=== PATIENT | female | born 1935 | race American Indian/Alaskan Native ===

== ENCOUNTER 2017-01-12 01:26 | Inpatient (IN) | payer MEDICARE ==
--- NOTE | 2017-01-12 03:08 | Emergency Department Report ---
ED GI Bleed HPI - General Chief complaint: GI Bleed Stated complaint: VOMITING Time Seen by Provider: 01/12/17 02:57 Source: EMS Mode of arrival: Stretcher Limitations: Physical Limitation, Other (ED caveat for dementia.) - History of Present Illness Initial comments: This is a 81-year-old female brought in by EMS from [facility] due to one episode of coffee-ground emesis. The patient has history of dementia. She is noncontributory in the history portion. Family members are at the bedside. They're very knowledgeable guarding the patient's medical history. Daughter indicates that the patient had have colonoscopy done just recently that which was unremarkable in general but for some area in the perirectal region the demonstrated some slight irritation and bleeding. This was thought to be due to constipation which the patient does suffer from. Patient did not have endoscopy performed. She is not having rectal bleeding but for occasional bright red blood with constipation. Patient does have occasional history of gaseous distention with abdominal pains. This was actually occurring earlier in the day today. Daughter indicates no history that she is aware of upper GI bleed. Patient does take Prevacid daily. I am not sure for the reason. According to the daughter the patient does not seem to be uncomfortable or complaining of specific pains at this time. - Related Data Home Medications Medication Instructions Recorded Confirmed Last Taken Aspirin EC [Aspirin Enteric Coated 81 mg PO QDAY 08/27/15 08/28/15 08/27/15 TAB] Cyanocobalamin (Vitamin B-12) 1,000 mcg SL QDAY 08/27/15 08/28/15 08/27/15 [Vitamin B-12] Doxazosin Mesylate [Cardura] 2 mg PO QHS 08/27/15 08/28/15 08/27/15 Escitalopram [Lexapro] 10 mg PO QHS 08/27/15 08/28/15 08/27/15 Lansoprazole [Prevacid] 15 mg PO QDAY 08/27/15 08/28/15 08/27/15 Memantine HCl [Namenda] 5 mg PO QHS 08/27/15 08/28/15 08/27/15 Pravastatin (Nf) [Pravachol] 20 mg PO QHS 08/27/15 08/28/15 08/27/15 predniSONE [Deltasone] 5 mg PO Q48HR 08/27/15 08/28/15 08/27/15 Previous Rx's Medication Instructions Recorded Last Taken Type Aspirin EC [Aspirin Enteric Coated 81 mg PO QDAY tablet 08/30/15 Unknown Rx TAB] Calcitriol [Rocaltrol] 1 mcg PO Q48HR #15 capsule 08/30/15 Unknown Rx Doxazosin [Cardura] 2 mg PO QHS tablet 08/30/15 Unknown Rx Labetalol [Normodyne TAB] 300 mg PO BID #60 tablet 08/30/15 Unknown Rx Levothyroxine [Synthroid] 25 mcg PO QAM #30 tablet 08/30/15 Unknown Rx Memantine Xr [Namenda Xr] 7 mg PO QHS #30 cap 08/30/15 Unknown Rx Pantoprazole [Protonix TAB] 20 mg PO QDAY #30 tablet.dr 08/30/15 Unknown Rx Simvastatin [Zocor TAB] 10 mg PO QHS #30 tablet 08/30/15 Unknown Rx Temazepam [Restoril] 30 mg PO QHS PRN #30 capsule 08/30/15 Unknown Rx azaTHIOprine [Imuran] 50 mg PO QDAY #30 tablet 08/30/15 Unknown Rx cloNIDine-TTS PATCH [Catapres-Tts 0.3 mg TD Q7D #4 patch 08/30/15 Unknown Rx Patch] hydrALAZINE [Apresoline TAB] 25 mg PO BID #60 tablet 08/30/15 Unknown Rx traMADol [Ultram 50 MG tab] 50 mg PO Q4HR PRN #60 tablet 08/30/15 Unknown Rx Allergies Allergy/AdvReac Type Severity Reaction Status Date / Time warfarin sodium AdvReac Mild Bleeding Verified 11/29/14 15:19 [From Coumadin] aliskiren hemifumarate AdvReac Rash Verified 06/15/15 07:34 [From Tekturna] ramipril [From Altace] AdvReac Rash Verified 06/15/15 07:34 ED Review of Systems ROS: Stated complaint: VOMITING Other details as noted in HPI Comment: her daughter Constitutional: denies: chills, fever Eyes: denies: eye pain, eye discharge, vision change ENT: denies: ear pain, throat pain Respiratory: denies: cough, shortness of breath, wheezing Cardiovascular: denies: chest pain, palpitations Endocrine: no symptoms reported Gastrointestinal: vomiting (per care facility), constipation. denies: abdominal pain, nausea, diarrhea Genitourinary: denies: urgency, dysuria, discharge Musculoskeletal: denies: back pain, joint swelling, arthralgia Skin: denies: rash, lesions Neurological: denies: headache, weakness, paresthesias Psychiatric: denies: anxiety, depression Hematological/Lymphatic: denies: easy bleeding, easy bruising ED Past Medical Hx - Past Medical History Previous Medical History?: Yes Hx Hypertension: Yes Hx Diabetes: No Hx Deep Vein Thrombosis: No Hx GERD: Yes Hx Arthritis: Yes Hx Headaches / Migraines: Yes Hx COPD: No Hx Tuberculosis: No Hx Dementia: Yes Hx HIV: No Additional medical history: high cholesterol, hypothyroid - Surgical History Past Surgical History?: Yes Hx Pacemaker: Yes (05/2011) Additional Surgical History: hysterectomy, , hernia repair - Social History Smoking Status: Never Smoker - Medications Home Medications: Home Medications Medication Instructions Recorded Confirmed Last Taken Type Aspirin EC [Aspirin Enteric Coated 81 mg PO QDAY 08/27/15 08/28/15 08/27/15 History TAB] Cyanocobalamin (Vitamin B-12) 1,000 mcg SL QDAY 08/27/15 08/28/15 08/27/15 History [Vitamin B-12] Doxazosin Mesylate [Cardura] 2 mg PO QHS 08/27/15 08/28/15 08/27/15 History Escitalopram [Lexapro] 10 mg PO QHS 08/27/15 08/28/15 08/27/15 History Lansoprazole [Prevacid] 15 mg PO QDAY 08/27/15 08/28/15 08/27/15 History Memantine HCl [Namenda] 5 mg PO QHS 08/27/15 08/28/15 08/27/15 History Pravastatin (Nf) [Pravachol] 20 mg PO QHS 08/27/15 08/28/15 08/27/15 History predniSONE [Deltasone] 5 mg PO Q48HR 08/27/15 08/28/15 08/27/15 History Aspirin EC [Aspirin Enteric Coated 81 mg PO QDAY tablet 08/30/15 Unknown Rx TAB] Calcitriol [Rocaltrol] 1 mcg PO Q48HR #15 capsule 12/24/15 Unknown Rx Doxazosin [Cardura] 2 mg PO QHS tablet 08/30/15 Unknown Rx Labetalol [Normodyne TAB] 300 mg PO BID #60 tablet 08/30/15 Unknown Rx Levothyroxine [Synthroid] 25 mcg PO QAM #30 tablet 08/30/15 Unknown Rx Memantine Xr [Namenda Xr] 7 mg PO QHS #30 cap 08/30/15 Unknown Rx Pantoprazole [Protonix TAB] 20 mg PO QDAY #30 tablet.dr 08/30/15 Unknown Rx Simvastatin [Zocor TAB] 10 mg PO QHS #30 tablet 08/30/15 Unknown Rx Temazepam [Restoril] 30 mg PO QHS PRN #30 capsule 08/30/15 Unknown Rx azaTHIOprine [Imuran] 50 mg PO QDAY #30 tablet 08/30/15 Unknown Rx cloNIDine-TTS PATCH [Catapres-Tts 0.3 mg TD Q7D #4 patch 08/30/15 Unknown Rx Patch] hydrALAZINE [Apresoline TAB] 25 mg PO BID #60 tablet 08/30/15 Unknown Rx traMADol [Ultram 50 MG tab] 50 mg PO Q4HR PRN #60 tablet 08/30/15 Unknown Rx ED Physical Exam - General Limitations: Physical Limitation General appearance: alert, in no apparent distress - Head Head exam: Present: atraumatic, normocephalic - Eye Eye exam: Present: normal appearance, EOMI. Absent: scleral icterus - ENT ENT exam: Present: normal exam, normal orophraynx, mucous membranes moist - Neck Neck exam: Present: normal inspection. Absent: tenderness, lymphadenopathy - Respiratory Respiratory exam: Present: normal lung sounds bilaterally. Absent: wheezes, rales - Cardiovascular Cardiovascular Exam: Present: regular rate, normal rhythm, systolic murmur, diastolic murmur - GI/Abdominal GI/Abdominal exam: Present: soft, normal bowel sounds. Absent: tenderness, guarding, rebound - Rectal Rectal exam: Present: other (stool heme negative) - Extremities Exam Extremities exam: Present: pedal edema (trace. Equal distal pedal pulses) - Back Exam Back exam: Present: normal inspection. Absent: CVA tenderness (R), CVA tenderness (L), paraspinal tenderness - Neurological Exam Neurological exam: Present: alert, other (smiles at me and is aware of my presence in the room. Does not respond to questions. Does not give any verbal cues or responses to me.) ED Course Vital Signs 01/12/17 01/12/17 01/12/17 01:51 01:58 02:00 Temperature 98.7 F Pulse Rate 65 Blood Pressure 154/76 154/67 154/67 O2 Sat by Pulse 99 Oximetry - Reevaluation(s) Reevaluation #1: 01/12/17 04:59 Noted to be mildly hypertensive here. Heart rate is normal at 66. She appears quite comfortable in general. Abdomen is quite soft. Was observed here for several hours. No further emesis noted here. She did have large bowel movement while here. This was noted to be guaiac negative. BUS and is 20. This is mildly elevated and could indicate upper GI bleed though it's not that impressive. She is noted to be hyponatremic. She appears euvolemic in general. I did elect to give her some IV fluids regardless. I did start her on pantoprazole bolus. I have not chosen to do a drip is I'm not seeing ongoing bleeding at this time. I did speak with Dr. Mejia from hospitalist service for admission. Family is agreeable with this plan as well. ED Medical Decision Making - Lab Data Result diagrams: 01/12/17 03:18 01/12/17 03:18 Critical care attestation.: If time is entered above; I have spent that time in minutes in the direct care of this critically ill patient, excluding procedure time. ED Disposition Clinical Impression: Upper GI bleed, Hyponatremia Disposition: OP ADMITTED IP TO THIS HOSP Is pt being admited?: Yes Does the pt Need Aspirin: No Condition: Stable Referrals: PRIMARY CARE, [Primary Care Provider] - 3-5 Days Forms: Accompanied Note Time of Disposition: 04:45
[2017-01-12 03:53] LABS: Basophils % (Auto) 0.6 % (0.0-1.8); Eosinophils % (Auto) 1.6 % (0.0-4.3); Hematocrit 30.9 % (30.3-42.9); Hemoglobin 10.3 gm/dl (10.1-14.3); Mean Corpuscular HGB Conc 33 % (30-34); Mean Corpuscular Hemoglobin 33 pg (28-32); Mean Corpuscular Volume 99 fl (79-97); Platelet Count 178 K/mm3 (140-440); Red Blood Count 3.11 M/mm3 (3.65-5.03); Red Cell Distribution Width 17.7 % (13.2-15.2); White Blood Count 4.2 K/mm3 (4.5-11.0)
[2017-01-12 03:56] LABS: Alanine Aminotransferase 12 units/L (7-56); Albumin 3.2 g/dL (3.9-5); Alkaline Phosphatase 41 units/L (35-129); Anion Gap 15 mmol/L; Blood Urea Nitrogen 20 mg/dL (7-17); Calcium 8.3 mg/dL (8.4-10.2); Carbon Dioxide 22 mmol/L (22-30); Chloride 96.6 mmol/L (98-107); Glucose 93 mg/dL (65-100); Sodium 130 mmol/L (137-145); Total Protein 6.5 g/dL (6.3-8.2)
[2017-01-12 04:02] LABS: INR 0.97 (0.87-1.13)
[2017-01-12] MEDS ORDERED: PROTONIX IV ONE ×2 (04:44→05:36)
[2017-01-12] MEDS ORDERED: NACL 0.9% 1000 ML 1,000 ML IV ONE (04:44)
[2017-01-12] MEDS ORDERED: DULCOLAX PR PRN (05:15)
[2017-01-12] MEDS ORDERED: MILK OF MAGNESIA PO PRN (05:15)
[2017-01-12] MEDS ORDERED: ZOFRAN IV PRN (05:15)
[2017-01-12] MEDS ORDERED: NACL 0.9% 1000 ML 1,000 ML ONE (05:37)
--- NOTE | 2017-01-12 05:57 | History and Physical Report ---
History of Present Illness Date of examination: 01/12/17 History of present illness: 81 -year-old woman with a history of hypertension, dementia, hyperlipidemia, hypothyroidism comes emergency room with complaints of hematemesis per the alf. Patient is unable to give a history. Daughter at bedside stated that patient had a recent colonoscopy, blood was found in the rectal vault, she is scheduled for follow-up with a specialist. Other review of system is unobtainable PAST SURGICAL HISTORY: , hernia repair, pacemaker SOCIAL HISTORY: intermediate resident, no alcohol, tobacco, drugs FAMILY HISTORY: hypertension Medications and Allergies Allergies Allergy/AdvReac Type Severity Reaction Status Date / Time warfarin sodium AdvReac Mild Bleeding Verified 11/29/14 15:19 [From Coumadin] aliskiren hemifumarate AdvReac Rash Verified 06/15/15 07:34 [From Tekturna] ramipril [From Altace] AdvReac Rash Verified 06/15/15 07:34 Home Medications Medication Instructions Recorded Confirmed Last Taken Type Aspirin EC [Aspirin Enteric Coated 81 mg PO QDAY 08/27/15 08/28/15 08/27/15 History TAB] Cyanocobalamin (Vitamin B-12) 1,000 mcg SL QDAY 08/27/15 01/12/17 08/27/15 History [Vitamin B-12] Doxazosin Mesylate [Cardura] 2 mg PO QHS 08/27/15 08/28/15 08/27/15 History Escitalopram [Lexapro] 10 mg PO QHS 08/27/15 01/12/17 08/27/15 History Lansoprazole [Prevacid] 15 mg PO QDAY 08/27/15 01/12/17 08/27/15 History Memantine HCl [Namenda] 5 mg PO QHS 08/27/15 08/28/15 08/27/15 History Pravastatin (Nf) [Pravachol] 20 mg PO QHS 08/27/15 01/12/17 08/27/15 History predniSONE [Deltasone] 5 mg PO Q48HR 08/27/15 01/12/17 01/11/17 History Aspirin EC [Aspirin Enteric Coated 81 mg PO QDAY tablet 08/30/15 01/12/17 Unknown Rx TAB] Calcitriol [Rocaltrol] 1 mcg PO Q48HR #15 capsule 08/30/15 01/12/17 Unknown Rx Doxazosin [Cardura] 2 mg PO QHS tablet 08/30/15 01/12/17 Unknown Rx Labetalol [Normodyne TAB] 300 mg PO BID #60 tablet 08/30/15 01/12/17 Unknown Rx Levothyroxine [Synthroid] 25 mcg PO QAM #30 tablet 08/30/15 01/12/17 Unknown Rx Memantine Xr [Namenda Xr] 7 mg PO QHS #30 cap 08/30/15 01/12/17 Unknown Rx Pantoprazole [Protonix TAB] 20 mg PO QDAY #30 tablet. 08/30/15 01/12/17 Unknown Rx Simvastatin [Zocor TAB] 10 mg PO QHS #30 tablet 08/30/15 01/12/17 Unknown Rx Temazepam [Restoril] 30 mg PO QHS PRN #30 capsule 08/30/15 01/12/17 Unknown Rx azaTHIOprine [Imuran] 50 mg PO QDAY #30 tablet 08/30/15 01/12/17 Unknown Rx cloNIDine-TTS PATCH [Catapres-Tts 0.3 mg TD Q7D #4 patch 08/30/15 01/12/17 Unknown Rx Patch] hydrALAZINE [Apresoline TAB] 25 mg PO BID #60 tablet 08/30/15 01/12/17 Unknown Rx traMADol [Ultram 50 MG tab] 50 mg PO Q4HR PRN #60 tablet 08/30/15 01/12/1701/11 Rx Active Meds: Active Medications Bisacodyl (Dulcolax) 10 mg DE QDAY PRN PRN Reason: [place] [facility] [place] Calcitriol (Rocaltrol) 1 mcg PO Q48HR DAVIDE Escitalopram Oxalate (Lexapro) 10 mg PO QHS DAVIDE Sodium Chloride (Nacl 0.45% 1000 Ml) 1,000 mls @ 75 mls/hr IV DIRECT DAVIDE Levothyroxine Sodium (Synthroid) 25 mcg PO QAM DAVIDE Magnesium Hydroxide (Milk Of Magnesia) 30 ml PO Q4H PRN PRN Reason: Constipation Ondansetron HCl (Zofran) 4 mg IV Q8H PRN PRN Reason: N/V unrelieved by Reglan Pantoprazole Sodium (Protonix) 40 mg IV DAILY DAVIDE Exam - Physical Exam Narrative exam: Gen. appearance: Patient lying in bed, no apparent distress HEENT: Normocephalic, atraumatic, pupils equally round and reactive to light, extraocular movement intact, and no sclericterus,. No JVD or thyromegaly or nodule,neck supple, no carotid bruit ,mucous membranes moist, no exudate or erythema Heart: S1, S2, regular rate and rhythm Lungs: Clear to auscultation bilaterally, breathing comfortable Abdomen: Positive bowel sounds, nontender, nondistended, no organomegaly Extremity: No edema, cyanosis, clubbing Skin: No rash, nodules, warm, dry Neuro: Oriented 3, cranial nerves II-12 intact, speech is fluent, motor and sensory intact - Constitutional Vitals: Temp Pulse Resp BP Pulse Ox 98.7 F 65 154/67 99 01/12/17 01:51 01/12/17 01:51 01/12/17 02:00 01/12/17 02:00 Results - Labs CBC & Chem 7: 01/12/17 03:18 01/12/17 03:18 Labs: Abnormal lab results 01/12/17 01/12/17 Range/Units 03:18 03:18 WBC 4.2 L (4.5-11.0) K/mm3 RBC 3.11 L (3.65-5.03) M/mm3 MCV 99 H (79-97) fl MCH 33 H (28-32) pg RDW 17.7 H (13.2-15.2) % Lymph % (Auto) 12.4 L (13.4-35.0) % [place] % (Auto) 9.8 H (0.0-7.3) % Lymph # 0.5 L (1.2-5.4) K/mm3 Seg Neutrophils % 75.6 H (40.0-70.0) % Sodium 130 L (137-145) mmol/L Chloride 96.6 L (98-107) mmol/L BUN 20 H (7-17) mg/dL Calcium 8.3 L (8.4-10.2) mg/dL Albumin 3.2 L (3.9-5) g/dL - Imaging and Cardiology EKG: image reviewed Assessment and Plan Of HEENT, probably also Hypertension Dementia Hyperlipidemia Hypothyroidism Emits medicine Start IV fluids, Protonix, consult GI, check serial hemoglobin continue appropiate outpatient medications Start DVT prophylaxis with SCD
[2017-01-12] MEDS ORDERED: NACL 0.45% 1000 ML 1,000 ML IV SCH (06:00)
--- NOTE | 2017-01-12 07:52 | Admit Criteria Form ---
Admission Criteria Documentation: GASTROINTESTINAL BLEEDING, UPPER Clinical Indications for Admission to Inpatient Care ( Place 'X' for any and all applicable criteria): Admission is indicated for ANY ONE of the following(1)(2)(3)(4)(5)(6): [ ]I. Active bleeding (eg, fresh voluminous blood in emesis or nasogastric aspirate) [ ]II. Associated conditions requiring hospitalization (eg, perforation, obstruction from ulcer) [X]III. Inpatient admission required rather than observation care (Also use Gastrointestinal Bleeding, Upper: Observation Care as appropriate) because of ANY ONE of the following: [ ]a) Hemodynamic instability that is severe or persistent [ ]b) Anemia requiring inpatient admission as indicated by ALL of the following: [ ]1) Presence of significant clinical finding indicated by ANY ONE of the following: [ ]A. Tachycardia for age [ ]B. Orthostatic vital sign changes [ ]C. Cognitive impairment [ ]D. Heart failure [ ]E. Chest pain [ ]F. Exertional dyspnea [ ]G. Other findings suggesting inadequate perfusion (eg, peripheral or myocardial ischemia, end organ dysfunction) [ ]2) Initial (eg, emergency department, observation care) treatment with transfusion or volume replacement is judged inappropriate (due to severity of the finding) or has been ineffective [ ]c) Severe pain requiring acute inpatient management [ ]d) High-risk low platelet count [ ]e) IV fluid to replace significant ongoing losses (greater than 3 L/m2 per day) [ ]f) Immediate inpatient surgery [X]g) Other condition, treatment or monitoring requiring inpatient admission [ ]IV. Severe liver disease (eg, cirrhosis) [ ]V. Significant active comorbid disease [ ]. Anticoagulation therapy [ ]VII. High-risk endoscopic features (arterial bleeding, adherent clot, nonbleeding visible vessel, varices, flat red spots, ulcer size greater than 2 cm, or portal hypertensive gastropathy) [ ]VIII. Previous aortic graft placement or known aortic aneurysm [ ]IX. Coagulopathy [ ]X. Syncope Extended stay beyond goal length of stay may be needed for(1)(2): [ ]a) Emergency surgery [ ]b) Varices [ ]c) Coagulation abnormalities [ ]d) Recurrent, obscure, or persistent bleeding or continued Hemodynamic instability [ ]e) Associated conditions requiring surgery (eg, perforated gastric ulcer, gastric outlet obstruction) [ ]f) Active comorbidities (eg, renal insufficiency, heart failure, pre- existing liver disease) The original [facility] [employer]. content created by [facility] has been revised. The portions of the content which have been revised are identified through the use of italic text or in bold, and [facility] has neither reviewed nor approved the modified material. All other unmodified content is copyright [facility] [employer]. Please see references footnoted in the original [facility] [employer] edition 2016 Admission Criteria Met: Yes
[2017-01-12] MEDS ORDERED: ROCALTROL PO SCH (10:00)
[2017-01-12] MEDS ORDERED: PROTONIX IV SCH (10:00)
[2017-01-12 10:30] LABS: Hematocrit 27.8 % (30.3-42.9); Hemoglobin 9.4 gm/dl (10.1-14.3)
[2017-01-12] MEDS ORDERED: D5/0.45NS 1,000 ML IV SCH (11:00)
[2017-01-12] MEDS ORDERED: SODIUM BICARBONATE FEEDTUBE PRN (13:20)
[2017-01-12] MEDS ORDERED: PANCREAZE DR 10,500 UNIT FEEDTUBE PRN (13:20)
[2017-01-12] MEDS ORDERED: SIMPLE SYRUP FEEDTUBE PRN ×2 (13:20)
[2017-01-12] MEDS ORDERED: RESTORIL PO PRN (13:22)
[2017-01-12] MEDS ORDERED: ULTRAM PO PRN (13:22)
[2017-01-12] MEDS ORDERED: CATAPRES-TTS PATCH TD SCH (14:00)
--- NOTE | 2017-01-12 14:14 | Gastroenterology Consultation ---
History of Present Illness - Reason for Consult Consult date: 01/12/17 Hematemesis Requesting physician: WAQAS MEJIA - History of Present Illness The patient is a 81-year-old female with a history of dementia now admitted for hematemesis. The patient vomited coffee-colored material approximately 12:30 AM today as relayed from the [facility] staff to the family. The patient is unable to give any history. Her sister at bedside reports that the patient had a colonoscopy 3 weeks ago for rectal bleeding and was found to have a small benign polyp and a rectal ulcer which was felt to be benign and related to a fecal impaction. The patient has had constipation and did have a large bowel movement since admitted here which was non-melenic, nonbloody and Hemoccult negative. She had some abdominal pain which has resolved after her large bowel movement. There is no history of prior gastrointestinal bleeding or ulcer disease. Her hemoglobin dropped to 9.4 from 10 overnight. Past History Past Medical History: other (advanced dementia) Past Surgical History: Other (known) Social history: other (lives in a [facility]). denies: smoking, alcohol abuse Family history: no significant family history Medications and Allergies Allergies Allergy/AdvReac Type Severity Reaction Status Date / Time warfarin sodium AdvReac Mild Bleeding Verified 11/29/14 15:19 [From Coumadin] aliskiren hemifumarate AdvReac Rash Verified 06/15/15 07:34 [From Tekturna] ramipril [From Altace] AdvReac Rash Verified 06/15/15 07:34 Home Medications Medication Instructions Recorded Confirmed Last Taken Type Aspirin EC [Aspirin Enteric Coated 81 mg PO QDAY 08/27/15 08/28/15 08/27/15 History TAB] Cyanocobalamin (Vitamin B-12) 1,000 mcg SL QDAY 08/27/15 01/12/17 08/27/15 History [Vitamin B-12] Doxazosin Mesylate [Cardura] 2 mg PO QHS 08/27/15 08/28/15 08/27/15 History Escitalopram [Lexapro] 10 mg PO QHS 08/27/15 01/12/17 08/27/15 History Lansoprazole [Prevacid] 15 mg PO QDAY 08/27/15 01/12/17 08/27/15 History Memantine HCl [Namenda] 5 mg PO QHS 08/27/15 08/28/15 08/27/15 History Pravastatin (Nf) [Pravachol] 20 mg PO QHS 08/27/15 01/12/17 08/27/15 History predniSONE [Deltasone] 5 mg PO Q48HR 08/27/15 01/12/17 01/11/17 History Aspirin EC [Aspirin Enteric Coated 81 mg PO QDAY tablet 08/30/15 01/12/17 Unknown Rx TAB] Calcitriol [Rocaltrol] 1 mcg PO Q48HR #15 capsule 08/30/15 01/12/17 Unknown Rx Doxazosin [Cardura] 2 mg PO QHS tablet 08/30/15 01/12/17 Unknown Rx Labetalol [Normodyne TAB] 300 mg PO BID #60 tablet 08/30/15 01/12/17 Unknown Rx Levothyroxine [Synthroid] 25 mcg PO QAM #30 tablet 08/30/15 01/12/17 Unknown Rx Memantine Xr [Namenda Xr] 7 mg PO QHS #30 cap 08/30/15 01/12/17 Unknown Rx Pantoprazole [Protonix TAB] 20 mg PO QDAY #30 tablet. 08/30/15 01/12/17 Unknown Rx Simvastatin [Zocor TAB] 10 mg PO QHS #30 tablet 08/30/15 01/12/17 Unknown Rx Temazepam [Restoril] 30 mg PO QHS PRN #30 capsule 08/30/15 01/12/17 Unknown Rx azaTHIOprine [Imuran] 50 mg PO QDAY #30 tablet 08/30/15 01/12/17 Unknown Rx cloNIDine-TTS PATCH [Catapres-Tts 0.3 mg TD Q7D #4 patch 08/30/15 01/12/17 Unknown Rx Patch] hydrALAZINE [Apresoline TAB] 25 mg PO BID #60 tablet 08/30/15 01/12/17 Unknown Rx traMADol [Ultram 50 MG tab] 50 mg PO Q4HR PRN #60 tablet 08/30/15 01/12/1701/11 Rx Active Meds: Active Medications Lipase/Protease/Amylase (Yonatan Smith 10,500 Unit) 1 each FEEDTUBE PRN PRN PRN Reason: For Clogged Feeding Tube Aspirin (Halfprin Ec) 81 mg PO QDAY DAVIDE Azathioprine (Imuran) 50 mg PO QDAY DAVIDE Bisacodyl (Dulcolax) 10 mg SC QDAY PRN PRN Reason: Constipation unrelieved by MOM Calcitriol (Rocaltrol) 1 mcg PO Q48HR [facility] Last Admin: 01/12/17 10:06 Dose: 1 mcg Clonidine HCl (Catapres-Tts Patch) 0.3 mg TD Q7D [facility] Cyanocobalamin (Vitamin B-12) 1,000 mcg PO QDAY DAVIDE Doxazosin Mesylate (Cardura) 2 mg PO QHS DAVIDE Escitalopram Oxalate (Lexapro) 10 mg PO QHS [facility] Hydralazine HCl (Apresoline) 25 mg PO BID [facility] Dextrose/Sodium Chloride (D5/0.45ns) 1,000 mls @ 75 mls/hr IV DIRECT [facility] Last Admin: 01/12/17 12:07 Dose: 75 mls/hr Labetalol HCl (Normodyne) 300 mg PO BID [facility] Levothyroxine Sodium (Synthroid) 25 mcg PO 0600 [facility] Magnesium Hydroxide (Milk Of Magnesia) 30 ml PO Q4H PRN PRN Reason: Constipation Memantine (Namenda Xr) 7 mg PO QHS [facility] Ondansetron HCl (Zofran) 4 mg IV Q8H PRN PRN Reason: N/V unrelieved by Reglan Pantoprazole Sodium (Protonix) 40 mg IV BID [facility] Prednisone (Deltasone) 5 mg PO Q48HR [facility] Simple Syrup (Simple Syrup) 15 ml FEEDTUBE PRN PRN PRN Reason: Hypoglycemia Simple Syrup (Simple Syrup) 30 ml FEEDTUBE PRN PRN PRN Reason: Hypoglycemia Simvastatin (Zocor) 10 mg PO QHS DAVIDE Simvastatin (Zocor) 10 mg PO QHS [facility] Sodium Bicarbonate (Sodium Bicarbonate) 325 mg FEEDTUBE PRN PRN PRN Reason: For Clogged Feeding Tube Temazepam (Restoril) 30 mg PO QHS PRN PRN Reason: Sleep Tramadol HCl (Ultram) 50 mg PO Q4HR PRN PRN Reason: Pain Review of Systems - Review of Systems ROS unobtainable: due to mental status Exam - Constitutional Vital Signs: Temp Pulse Resp BP Pulse Ox 98.0 F 70 20 168/98 99 01/12/17 12:40 01/12/17 10:00 01/12/17 12:40 01/12/17 12:40 01/12/17 10:00 General appearance: no acute distress, well-nourished, other (nonverbal) - EENT Eyes: PERRL ENT: hearing intact, other (mouth and pharynx could not be inspected due to lack of cooperation) - Neck Neck: supple, normal ROM, no masses or JVD - Respiratory Respiratory effort: normal Respiratory: bilateral: CTA - Breasts Breasts: deferred - Cardiovascular Rhythm: regular Heart Sounds: Present: S1 & S2. Absent: gallop, rub Extremities: pulses intact, No edema, normal color, Full ROM - Gastrointestinal General gastrointestinal: Present: soft, non-tender, normal bowel sounds, other (obese). Absent: hepatomegaly, splenomegaly, mass Rectal Exam: deferred - Genitourinary Female Genitourinary: deferred - Integumentary Integumentary: Present: clear, warm, dry - Neurologic Neurological: disoriented - Psychiatric Psychiatric: other (cannot be evaluated due to dementia) - Labs CBC & Chem 7: 01/12/17 10:08 01/12/17 03:18 Lab Results: Laboratory Results - last 24 hr 01/12/17 10:08 Hgb 9.4 L Hct 27.8 L Assessment and Plan - Patient Problems (1) Upper GI bleed Current Visit: Yes Status: Acute Plan to address problem: Minor upper GI bleed is evident. Rule out peptic ulcer disease, gastritis, esophagitis. Less likely neoplasia. The family desires endoscopic study and EGD was discussed at length with the patient's daughters, one at bedside and the other over the phone. Thank you very much Dr. Mejia for asking me to see Mrs. Conklin in consultation. (2) Chronic renal insufficiency Current Visit: No Status: Acute Qualifiers: Chronic kidney disease stage: unspecified stage Qualified Code(s): N18.9 - Chronic kidney disease, unspecified (3) Dementia Current Visit: No Status: Acute Qualifiers: Dementia type: Alzheimer's disease Alzheimer's disease onset: unspecified onset Dementia behavioral disturbance: with behavioral disturbance Qualified Code(s): G30.8 - Other Alzheimer's disease (4) Pacemaker Current Visit: No Status: Acute
--- NOTE | 2017-01-12 16:01 | Event Note ---
Date: 01/12/17 Patient seen and examined. 81 -year-old woman with a history of hypertension, dementia, hyperlipidemia, hypothyroidism comes emergency room with complaints of hematemesis per the long term report. She was seen by GI today and plan to have endoscopy tomorrow.
[2017-01-12] MEDS: APRESOLINE IV PRN (17:24)
[2017-01-12] MEDS ORDERED: LEXAPRO PO SCH (22:00)
[2017-01-12] MEDS ORDERED: CARDURA PO SCH (22:00)
[2017-01-12] MEDS ORDERED: PRAVASTATIN 20 MG PO SCH (22:00)
[2017-01-12] MEDS ORDERED: NAMENDA XR PO SCH (22:00)
[2017-01-12] MEDS ORDERED: ZOCOR PO SCH ×2 (22:00)
[2017-01-12] MEDS: NORMODYNE PO SCH (22:14)
[2017-01-12] MEDS: PROTONIX IV SCH (22:15)
[2017-01-12] MEDS: APRESOLINE PO SCH (22:17)
[2017-01-13 05:44] LABS: Basophils % (Auto) 0.5 % (0.0-1.8); Eosinophils % (Auto) 1.2 % (0.0-4.3); Hematocrit 27.3 % (30.3-42.9); Hemoglobin 9.2 gm/dl (10.1-14.3); Mean Corpuscular HGB Conc 34 % (30-34); Mean Corpuscular Hemoglobin 33 pg (28-32); Mean Corpuscular Volume 99 fl (79-97); Platelet Count 179 K/mm3 (140-440); Red Blood Count 2.77 M/mm3 (3.65-5.03); Red Cell Distribution Width 17.7 % (13.2-15.2); White Blood Count 3.2 K/mm3 (4.5-11.0)
[2017-01-13 05:49] LABS: Anion Gap 15 mmol/L; BUN/Creatinine Ratio 17.77; Blood Urea Nitrogen 16 mg/dL (7-17); Calcium 8.1 mg/dL (8.4-10.2); Carbon Dioxide 21 mmol/L (22-30); Chloride 99.1 mmol/L (98-107); Glucose 113 mg/dL (65-100); Potassium 4.1 mmol/L (3.6-5.0); Sodium 131 mmol/L (137-145)
[2017-01-13] MEDS ORDERED: SYNTHROID PO SCH (06:00)
--- NOTE | 2017-01-13 08:18 | Progress Note ---
Assessment and Plan Assessment and plan: Elderly woman with dementia who was admitted for hematemesis 1. Hematemesis/upper GI bleed Hemoglobin stable, GI consult appreciated, plan for EGD today. 2. Dementia Continue supportive care 3. Hypertension, uncontrolled Optimize medications 4. DVT prophylaxis SCDs History Interval history: She is no longer vomiting, appears comfortable, Demented, mostly nonverbal speaks a few words Hospitalist Physical - Physical exam Narrative exam: General: Patient appears well in no distress HEENT: MMM, EOMI cardiac: S1-S2 heard lungs: clear to auscultation, abdomen: soft, nontender, nondistended bowel sounds positive extremities: no edema clubbing or cyanosis Skin: no rash or lesion Neuro: Does not obey commands, actively chewing opens her eyes turns to voice, appears to mumble some words, bedbound, moves upper extremities, not conversant , advanced dementia - Constitutional Vitals: Temp Pulse Resp BP Pulse Ox 98.2 F 91 H 20 164/74 99 01/13/17 04:38 01/13/17 04:38 01/13/17 04:38 01/13/17 04:38 01/13/17 04:38 Results - Labs CBC & Chem 7: 01/13/17 04:06 01/13/17 04:06 Labs: Laboratory Last Values WBC 3.2 K/mm3 (4.5-11.0) L 01/13/17 04:06 RBC 2.77 M/mm3 (3.65-5.03) L 01/13/17 04:06 Hgb 9.2 gm/dl (10.1-14.3) L 01/13/17 04:06 Hct 27.3 % (30.3-42.9) L 01/13/17 04:06 MCV 99 fl (79-97) H 01/13/17 04:06 MCH 33 pg (28-32) H 01/13/17 04:06 MCHC 34 % (30-34) 01/13/17 04:06 RDW 17.7 % (13.2-15.2) H 01/13/17 04:06 Plt Count 179 K/mm3 (140-440) 01/13/17 04:06 Lymph % (Auto) 15.3 % (13.4-35.0) 01/13/17 04:06 Mobile % (Auto) 10.1 % (0.0-7.3) H 01/13/17 04:06 Eos % (Auto) 1.2 % (0.0-4.3) 01/13/17 04:06 Baso % (Auto) 0.5 % (0.0-1.8) 01/13/17 04:06 Lymph # 0.5 K/mm3 (1.2-5.4) L 01/13/17 04:06 Mobile # 0.3 K/mm3 (0.0-0.8) 01/13/17 04:06 Eos # 0.0 K/mm3 (0.0-0.4) 01/13/17 04:06 Baso # 0.0 K/mm3 (0.0-0.1) 01/13/17 04:06 Seg Neutrophils % 72.9 % (40.0-70.0) H 01/13/17 04:06 Seg Neutrophils # 2.3 K/mm3 (1.8-7.7) 01/13/17 04:06 PT 12.8 Sec. (12.2-14.9) 01/12/17 03:18 INR 0.97 (0.87-1.13) 01/12/17 03:18 Sodium 131 mmol/L (137-145) L 01/13/17 04:06 Potassium 4.1 mmol/L (3.6-5.0) 01/13/17 04:06 Chloride 99.1 mmol/L (98-107) 01/13/17 04:06 Carbon Dioxide 21 mmol/L (22-30) L 01/13/17 04:06 Anion Gap 15 mmol/L 01/13/17 04:06 BUN 16 mg/dL (7-17) 01/13/17 04:06 Creatinine 0.9 mg/dL (0.7-1.2) 01/13/17 04:06 Estimated GFR > 60 ml/min 01/13/17 04:06 BUN/Creatinine Ratio 17.77 % 01/13/17 04:06 Glucose 113 mg/dL (65-100) H 01/13/17 04:06 Calcium 8.1 mg/dL (8.4-10.2) L 01/13/17 04:06 Total Bilirubin 0.30 mg/dL (0.1-1.2) 01/12/17 03:18 AST 27 units/L (5-40) 01/12/17 03:18 ALT 12 units/L (7-56) 01/12/17 03:18 Alkaline Phosphatase 41 units/L (35-129) 01/12/17 03:18 Total Protein 6.5 g/dL (6.3-8.2) 01/12/17 03:18 Albumin 3.2 g/dL (3.9-5) L 01/12/17 03:18 Albumin/Globulin Ratio 1.0 % 01/12/17 03:18 Blood Type O POSITIVE 01/12/17 03:18 Antibody Screen TNR 01/12/17 03:18 SARBJIT Antibody Screen Negative 01/12/17 03:18
[2017-01-13] MEDS: NORMODYNE PO SCH (09:01)
[2017-01-13] MEDS: APRESOLINE PO SCH (09:01)
[2017-01-13] MEDS: APRESOLINE IV PRN ×2 (09:04→17:41)
[2017-01-13] MEDS ORDERED: IMURAN PO SCH (10:00)
[2017-01-13] MEDS ORDERED: NON-FORMULARY (Cyanocobalamin (Vitamin B-12) [Vitamin B-12] 1,000 MCG) SL SCH (10:00)
[2017-01-13] MEDS ORDERED: VITAMIN B-12 PO SCH (10:00)
[2017-01-13] MEDS ORDERED: HALFPRIN EC PO SCH (10:00)
[2017-01-13] MEDS ORDERED: PROTONIX PO SCH (10:00)
[2017-01-13] MEDS: PROTONIX IV SCH (10:08)
[2017-01-13] MEDS ORDERED: NACL 0.9% 1000 ML 1,000 ML IV SCH (13:00)
--- NOTE | 2017-01-13 13:35 | Anesthesia Consultation ---
Anesthesia Consult and Med Hx - Airway Anesthetic Teeth Evaluation: Edentulous ROM Head & Neck: Adequate Mental/Hyoid Distance: Adequate Mallampati Class: Class III Intubation Access Assessment: Possibly Difficult - Pulmonary Exam CTA: Yes - Cardiac Exam Cardiac Exam: RRR (Aortic Stenosis) - Pre-Operative Health Status ASA Pre-Surgery Classification: ASA4 Proposed Anesthetic Plan: MAC - Pulmonary Hx Smoking: No COPD: No Hx Pneumonia: Yes - Cardiovascular System Hx Hypertension: Yes Hx Pacemaker: Yes (05/2011) Hx Valvular Heart Disease: (aortic valve stenoisis) - Central Nervous System Hx Psychiatric Problems: Yes - Endocrine Hx Hypothyroidism: Yes - Hematic Hx Anemia: Yes - Other Systems Hx Cancer: No - Additional Comments Anesthesia Medical History Comments: Dementia. Pacemaker. Hypothyroidism. Arthritys. Hyponatremia. Aortic Stenosis. Right Sided weakness
--- NOTE | 2017-01-13 13:37 | Anesthesia Day of Surgery ---
Anesthesia Day of Surgery - Day of Surgery Patient Examined: Yes Patient H&P Reviewed: Yes Patient is NPO: Yes Beta Blockers: Yes (Last dose within 24 hrs)
[2017-01-13] MEDS ORDERED: SUBLIMAZE ONE (14:08)
[2017-01-13] MEDS ORDERED: DIPRIVAN 10 MG/ML IV ONE (14:08)
--- NOTE | 2017-01-13 14:36 | Post Operative Note ---
Pre-op diagnosis: Coffee ground emesis Post-op diagnosis: other (Migrated PEG tube) Findings: 1. PEG Balloon migrated to duodenal bulb (retracted into body of stomach; external bumper fixed at 5cm) 2. Moderate hiatal hernia Procedure: EGD Anesthesia: MAC Surgeon: VITOR STRNIGER Estimated blood loss: none Pathology: none Specimen disposition: other (N/A) Condition: stable Disposition: floor (Recs: 1. Resume tube feeds. 2. Tape fixed to prevent migration of PEG balloon to duodenum. 3. OK to d/c home per our service.)
--- NOTE | 2017-01-13 16:37 | Discharge Summary ---
Providers - Providers Date of Admission: 01/12/17 05:16 Attending physician: CE DURAN MD Primary care physician: FLUE LINING DIPPER Hospitalization Condition: Stable Hospital course: 81-year-old woman with past medical history of dementia, hypertension status post PEG tube who presented with multiple episodes of emesis, it was noted that some of them appear to be coffee-ground. Upon arriving in the hospital she was made nothing by mouth, given bowel rest, the hemoglobin was noted to be stable, as the GI bleed was suspected she went on to have EGD, which showed migration of the PEG balloon to the duodenal bulb, the balloon was placed in the appropriate place, and he was thought to be the most likely cause of her emesis : No signs of GI bleeding were found. Her symptoms were resolved prior to discharge next Discharge diagnoses 1. GI Tract, Hyperkinesis due to PEG tube malfunction 2. Dementia 3. Hypertension Disposition: DC/TX [facility] Time spent for discharge: 35 minutes Core Measure Documentation - Palliative Care Palliative Care/ Comfort Measures: Not Applicable - Core Measures Any of the following diagnoses?: none Exam - Physical Exam Narrative exam: General: Patient appears well in no distress HEENT: MMM, EOMI cardiac: S1-S2 heard lungs: clear to auscultation, abdomen: soft, nontender, nondistended bowel sounds positive extremities: no edema clubbing or cyanosis Skin: no rash or lesion Neuro: Does not obey commands, actively chewing opens her eyes turns to voice, appears to mumble some words, bedbound, moves upper extremities, not conversant , advanced dementia - Constitutional Vitals: Temp Pulse Resp BP Pulse Ox 99.0 F 81 19 163/81 100 01/13/17 14:36 01/13/17 15:06 01/13/17 15:06 01/13/17 15:06 01/13/17 15:06 Plan Follow up with: PRIMARY CAREMD [Primary Care Provider] - 3-5 Days Forms: Accompanied Note Prescriptions: traMADol [Ultram 50 MG tab] 50 mg PO Q4HR PRN #7 tablet PRN Reason: Pain
--- NOTE | 2017-01-13 19:19 | Operative Report ---
PROCEDURE PERFORMED: Esophagogastroduodenoscopy. PREOPERATIVE DIAGNOSIS: Nausea and vomiting. POSTOPERATIVE DIAGNOSES: Migrated gastrostomy tube balloon, hiatal hernia. ENDOSCOPIST: Willie Bell M.D. INSTRUMENT: [place] Reseach video endoscope. MEDICATIONS: MAC anesthesia by Anesthesia Services. COMPLICATIONS: No apparent complications. ESTIMATED BLOOD LOSS: None. SPECIMENS: None. IMPLANTS: None. FIELD SAMPLING TECHNICIAN: None. CONDITION AT DISCHARGE: Stable. TECHNIQUE: The patient's daughter provided informed consent since the patient has chronic dementia. After consent was obtained, the patient was placed in left lateral decubitus position. The above sedative medications were given. Her vital signs remained stable throughout the procedure. The instrument was advanced from the mouth to the antrum of the stomach under direct visualization. There was noted to the patient's gastrostomy tube balloon had migrated into the duodenal bulb with gentle pulling on the gastrostomy tube. We refixed the balloon so there was flushed against the abdominal wall and the exam was completed. FINDINGS: 1. No blood and no blood clots in the upper GI tract. 2. Gastrostomy tube balloon had migrated into the duodenal bulb; it was retracted into the body of the stomach; the external bumper is now fixed at 5 cm. 3. Moderate size hiatal hernia. RECOMMENDATIONS: 1. Resume tube feeds. 2. Tape was fixed with the external bumper to prevent migration of the PEG balloon into the duodenum. 3. Okay to discharge the patient home per our service. JOB# [id number] MANAV/NTS
[2017-01-13 20:02] VITALS: BP 151/65
[2017-01-14] MEDS ORDERED: DELTASONE PO SCH (10:00)
== END 2017-01-13 20:04 | DRG 327 ==
LOC: ED 01:26 → 4A 05:16
PROVIDERS: ADMIT Internal Medicine; ATTEND Internal Medicine
PROC: 0DW68UZ Revision of Feeding Device in Stomach, Via Natural or Artificial Opening Endoscopic (ICD-10-PCS; principal; 2017-01-13)
DX: K94.23 Gastrostomy malfunction (principal); E87.1 Hypo-osmolality and hyponatremia; R71.0 Precipitous drop in hematocrit; E78.5 Hyperlipidemia, unspecified; E03.9 Hypothyroidism, unspecified; F03.90 Unspecified dementia, unspecified severity, without behavioral disturbance, psychotic disturbance, mood disturbance, and anxiety; K21.9 Gastro-esophageal reflux disease without esophagitis; M19.90 Unspecified osteoarthritis, unspecified site; G43.909 Migraine, unspecified, not intractable, without status migrainosus; E78.00 Pure hypercholesterolemia, unspecified; N18.9 Chronic kidney disease, unspecified; I12.9 Hypertensive chronic kidney disease with stage 1 through stage 4 chronic kidney disease, or unspecified chronic kidney disease; K44.9 Diaphragmatic hernia without obstruction or gangrene; Y83.8 Other surgical procedures as the cause of abnormal reaction of the patient, or of later complication, without mention of misadventure at the time of the procedure; I35.0 Nonrheumatic aortic (valve) stenosis; Z95.0 Presence of cardiac pacemaker; Z79.82 Long term (current) use of aspirin; Z79.899 Other long term (current) drug therapy; Z88.8 Allergy status to other drugs, medicaments and biological substances; Z90.710 Acquired absence of both cervix and uterus; Z82.49 Family history of ischemic heart disease and other diseases of the circulatory system; Y92.89 Other specified places as the place of occurrence of the external cause
CPT/HCPCS: 36415; 80048; 80053; 85014; 85018; 85025; 85610; 86850; 86900; 86901; 96374; C9113; J0360; J2704; J3010; J7030; J7500

== ENCOUNTER 2017-08-21 15:57 | Inpatient (IN) | payer MEDICARE ==
[2017-08-21] MEDS ORDERED: PROVENTIL IH ONE (16:08)
[2017-08-21] MEDS ORDERED: ATROVENT IH ONE (16:08)
[2017-08-21] MEDS ORDERED: NITRO-BID 2% TP ONE (16:08)
[2017-08-21 16:18] LABS: ISTAT Base Excess -4; ISTAT PCO2 57.7 (35-45); ISTAT PH 7.228 (7.35-7.45); ISTAT PO2 192 (80-105); ISTAT SO2 99; ISTAT TCO2 26
[2017-08-21 16:46] LABS: Basophils % (Auto) 0.1 % (0.0-1.8); Eosinophils % (Auto) 0.4 % (0.0-4.3); Hematocrit 25.1 % (30.3-42.9); Hemoglobin 8.3 gm/dl (10.1-14.3); Mean Corpuscular HGB Conc 33 % (30-34); Mean Corpuscular Hemoglobin 30 pg (28-32); Mean Corpuscular Volume 90 fl (79-97); Platelet Count 246 K/mm3 (140-440); Red Blood Count 2.79 M/mm3 (3.65-5.03); White Blood Count 7.6 K/mm3 (4.5-11.0)
[2017-08-21 16:51] LABS: Bacteria,Urine 4+ /HPF (Negative); Bilirubin,Urine NEG (Negative); Blood,Urine NEG (Negative); Ketones,Urine NEG (Negative); Leukocyte Esterase,Urine LG (Negative); Mucus,Urine FEW /HPF; Nitrite,Urine NEG (Negative); Urobilinogen,Urine < 2.0 mg/dL (<2.0)
[2017-08-21 16:57] LABS: Protein,Urine >500 mg/dL (Negative)
[2017-08-21 16:57] LABS: Red Cell Distribution Width 22.3 % (13.2-15.2)
[2017-08-21 17:04] LABS: Albumin 3.3 g/dL (3.9-5); Albumin/Globulin Ratio 0.8 %; Bilirubin,Total 0.3 mg/dL (0.1-1.2); Calcium 8.3 mg/dL (8.4-10.2); Chloride 89.7 mmol/L (98-107); Potassium 5.1 mmol/L (3.6-5.0); Total Protein 7.4 g/dL (6.3-8.2)
--- NOTE | 2017-08-21 18:03 | Emergency Department Report ---
ED General Adult HPI - General Chief complaint: Dyspnea/Respdistress Stated complaint: FABIAN Time Seen by Provider: 08/21/17 16:08 Source: EMS Mode of arrival: Stretcher Limitations: Other - History of Present Illness Initial comments: Chief complaint shortness of breath history of present illness this is a retirement patient who was felt to be short of breath earlier today the retirement also thought she was maybe a little bit altered she really does have chronic medical conditions including chronic kidney disease she is here for evaluation of diffuse pulmonary infiltrate shortness of breath and altered mental status she is unable to give further history Past medical history soft for Alzheimer's disease chronic anemia unspecified chronic kidney disease chronic decubitus ulcer history of heart failure Social history lives at [facility] Complete review of systems is unobtainable given the patient's Alzheimer Physical exam vital signs Temperature 97.9 blood pressure 09/30/1962 respirations 12 pulse is 62 the room air sat was depressed when she got here she was altered with lethargy Neck was supple HEENT atraumatic normocephalic Lungs had crackles and wheezes with rhonchi throughout with moderate to severe restaurant distress Cardiac was tachycardia S1-S2 no rub appreciated no Abdomen is soft nontender Extremities had pitting edema Neuro she localized pain and was a unable to perform sensory exam Skin had no rash ED course EKG showed atrial paced rhythm no acute ST change Laboratory studies show abg w rest aidsis therefore patient was placed on BiPAP She was given nitrates and Lasix chest x-ray did show congestion at this point I 'm Dr. Argueta was notified for admission [facility] is 30 minutes Clinical impression is respiratory failure #1 #2 hypoxemia #3 altered mental status Disposition admit Severity scale (0 -10): 0 - Related Data Home Medications Medication Instructions Recorded Confirmed Last Taken Acetaminophen [Tylenol] 650 mg PO Q6HR PRN 08/21/17 08/21/17 Unknown Aspirin [Lo-Dose Aspirin EC] 81 mg PO DAILY 08/21/17 08/21/17 Unknown Brimonidine Tartrate [Brimonidine 1 drop OU Q8HR 08/21/17 08/21/17 Unknown Tartrate 0.2%] Cyanocobalamin [Vitamin B-12] 1,000 mcg PO DAILY 08/21/17 08/21/17 Unknown Esomeprazole Magnesium [NexIUM] 20 mg PO QDAY 08/21/17 08/21/17 Unknown Fenofibrate [Tricor] 145 mg PO HS 08/21/17 08/21/17 Unknown Ferrous Sulfate [Ferrous Sulfate 300 mg PO Q8H 08/21/17 08/21/17 Unknown Oral Liq 300 Mg/5 Ml] Hydralazine HCl 100 mg PO TID 08/21/17 08/21/17 Unknown Labetalol HCl 300 mg PO Q12H 08/21/17 08/21/17 Unknown Latanoprost 0.005% [Xalatan 0.005%] 1 drop OP QPM 08/21/17 08/21/17 Unknown Levothyroxine [Synthroid] 25 mcg PO QAM 08/21/17 08/21/17 Unknown Melatonin [Melatin] 3 mg PO QHS 08/21/17 08/21/17 Unknown Multivit-Minerals/Ferrous Gluc 5 ml PO DAILY 08/21/17 08/21/17 Unknown [Centrum Multivit-Mineral Liq] Oxycodone HCl/Acetaminophen 1 each PO Q6HR PRN 08/21/17 08/21/17 Unknown [Percocet 7.5/325 mg] Sennosides [Senna] 8.6 mg PO DAILY 08/21/17 08/21/17 Unknown azaTHIOprine [Imuran] 50 mg PO DAILY 08/21/17 08/21/17 Unknown Allergies Allergy/AdvReac Type Severity Reaction Status Date / Time warfarin sodium AdvReac Mild Bleeding Verified 11/29/14 15:19 [From Coumadin] aliskiren hemifumarate AdvReac Rash Verified 06/15/15 07:34 [From Tekturna] ramipril [From Altace] AdvReac Rash Verified 06/15/15 07:34 ED Review of Systems ROS: Stated complaint: FABIAN Other details as noted in HPI ED Past Medical Hx - Past Medical History Hx Hypertension: Yes Hx Diabetes: No Hx Deep Vein Thrombosis: No Hx GERD: Yes Hx Renal Disease: Yes Hx Arthritis: Yes Hx Headaches / Migraines: Yes Hx COPD: No Hx Tuberculosis: No Hx Dementia: Yes Hx HIV: No Additional medical history: high cholesterol, hypothyroid - Surgical History Hx Pacemaker: Yes (05/2011) Additional Surgical History: hysterectomy, , hernia repair - Social History Smoking Status: Unknown if ever smoked - Medications Home Medications: Home Medications Medication Instructions Recorded Confirmed Last Taken Type Acetaminophen [Tylenol] 650 mg PO Q6HR PRN 08/21/17 08/21/17 Unknown History Aspirin [Lo-Dose Aspirin EC] 81 mg PO DAILY 08/21/17 08/21/17 Unknown History Brimonidine Tartrate [Brimonidine 1 drop OU Q8HR 08/21/17 08/21/17 Unknown History Tartrate 0.2%] Cyanocobalamin [Vitamin B-12] 1,000 mcg PO DAILY 08/21/17 08/21/17 Unknown History Esomeprazole Magnesium [NexIUM] 20 mg PO QDAY 08/21/17 08/21/17 Unknown History Fenofibrate [Tricor] 145 mg PO HS 08/21/17 08/21/17 Unknown History Ferrous Sulfate [Ferrous Sulfate 300 mg PO Q8H 08/21/17 08/21/17 Unknown History Oral Liq 300 Mg/5 Ml] Hydralazine HCl 100 mg PO TID 08/21/17 08/21/17 Unknown History Labetalol HCl 300 mg PO Q12H 08/21/17 08/21/17 Unknown History Latanoprost 0.005% [Xalatan 0.005%] 1 drop OP QPM 08/21/17 08/21/17 Unknown History Levothyroxine [Synthroid] 25 mcg PO QAM 08/21/17 08/21/17 Unknown History Melatonin [Melatin] 3 mg PO QHS 08/21/17 08/21/17 Unknown History Multivit-Minerals/Ferrous Gluc 5 ml PO DAILY 08/21/17 08/21/17 Unknown History [Centrum Multivit-Mineral Liq] Oxycodone HCl/Acetaminophen 1 each PO Q6HR PRN 08/21/17 08/21/17 Unknown History [Percocet 7.5/325 mg] Sennosides [Senna] 8.6 mg PO DAILY 08/21/17 08/21/17 Unknown History azaTHIOprine [Imuran] 50 mg PO DAILY 08/21/17 08/21/17 Unknown History ED Physical Exam - General Limitations: Other ED Course Vital Signs 08/21/17 08/21/17 08/21/17 15:58 16:09 16:10 Temperature 97.8 F Pulse Rate 60 63 Pulse Rate [ Anterior Bilateral Throughout] Respiratory 36 H Rate Respiratory Rate [Anterior Bilateral Throughout] Blood Pressure 133/61 Blood Pressure 137/57 [Left] O2 Sat by Pulse 100 100 Oximetry 08/21/17 08/21/17 08/21/17 16:13 16:15 16:27 Temperature Pulse Rate 76 72 60 Pulse Rate [ Anterior Bilateral Throughout] Respiratory 32 H 21 Rate Respiratory Rate [Anterior Bilateral Throughout] Blood Pressure 133/57 Blood Pressure [Left] O2 Sat by Pulse 100 100 Oximetry 08/21/17 08/21/17 08/21/17 16:31 16:40 16:41 Temperature Pulse Rate 60 63 Pulse Rate [ 63 Anterior Bilateral Throughout] Respiratory 24 21 Rate Respiratory 24 Rate [Anterior Bilateral Throughout] Blood Pressure 142/55 Blood Pressure [Left] O2 Sat by Pulse 99 99 Oximetry 08/21/17 08/21/17 08/21/17 16:45 16:58 17:00 Temperature Pulse Rate 63 61 Pulse Rate [ 62 Anterior Bilateral Throughout] Respiratory 33 H 32 H Rate Respiratory 27 H Rate [Anterior Bilateral Throughout] Blood Pressure 142/55 143/51 Blood Pressure [Left] O2 Sat by Pulse 97 Oximetry 08/21/17 08/21/17 08/21/17 17:14 17:15 17:30 Temperature Pulse Rate 68 60 64 Pulse Rate [ Anterior Bilateral Throughout] Respiratory 29 H 29 H 30 H Rate Respiratory Rate [Anterior Bilateral Throughout] Blood Pressure 146/55 137/63 Blood Pressure 144/67 [Left] O2 Sat by Pulse 100 97 97 Oximetry 08/21/17 08/21/17 08/21/17 17:47 18:01 18:15 Temperature Pulse Rate 66 63 66 Pulse Rate [ Anterior Bilateral Throughout] Respiratory 16 24 26 H Rate Respiratory Rate [Anterior Bilateral Throughout] Blood Pressure 146/55 135/57 137/63 Blood Pressure [Left] O2 Sat by Pulse 99 98 Oximetry 08/21/17 08/21/17 18:26 18:31 Temperature Pulse Rate 64 66 Pulse Rate [ Anterior Bilateral Throughout] Respiratory 32 H 32 H Rate Respiratory Rate [Anterior Bilateral Throughout] Blood Pressure 157/61 133/79 Blood Pressure [Left] O2 Sat by Pulse 99 99 Oximetry ED Medical Decision Making - Lab Data Result diagrams: 08/21/17 16:21 08/21/17 16:21 - EKG Data -: EKG Interpreted by Me - EKG Data Interpretation: nonspecific ST-T wave jakob - Radiology Data Radiology results: report reviewed, image reviewed - Medical Decision Making pt in need of admit given hypoxia and resp acidosis , d/w dr hernandez, and admit Critical Care Time: Yes Critical care time in (mins) excluding proc time.: 30 Critical care attestation.: If time is entered above; I have spent that time in minutes in the direct care of this critically ill patient, excluding procedure time. ED Disposition Clinical Impression: Respiratory failure Disposition: DC-09 OP ADMIT IP TO THIS HOSP Is pt being admited?: Yes Condition: Stable Referrals: PRIMARY CARE, [Referring] - 3-5 Days
--- NOTE | 2017-08-21 18:16 | Cat Scan Report ---
FINAL REPORT PROCEDURE: CT head without contrast. TECHNIQUE: Computerized tomography of the head was performed without contrast material. HISTORY: Altered mental status. COMPARISON: CT head 08/27/2015. FINDINGS: There is moderate cerebral atrophy. There is diminished attenuation within the periventricular deep white matter of both cerebral hemispheres. This likely represents chronic microvascular ischemic change. There are additional focal areas of encephalomalacia within the left frontal and left parietal lobes. These are unchanged and consistent with previous strokes. There are no mass lesions. There is no intracranial hemorrhage. The calvarium appears intact. There is some fluid in a few of the right mastoid air cells. The paranasal sinuses are clear as far as visualized. IMPRESSION: Moderate cerebral atrophy and chronic ischemic changes, unchanged. Right mastoiditis.
[2017-08-21] MEDS ORDERED: LASIX IV ONE (18:23)
[2017-08-21] MEDS ORDERED: BABY ASPIRIN PO ONE (18:23)
[2017-08-21 18:50] LABS: ISTAT Base Excess -2; ISTAT HCO3 23.5; ISTAT PCO2 40.9 (35-45); ISTAT PH 7.367 (7.35-7.45); ISTAT PO2 65 (80-105); ISTAT SO2 92; ISTAT TCO2 25
--- NOTE | 2017-08-21 18:58 | XRay Report ---
FINAL REPORT PROCEDURE: Chest. TECHNIQUE: Portable AP view. HISTORY: Shortness of breath. COMPARISON: No prior studies are available for comparison. FINDINGS: The heart size is borderline. The right hilum is prominent. There may be some slightly increased interstitial opacity in both lungs. This could be early interstitial pulmonary edema. The findings may represent congestive heart failure. Clinical correlation is recommended. Follow-up imaging is recommended. There are no definite pleural effusions. There is a left-sided pacemaker with dual electrode leads. The regional skeleton appears intact. IMPRESSION: Question congestive heart failure.
--- NOTE | 2017-08-21 20:38 | History and Physical Report ---
History of Present Illness Date of examination: 08/21/17 Date of admission: 08/21/17 Chief complaint: CC Increasing SOB for 1 day History of present illness: [place]: 82 y/o Female with PMH of HTN COPD HLD anemia and glaucoma -resident of [place] sent in for increasing SOB and wheezing for 1 day.Cough productive of mucoid sputum.No Fever or chills.Also altered sensorium Daughter at bed side.Recent admission in January for peg tube malfunction and Vomiting coffee ground material. No recent travel. Patient confused and altered sensorium Past History Past Medical History: CAD, COPD, hypertension, hyperlipidemia, renal failure Past Surgical History: , hysterectomy, hernia repair, Other (PPM) Social history: smoking (remote past), full code Family history: hypertension Medications and Allergies Allergies Allergy/AdvReac Type Severity Reaction Status Date / Time warfarin sodium AdvReac Mild Bleeding Verified 11/29/14 15:19 [From Coumadin] aliskiren hemifumarate AdvReac Rash Verified 06/15/15 07:34 [From Tekturna] ramipril [From Altace] AdvReac Rash Verified 06/15/15 07:34 Home Medications Medication Instructions Recorded Confirmed Last Taken Type Acetaminophen [Tylenol] 650 mg PO Q6HR PRN 08/21/17 08/21/17 Unknown History Aspirin [Lo-Dose Aspirin EC] 81 mg PO DAILY 08/21/17 08/21/17 Unknown History Brimonidine Tartrate [Brimonidine 1 drop OU Q8HR 08/21/17 08/21/17 Unknown History Tartrate 0.2%] Cyanocobalamin [Vitamin B-12] 1,000 mcg PO DAILY 08/21/17 08/21/17 Unknown History Esomeprazole Magnesium [NexIUM] 20 mg PO QDAY 08/21/17 08/21/17 Unknown History Fenofibrate [Tricor] 145 mg PO HS 08/21/17 08/21/17 Unknown History Ferrous Sulfate [Ferrous Sulfate 300 mg PO Q8H 08/21/17 08/21/17 Unknown History Oral Liq 300 Mg/5 Ml] Hydralazine HCl 100 mg PO TID 08/21/17 08/21/17 Unknown History Labetalol HCl 300 mg PO Q12H 08/21/17 08/21/17 Unknown History Latanoprost 0.005% [Xalatan 0.005%] 1 drop OP QPM 08/21/17 08/21/17 Unknown History Levothyroxine [Synthroid] 25 mcg PO QAM 08/21/17 08/21/17 Unknown History Melatonin [Melatin] 3 mg PO QHS 08/21/17 08/21/17 Unknown History Multivit-Minerals/Ferrous Gluc 5 ml PO DAILY 08/21/17 08/21/17 Unknown History [Centrum Multivit-Mineral Liq] Oxycodone HCl/Acetaminophen 1 each PO Q6HR PRN 08/21/17 08/21/17 Unknown History [Percocet 7.5/325 mg] Sennosides [Senna] 8.6 mg PO DAILY 08/21/17 08/21/17 Unknown History azaTHIOprine [Imuran] 50 mg PO DAILY 08/21/17 08/21/17 Unknown History Review of Systems All systems: negative Constitutional: no weight loss, no weight gain, no fever, no chills Ears, nose, mouth and throat: no sore throat, no swelling in mouth, no swelling in throat, no odynophagia Breasts: deferred Cardiovascular: orthopnea, shortness of breath, no chest pain, no palpitations, no rapid/irregular heart beat, no edema, no syncope, no lightheadedness Respiratory: cough, cough with sputum, shortness of breath, congestion, wheezing Gastrointestinal: no abdominal pain, no nausea, no vomiting, no diarrhea, no constipation Genitourinary Female: no dysuria, no urinary frequency, no urgency, no stress incontinence Menstruation: ammenorrhea Rectal: no pain Musculoskeletal: no neck stiffness, no neck pain, no shooting arm pain, no arm numbness/tingling, no low back pain Integumentary: no rash, no pruritis, no redness, no sores, no wounds Neurological: no head injury, no transient paralysis, no paralysis Psychiatric: no anxiety, no memory loss Endocrine: no cold intolerance, no heat intolerance, no polyphagia, no excessive thirst, no polydipsia Hematologic/Lymphatic: no easy bruising, no easy bleeding Allergic/Immunologic: no urticaria, no allergic rhinitis, no wheezing Exam - Physical Exam Narrative exam: IN moderate resp distress -on BIPAP - Constitutional Vitals: Temp Pulse Resp BP Pulse Ox 97.8 F 65 23 124/64 100 08/21/17 16:09 08/21/17 20:18 08/21/17 20:18 08/21/17 20:18 08/21/17 20:18 General appearance: Present: severe distress, well-nourished - EENT Eyes: Present: PERRL ENT: hearing intact, clear oral mucosa - Neck Neck: Present: supple, normal ROM - Respiratory Respiratory effort: normal Respiratory: bilateral: diminished, rhonchi - Cardiovascular Heart rate: 80 Rhythm: regular Heart Sounds: Present: S1 & S2. Absent: rub, click - Extremities Extremities: no ischemia, pulses intact, pulses symmetrical, No edema Peripheral Pulses: within normal limits - Abdominal General gastrointestinal: Present: soft, non-tender, non-distended, normal bowel sounds Female genitourinary: Present: normal - Rectal Rectal Exam: deferred - Integumentary Integumentary: Present: clear, warm, dry - Musculoskeletal Musculoskeletal: gait normal, strength equal bilaterally - Psychiatric Psychiatric: appropriate mood/affect, intact judgment & insight, depressed - Neurologic Neurologic: CNII-XII intact, moves all extremities - Allied Health Allied health notes reviewed: nursing, case management Results - Labs CBC & Chem 7: 08/22/17 05:10 08/22/17 05:10 Labs: Laboratory Last Values WBC 7.6 K/mm3 (4.5-11.0) 08/21/17 16:21 RBC 2.79 M/mm3 (3.65-5.03) L 08/21/17 16:21 Hgb 8.3 gm/dl (10.1-14.3) L 08/21/17 16:21 Hct 25.1 % (30.3-42.9) L 08/21/17 16:21 MCV 90 fl (79-97) 08/21/17 16:21 MCH 30 pg (28-32) 08/21/17 16:21 MCHC 33 % (30-34) 08/21/17 16:21 RDW 22.3 % (13.2-15.2) H 08/21/17 16:21 Plt Count 246 K/mm3 (140-440) 08/21/17 16:21 Lymph % (Auto) 5.9 % (13.4-35.0) L 12/15/17 16:21 Morgan % (Auto) 5.5 % (0.0-7.3) 08/21/17 16:21 Eos % (Auto) 0.4 % (0.0-4.3) 08/21/17 16:21 Baso % (Auto) 0.1 % (0.0-1.8) 08/21/17 16:21 Lymph # 0.5 K/mm3 (1.2-5.4) L 08/21/17 16:21 Morgan # 0.4 K/mm3 (0.0-0.8) 08/21/17 16:21 Eos # 0.0 K/mm3 (0.0-0.4) 08/21/17 16:21 Baso # 0.0 K/mm3 (0.0-0.1) 08/21/17 16:21 Seg Neutrophils % 88.1 % (40.0-70.0) H 08/21/17 16:21 Seg Neutrophils # 6.7 K/mm3 (1.8-7.7) 08/21/17 16:21 POC ABG pH 7.367 (7.35-7.45) 08/21/17 18:45 POC ABG pCO2 40.9 (35-45) 08/21/17 18:45 POC ABG pO2 65 (80-105) L 08/21/17 18:45 POC ABG HCO3 23.5 08/21/17 18:45 POC ABG Total CO2 25 08/21/17 18:45 POC ABG O2 Sat 92 08/21/17 18:45 POC ABG Base Excess -2 08/21/17 18:45 FiO2 40 % 08/21/17 18:45 Sodium 123 mmol/L (137-145) L 08/21/17 16:21 Potassium 5.1 mmol/L (3.6-5.0) H 08/21/17 16:21 Chloride 89.7 mmol/L (98-107) L 08/21/17 16:21 Carbon Dioxide 22 mmol/L (22-30) 08/21/17 16:21 Anion Gap 16 mmol/L 08/21/17 16:21 BUN 44 mg/dL (7-17) H 08/21/17 16:21 Creatinine 1.3 mg/dL (0.7-1.2) H 08/21/17 16:21 Estimated GFR 48 ml/min 08/21/17 16:21 BUN/Creatinine Ratio 34 % 08/21/17 16:21 Glucose 123 mg/dL (65-100) H 08/21/17 16:21 Calcium 8.3 mg/dL (8.4-10.2) L 08/21/17 16:21 Total Bilirubin 0.30 mg/dL (0.1-1.2) 08/21/17 16:21 AST 30 units/L (5-40) 08/21/17 16:21 ALT 14 units/L (7-56) 08/21/17 16:21 Alkaline Phosphatase 69 units/L (35-129) 08/21/17 16:21 Troponin T 0.067 ng/mL (0.00-0.029) H 08/21/17 16:21 NT-Pro-B Natriuret Pep 23219 pg/mL (0-900) H 08/21/17 16:21 Total Protein 7.4 g/dL (6.3-8.2) 08/21/17 16:21 Albumin 3.3 g/dL (3.9-5) L 08/21/17 16:21 Albumin/Globulin Ratio 0.8 % 08/21/17 16:21 Triglycerides 60 mg/dL (2-149) 08/21/17 16:21 Cholesterol 109 mg/dL (50-199) 08/21/17 16:21 LDL Cholesterol Direct 42 mg/dL (50-130) L 08/21/17 16:21 HDL Cholesterol 55 mg/dL (40-59) 08/21/17 16:21 Cholesterol/HDL Ratio 1.98 % 08/21/17 16:21 Urine Color Dora (Yellow) 08/21/17 16:27 Urine Turbidity Clear (Clear) 08/21/17 16:27 Urine pH 7.0 (5.0-7.0) 08/21/17 16:27 Ur Specific [place] 1.019 (1.003-1.030) 08/21/17 16:27 Urine Protein >500 mg/dL (Negative) 08/21/17 16:27 Urine Glucose (UA) Neg mg/dL (Negative) 08/21/17 16:27 Urine Ketones Neg mg/dL (Negative) 08/21/17 16:27 Urine Blood Neg (Negative) 08/21/17 16:27 Urine Nitrite Neg (Negative) 08/21/17 16:27 Urine Bilirubin Neg (Negative) 08/21/17 16:27 Urine Urobilinogen < 2.0 mg/dL (<2.0) 08/21/17 16:27 Ur Leukocyte Esterase Lg (Negative) 08/21/17 16:27 Urine WBC (Auto) 108.0 /HPF (0.0-6.0) H 08/21/17 16:27 Urine RBC (Auto) 14.0 /HPF (0.0-6.0) 08/21/17 16:27 U Epithel Cells (Auto) 1.0 /HPF (0-13.0) 08/21/17 16:27 Urine Bacteria (Auto) 4+ /HPF (Negative) 08/21/17 16:27 Urine Mucus Few /HPF 08/21/17 16:27 Short CBC 08/21/17 08/22/17 Range/Units 16:21 05:10 WBC 7.6 4.9 (4.5-11.0) K/mm3 Hgb 8.3 L 7.7 L (10.1-14.3) gm/dl Hct 25.1 L 22.6 L (30.3-42.9) % Plt Count 246 197 (140-440) K/mm3 BMP 08/21/17 08/22/17 16:21 05:10 Sodium 123 L 124 L Potassium 5.1 H 5.4 H Chloride 89.7 L 89.3 L Carbon Dioxide 22 18 L BUN 44 H 46 H Creatinine 1.3 H 1.5 H Glucose 123 H 87 Calcium 8.3 L 8.4 Cardiac Enzymes 08/21/17 Range/Units 16:21 Troponin T 0.067 H (0.00-0.029) ng/mL Liver Function 08/21/17 08/22/17 Range/Units 16:21 05:10 Total Bilirubin 0.30 0.30 (0.1-1.2) mg/dL AST 30 31 (5-40) units/L ALT 14 13 (7-56) units/L Alkaline Phosphatase 69 54 (35-129) units/L Albumin 3.3 L 3.1 L (3.9-5) g/dL Urine 08/21/17 Range/Units 16:27 Urine Color Dora (Yellow) Urine pH 7.0 (5.0-7.0) Ur Specific [place] 1.019 (1.003-1.030) Urine Protein >500 (Negative) mg/dL Urine Glucose (UA) Neg (Negative) mg/dL - Imaging and Cardiology EKG: report reviewed (Sinus tach) Chest x-ray: report reviewed (CHF?) Assessment and Plan Advance Directives: Yes (Full code) VTE prophylaxis?: Chemical Plan of care discussed with patient/family: Yes - Patient Problems (1) Acute respiratory failure Current Visit: Yes Status: Acute Qualifiers: Respiratory failure complication: hypoxia Qualified Code(s): J96.01 - Acute respiratory failure with hypoxia Plan to address problem: Patient initiated on BIpap Duoneb treatments IV Solumedrol And IV Levaquin Pulmonary consulted-Dr Martinez (2) COPD exacerbation Current Visit: Yes Status: Acute Plan to address problem: As Above (3) Acute encephalopathy Current Visit: Yes Status: Acute Plan to address problem: Sec to Hypoxia Baseline dementia present (4) UTI (urinary tract infection) Current Visit: Yes Status: Acute Qualifiers: Urinary tract infection type: acute cystitis Plan to address problem: Patient on Levaquin for COPD Check urine cultures (5) Hyponatremia Current Visit: Yes Status: Acute Plan to address problem: Check osmolality and urine lytes 3 per NS gently given CHF (6) CHARLEY (acute kidney injury) Current Visit: Yes Status: Acute Plan to address problem: ATN/volume depletion (7) Hyperkalemia Current Visit: Yes Status: Acute Plan to address problem: Mild-Should correct with Lasix (8) HTN (hypertension) Current Visit: Yes Status: Chronic Qualifiers: Hypertension type: essential hypertension Qualified Code(s): I10 - Essential (primary) hypertension Plan to address problem: Cont Antihypertensives (9) CHF (congestive heart failure) Current Visit: Yes Status: Acute Qualifiers: Congestive heart failure type: combined Congestive heart failure chronicity : acute on chronic Qualified Code(s): I50.43 - Acute on chronic combined systolic (congestive) and diastolic (congestive) heart failure Plan to address problem: Lasix 40 q24 May precipitate Hyponatremia (10) Glaucoma Current Visit: Yes Status: Chronic Qualifiers: Glaucoma type: open-angle Laterality: bilateral Plan to address problem: COnt Latanoprost (11) Anemia Current Visit: Yes Status: Chronic Qualifiers: Anemia type: iron deficiency Plan to address problem: on IUron tablets (12) GERD (gastroesophageal reflux disease) Current Visit: Yes Status: Chronic Qualifiers: Esophagitis presence: without esophagitis Qualified Code(s): K21.9 - Gastro -esophageal reflux disease without esophagitis Plan to address problem: ZOn ppi's (13) HLD (hyperlipidemia) Current Visit: Yes Status: Chronic Qualifiers: Hyperlipidemia type: pure hyperglyceridemia Qualified Code(s): E78.1 - Pure hyperglyceridemia Plan to address problem: on fenofibrates (14) DVT prophylaxis Current Visit: Yes Status: Acute Plan to address problem: on heparin and famotidine for GI prophylaxis
[2017-08-21] MEDS ORDERED: ZOFRAN IV PRN (20:58)
[2017-08-21] MEDS ORDERED: MORPHINE IV PRN (20:58)
[2017-08-21] MEDS ORDERED: DULCOLAX PR PRN (20:58)
[2017-08-21] MEDS ORDERED: MILK OF MAGNESIA PO PRN (20:58)
[2017-08-21] MEDS ORDERED: DUONEB *Not for PRN Use IH (21:07)
[2017-08-21] MEDS ORDERED: PROVENTIL IH PRN (21:14)
[2017-08-21] MEDS ORDERED: DUONEB *Not for PRN Use IH ONE (21:28)
[2017-08-21] MEDS: DUONEB *Not for PRN Use IH SCH (21:49)
[2017-08-21] MEDS: HEPARIN SUB-Q SCH (23:06)
[2017-08-21] MEDS: LEVAQUIN 750MG/150ML 750 MG/150 ML BAG IV SCH (23:07)
[2017-08-22] MEDS: DUONEB *Not for PRN Use IH SCH ×4 (02:37→19:50)
[2017-08-22 05:45] LABS: Hematocrit 22.6 % (30.3-42.9); Hemoglobin 7.7 gm/dl (10.1-14.3); Mean Corpuscular HGB Conc 34 % (30-34); Mean Corpuscular Hemoglobin 31 pg (28-32); Mean Corpuscular Volume 90 fl (79-97); Platelet Count 197 K/mm3 (140-440); Red Blood Count 2.52 M/mm3 (3.65-5.03); White Blood Count 4.9 K/mm3 (4.5-11.0)
[2017-08-22 05:51] LABS: Red Cell Distribution Width 21.3 % (13.2-15.2)
[2017-08-22 05:57] LABS: Albumin 3.1 g/dL (3.9-5); Albumin/Globulin Ratio 0.7 %; Bilirubin,Total 0.3 mg/dL (0.1-1.2); Calcium 8.4 mg/dL (8.4-10.2); Chloride 89.3 mmol/L (98-107); Potassium 5.4 mmol/L (3.6-5.0); Total Protein 7.7 g/dL (6.3-8.2)
[2017-08-22] MEDS ORDERED: TYLENOL PO PRN (06:06)
[2017-08-22] MEDS ORDERED: NON-FORMULARY (Brimonidine Tartrate [Brimonidine Tartrate 0.2%] 1 DROP) OU SCH (06:15)
[2017-08-22] MEDS ORDERED: NACL 3% 500 ML IV ONE (06:28)
[2017-08-22 06:50] LABS: Basophils % (Manual) 0 % (0.0-1.8); Blastocytes % (Manual) 0 %; Eosinophils % (Manual) 0 % (0.0-4.3)
[2017-08-22 06:51] LABS: Anisocytosis 1+; Diff Status Complete; Elliptocytes 1+; Hypochromasia 1+; Platelet Estimate Consistent w Auto
[2017-08-22 07:32] LABS: Chloride 89.3 mmol/L (98-107); Potassium 5.3 mmol/L (3.6-5.0)
[2017-08-22] MEDS: APRESOLINE PO SCH ×3 (08:30→21:42)
[2017-08-22] MEDS: NORMODYNE PO SCH ×2 (08:33→21:40)
[2017-08-22] MEDS: FEOSOL PO SCH ×2 (09:00→17:45)
[2017-08-22] MEDS ORDERED: KIONEX PO NR (10:10)
[2017-08-22] MEDS: HEPARIN SUB-Q SCH ×2 (10:17→21:40)
[2017-08-22] MEDS ORDERED: SODIUM BICARBONATE FEEDTUBE PRN (11:48)
[2017-08-22] MEDS ORDERED: PANCREAZE DR 10,500 UNIT FEEDTUBE PRN (11:48)
[2017-08-22] MEDS ORDERED: SIMPLE SYRUP FEEDTUBE PRN ×2 (11:48)
[2017-08-22] MEDS: PROTONIX PO SCH (12:09)
[2017-08-22] MEDS: SENOKOT PO SCH (12:10)
[2017-08-22] MEDS: VITAMIN B-12 PO SCH (12:10)
[2017-08-22] MEDS: HALFPRIN EC PO SCH (12:10)
[2017-08-22] MEDS: LASIX IV SCH (12:25)
--- NOTE | 2017-08-22 15:43 | Progress Note ---
Assessment and Plan Assessment and plan: 82 y/o Female with PMH of HTN COPD HLD anemia and glaucoma -resident of [place] sent in for increasing SOB and wheezing for 1 day.Cough productive of mucoid sputum. No Fever or chills.Also altered sensorium. Daughter at bed side.Recent admission in January for peg tube malfunction and Vomiting coffee ground material. (1) Acute respiratory failure with hypoxia * Patient initiated on BIpap Duoneb treatments IV Solumedrol And IV Levaquin * Pulmonary consulted-Dr Martinez * complex likely secondary to CHF, Aspiration Pneumnitis and COPD (2) COPD exacerbation lIKELY SECONDARY TO ASPIRATION PNEUMONITIS * As Above * Continue levaquin (3) Acute encephalopathy * Sec to Hypoxia * Baseline dementia present but patient more lathergic (4) UTI (urinary tract infection) * Patient on Levaquin for COPD * Check urine cultures (5) Hyponatremia with possible hypovoulemia * Check osmolality and urine lytes * stop the 3 percent. monitor with diuresis. 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 History Interval history: Patient seen and examined remains on BIPAP. family at the bedside, states that the patient was recently at an outside facility prior placement at [facility] and during the period had significant complex issues with peg tube requiring replacement and now at baseline is tolerating some PO. she otherwise is not overtly verbal. Hospitalist Physical - Physical exam Narrative exam: General appearance: Present: severe distress, well-nourished, remains on BIPAP - EENT Eyes: Present: PERRL ENT: hearing intact, clear oral mucosa - Neck Neck: Present: supple, normal ROM - Respiratory Respiratory effort: normal Respiratory: bilateral: diminished, rhonchi - Cardiovascular Heart rate: 80 Rhythm: regular Heart Sounds: Present: S1 & S2. Absent: rub, click - Extremities Extremities: no ischemia, pulses intact, pulses symmetrical, +1 pitting edema Peripheral Pulses: within normal limits - Abdominal General gastrointestinal: Present: soft, non-tender, non-distended, normal bowel sounds Female genitourinary: Present: normal - Rectal Rectal Exam: deferred - Integumentary Integumentary: Present: clear, warm, dry - Musculoskeletal Musculoskeletal: gait normal, strength equal bilaterally - Psychiatric Psychiatric: unable to assess - Neurologic Neurologic: CNII-XII intact, moves all extremities - Allied Health Allied health notes reviewed: nursing, case management - Constitutional Vitals: Temp Pulse Resp BP Pulse Ox 99.0 F 82 20 148/58 100 08/22/17 04:33 08/22/17 14:33 08/22/17 14:33 08/22/17 08:33 08/22/17 09:15 General appearance: Present: severe distress, well-nourished Results - Labs CBC & Chem 7: 08/22/17 05:10 08/22/17 14:33 Labs: Laboratory Last Values WBC 4.9 K/mm3 (4.5-11.0) 08/22/17 05:10 RBC 2.52 M/mm3 (3.65-5.03) L 08/22/17 05:10 Hgb 7.7 gm/dl (10.1-14.3) L 08/22/17 05:10 Hct 22.6 % (30.3-42.9) L 08/22/17 05:10 MCV 90 fl (79-97) 08/22/17 05:10 MCH 31 pg (28-32) 08/22/17 05:10 MCHC 34 % (30-34) 08/22/17 05:10 RDW 21.3 % (13.2-15.2) H 08/22/17 05:10 Plt Count 197 K/mm3 (140-440) 08/22/17 05:10 Lymph % (Auto) 5.9 % (13.4-35.0) L 08/21/17 16:21 Cottle % (Auto) 5.5 % (0.0-7.3) 08/21/17 16:21 Eos % (Auto) 0.4 % (0.0-4.3) 08/21/17 16:21 Baso % (Auto) 0.1 % (0.0-1.8) 08/21/17 16:21 Lymph # 0.5 K/mm3 (1.2-5.4) L 08/21/17 16:21 Cottle # 0.4 K/mm3 (0.0-0.8) 08/21/17 16:21 Eos # 0.0 K/mm3 (0.0-0.4) 08/21/17 16:21 Baso # 0.0 K/mm3 (0.0-0.1) 08/21/17 16:21 Add Manual Diff Complete 08/22/17 05:10 Total Counted 100 08/22/17 05:10 Seg Neutrophils % Information Technology Professor 08/22/17 05:10 Seg Neuts % (Manual) 64.0 % (40.0-70.0) 08/22/17 05:10 Band Neutrophils % 27.0 % 08/22/17 05:10 Lymphocytes % (Manual) 6.0 % (13.4-35.0) L 08/22/17 05:10 Reactive Lymphs % (Man) 0 % 08/22/17 05:10 Monocytes % (Manual) 3.0 % (0.0-7.3) 08/22/17 05:10 Eosinophils % (Manual) 0 % (0.0-4.3) 08/22/17 05:10 Basophils % (Manual) 0 % (0.0-1.8) 08/22/17 05:10 Metamyelocytes % 0 % 08/22/17 05:10 Myelocytes % 0 % 08/22/17 05:10 Promyelocytes % 0 % 08/22/17 05:10 Blast Cells % 0 % 08/22/17 05:10 Nucleated RBC % Not Reportable 08/22/17 05:10 Seg Neutrophils # 6.7 K/mm3 (1.8-7.7) 08/21/17 16:21 Seg Neutrophils # Man 3.1 K/mm3 (1.8-7.7) 08/22/17 05:10 Band Neutrophils # 1.3 K/mm3 08/22/17 05:10 Lymphocytes # (Manual) 0.3 K/mm3 (1.2-5.4) L 08/22/17 05:10 Abs React Lymphs (Man) 0.0 K/mm3 08/22/17 05:10 Monocytes # (Manual) 0.1 K/mm3 (0.0-0.8) 08/22/17 05:10 Eosinophils # (Manual) 0.0 K/mm3 (0.0-0.4) 08/22/17 05:10 Basophils # (Manual) 0.0 K/mm3 (0.0-0.1) 08/22/17 05:10 Metamyelocytes # 0.0 K/mm3 08/22/17 05:10 Myelocytes # 0.0 K/mm3 08/22/17 05:10 Promyelocytes # 0.0 K/mm3 08/22/17 05:10 Blast Cells # 0.0 K/mm3 08/22/17 05:10 WBC Morphology Not Reportable 08/22/17 05:10 Hypersegmented Neuts Not Reportable 08/22/17 05:10 Hyposegmented Neuts Not Reportable 08/22/17 05:10 Hypogranular Neuts Not Reportable 08/22/17 05:10 Smudge Cells Not Reportable 08/22/17 05:10 Toxic Granulation Not Reportable 08/22/17 05:10 Toxic Vacuolation Not Reportable 08/22/17 05:10 Dohle Bodies Not Reportable 08/22/17 05:10 Pelger-Huet Anomaly Not Reportable 08/22/17 05:10 Tera Rods Not Reportable 08/22/17 05:10 Platelet Estimate Consistent w auto 08/22/17 05:10 Clumped Platelets Not Reportable 08/22/17 05:10 Plt Clumps, EDTA Not Reportable 08/22/17 05:10 Large Platelets Not Reportable 08/22/17 05:10 Giant Platelets Not Reportable 08/22/17 05:10 Platelet Satelliting Not Reportable 08/22/17 05:10 Plt Morphology Comment Not Reportable 08/22/17 05:10 RBC Morphology Not Reportable 08/22/17 05:10 Dimorphic RBCs Not Reportable 08/22/17 05:10 Polychromasia Not Reportable 08/22/17 05:10 Hypochromasia 1+ 08/22/17 05:10 Poikilocytosis Not Reportable 08/22/17 05:10 Anisocytosis 1+ 08/22/17 05:10 Microcytosis Not Reportable 08/22/17 05:10 Macrocytosis Not Reportable 08/22/17 05:10 Spherocytes Not Reportable 08/22/17 05:10 Pappenheimer Bodies Not Reportable 08/22/17 05:10 Sickle Cells Not Reportable 08/22/17 05:10 Target Cells Not Reportable 08/22/17 05:10 Tear Drop Cells Not Reportable 08/22/17 05:10 Ovalocytes Not Reportable 08/22/17 05:10 Helmet Cells Not Reportable 08/22/17 05:10 Connor-Alston Bodies Not Reportable 08/22/17 05:10 [place] Rings Not Reportable 08/22/17 05:10 [place] Cells Not Reportable 08/22/17 05:10 Bite Cells Not Reportable 08/22/17 05:10 Crenated Cell Not Reportable 08/22/17 05:10 Elliptocytes 1+ 08/22/17 05:10 Acanthocytes (Spur) Not Reportable 08/22/17 05:10 Rouleaux Not Reportable 08/22/17 05:10 Hemoglobin C Crystals Not Reportable 08/22/17 05:10 Schistocytes Not Reportable 08/22/17 05:10 Malaria parasites Not Reportable 08/22/17 05:10 [place] Bodies Not Reportable 08/22/17 05:10 Hem Pathologist Commnt No 08/22/17 05:10 POC ABG pH 7.367 (7.35-7.45) 08/21/17 18:45 POC ABG pCO2 40.9 (35-45) 08/21/17 18:45 POC ABG pO2 65 (80-105) L 08/21/17 18:45 POC ABG HCO3 23.5 08/21/17 18:45 POC ABG Total CO2 25 08/21/17 18:45 POC ABG O2 Sat 92 08/21/17 18:45 POC ABG Base Excess -2 08/21/17 18:45 FiO2 40 % 08/21/17 18:45 Sodium 123 mmol/L (137-145) L 08/22/17 06:44 Potassium 5.3 mmol/L (3.6-5.0) H 08/22/17 06:44 Chloride 89.3 mmol/L (98-107) L 08/22/17 06:44 Carbon Dioxide 18 mmol/L (22-30) L 08/22/17 06:44 Anion Gap 21 mmol/L 08/22/17 06:44 BUN 46 mg/dL (7-17) H 08/22/17 05:10 Creatinine 1.5 mg/dL (0.7-1.2) H 08/22/17 05:10 Estimated GFR 40 ml/min 08/22/17 05:10 BUN/Creatinine Ratio 31 % 08/22/17 05:10 Glucose 87 mg/dL (65-100) 08/22/17 05:10 Hemoglobin A1c 5.1 % (4-6) 08/21/17 16:21 Osmolality 278 Mosm/kg 08/22/17 06:44 Calcium 8.4 mg/dL (8.4-10.2) 08/22/17 05:10 Total Bilirubin 0.30 mg/dL (0.1-1.2) 08/22/17 05:10 AST 31 units/L (5-40) 08/22/17 05:10 ALT 13 units/L (7-56) 08/22/17 05:10 Alkaline Phosphatase 54 units/L (35-129) 08/22/17 05:10 Troponin T 0.067 ng/mL (0.00-0.029) H 08/21/17 16:21 NT-Pro-B Natriuret Pep 23446 pg/mL (0-900) H 08/21/17 16:21 Total Protein 7.7 g/dL (6.3-8.2) 08/22/17 05:10 Albumin 3.1 g/dL (3.9-5) L 08/22/17 05:10 Albumin/Globulin Ratio 0.7 % 08/22/17 05:10 Triglycerides 60 mg/dL (2-149) 08/21/17 16:21 Cholesterol 109 mg/dL (50-199) 08/21/17 16:21 LDL Cholesterol Direct 42 mg/dL (50-130) L 08/21/17 16:21 HDL Cholesterol 55 mg/dL (40-59) 08/21/17 16:21 Cholesterol/HDL Ratio 1.98 % 08/21/17 16:21 Urine Color Dora (Yellow) 08/21/17 16:27 Urine Turbidity Clear (Clear) 08/21/17 16:27 Urine pH 7.0 (5.0-7.0) 08/21/17 16:27 Ur Specific [place] 1.019 (1.003-1.030) 08/21/17 16:27 Urine Protein >500 mg/dL (Negative) 08/21/17 16:27 Urine Glucose (UA) Neg mg/dL (Negative) 08/21/17 16:27 Urine Ketones Neg mg/dL (Negative) 08/21/17 16:27 Urine Blood Neg (Negative) 08/21/17 16:27 Urine Nitrite Neg (Negative) 08/21/17 16:27 Urine Bilirubin Neg (Negative) 08/21/17 16:27 Urine Urobilinogen < 2.0 mg/dL (<2.0) 08/21/17 16:27 Ur Leukocyte Esterase Lg (Negative) 08/21/17 16:27 Urine WBC (Auto) 108.0 /HPF (0.0-6.0) H 08/21/17 16:27 Urine RBC (Auto) 14.0 /HPF (0.0-6.0) 08/21/17 16:27 U Epithel Cells (Auto) 1.0 /HPF (0-13.0) 08/21/17 16:27 Urine Bacteria (Auto) 4+ /HPF (Negative) 08/21/17 16:27 Urine Mucus Few /HPF 08/21/17 16:27 - Imaging and Cardiology Chest x-ray: image reviewed (congestion)
[2017-08-22] MEDS: IMURAN PO SCH (18:16)
[2017-08-22] MEDS: SYNTHROID PO SCH (20:46)
[2017-08-22] MEDS: TRICOR PO SCH (21:40)
[2017-08-22] MEDS: XALATAN 0.005% OU SCH (22:45)
[2017-08-23] MEDS: FEOSOL PO SCH ×3 (02:21→17:01)
[2017-08-23] MEDS: DUONEB *Not for PRN Use IH SCH ×4 (02:24→20:08)
[2017-08-23 06:00] LABS: Hematocrit 22.3 % (30.3-42.9); Hemoglobin 7.5 gm/dl (10.1-14.3); Mean Corpuscular HGB Conc 34 % (30-34); Mean Corpuscular Hemoglobin 30 pg (28-32); Mean Corpuscular Volume 89 fl (79-97); Platelet Count 210 K/mm3 (140-440); White Blood Count 4.8 K/mm3 (4.5-11.0)
[2017-08-23 06:06] LABS: Red Cell Distribution Width 21.8 % (13.2-15.2)
[2017-08-23 06:28] LABS: Calcium 8.3 mg/dL (8.4-10.2); Chloride 91.7 mmol/L (98-107); Potassium 4.1 mmol/L (3.6-5.0)
[2017-08-23] MEDS: SYNTHROID PO SCH (06:44)
--- NOTE | 2017-08-23 08:58 | Consultation ---
History of Present Illness Consult date: 08/23/17 Consult reason: shortness of breath History of present illness: 82 year old female transferred from the [facility] for the management of worsening shortness of breath and altered mental status. Patient is a poor historian, she has underlying Alzheimer dementia with a CT brain showing diffuse cortical atrophy. Medical records reviewed. NO family member available in the room. Past History Past Medical History: CAD, COPD, hypertension, hyperlipidemia, renal failure Past Surgical History: , hysterectomy, hernia repair, Other (PPM) Social history: smoking (remote past), full code Family history: hypertension Medications and Allergies Allergies Allergy/AdvReac Type Severity Reaction Status Date / Time warfarin sodium AdvReac Mild Bleeding Verified 11/29/14 15:19 [From Coumadin] aliskiren hemifumarate AdvReac Rash Verified 06/15/15 07:34 [From Tekturna] ramipril [From Altace] AdvReac Rash Verified 06/15/15 07:34 Home Medications Medication Instructions Recorded Confirmed Last Taken Type Acetaminophen [Tylenol] 650 mg PO Q6HR PRN 08/21/17 08/21/17 Unknown History Aspirin [Lo-Dose Aspirin EC] 81 mg PO DAILY 08/21/17 08/21/17 Unknown History Brimonidine Tartrate [Brimonidine 1 drop OU Q8HR 08/21/17 08/21/17 Unknown History Tartrate 0.2%] Cyanocobalamin [Vitamin B-12] 1,000 mcg PO DAILY 08/21/17 08/21/17 Unknown History Esomeprazole Magnesium [NexIUM] 20 mg PO QDAY 08/21/17 08/21/17 Unknown History Fenofibrate [Tricor] 145 mg PO HS 08/21/17 08/21/17 Unknown History Ferrous Sulfate [Ferrous Sulfate 300 mg PO Q8H 08/21/17 08/21/17 Unknown History Oral Liq 300 Mg/5 Ml] Hydralazine HCl 100 mg PO TID 08/21/17 08/21/17 Unknown History Labetalol HCl 300 mg PO Q12H 08/21/17 08/21/17 Unknown History Latanoprost 0.005% [Xalatan 0.005%] 1 drop OP QPM 08/21/17 08/21/17 Unknown History Levothyroxine [Synthroid] 25 mcg PO QAM 08/21/17 08/21/17 Unknown History Melatonin [Melatin] 3 mg PO QHS 08/21/17 08/21/17 Unknown History Multivit-Minerals/Ferrous Gluc 5 ml PO DAILY 08/21/17 08/21/17 Unknown History [Centrum Multivit-Mineral Liq] Oxycodone HCl/Acetaminophen 1 each PO Q6HR PRN 08/21/17 08/21/17 Unknown History [Percocet 7.5/325 mg] Sennosides [Senna] 8.6 mg PO DAILY 08/21/17 08/21/17 Unknown History azaTHIOprine [Imuran] 50 mg PO DAILY 08/21/17 08/21/17 Unknown History Active Meds: Active Medications Acetaminophen (Tylenol) 650 mg PO Q4H PRN PRN Reason: Pain MILD(1-3)/Fever >100.5/ROSE Acetaminophen (Tylenol) 650 mg PO Q6H PRN PRN Reason: Pain Albuterol (Proventil) 2.5 mg IH Q4HRT PRN PRN Reason: Shortness Of Breath Albuterol/Ipratropium (Duoneb *Not For Prn Use*) 1 ampul IH Q6HRT [facility] Last Admin: 08/23/17 07:55 Dose: 1 ampul Lipase/Protease/Amylase (Yonatan Smith 10,500 Unit) 1 each FEEDTUBE PRN PRN PRN Reason: For Clogged Feeding Tube Aspirin (Halfprin Ec) 81 mg PO DAILY [facility] Last Admin: 08/22/17 12:10 Dose: 81 mg Azathioprine (Imuran) 50 mg PO DAILY@1200 [facility] Last Admin: 08/22/17 18:16 Dose: 50 mg Bisacodyl (Dulcolax) 10 mg NC QDAY PRN PRN Reason: Constipation unrelieved by MOM Cyanocobalamin (Vitamin B-12) 1,000 mcg PO DAILY [facility] Last Admin: 08/22/17 12:10 Dose: 1,000 mcg Fenofibrate (Tricor) 145 mg PO HS [facility] Last Admin: 08/22/17 21:40 Dose: 145 mg Ferrous Sulfate (Feosol) 300 mg PO Q8H [facility] Last Admin: 08/23/17 02:21 Dose: Not Given Furosemide (Lasix) 40 mg IV QDAY [facility] Last Admin: 08/22/17 12:25 Dose: 40 mg Heparin Sodium (Porcine) (Heparin) 5,000 unit SUB-Q Q12HR [facility] Last Admin: 08/22/17 21:40 Dose: 5,000 unit Hydralazine HCl (Apresoline) 100 mg PO TID [facility] Last Admin: 08/22/17 21:42 Dose: 100 mg Levofloxacin/Dextrose (Levaquin 750mg/150ml) 750 mg in 150 mls @ 100 mls/hr IV Q48H [facility] PRN Reason: Protocol Last Admin: 08/21/17 23:07 Dose: 100 mls/hr Labetalol HCl (Normodyne) 300 mg PO Q12H [facility] Last Admin: 08/22/17 21:40 Dose: 300 mg Latanoprost (Xalatan 0.005%) 1 drops OU QHS [facility] Last Admin: 08/22/17 22:45 Dose: 1 drops Levothyroxine Sodium (Synthroid) 25 mcg PO QAM@0600 [facility] Last Admin: 08/23/17 06:44 Dose: 25 mcg Magnesium Hydroxide (Milk Of Magnesia) 30 ml PO Q4H PRN PRN Reason: Constipation Methylprednisolone Sodium Succinate (Solu-Medrol) 80 mg IV Q8HR [facility] Last Admin: 08/23/17 06:43 Dose: 80 mg Miscellaneous Medication (Brimonidine Tartrate [Brimonidine Tartrate 0.2%]) 1 drop OU Q8HR [facility] Morphine Sulfate (Morphine) 2 mg IV Q4H PRN PRN Reason: Pain, Moderate (4-6) Ondansetron HCl (Zofran) 4 mg IV Q8H PRN PRN Reason: N/V unrelieved by Reglan Oxycodone/Acetaminophen (Percocet 5/325) 1 tab PO Q6H PRN PRN Reason: Pain, Moderate (4-6) Pantoprazole Sodium (Protonix) 20 mg PO QDAY [facility] Last Admin: 08/22/17 12:09 Dose: 20 mg Senna (Senokot) 8.6 mg PO DAILY [facility] Last Admin: 08/22/17 12:10 Dose: 8.6 mg Simple Syrup (Simple Syrup) 15 ml FEEDTUBE PRN PRN PRN Reason: Hypoglycemia Simple Syrup (Simple Syrup) 30 ml FEEDTUBE PRN PRN PRN Reason: Hypoglycemia Sodium Bicarbonate (Sodium Bicarbonate) 325 mg FEEDTUBE PRN PRN PRN Reason: For Clogged Feeding Tube Review of Systems ROS unobtainable: due to mental status Physical Examination Vital Signs Pulse Resp BP Pulse Ox 60 36 H 133/61 100 08/21/17 15:58 08/21/17 15:58 08/21/17 15:58 08/21/17 15:58 General appearance: no acute distress HEENT: Positive: Pallor Cardiac: Positive: Reg Rate and Rhythm Lungs: Positive: Decreased Breath Sounds Abdomen: Positive: Soft Extremities: Present: +2 Edema Results 08/23/17 05:38 08/23/17 05:38 CBC 08/23/17 Range/Units 05:38 WBC 4.8 (4.5-11.0) K/mm3 RBC 2.50 L (3.65-5.03) M/mm3 Hgb 7.5 L (10.1-14.3) gm/dl Hct 22.3 L (30.3-42.9) % Plt Count 210 (140-440) K/mm3 Comprehensive Metabolic Panel 08/22/17 08/23/17 Range/Units 14:33 05:38 Sodium 125 L 130 L (137-145) mmol/L Potassium 4.1 D (3.6-5.0) mmol/L Chloride 91.7 L (98-107) mmol/L Carbon Dioxide 20 L (22-30) mmol/L BUN 58 H (7-17) mg/dL Creatinine 1.6 H (0.7-1.2) mg/dL Glucose 134 H (65-100) mg/dL Calcium 8.3 L (8.4-10.2) mg/dL Assessment and Plan Anasarca CXR - questional CHF Moderate aortic stenosis [facility]YS 2014 - WHIT 1.4 cm2, normal LVEF Echo 12/2016 - Normal LVEF, WHIT 1.3 cm2 Echo this admission - moderate Non-obstructive CAD by cath 07/2014 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
[2017-08-23] MEDS: HALFPRIN EC PO SCH (09:11)
[2017-08-23] MEDS: VITAMIN B-12 PO SCH (09:11)
[2017-08-23] MEDS: SENOKOT PO SCH (09:11)
[2017-08-23] MEDS: APRESOLINE PO SCH ×3 (09:11→22:57)
[2017-08-23] MEDS: HEPARIN SUB-Q SCH ×2 (09:11→22:57)
[2017-08-23] MEDS: LASIX IV SCH (09:11)
[2017-08-23] MEDS: PROTONIX PO SCH (09:11)
[2017-08-23] MEDS: NORMODYNE PO SCH ×2 (09:28→22:57)
--- NOTE | 2017-08-23 09:57 | Consultation ---
History of Present Illness - History of Present Illness Thank you for the consultation patient was evaluated today. Source of information; patient himself current records were also reviewed History of presenting illness; Patient is a 82-year-old -[place] female with known history of chronic kidney disease for which she is being followed in our office. Patient is currently also being followed by hepatology and is periodically on Procrit injection. According to the daughter she does not have had any issues with GI bleeding bloody or dark bowel movement. She was brought to the hospital with complaints of increasing shortness of breath from the [facility] as well as some change in mental status. Patient does have history of underlying Alzheimer 's dementia, chronic kidney disease chronic decubitus ulcer and heart failure she is currently a resident of [facility] at [place] history was obtained from patient's chart as well as her daughter at the bedside. Upon arrival patient's creatinine was 1.3 with a potassium of 5.3 hemoglobin was 8.3. She is currently being treated here for acute respiratory failure, congestive heart failure, COPD separation, urinary tract infection, and many other qualities Past medical history is significant for COPD CHF Chronic kidney disease Anemia and chronic kidney disease Overweight Allergies: Warfarin ramipril Social history: no history of any alcohol drug tobacco use Resident of [facility] Family history: noncontributory for related disorder Review of system is positive for altered mental status progressive swelling of lower extremity shortness of breath Complete review of systems obtained pertinent positive above other's review of systems negative Physical examination General: elderly appearing female currently in no acute distress HEENT: Oral mucosa moist no pharyngeal erythema no pallor or icterus no uremic order Neck: Supple no evidence of any thyromegaly trachea midline no JVD Chest: Clear to auscultation no crackles are also wheezes anteriorly Heart: Regular rate and rhythm S1-S2 heard no S3-S4 Abdomen: Soft nontender no renal bruit no CVA tenderness no suprapubic fullness no organomegaly Extremity: Minimal edema dry skin no peripheral cyanosis pulses palpable Neurological: Alert awake follows command grossly nonfocal examination Back: Nontender thoracolumbar spine Musculoskeletal: No joint effusion noted Skin: No petechial rash/noted Assessment and plan 1.renal insufficiency admission creatinine was 1.3 currently 1.6 prior to that it was 0.9, to monitor and follow 2.hyponatremia chronic improving 3.edema hypertension: To monitor and follow, patient has also noted to have pulmonary edema based on chest x-ray being followed by cardiology at this time 4.anemia and chronic kidney disease currently being followed by . please consult him on her iron profile B12 folic acid TSH and follow patient may benefit from one unit of packed red blood cell transfusion minimize phlebotomies 5. renal prognosis appears to be guarded 6.multiple other comorbidities Nature and issue of renal-related issues were discussed with daughter all questions were answered and simple [place] Renal prognosis is guarded at this time, discussed with daughter was also counseled and educated regarding multiple related issues patient does have a follow-up appointment in the office in September according to the daughter she is also being followed by hematology Dr. MARQUISE Counseled and educated to get further education from [email or web address] and related links, and if any further question to clarify with me We'll continue to follow and make recommendations from renal standpoint If you have any questions please feel free to contact me at [phone] Past History Past Medical History: CAD, COPD, hypertension, hyperlipidemia, renal failure Past Surgical History: , hysterectomy, hernia repair, Other (PPM) Social history: smoking (remote past), full code Family history: hypertension Medications and Allergies Allergies Allergy/AdvReac Type Severity Reaction Status Date / Time warfarin sodium AdvReac Mild Bleeding Verified 11/29/14 15:19 [From Coumadin] aliskiren hemifumarate AdvReac Rash Verified 06/15/15 07:34 [From Tekturna] ramipril [From Altace] AdvReac Rash Verified 06/15/15 07:34 Home Medications Medication Instructions Recorded Confirmed Last Taken Type Acetaminophen [Tylenol] 650 mg PO Q6HR PRN 08/21/17 08/21/17 Unknown History Aspirin [Lo-Dose Aspirin EC] 81 mg PO DAILY 08/21/17 08/21/17 Unknown History Brimonidine Tartrate [Brimonidine 1 drop OU Q8HR 08/21/17 08/21/17 Unknown History Tartrate 0.2%] Cyanocobalamin [Vitamin B-12] 1,000 mcg PO DAILY 08/21/17 08/21/17 Unknown History Esomeprazole Magnesium [NexIUM] 20 mg PO QDAY 08/21/17 08/21/17 Unknown History Fenofibrate [Tricor] 145 mg PO HS 08/21/17 08/21/17 Unknown History Ferrous Sulfate [Ferrous Sulfate 300 mg PO Q8H 08/21/17 08/21/17 Unknown History Oral Liq 300 Mg/5 Ml] Hydralazine HCl 100 mg PO TID 08/21/17 08/21/17 Unknown History Labetalol HCl 300 mg PO Q12H 08/21/17 08/21/17 Unknown History Latanoprost 0.005% [Xalatan 0.005%] 1 drop OP QPM 08/21/17 08/21/17 Unknown History Levothyroxine [Synthroid] 25 mcg PO QAM 08/21/17 08/21/17 Unknown History Melatonin [Melatin] 3 mg PO QHS 08/21/17 08/21/17 Unknown History Multivit-Minerals/Ferrous Gluc 5 ml PO DAILY 08/21/17 08/21/17 Unknown History [Centrum Multivit-Mineral Liq] Oxycodone HCl/Acetaminophen 1 each PO Q6HR PRN 08/21/17 08/21/17 Unknown History [Percocet 7.5/325 mg] Sennosides [Senna] 8.6 mg PO DAILY 08/21/17 08/21/17 Unknown History azaTHIOprine [Imuran] 50 mg PO DAILY 08/21/17 08/21/17 Unknown History Active Meds: Active Medications Acetaminophen (Tylenol) 650 mg PO Q4H PRN PRN Reason: Pain MILD(1-3)/Fever >100.5/ROSE Acetaminophen (Tylenol) 650 mg PO Q6H PRN PRN Reason: Pain Albuterol (Proventil) 2.5 mg IH Q4HRT PRN PRN Reason: Shortness Of Breath Albuterol/Ipratropium (Duoneb *Not For Prn Use*) 1 ampul IH Q6HRT [facility] Last Admin: 08/23/17 07:55 Dose: 1 ampul Lipase/Protease/Amylase (Yonatan Smith 10,500 Unit) 1 each FEEDTUBE PRN PRN PRN Reason: For Clogged Feeding Tube Aspirin (Halfprin Ec) 81 mg PO DAILY [facility] Last Admin: 08/23/17 09:11 Dose: 81 mg Azathioprine (Imuran) 50 mg PO DAILY@1200 [facility] Last Admin: 08/22/17 18:16 Dose: 50 mg Bisacodyl (Dulcolax) 10 mg AR QDAY PRN PRN Reason: Constipation unrelieved by MOM Cyanocobalamin (Vitamin B-12) 1,000 mcg PO DAILY [facility] Last Admin: 08/23/17 09:11 Dose: 1,000 mcg Fenofibrate (Tricor) 145 mg PO HS [facility] Last Admin: 08/22/17 21:40 Dose: 145 mg Ferrous Sulfate (Feosol) 300 mg PO Q8H [facility] Last Admin: 08/23/17 09:21 Dose: 300 mg Furosemide (Lasix) 40 mg IV QDAY [facility] Last Admin: 08/23/17 09:11 Dose: 40 mg Heparin Sodium (Porcine) (Heparin) 5,000 unit SUB-Q Q12HR [facility] Last Admin: 08/23/17 09:11 Dose: 5,000 unit Hydralazine HCl (Apresoline) 100 mg PO TID [facility] Last Admin: 08/23/17 09:11 Dose: 100 mg Levofloxacin/Dextrose (Levaquin 750mg/150ml) 750 mg in 150 mls @ 100 mls/hr IV Q48H [facility] PRN Reason: Protocol Last Admin: 08/21/17 23:07 Dose: 100 mls/hr Labetalol HCl (Normodyne) 300 mg PO Q12H [facility] Last Admin: 08/23/17 09:28 Dose: 300 mg Latanoprost (Xalatan 0.005%) 1 drops OU QHS [facility] Last Admin: 08/22/17 22:45 Dose: 1 drops Levothyroxine Sodium (Synthroid) 25 mcg PO QAM@0600 [facility] Last Admin: 08/23/17 06:44 Dose: 25 mcg Magnesium Hydroxide (Milk Of Magnesia) 30 ml PO Q4H PRN PRN Reason: Constipation Methylprednisolone Sodium Succinate (Solu-Medrol) 80 mg IV Q8HR [facility] Last Admin: 08/23/17 06:43 Dose: 80 mg Miscellaneous Medication (Brimonidine Tartrate [Brimonidine Tartrate 0.2%]) 1 drop OU Q8HR [facility] Morphine Sulfate (Morphine) 2 mg IV Q4H PRN PRN Reason: Pain, Moderate (4-6) Ondansetron HCl (Zofran) 4 mg IV Q8H PRN PRN Reason: N/V unrelieved by Reglan Oxycodone/Acetaminophen (Percocet 5/325) 1 tab PO Q6H PRN PRN Reason: Pain, Moderate (4-6) Pantoprazole Sodium (Protonix) 20 mg PO QDAY [facility] Last Admin: 08/23/17 09:11 Dose: 20 mg Senna (Senokot) 8.6 mg PO DAILY [facility] Last Admin: 08/23/17 09:11 Dose: 8.6 mg Simple Syrup (Simple Syrup) 15 ml FEEDTUBE PRN PRN PRN Reason: Hypoglycemia Simple Syrup (Simple Syrup) 30 ml FEEDTUBE PRN PRN PRN Reason: Hypoglycemia Sodium Bicarbonate (Sodium Bicarbonate) 325 mg FEEDTUBE PRN PRN PRN Reason: For Clogged Feeding Tube Exam - Vital Signs Vital signs: Vital Signs Pulse Resp BP Pulse Ox 60 36 H 133/61 100 08/21/17 15:58 08/21/17 15:58 08/21/17 15:58 08/21/17 15:58 Results - Lab Results 08/23/17 05:38 08/23/17 05:38 Most recent lab results Calcium 8.3 mg/dL (8.4-10.2) L 08/23/17 05:38
--- NOTE | 2017-08-23 11:54 | Ultrasound Report ---
RENAL ULTRASOUND: 08/23/17 09:57:00 CLINICAL: Acute renal insufficiency. FINDINGS: High resolution ultrasound demonstrated normal nondilated renal collecting systems. Moderate increased echogenicity of the kidneys. Moderate bilateral renal parenchymal thinning. No renal mass, cyst or calculus. The right kidney measures 9.1 x 3.8 x 3.7-cm. The renal parenchyma measures 0.9-cm in thickness. The left kidney measures 8.7 x 4.7 x 4.4-cm. The renal parenchyma measures 1.0-cm in thickness. A small unremarkable urinary bladder. IMPRESSION: Bilateral medical renal disease with small kidneys in moderate bilateral renal cortical loss. No hydronephrosis.
[2017-08-23] MEDS: IMURAN PO SCH (12:37)
--- NOTE | 2017-08-23 15:05 | Consultation ---
History of Present Illness Consult date: 08/23/17 Requesting physician: EDUARDO GUAJARDO Reason for consult: other (Acute respiratory failure) History of present illness: 82 yo WF presents with increased SOB, hypoxia, and altered mentation. She does have baseline dementia. She is awake and cannot answer any questions, only moans. Hx taken via chart review. Receives meds/feeds via PEG. No family present. Active Medications Acetaminophen (Tylenol) 650 mg PO Q4H PRN PRN Reason: Pain MILD(1-3)/Fever >100.5/ROSE Acetaminophen (Tylenol) 650 mg PO Q6H PRN PRN Reason: Pain Albuterol (Proventil) 2.5 mg IH Q4HRT PRN PRN Reason: Shortness Of Breath Albuterol/Ipratropium (Duoneb *Not For Prn Use*) 1 ampul IH Q6HRT [facility] Last Admin: 08/23/17 13:23 Dose: 1 ampul Lipase/Protease/Amylase (Pancrepablo Smith 10,500 Unit) 1 each FEEDTUBE PRN PRN PRN Reason: For Clogged Feeding Tube Aspirin (Halfprin Ec) 81 mg PO DAILY [facility] Last Admin: 08/23/17 09:11 Dose: 81 mg Azathioprine (Imuran) 50 mg PO DAILY@1200 [facility] Last Admin: 08/23/17 12:37 Dose: 50 mg Bisacodyl (Dulcolax) 10 mg [place] QDAY PRN PRN Reason: Constipation unrelieved by MOM Cyanocobalamin (Vitamin B-12) 1,000 mcg PO DAILY [facility] Last Admin: 08/23/17 09:11 Dose: 1,000 mcg Fenofibrate (Tricor) 145 mg PO HS [facility] Last Admin: 08/22/17 21:40 Dose: 145 mg Ferrous Sulfate (Feosol) 300 mg PO Q8H [facility] Last Admin: 08/23/17 09:21 Dose: 300 mg Furosemide (Lasix) 40 mg IV QDAY [facility] Last Admin: 08/23/17 09:11 Dose: 40 mg Heparin Sodium (Porcine) (Heparin) 5,000 unit SUB-Q Q12HR [facility] Last Admin: 08/23/17 09:11 Dose: 5,000 unit Hydralazine HCl (Apresoline) 100 mg PO TID [facility] Last Admin: 08/23/17 14:24 Dose: 100 mg Levofloxacin/Dextrose (Levaquin 750mg/150ml) 750 mg in 150 mls @ 100 mls/hr IV Q48H [facility] PRN Reason: Protocol Last Admin: 08/21/17 23:07 Dose: 100 mls/hr Clindamycin HCl (Cleocin 300 Mg/50 Ml) 300 mg in 50 mls @ 100 mls/hr IV Q8HR [facility] PRN Reason: Protocol Labetalol HCl (Normodyne) 300 mg PO Q12H [facility] Last Admin: 08/23/17 09:28 Dose: 300 mg Latanoprost (Xalatan 0.005%) 1 drops OU QHS [facility] Last Admin: 08/22/17 22:45 Dose: 1 drops Levothyroxine Sodium (Synthroid) 25 mcg PO QAM@0600 [facility] Last Admin: 08/23/17 06:44 Dose: 25 mcg Magnesium Hydroxide (Milk Of Magnesia) 30 ml PO Q4H PRN PRN Reason: Constipation Miscellaneous Medication (Brimonidine Tartrate [Brimonidine Tartrate 0.2%]) 1 drop OU Q8HR [facility] Morphine Sulfate (Morphine) 2 mg IV Q4H PRN PRN Reason: Pain, Moderate (4-6) Ondansetron HCl (Zofran) 4 mg IV Q8H PRN PRN Reason: N/V unrelieved by Reglan Oxycodone/Acetaminophen (Percocet 5/325) 1 tab PO Q6H PRN PRN Reason: Pain, Moderate (4-6) Pantoprazole Sodium (Protonix) 20 mg PO QDAY [facility] Last Admin: 08/23/17 09:11 Dose: 20 mg Senna (Senokot) 8.6 mg PO DAILY [facility] Last Admin: 08/23/17 09:11 Dose: 8.6 mg Simple Syrup (Simple Syrup) 15 ml FEEDTUBE PRN PRN PRN Reason: Hypoglycemia Simple Syrup (Simple Syrup) 30 ml FEEDTUBE PRN PRN PRN Reason: Hypoglycemia Sodium Bicarbonate (Sodium Bicarbonate) 325 mg FEEDTUBE PRN PRN PRN Reason: For Clogged Feeding Tube Past History Past Medical History: CAD, COPD, hypertension, hyperlipidemia, renal failure Past Surgical History: , hysterectomy, hernia repair, Other (PPM) Social history: smoking (remote past), full code. denies: alcohol abuse, prescription drug abuse Family history: hypertension Medications and Allergies Allergies Allergy/AdvReac Type Severity Reaction Status Date / Time warfarin sodium AdvReac Mild Bleeding Verified 11/29/14 15:19 [From Coumadin] aliskiren hemifumarate AdvReac Rash Verified 06/15/15 07:34 [From Tekturna] ramipril [From Altace] AdvReac Rash Verified 06/15/15 07:34 Home Medications Medication Instructions Recorded Confirmed Last Taken Type Acetaminophen [Tylenol] 650 mg PO Q6HR PRN 08/21/17 08/21/17 Unknown History Aspirin [Lo-Dose Aspirin EC] 81 mg PO DAILY 08/21/17 08/21/17 Unknown History Brimonidine Tartrate [Brimonidine 1 drop OU Q8HR 08/21/17 08/21/17 Unknown History Tartrate 0.2%] Cyanocobalamin [Vitamin B-12] 1,000 mcg PO DAILY 08/21/17 08/21/17 Unknown History Esomeprazole Magnesium [NexIUM] 20 mg PO QDAY 08/21/17 08/21/17 Unknown History Fenofibrate [Tricor] 145 mg PO HS 08/21/17 08/21/17 Unknown History Ferrous Sulfate [Ferrous Sulfate 300 mg PO Q8H 08/21/17 08/21/17 Unknown History Oral Liq 300 Mg/5 Ml] Hydralazine HCl 100 mg PO TID 08/21/17 08/21/17 Unknown History Labetalol HCl 300 mg PO Q12H 08/21/17 08/21/17 Unknown History Latanoprost 0.005% [Xalatan 0.005%] 1 drop OP QPM 08/21/17 08/21/17 Unknown History Levothyroxine [Synthroid] 25 mcg PO QAM 08/21/17 08/21/17 Unknown History Melatonin [Melatin] 3 mg PO QHS 08/21/17 08/21/17 Unknown History Multivit-Minerals/Ferrous Gluc 5 ml PO DAILY 08/21/17 08/21/17 Unknown History [Centrum Multivit-Mineral Liq] Oxycodone HCl/Acetaminophen 1 each PO Q6HR PRN 08/21/17 08/21/17 Unknown History [Percocet 7.5/325 mg] Sennosides [Senna] 8.6 mg PO DAILY 08/21/17 08/21/17 Unknown History azaTHIOprine [Imuran] 50 mg PO DAILY 08/21/17 08/21/17 Unknown History Active Meds: Active Medications Acetaminophen (Tylenol) 650 mg PO Q4H PRN PRN Reason: Pain MILD(1-3)/Fever >100.5/ROSE Acetaminophen (Tylenol) 650 mg PO Q6H PRN PRN Reason: Pain Albuterol (Proventil) 2.5 mg IH Q4HRT PRN PRN Reason: Shortness Of Breath Albuterol/Ipratropium (Duoneb *Not For Prn Use*) 1 ampul IH Q6HRT [facility] Last Admin: 08/23/17 13:23 Dose: 1 ampul Lipase/Protease/Amylase (Pancreazjona Dr 10,500 Unit) 1 each FEEDTUBE PRN PRN PRN Reason: For Clogged Feeding Tube Aspirin (Halfprin Ec) 81 mg PO DAILY [facility] Last Admin: 08/23/17 09:11 Dose: 81 mg Azathioprine (Imuran) 50 mg PO DAILY@1200 [facility] Last Admin: 08/23/17 12:37 Dose: 50 mg Bisacodyl (Dulcolax) 10 mg [place] QDAY PRN PRN Reason: Constipation unrelieved by MOM Cyanocobalamin (Vitamin B-12) 1,000 mcg PO DAILY [facility] Last Admin: 08/23/17 09:11 Dose: 1,000 mcg Fenofibrate (Tricor) 145 mg PO HS [facility] Last Admin: 08/22/17 21:40 Dose: 145 mg Ferrous Sulfate (Feosol) 300 mg PO Q8H [facility] Last Admin: 08/23/17 09:21 Dose: 300 mg Furosemide (Lasix) 40 mg IV QDAY [facility] Last Admin: 08/23/17 09:11 Dose: 40 mg Heparin Sodium (Porcine) (Heparin) 5,000 unit SUB-Q Q12HR [facility] Last Admin: 08/23/17 09:11 Dose: 5,000 unit Hydralazine HCl (Apresoline) 100 mg PO TID [facility] Last Admin: 08/23/17 14:24 Dose: 100 mg Levofloxacin/Dextrose (Levaquin 750mg/150ml) 750 mg in 150 mls @ 100 mls/hr IV Q48H [facility] PRN Reason: Protocol Last Admin: 08/21/17 23:07 Dose: 100 mls/hr Clindamycin HCl (Cleocin 300 Mg/50 Ml) 300 mg in 50 mls @ 100 mls/hr IV Q8HR [facility] PRN Reason: Protocol Labetalol HCl (Normodyne) 300 mg PO Q12H [facility] Last Admin: 08/23/17 09:28 Dose: 300 mg Latanoprost (Xalatan 0.005%) 1 drops OU QHS [facility] Last Admin: 08/22/17 22:45 Dose: 1 drops Levothyroxine Sodium (Synthroid) 25 mcg PO QAM@0600 [facility] Last Admin: 08/23/17 06:44 Dose: 25 mcg Magnesium Hydroxide (Milk Of Magnesia) 30 ml PO Q4H PRN PRN Reason: Constipation Miscellaneous Medication (Brimonidine Tartrate [Brimonidine Tartrate 0.2%]) 1 drop OU Q8HR [facility] Morphine Sulfate (Morphine) 2 mg IV Q4H PRN PRN Reason: Pain, Moderate (4-6) Ondansetron HCl (Zofran) 4 mg IV Q8H PRN PRN Reason: N/V unrelieved by Reglan Oxycodone/Acetaminophen (Percocet 5/325) 1 tab PO Q6H PRN PRN Reason: Pain, Moderate (4-6) Pantoprazole Sodium (Protonix) 20 mg PO QDAY [facility] Last Admin: 08/23/17 09:11 Dose: 20 mg Senna (Senokot) 8.6 mg PO DAILY [facility] Last Admin: 08/23/17 09:11 Dose: 8.6 mg Simple Syrup (Simple Syrup) 15 ml FEEDTUBE PRN PRN PRN Reason: Hypoglycemia Simple Syrup (Simple Syrup) 30 ml FEEDTUBE PRN PRN PRN Reason: Hypoglycemia Sodium Bicarbonate (Sodium Bicarbonate) 325 mg FEEDTUBE PRN PRN PRN Reason: For Clogged Feeding Tube Review of Systems ROS unobtainable: due to mental status Physical Examination Vital signs: Vital Signs Pulse Resp BP Pulse Ox 60 36 H 133/61 100 08/21/17 15:58 08/21/17 15:58 08/21/17 15:58 08/21/17 15:58 General appearance: no acute distress, alert Eyes: non-icteric ENT: oropharynx moist Neck: supple Effort: normal Ascultation: Bilateral: rhonchi Cardiovascular: regular rate and rhythm (no mrg) Gastrointestinal: normoactive bowel sounds, soft, non-tender, non-distended Integumentary: normal Extremities: no cyanosis, pink and warm, edema (1+ RLE) Musculoskeletal: no deformities other (contractures, awake, nonverbal, moans, does not follow commands) other (unable to assess) Results - Laboratory Findings CBC and BMP: 08/23/17 05:38 08/23/17 05:38 ABG POC ABG pH 7.367 (7.35-7.45) 08/21/17 18:45 POC ABG pCO2 40.9 (35-45) 08/21/17 18:45 POC ABG pO2 65 (80-105) L 08/21/17 18:45 POC ABG HCO3 23.5 08/21/17 18:45 POC ABG Total CO2 25 08/21/17 18:45 POC ABG O2 Sat 92 08/21/17 18:45 Abnormal lab findings: Abnormal Labs 08/21/17 08/21/17 08/21/17 16:12 16:21 16:21 RBC 2.79 L Hgb 8.3 L Hct 25.1 L RDW 22.3 H Lymph % (Auto) 5.9 L Lymph # 0.5 L Seg Neutrophils % 88.1 H Lymphocytes % (Manual) Lymphocytes # (Manual) POC ABG pH 7.228 L POC ABG pCO2 57.7 H POC ABG pO2 192 H Sodium 123 L Potassium 5.1 H Chloride 89.7 L Carbon Dioxide BUN 44 H Creatinine 1.3 H Glucose 123 H POC Glucose Uric Acid Calcium 8.3 L Troponin T NT-Pro-B Natriuret Pep Albumin 3.3 L LDL Cholesterol Direct Urine WBC (Auto) 08/21/17 08/21/17 08/21/17 16:21 16:21 16:27 RBC Hgb Hct RDW Lymph % (Auto) Lymph # Seg Neutrophils % Lymphocytes % (Manual) Lymphocytes # (Manual) POC ABG pH POC ABG pCO2 POC ABG pO2 Sodium Potassium Chloride Carbon Dioxide BUN Creatinine Glucose POC Glucose Uric Acid Calcium Troponin T 0.067 H NT-Pro-B Natriuret Pep 39731 H Albumin LDL Cholesterol Direct 42 L Urine WBC (Auto) 108.0 H 08/21/17 08/22/17 08/22/17 18:45 05:10 05:10 RBC 2.52 L Hgb 7.7 L Hct 22.6 L RDW 21.3 H Lymph % (Auto) Lymph # Seg Neutrophils % Lymphocytes % (Manual) 6.0 L Lymphocytes # (Manual) 0.3 L POC ABG pH POC ABG pCO2 POC ABG pO2 65 L Sodium 124 L Potassium 5.4 H Chloride 89.3 L Carbon Dioxide 18 L BUN 46 H Creatinine 1.5 H Glucose POC Glucose Uric Acid Calcium Troponin T NT-Pro-B Natriuret Pep Albumin 3.1 L LDL Cholesterol Direct Urine WBC (Auto) 08/22/17 08/22/17 08/23/17 06:44 14:33 00:20 RBC Hgb Hct RDW Lymph % (Auto) Lymph # Seg Neutrophils % Lymphocytes % (Manual) Lymphocytes # (Manual) POC ABG pH POC ABG pCO2 POC ABG pO2 Sodium 123 L 125 L Potassium 5.3 H Chloride 89.3 L Carbon Dioxide 18 L BUN Creatinine Glucose POC Glucose 108 H Uric Acid Calcium Troponin T NT-Pro-B Natriuret Pep Albumin LDL Cholesterol Direct Urine WBC (Auto) 08/23/17 08/23/17 08/23/17 05:38 05:38 12:11 RBC 2.50 L Hgb 7.5 L Hct 22.3 L RDW 21.8 H Lymph % (Auto) Lymph # Seg Neutrophils % Lymphocytes % (Manual) Lymphocytes # (Manual) POC ABG pH POC ABG pCO2 POC ABG pO2 Sodium 130 L Potassium Chloride 91.7 L Carbon Dioxide 20 L BUN 58 H Creatinine 1.6 H Glucose 134 H POC Glucose Uric Acid 9.9 H Calcium 8.3 L Troponin T NT-Pro-B Natriuret Pep Albumin LDL Cholesterol Direct Urine WBC (Auto) - Diagnostic Findings Chest x-ray: report reviewed, image reviewed (suggestive of CHF) Assessment and Plan Imp: 1. Probable acute diastolic CHF/pulm edema, less likely aspiration pneumonitis 2. Acute respiratory failure, hypoxia and hypercapnea 3. CHRALEY 4. Pulm HTN 5. 6. Alzheimer's dementia 7. Hyponatremia, better Rec: 1. Cont. Lasix; monitor renal function 2. Stop steroids; no wheezing on exam and doubt COPD exac. 3. Cont. Levaquin; add Clinda in case she aspirated 4. NPO, HOB elevated, TFs, etc. 5. Check LE dopplers; cont. DVT PPx 6. Further plans pending clinical course No family present. Thanks kindly for the consult.
--- NOTE | 2017-08-23 17:54 | Progress Note ---
Assessment and Plan Assessment and plan: 82 y/o Female with PMH of HTN COPD HLD anemia and glaucoma -resident of ID sent in for increasing SOB and wheezing for 1 day.Cough productive of mucoid sputum. No Fever or chills.Also altered sensorium. Daughter at bed side.Recent admission in January for peg tube malfunction and Vomiting coffee ground material. (1) Acute respiratory failure with hypoxia -Patient is currently off BiPAP and on intranasal oxygen -Patient is off steroids - Pulmonary consult appreciated - Patient is on Levaquin and clindamycin for possible aspiration (2) COPD exacerbation lIKELY SECONDARY TO ASPIRATION PNEUMONITIS - Continue Levaquin and clindamycin (3) Acute encephalopathy - Due to hypoxia - Could be baseline (4) UTI (urinary tract infection) - We will follow culture results (5) Hyponatremia with possible hypovoulemia - Chronic consulted (6) CHARLEY (acute kidney injury) WITH VASOMOTOR NEPHROPATHY ON CKD ATN/volume depletion (7) Hyperkalemia - follow BMP - nephrology consulted (8) HTN (hypertension) Cont Antihypertensives (9) Acute diastolic CHF (congestive heart failure) Lasix 40 IV q24 May precipitate Hyponatremia (10) Glaucoma COnt Latanoprost (11) Anemia on IUron tablets (12) GERD (gastroesophageal reflux disease) On ppi's (13) HLD (hyperlipidemia) on fenofibrates (14) DVT prophylaxis on heparin and famotidine for GI prophylaxis History Interval history: Patient was seen and evaluated this morning, she is nonverbal, noncommunicating. No family member was in the room. Hospitalist Physical - Physical exam Narrative exam: Not in cardiopulmonary distress. On 3L IN O2. The patient appeared well nourished and normally developed. Vital signs as documented. Head exam is unremarkable. No scleral icterus . Neck is without jugular venous distension, thyromegaly, or carotid bruits. Lungs are clear to auscultation. Cardiac exam reveals regular rate and Rhythm. First and second heart sounds normal. No murmurs, rubs or gallops. Abdominal exam reveals normal bowel sounds, no masses, no organomegaly and no aortic enlargement. Extremities are nonedematous and both femoral and pedal pulses are normal. MANAGER BRAND:Non communicative. - Constitutional Vitals: Temp Pulse Resp BP Pulse Ox 99.0 F 76 17 129/43 100 08/23/17 12:40 08/23/17 13:25 08/23/17 13:25 08/23/17 12:40 08/23/17 12:40 General appearance: Present: no acute distress Results - Labs CBC & Chem 7: 08/23/17 05:38 08/23/17 05:38 Labs: Laboratory Last Values WBC 4.8 K/mm3 (4.5-11.0) 08/23/17 05:38 RBC 2.50 M/mm3 (3.65-5.03) L 08/23/17 05:38 Hgb 7.5 gm/dl (10.1-14.3) L 08/23/17 05:38 Hct 22.3 % (30.3-42.9) L 08/23/17 05:38 MCV 89 fl (79-97) 08/23/17 05:38 MCH 30 pg (28-32) 08/23/17 05:38 MCHC 34 % (30-34) 08/23/17 05:38 RDW 21.8 % (13.2-15.2) H 08/23/17 05:38 Plt Count 210 K/mm3 (140-440) 08/23/17 05:38 Lymph % (Auto) 5.9 % (13.4-35.0) L 08/21/17 16:21 [place] % (Auto) 5.5 % (0.0-7.3) 08/21/17 16:21 Eos % (Auto) 0.4 % (0.0-4.3) 08/21/17 16:21 Baso % (Auto) 0.1 % (0.0-1.8) 08/21/17 16:21 Lymph # 0.5 K/mm3 (1.2-5.4) L 08/21/17 16:21 [place] # 0.4 K/mm3 (0.0-0.8) 08/21/17 16:21 Eos # 0.0 K/mm3 (0.0-0.4) 08/21/17 16:21 Baso # 0.0 K/mm3 (0.0-0.1) 08/21/17 16:21 Add Manual Diff Complete 08/22/17 05:10 Total Counted 100 08/22/17 05:10 Seg Neutrophils % Residential Plumber 08/22/17 05:10 Seg Neuts % (Manual) 64.0 % (40.0-70.0) 08/22/17 05:10 Band Neutrophils % 27.0 % 08/22/17 05:10 Lymphocytes % (Manual) 6.0 % (13.4-35.0) L 08/22/17 05:10 Reactive Lymphs % (Man) 0 % 08/22/17 05:10 Monocytes % (Manual) 3.0 % (0.0-7.3) 08/22/17 05:10 Eosinophils % (Manual) 0 % (0.0-4.3) 08/22/17 05:10 Basophils % (Manual) 0 % (0.0-1.8) 08/22/17 05:10 Metamyelocytes % 0 % 08/22/17 05:10 Myelocytes % 0 % 08/22/17 05:10 Promyelocytes % 0 % 08/22/17 05:10 Blast Cells % 0 % 08/22/17 05:10 Nucleated RBC % Not Reportable 08/22/17 05:10 Seg Neutrophils # 6.7 K/mm3 (1.8-7.7) 08/21/17 16:21 Seg Neutrophils # Man 3.1 K/mm3 (1.8-7.7) 08/22/17 05:10 Band Neutrophils # 1.3 K/mm3 08/22/17 05:10 Lymphocytes # (Manual) 0.3 K/mm3 (1.2-5.4) L 08/22/17 05:10 Abs React Lymphs (Man) 0.0 K/mm3 08/22/17 05:10 Monocytes # (Manual) 0.1 K/mm3 (0.0-0.8) 08/22/17 05:10 Eosinophils # (Manual) 0.0 K/mm3 (0.0-0.4) 08/22/17 05:10 Basophils # (Manual) 0.0 K/mm3 (0.0-0.1) 08/22/17 05:10 Metamyelocytes # 0.0 K/mm3 08/22/17 05:10 Myelocytes # 0.0 K/mm3 08/22/17 05:10 Promyelocytes # 0.0 K/mm3 08/22/17 05:10 Blast Cells # 0.0 K/mm3 08/22/17 05:10 WBC Morphology Not Reportable 08/22/17 05:10 Hypersegmented Neuts Not Reportable 08/22/17 05:10 Hyposegmented Neuts Not Reportable 08/22/17 05:10 Hypogranular Neuts Not Reportable 08/22/17 05:10 Smudge Cells Not Reportable 08/22/17 05:10 Toxic Granulation Not Reportable 08/22/17 05:10 Toxic Vacuolation Not Reportable 08/22/17 05:10 Dohle Bodies Not Reportable 08/22/17 05:10 Pelger-Huet Anomaly Not Reportable 08/22/17 05:10 Tera Rods Not Reportable 08/22/17 05:10 Platelet Estimate Consistent w auto 08/22/17 05:10 Clumped Platelets Not Reportable 08/22/17 05:10 Plt Clumps, EDTA Not Reportable 08/22/17 05:10 Large Platelets Not Reportable 08/22/17 05:10 Giant Platelets Not Reportable 08/22/17 05:10 Platelet Satelliting Not Reportable 08/22/17 05:10 Plt Morphology Comment Not Reportable 08/22/17 05:10 RBC Morphology Not Reportable 08/22/17 05:10 Dimorphic RBCs Not Reportable 08/22/17 05:10 Polychromasia Not Reportable 08/22/17 05:10 Hypochromasia 1+ 08/22/17 05:10 Poikilocytosis Not Reportable 08/22/17 05:10 Anisocytosis 1+ 08/22/17 05:10 Microcytosis Not Reportable 08/22/17 05:10 Macrocytosis Not Reportable 08/22/17 05:10 Spherocytes Not Reportable 08/22/17 05:10 Pappenheimer Bodies Not Reportable 08/22/17 05:10 Sickle Cells Not Reportable 08/22/17 05:10 Target Cells Not Reportable 08/22/17 05:10 Tear Drop Cells Not Reportable 08/22/17 05:10 Ovalocytes Not Reportable 08/22/17 05:10 Helmet Cells Not Reportable 08/22/17 05:10 Connor-Wilder Bodies Not Reportable 08/22/17 05:10 [place] Rings Not Reportable 08/22/17 05:10 [place] Cells Not Reportable 08/22/17 05:10 Bite Cells Not Reportable 08/22/17 05:10 Crenated Cell Not Reportable 08/22/17 05:10 Elliptocytes 1+ 08/22/17 05:10 Acanthocytes (Spur) Not Reportable 08/22/17 05:10 Rouleaux Not Reportable 08/22/17 05:10 Hemoglobin C Crystals Not Reportable 08/22/17 05:10 Schistocytes Not Reportable 08/22/17 05:10 Malaria parasites Not Reportable 08/22/17 05:10 [place] Bodies Not Reportable 08/22/17 05:10 Hem Pathologist Commnt No 08/22/17 05:10 POC ABG pH 7.367 (7.35-7.45) 08/21/17 18:45 POC ABG pCO2 40.9 (35-45) 08/21/17 18:45 POC ABG pO2 65 (80-105) L 08/21/17 18:45 POC ABG HCO3 23.5 08/21/17 18:45 POC ABG Total CO2 25 08/21/17 18:45 POC ABG O2 Sat 92 08/21/17 18:45 POC ABG Base Excess -2 08/21/17 18:45 FiO2 40 % 08/21/17 18:45 Sodium 130 mmol/L (137-145) L 08/23/17 05:38 Potassium 4.1 mmol/L (3.6-5.0) D 08/23/17 05:38 Chloride 91.7 mmol/L (98-107) L 08/23/17 05:38 Carbon Dioxide 20 mmol/L (22-30) L 08/23/17 05:38 Anion Gap 22 mmol/L 08/23/17 05:38 BUN 58 mg/dL (7-17) H 08/23/17 05:38 Creatinine 1.6 mg/dL (0.7-1.2) H 08/23/17 05:38 Estimated GFR 38 ml/min 08/23/17 05:38 BUN/Creatinine Ratio 36 % 08/23/17 05:38 Glucose 134 mg/dL (65-100) H 08/23/17 05:38 POC Glucose 108 (70-105) H 08/23/17 00:20 Hemoglobin A1c 5.1 % (4-6) 08/21/17 16:21 Osmolality 296 Mosm/kg 08/23/17 12:11 Uric Acid 9.9 mg/dL (3.5-7.6) H 08/23/17 12:11 Calcium 8.3 mg/dL (8.4-10.2) L 08/23/17 05:38 Total Bilirubin 0.30 mg/dL (0.1-1.2) 08/22/17 05:10 AST 31 units/L (5-40) 08/22/17 05:10 ALT 13 units/L (7-56) 08/22/17 05:10 Alkaline Phosphatase 54 units/L (35-129) 08/22/17 05:10 Troponin T 0.067 ng/mL (0.00-0.029) H 08/21/17 16:21 NT-Pro-B Natriuret Pep 67362 pg/mL (0-900) H 08/21/17 16:21 Total Protein 7.7 g/dL (6.3-8.2) 08/22/17 05:10 Albumin 3.1 g/dL (3.9-5) L 08/22/17 05:10 Albumin/Globulin Ratio 0.7 % 08/22/17 05:10 Triglycerides 60 mg/dL (2-149) 08/21/17 16:21 Cholesterol 109 mg/dL (50-199) 08/21/17 16:21 LDL Cholesterol Direct 42 mg/dL (50-130) L 08/21/17 16:21 HDL Cholesterol 55 mg/dL (40-59) 08/21/17 16:21 Cholesterol/HDL Ratio 1.98 % 08/21/17 16:21 Urine Color [place] (Yellow) 08/21/17 16:27 Urine Turbidity Clear (Clear) 08/21/17 16:27 Urine pH 7.0 (5.0-7.0) 08/21/17 16:27 Ur Specific [place] 1.019 (1.003-1.030) 08/21/17 16:27 Urine Protein >500 mg/dL (Negative) 08/21/17 16:27 Urine Glucose (UA) Neg mg/dL (Negative) 08/21/17 16:27 Urine Ketones Neg mg/dL (Negative) 08/21/17 16:27 Urine Blood Neg (Negative) 08/21/17 16:27 Urine Nitrite Neg (Negative) 08/21/17 16:27 Urine Bilirubin Neg (Negative) 08/21/17 16:27 Urine Urobilinogen < 2.0 mg/dL (<2.0) 08/21/17 16:27 Ur Leukocyte Esterase Lg (Negative) 08/21/17 16:27 Urine WBC (Auto) 108.0 /HPF (0.0-6.0) H 08/21/17 16:27 Urine RBC (Auto) 14.0 /HPF (0.0-6.0) 08/21/17 16:27 U Epithel Cells (Auto) 1.0 /HPF (0-13.0) 08/21/17 16:27 Urine Bacteria (Auto) 4+ /HPF (Negative) 08/21/17 16:27 Urine Mucus Few /HPF 08/21/17 16:27
[2017-08-23] MEDS: LEVAQUIN 750MG/150ML 750 MG/150 ML BAG IV SCH (22:56)
[2017-08-23] MEDS: CLEOCIN 300 MG/50 mL 300 MG/50 ML BAG IV SCH (22:56)
[2017-08-23] MEDS: TRICOR PO SCH (22:58)
[2017-08-23] MEDS: XALATAN 0.005% OU SCH (23:00)
[2017-08-24] MEDS: FEOSOL PO SCH ×3 (01:13→15:50)
[2017-08-24] MEDS: DUONEB *Not for PRN Use IH SCH ×4 (02:08→20:20)
[2017-08-24 05:51] LABS: Basophils % (Auto) 0.1 % (0.0-1.8); Hematocrit 22.1 % (30.3-42.9); Hemoglobin 7.4 gm/dl (10.1-14.3); Mean Corpuscular HGB Conc 33 % (30-34); Mean Corpuscular Hemoglobin 30 pg (28-32); Mean Corpuscular Volume 90 fl (79-97); Platelet Count 198 K/mm3 (140-440); Red Blood Count 2.45 M/mm3 (3.65-5.03); White Blood Count 5.4 K/mm3 (4.5-11.0)
[2017-08-24] MEDS: SYNTHROID PO SCH (06:03)
[2017-08-24] MEDS: CLEOCIN 300 MG/50 mL 300 MG/50 ML BAG IV SCH ×3 (06:04→22:27)
[2017-08-24 06:06] LABS: Calcium 7.7 mg/dL (8.4-10.2); Chloride 93.1 mmol/L (98-107); Potassium 3.8 mmol/L (3.6-5.0)
[2017-08-24 06:16] LABS: Red Cell Distribution Width 22.2 % (13.2-15.2)
--- NOTE | 2017-08-24 09:27 | Progress Note ---
Assessment and Plan - Patient Problems (1) CHARLEY (acute kidney injury) Current Visit: Yes Status: Acute Plan to address problem: may be prerenal, [id number], Scr leveling off-1.6. Not on steroids. Noted drop in Hb. R/O G.I bleeding. Continue present hydration (2) Hyponatremia Current Visit: Yes Status: Acute Plan to address problem: slowly improving (3) Acute respiratory failure Current Visit: Yes Status: Acute Qualifiers: Respiratory failure complication: hypoxia Qualified Code(s): J96.01 - Acute respiratory failure with hypoxia (4) Acute encephalopathy Current Visit: Yes Status: Acute (5) Anemia Current Visit: Yes Status: Chronic Qualifiers: Anemia type: iron deficiency Subjective Date of service: 08/24/17 Interval history: pt is awake, but non verbal, not in distress Objective - Vital Signs Vital signs: Vital Signs - 12hr 08/23/17 08/23/17 08/24/17 22:46 22:57 00:47 Temperature 98.6 F Pulse Rate 36 L 67 71 Pulse Rate [ Anterior Bilateral Throughout] Respiratory 20 20 Rate Respiratory Rate [Anterior Bilateral Throughout] Blood Pressure 142/62 148/56 Blood Pressure [Left] O2 Sat by Pulse 100 99 Oximetry 08/24/17 08/24/17 08/24/17 00:48 00:50 02:01 Temperature 98.6 F Pulse Rate 70 72 Pulse Rate [ 70 Anterior Bilateral Throughout] Respiratory 18 Rate Respiratory 20 Rate [Anterior Bilateral Throughout] Blood Pressure Blood Pressure 148/56 [Left] O2 Sat by Pulse 100 99 Oximetry 08/24/17 08/24/17 08/24/17 02:10 04:01 04:29 Temperature 97.7 F Pulse Rate 64 64 Pulse Rate [ 63 Anterior Bilateral Throughout] Respiratory 20 Rate Respiratory 19 Rate [Anterior Bilateral Throughout] Blood Pressure Blood Pressure 142/56 [Left] O2 Sat by Pulse 100 100 Oximetry 08/24/17 08:30 Temperature 97.7 F Pulse Rate 63 Pulse Rate [ Anterior Bilateral Throughout] Respiratory 18 Rate Respiratory Rate [Anterior Bilateral Throughout] Blood Pressure 142/53 Blood Pressure [Left] O2 Sat by Pulse 100 Oximetry - General Appearance General appearance: well-developed, chronically ill EENT: mucous membranes dry Neck: no JVD Respiratory: Present: Decreased Breath Sounds Cardiology: regular Gastrointestinal: normoactive bowel sounds Musculoskeletal: other (1+edema) - Lab 08/24/17 05:30 08/24/17 05:30 Most recent lab results Calcium 7.7 mg/dL (8.4-10.2) L 08/24/17 05:30 Urine Creatinine 53.7 mg/dL (0.1-20.0) H 08/23/17 18:20 Urine Sodium 17 mmol/L 08/23/17 18:20 Urine Total Protein 26 mg/dL (5-11.8) H 08/23/17 18:20
[2017-08-24] MEDS: NORMODYNE PO SCH ×2 (09:31→22:21)
[2017-08-24] MEDS: APRESOLINE PO SCH ×3 (09:31→22:20)
--- NOTE | 2017-08-24 10:05 | Progress Note ---
Assessment and Plan Imp: 1. Probable acute diastolic CHF/pulm edema, less likely aspiration pneumonitis 2. Acute respiratory failure, hypoxia and hypercapnea 3. CHARLEY 4. Pulm HTN 5. 6. Alzheimer's dementia 7. Hyponatremia, better Rec: 1. Cont. Lasix; monitor renal function, BUN has increased but renal is following. 2. Steroids stopped yesterday 3. Cont. Levaquin; add Clinda in case she aspirated 4. NPO, HOB elevated, TFs, etc. 5. dopplers done, read pending. 6. ABG ordered now on bipap, will follow up. Subjective Date of service: 08/24/17 Interval history: Currently asleep on bipap Objective Vital Signs - 12hr 08/23/17 08/23/17 08/24/17 22:46 22:57 00:47 Temperature 98.6 F Pulse Rate 36 L 67 71 Pulse Rate [ Anterior Bilateral Throughout] Respiratory 20 20 Rate Respiratory Rate [Anterior Bilateral Throughout] Blood Pressure 142/62 148/56 Blood Pressure [Left] O2 Sat by Pulse 100 99 Oximetry 08/24/17 08/24/17 08/24/17 00:48 00:50 02:01 Temperature 98.6 F Pulse Rate 70 72 Pulse Rate [ 70 Anterior Bilateral Throughout] Respiratory 18 Rate Respiratory 20 Rate [Anterior Bilateral Throughout] Blood Pressure Blood Pressure 148/56 [Left] O2 Sat by Pulse 100 99 Oximetry 08/24/17 08/24/17 08/24/17 02:10 04:01 04:29 Temperature 97.7 F Pulse Rate 64 64 Pulse Rate [ 63 Anterior Bilateral Throughout] Respiratory 20 Rate Respiratory 19 Rate [Anterior Bilateral Throughout] Blood Pressure Blood Pressure 142/56 [Left] O2 Sat by Pulse 100 100 Oximetry 08/24/17 08/24/17 08:30 09:31 Temperature 97.7 F Pulse Rate 63 63 Pulse Rate [ Anterior Bilateral Throughout] Respiratory 18 Rate Respiratory Rate [Anterior Bilateral Throughout] Blood Pressure 142/53 142/53 Blood Pressure [Left] O2 Sat by Pulse 100 Oximetry Constitutional: no acute distress, alert, other (on bipap) Eyes: non-icteric ENT: oropharynx moist Neck: supple Effort: normal Ascultation: Bilateral: rhonchi Cardiovascular: regular rate and rhythm (no mrg) Gastrointestinal: normoactive bowel sounds, soft, non-tender, non-distended Integumentary: normal Extremities: no cyanosis, pink and warm, edema (1+ RLE) Neurologic: other (contractures, awake, nonverbal, moans, does not follow commands) Psychiatric: other (unable to assess) CBC and BMP: 08/24/17 05:30 08/24/17 05:30 ABG, PT/INR, D-dimer: ABG POC ABG pH 7.367 (7.35-7.45) 08/21/17 18:45 POC ABG pCO2 40.9 (35-45) 08/21/17 18:45 POC ABG pO2 65 (80-105) L 08/21/17 18:45 POC ABG HCO3 23.5 08/21/17 18:45 POC ABG Total CO2 25 08/21/17 18:45 POC ABG O2 Sat 92 08/21/17 18:45 Abnormal lab findings: Abnormal Labs 08/21/17 08/21/17 08/21/17 16:12 16:21 16:21 RBC 2.79 L Hgb 8.3 L Hct 25.1 L RDW 22.3 H Lymph % (Auto) 5.9 L [place] % (Auto) Lymph # 0.5 L Seg Neutrophils % 88.1 H Lymphocytes % (Manual) Lymphocytes # (Manual) POC ABG pH 7.228 L POC ABG pCO2 57.7 H POC ABG pO2 192 H Sodium 123 L Potassium 5.1 H Chloride 89.7 L Carbon Dioxide BUN 44 H Creatinine 1.3 H Glucose 123 H POC Glucose Uric Acid Calcium 8.3 L Troponin T NT-Pro-B Natriuret Pep Albumin 3.3 L LDL Cholesterol Direct Urine WBC (Auto) Urine Creatinine Urine Total Protein 08/21/17 08/21/17 08/21/17 16:21 16:21 16:27 RBC Hgb Hct RDW Lymph % (Auto) [place] % (Auto) Lymph # Seg Neutrophils % Lymphocytes % (Manual) Lymphocytes # (Manual) POC ABG pH POC ABG pCO2 POC ABG pO2 Sodium Potassium Chloride Carbon Dioxide BUN Creatinine Glucose POC Glucose Uric Acid Calcium Troponin T 0.067 H NT-Pro-B Natriuret Pep 34749 H Albumin LDL Cholesterol Direct 42 L Urine WBC (Auto) 108.0 H Urine Creatinine Urine Total Protein 08/21/17 08/22/17 08/22/17 18:45 05:10 05:10 RBC 2.52 L Hgb 7.7 L Hct 22.6 L RDW 21.3 H Lymph % (Auto) [place] % (Auto) Lymph # Seg Neutrophils % Lymphocytes % (Manual) 6.0 L Lymphocytes # (Manual) 0.3 L POC ABG pH POC ABG pCO2 POC ABG pO2 65 L Sodium 124 L Potassium 5.4 H Chloride 89.3 L Carbon Dioxide 18 L BUN 46 H Creatinine 1.5 H Glucose POC Glucose Uric Acid Calcium Troponin T NT-Pro-B Natriuret Pep Albumin 3.1 L LDL Cholesterol Direct Urine WBC (Auto) Urine Creatinine Urine Total Protein 08/22/17 08/22/17 08/23/17 06:44 14:33 00:20 RBC Hgb Hct RDW Lymph % (Auto) [place] % (Auto) Lymph # Seg Neutrophils % Lymphocytes % (Manual) Lymphocytes # (Manual) POC ABG pH POC ABG pCO2 POC ABG pO2 Sodium 123 L 125 L Potassium 5.3 H Chloride 89.3 L Carbon Dioxide 18 L BUN Creatinine Glucose POC Glucose 108 H Uric Acid Calcium Troponin T NT-Pro-B Natriuret Pep Albumin LDL Cholesterol Direct Urine WBC (Auto) Urine Creatinine Urine Total Protein 08/23/17 08/23/17 08/23/17 05:38 05:38 12:11 RBC 2.50 L Hgb 7.5 L Hct 22.3 L RDW 21.8 H Lymph % (Auto) [place] % (Auto) Lymph # Seg Neutrophils % Lymphocytes % (Manual) Lymphocytes # (Manual) POC ABG pH POC ABG pCO2 POC ABG pO2 Sodium 130 L Potassium Chloride 91.7 L Carbon Dioxide 20 L BUN 58 H Creatinine 1.6 H Glucose 134 H POC Glucose Uric Acid 9.9 H Calcium 8.3 L Troponin T NT-Pro-B Natriuret Pep Albumin LDL Cholesterol Direct Urine WBC (Auto) Urine Creatinine Urine Total Protein 08/23/17 08/23/17 08/24/17 18:20 18:56 01:14 RBC Hgb Hct RDW Lymph % (Auto) [place] % (Auto) Lymph # Seg Neutrophils % Lymphocytes % (Manual) Lymphocytes # (Manual) POC ABG pH POC ABG pCO2 POC ABG pO2 Sodium Potassium Chloride Carbon Dioxide BUN Creatinine Glucose POC Glucose 155 H 157 H Uric Acid Calcium Troponin T NT-Pro-B Natriuret Pep Albumin LDL Cholesterol Direct Urine WBC (Auto) Urine Creatinine 53.7 H Urine Total Protein 26 H 08/24/17 08/24/17 08/24/17 05:30 05:30 06:09 RBC 2.45 L Hgb 7.4 L Hct 22.1 L RDW 22.2 H Lymph % (Auto) 7.3 L [place] % (Auto) 7.9 H Lymph # 0.4 L Seg Neutrophils % 84.7 H Lymphocytes % (Manual) Lymphocytes # (Manual) POC ABG pH POC ABG pCO2 POC ABG pO2 Sodium 130 L Potassium Chloride 93.1 L Carbon Dioxide BUN 73 H Creatinine 1.6 H Glucose 140 H POC Glucose 138 H Uric Acid Calcium 7.7 L Troponin T NT-Pro-B Natriuret Pep Albumin LDL Cholesterol Direct Urine WBC (Auto) Urine Creatinine Urine Total Protein
[2017-08-24] MEDS: SENOKOT PO SCH (10:38)
[2017-08-24] MEDS: LASIX IV SCH (10:38)
[2017-08-24] MEDS: VITAMIN B-12 PO SCH (10:38)
[2017-08-24] MEDS: HEPARIN SUB-Q SCH ×2 (10:38→22:23)
[2017-08-24] MEDS: PROTONIX PO SCH (10:38)
[2017-08-24] MEDS: HALFPRIN EC PO SCH (10:38)
--- NOTE | 2017-08-24 10:43 | Progress Note ---
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 Worsening anemia Hyponatremia Acute on chronic renal failure Hyperlipidemia Hypertension Hypothyroidism Alzheimer dementia Diffuse cortical atrophy on brain CT Recommendations: Conservative management only Discontinue IV lasix (significant rise in BUN overnight) Re-evaluate in am Subjective Date of service: 08/24/17 Principal diagnosis: Anasarca Interval history: No interval changes cardiac wilson Objective Vital Signs Temp Pulse Pulse Pulse Resp Resp Resp 08/24/17 09:31 63 08/24/17 08:30 97.7 F 63 18 08/24/17 04:29 97.7 F 64 20 08/24/17 04:01 64 08/24/17 02:10 63 19 08/24/17 02:01 70 20 08/24/17 00:50 98.6 F 72 18 08/24/17 00:48 70 08/24/17 00:47 98.6 F 71 20 08/23/17 22:57 67 08/23/17 22:46 36 L 20 08/23/17 20:12 66 18 08/23/17 20:10 08/23/17 20:03 64 20 08/23/17 19:53 98.8 F 67 18 08/23/17 17:35 66 08/23/17 13:25 76 17 08/23/17 13:24 75 18 08/23/17 12:40 99.0 F 68 20 BP BP Pulse Ox 08/24/17 09:31 142/53 08/24/17 08:30 142/53 100 08/24/17 04:29 142/56 100 08/24/17 04:01 100 08/24/17 02:10 08/24/17 02:01 08/24/17 00:50 148/56 99 08/24/17 00:48 100 08/24/17 00:47 148/56 99 08/23/17 22:57 142/62 08/23/17 22:46 100 08/23/17 20:12 08/23/17 20:10 100 08/23/17 20:03 08/23/17 19:53 142/62 100 08/23/17 17:35 147/57 100 08/23/17 13:25 08/23/17 13:24 08/23/17 12:40 129/43 100 - Physical Examination HEENT: Positive: Pallor Cardiac: Positive: Reg Rate and Rhythm Lungs: Positive: Ventilated Respirations Abdomen: Positive: Soft Extremities: Present: +2 Edema - Labs and Meds CBC 08/24/17 Range/Units 05:30 WBC 5.4 (4.5-11.0) K/mm3 RBC 2.45 L (3.65-5.03) M/mm3 Hgb 7.4 L (10.1-14.3) gm/dl Hct 22.1 L (30.3-42.9) % Plt Count 198 (140-440) K/mm3 Lymph # 0.4 L (1.2-5.4) K/mm3 [place] # 0.4 (0.0-0.8) K/mm3 Eos # 0.0 (0.0-0.4) K/mm3 Baso # 0.0 (0.0-0.1) K/mm3 Comprehensive Metabolic Panel 08/24/17 Range/Units 05:30 Sodium 130 L (137-145) mmol/L Potassium 3.8 (3.6-5.0) mmol/L Chloride 93.1 L (98-107) mmol/L Carbon Dioxide 23 (22-30) mmol/L BUN 73 H (7-17) mg/dL Creatinine 1.6 H (0.7-1.2) mg/dL Glucose 140 H (65-100) mg/dL Calcium 7.7 L (8.4-10.2) mg/dL - Imaging and Cardiology EKG: report reviewed (Sinus tach)
[2017-08-24 12:17] LABS: ISTAT Base Excess 0; ISTAT HCO3 24.6; ISTAT PCO2 37.1 (35-45); ISTAT PO2 181 (80-105); ISTAT SO2 100; ISTAT TCO2 26
[2017-08-24] MEDS: IMURAN PO SCH (13:36)
--- NOTE | 2017-08-24 14:15 | Vascular Lab Report ---
LOWER EXTREMITY VENOUS DUPLEX: REASON FOR EXAM: Hypoxia. COMMENTS ON THE RIGHT: All veins visualized are freely compressible without evidence of internal echogenicity. Flow is spontaneous and phasic throughout. COMMENTS ON THE LEFT: All veins visualized are freely compressible without evidence of internal echogenicity. Flow is spontaneous and phasic throughout. IMPRESSION: No evidence of acute or chronic deep venous thrombosis in either lower extremity.
--- NOTE | 2017-08-24 15:58 | Progress Note ---
Assessment and Plan Assessment and plan: 82 y/o Female with PMH of HTN, COPD, Diastolic CHF, HLD anemia and glaucoma - resident of [place] sent in for increasing SOB and wheezing for 1 day.Cough productive of mucoid sputum. No Fever or chills.Also altered sensorium. Daughter at bed side.Recent admission in January for PEG tube malfunction and Vomiting coffee ground material. Acute respiratory failure with hypoxia - Patient is currently off BiPAP and on intranasal oxygen - Patient is off steroids - Pulmonary consult appreciated - Patient is on Levaquin and clindamycin for possible aspiration Diastolic CHF, Moderate Aortic stenosis - Patient was on IV lasix melanie D/Cj because of the elevated BUN COPD exacerbation lIKELY SECONDARY TO ASPIRATION PNEUMONITIS - Continue Levaquin and clindamycin Acute encephalopathy - Due to hypoxia - Could be baseline UTI (urinary tract infection) - Culture showed Gm -ve - Pending sensitivity Hyponatremia with possible hypovoulemia - Chronic consulted CHARLEY (acute kidney injury) WITH VASOMOTOR NEPHROPATHY ON CKD - ATN/volume depletion Hyperkalemia - follow BMP - nephrology consulted HTN (hypertension) - Cont Antihypertensives Glaucoma - COnt Latanoprost Anemia - Chronic - On Iron GERD (gastroesophageal reflux disease) HLD (hyperlipidemia) - on fenofibrates DVT prophylaxis - on heparin and Pantoprazole for GI prophylaxis History Interval history: Patient was seen and evaluated this morning, she is nonverbal, noncommunicative. No family member was in the room. Hospitalist Physical - Physical exam Narrative exam: patient is on BIPAP. The patient appeared well nourished and normally developed. Vital signs as documented. Head exam is unremarkable. No scleral icterus . Neck is without jugular venous distension, thyromegaly, or carotid bruits. Lungs are clear to auscultation. Cardiac exam reveals regular rate and Rhythm. First and second heart sounds normal. No murmurs, rubs or gallops. Abdominal exam reveals normal bowel sounds, no masses, no organomegaly and no aortic enlargement. Extremities are nonedematous and both femoral and pedal pulses are normal. APPLIANCE TESTER:Non communicative. - Constitutional Vitals: Temp Pulse Resp BP Pulse Ox 98.3 F 65 20 141/50 100 08/24/17 11:57 08/24/17 14:31 08/24/17 14:31 08/24/17 11:57 08/24/17 11:57 General appearance: Present: no acute distress Results - Labs CBC & Chem 7: 08/24/17 05:30 08/24/17 05:30 Labs: Laboratory Last Values WBC 5.4 K/mm3 (4.5-11.0) 08/24/17 05:30 RBC 2.45 M/mm3 (3.65-5.03) L 08/24/17 05:30 Hgb 7.4 gm/dl (10.1-14.3) L 08/24/17 05:30 Hct 22.1 % (30.3-42.9) L 08/24/17 05:30 MCV 90 fl (79-97) 08/24/17 05:30 MCH 30 pg (28-32) 08/24/17 05:30 MCHC 33 % (30-34) 08/24/17 05:30 RDW 22.2 % (13.2-15.2) H 08/24/17 05:30 Plt Count 198 K/mm3 (140-440) 08/24/17 05:30 Lymph % (Auto) 7.3 % (13.4-35.0) L 08/24/17 05:30 [place] % (Auto) 7.9 % (0.0-7.3) H 08/24/17 05:30 Eos % (Auto) 0.0 % (0.0-4.3) 08/24/17 05:30 Baso % (Auto) 0.1 % (0.0-1.8) 08/24/17 05:30 Lymph # 0.4 K/mm3 (1.2-5.4) L 08/24/17 05:30 [place] # 0.4 K/mm3 (0.0-0.8) 08/24/17 05:30 Eos # 0.0 K/mm3 (0.0-0.4) 08/24/17 05:30 Baso # 0.0 K/mm3 (0.0-0.1) 08/24/17 05:30 Add Manual Diff Complete 08/22/17 05:10 Total Counted 100 08/22/17 05:10 Seg Neutrophils % 84.7 % (40.0-70.0) H 08/24/17 05:30 Seg Neuts % (Manual) 64.0 % (40.0-70.0) 08/22/17 05:10 Band Neutrophils % 27.0 % 08/22/17 05:10 Lymphocytes % (Manual) 6.0 % (13.4-35.0) L 08/22/17 05:10 Reactive Lymphs % (Man) 0 % 08/22/17 05:10 Monocytes % (Manual) 3.0 % (0.0-7.3) 08/22/17 05:10 Eosinophils % (Manual) 0 % (0.0-4.3) 08/22/17 05:10 Basophils % (Manual) 0 % (0.0-1.8) 08/22/17 05:10 Metamyelocytes % 0 % 08/22/17 05:10 Myelocytes % 0 % 08/22/17 05:10 Promyelocytes % 0 % 08/22/17 05:10 Blast Cells % 0 % 08/22/17 05:10 Nucleated RBC % Not Reportable 08/22/17 05:10 Seg Neutrophils # 4.5 K/mm3 (1.8-7.7) 08/24/17 05:30 Seg Neutrophils # Man 3.1 K/mm3 (1.8-7.7) 08/22/17 05:10 Band Neutrophils # 1.3 K/mm3 08/22/17 05:10 Lymphocytes # (Manual) 0.3 K/mm3 (1.2-5.4) L 08/22/17 05:10 Abs React Lymphs (Man) 0.0 K/mm3 08/22/17 05:10 Monocytes # (Manual) 0.1 K/mm3 (0.0-0.8) 08/22/17 05:10 Eosinophils # (Manual) 0.0 K/mm3 (0.0-0.4) 08/22/17 05:10 Basophils # (Manual) 0.0 K/mm3 (0.0-0.1) 08/22/17 05:10 Metamyelocytes # 0.0 K/mm3 08/22/17 05:10 Myelocytes # 0.0 K/mm3 08/22/17 05:10 Promyelocytes # 0.0 K/mm3 08/22/17 05:10 Blast Cells # 0.0 K/mm3 08/22/17 05:10 WBC Morphology Not Reportable 08/22/17 05:10 Hypersegmented Neuts Not Reportable 08/22/17 05:10 Hyposegmented Neuts Not Reportable 08/22/17 05:10 Hypogranular Neuts Not Reportable 08/22/17 05:10 Smudge Cells Not Reportable 08/22/17 05:10 Toxic Granulation Not Reportable 08/22/17 05:10 Toxic Vacuolation Not Reportable 08/22/17 05:10 Dohle Bodies Not Reportable 08/22/17 05:10 Pelger-Huet Anomaly Not Reportable 08/22/17 05:10 Tera Rods Not Reportable 08/22/17 05:10 Platelet Estimate Consistent w auto 08/22/17 05:10 Clumped Platelets Not Reportable 08/22/17 05:10 Plt Clumps, EDTA Not Reportable 08/22/17 05:10 Large Platelets Not Reportable 08/22/17 05:10 Giant Platelets Not Reportable 08/22/17 05:10 Platelet Satelliting Not Reportable 08/22/17 05:10 Plt Morphology Comment Not Reportable 08/22/17 05:10 RBC Morphology Not Reportable 08/22/17 05:10 Dimorphic RBCs Not Reportable 08/22/17 05:10 Polychromasia Not Reportable 08/22/17 05:10 Hypochromasia 1+ 08/22/17 05:10 Poikilocytosis Not Reportable 08/22/17 05:10 Anisocytosis 1+ 08/22/17 05:10 Microcytosis Not Reportable 08/22/17 05:10 Macrocytosis Not Reportable 08/22/17 05:10 Spherocytes Not Reportable 08/22/17 05:10 Pappenheimer Bodies Not Reportable 08/22/17 05:10 Sickle Cells Not Reportable 08/22/17 05:10 Target Cells Not Reportable 08/22/17 05:10 Tear Drop Cells Not Reportable 08/22/17 05:10 Ovalocytes Not Reportable 08/22/17 05:10 Helmet Cells Not Reportable 08/22/17 05:10 [place] Bodies Not Reportable 08/22/17 05:10 [place] Rings Not Reportable 08/22/17 05:10 Gam[place] Cells Not Reportable 08/22/17 05:10 Bite Cells Not Reportable 08/22/17 05:10 Crenated Cell Not Reportable 08/22/17 05:10 Elliptocytes 1+ 08/22/17 05:10 Acanthocytes (Spur) Not Reportable 08/22/17 05:10 Rouleaux Not Reportable 08/22/17 05:10 Hemoglobin C Crystals Not Reportable 08/22/17 05:10 Schistocytes Not Reportable 08/22/17 05:10 Malaria parasites Not Reportable 08/22/17 05:10 [place] Bodies Not Reportable 08/22/17 05:10 Hem Pathologist Commnt No 08/22/17 05:10 POC ABG pH 7.430 (7.35-7.45) 08/24/17 10:41 POC ABG pCO2 37.1 (35-45) 08/24/17 10:41 POC ABG pO2 181 (80-105) H 08/24/17 10:41 POC ABG HCO3 24.6 08/24/17 10:41 POC ABG Total CO2 26 08/24/17 10:41 POC ABG O2 Sat 100 08/24/17 10:41 POC ABG Base Excess 0 08/24/17 10:41 FiO2 35 % 08/24/17 10:41 Sodium 130 mmol/L (137-145) L 08/24/17 05:30 Potassium 3.8 mmol/L (3.6-5.0) 08/24/17 05:30 Chloride 93.1 mmol/L (98-107) L 08/24/17 05:30 Carbon Dioxide 23 mmol/L (22-30) 08/24/17 05:30 Anion Gap 18 mmol/L 08/24/17 05:30 BUN 73 mg/dL (7-17) H 08/24/17 05:30 Creatinine 1.6 mg/dL (0.7-1.2) H 08/24/17 05:30 Estimated GFR 38 ml/min 08/24/17 05:30 BUN/Creatinine Ratio 46 % 08/24/17 05:30 Glucose 140 mg/dL (65-100) H 08/24/17 05:30 POC Glucose 160 (70-105) H 08/24/17 12:00 Hemoglobin A1c 5.1 % (4-6) 08/21/17 16:21 Osmolality 296 Mosm/kg 08/23/17 12:11 Uric Acid 9.9 mg/dL (3.5-7.6) H 08/23/17 12:11 Calcium 7.7 mg/dL (8.4-10.2) L 08/24/17 05:30 Total Bilirubin 0.30 mg/dL (0.1-1.2) 08/22/17 05:10 AST 31 units/L (5-40) 08/22/17 05:10 ALT 13 units/L (7-56) 08/22/17 05:10 Alkaline Phosphatase 54 units/L (35-129) 08/22/17 05:10 Troponin T 0.067 ng/mL (0.00-0.029) H 08/21/17 16:21 NT-Pro-B Natriuret Pep 89805 pg/mL (0-900) H 08/21/17 16:21 Total Protein 7.7 g/dL (6.3-8.2) 08/22/17 05:10 Albumin 3.1 g/dL (3.9-5) L 08/22/17 05:10 Albumin/Globulin Ratio 0.7 % 08/22/17 05:10 Triglycerides 60 mg/dL (2-149) 08/21/17 16:21 Cholesterol 109 mg/dL (50-199) 08/21/17 16:21 LDL Cholesterol Direct 42 mg/dL (50-130) L 08/21/17 16:21 HDL Cholesterol 55 mg/dL (40-59) 08/21/17 16:21 Cholesterol/HDL Ratio 1.98 % 08/21/17 16:21 Urine Color [place] (Yellow) 08/21/17 16:27 Urine Turbidity Clear (Clear) 08/21/17 16:27 Urine pH 7.0 (5.0-7.0) 08/21/17 16:27 Ur Specific [place] 1.019 (1.003-1.030) 08/21/17 16:27 Urine Protein >500 mg/dL (Negative) 08/21/17 16:27 Urine Glucose (UA) Neg mg/dL (Negative) 08/21/17 16:27 Urine Ketones Neg mg/dL (Negative) 08/21/17 16:27 Urine Blood Neg (Negative) 08/21/17 16:27 Urine Nitrite Neg (Negative) 08/21/17 16:27 Urine Bilirubin Neg (Negative) 08/21/17 16:27 Urine Urobilinogen < 2.0 mg/dL (<2.0) 08/21/17 16:27 Ur Leukocyte Esterase Lg (Negative) 08/21/17 16:27 Urine WBC (Auto) 108.0 /HPF (0.0-6.0) H 08/21/17 16:27 Urine RBC (Auto) 14.0 /HPF (0.0-6.0) 08/21/17 16:27 U Epithel Cells (Auto) 1.0 /HPF (0-13.0) 08/21/17 16:27 Urine Bacteria (Auto) 4+ /HPF (Negative) 08/21/17 16:27 Urine Mucus Few /HPF 08/21/17 16:27 Urine Osmolality 298 Mosm/kg 08/23/17 18:20 Urine Creatinine 53.7 mg/dL (0.1-20.0) H 08/23/17 18:20 Urine Sodium 17 mmol/L 08/23/17 18:20 Urine Total Protein 26 mg/dL (5-11.8) H 08/23/17 18:20
[2017-08-24] MEDS ORDERED: PANCREAZE DR 10,500 UNIT FEEDTUBE PRN (17:22)
[2017-08-24] MEDS ORDERED: SIMPLE SYRUP FEEDTUBE PRN ×2 (17:22)
[2017-08-24] MEDS ORDERED: SODIUM BICARBONATE FEEDTUBE PRN (17:22)
[2017-08-24] MEDS: TYLENOL PO PRN (22:20)
[2017-08-24] MEDS: TRICOR PO SCH (22:21)
[2017-08-24] MEDS: XALATAN 0.005% OU SCH (22:22)
[2017-08-25] MEDS: FEOSOL PO SCH ×4 (00:11→23:05)
[2017-08-25] MEDS: DUONEB *Not for PRN Use IH SCH ×5 (01:49→20:21)
[2017-08-25] MEDS: CLEOCIN 300 MG/50 mL 300 MG/50 ML BAG IV SCH (05:26)
[2017-08-25] MEDS: SYNTHROID PO SCH (05:27)
[2017-08-25 06:02] LABS: Hematocrit 21.5 % (30.3-42.9)
[2017-08-25 06:25] LABS: Calcium 7.6 mg/dL (8.4-10.2); Chloride 95.5 mmol/L (98-107); Potassium 3.5 mmol/L (3.6-5.0)
[2017-08-25] MEDS: APRESOLINE PO SCH ×3 (08:07→22:45)
--- NOTE | 2017-08-25 09:10 | Progress Note ---
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 Subjective Date of service: 08/25/17 Principal diagnosis: Anasarca Interval history: No acute cardiac events. Labs shows BUN continues to rise; H&H is trending downwards. Objective Vital Signs Temp Pulse Pulse Resp Resp BP BP 08/25/17 08:58 97.5 F L 64 20 132/50 08/25/17 04:49 98.0 F 65 18 146/51 08/25/17 02:10 67 18 08/25/17 01:49 65 18 08/25/17 00:09 98.3 F 18 125/47 08/24/17 22:58 69 19 08/24/17 22:00 66 18 08/24/17 20:35 65 18 08/24/17 20:22 08/24/17 20:20 63 18 08/24/17 19:44 97.9 F 63 18 145/50 08/24/17 16:22 63 145/49 08/24/17 14:31 65 20 08/24/17 14:21 66 20 08/24/17 11:57 98.3 F 63 18 141/50 08/24/17 11:09 08/24/17 11:08 63 20 08/24/17 10:59 60 18 08/24/17 10:41 60 18 08/24/17 10:00 64 21 08/24/17 09:31 63 142/53 Pulse Ox 08/25/17 08:58 100 08/25/17 04:49 100 08/25/17 02:10 08/25/17 01:49 08/25/17 00:09 08/24/17 22:58 100 08/24/17 22:00 08/24/17 20:35 08/24/17 20:22 100 08/24/17 20:20 08/24/17 19:44 100 08/24/17 16:22 100 08/24/17 14:31 08/24/17 14:21 08/24/17 11:57 100 08/24/17 11:09 100 08/24/17 11:08 08/24/17 10:59 08/24/17 10:41 100 08/24/17 10:00 08/24/17 09:31 - Physical Examination Cardiac: Positive: Other (paced) Abdomen: Positive: Soft Extremities: Present: +2 Edema - Labs and Meds CBC 08/25/17 Range/Units 05:43 Hgb 7.0 L (10.1-14.3) gm/dl Hct 21.5 L (30.3-42.9) % Comprehensive Metabolic Panel 08/25/17 Range/Units 05:43 Sodium 132 L (137-145) mmol/L Potassium 3.5 L (3.6-5.0) mmol/L Chloride 95.5 L (98-107) mmol/L Carbon Dioxide 25 (22-30) mmol/L BUN 94 H (7-17) mg/dL Creatinine 1.4 H (0.7-1.2) mg/dL Glucose 124 H (65-100) mg/dL Calcium 7.6 L (8.4-10.2) mg/dL - Imaging and Cardiology EKG: report reviewed (Sinus tach)
[2017-08-25] MEDS: VITAMIN B-12 PO SCH (09:35)
[2017-08-25] MEDS: SENOKOT PO SCH (09:36)
[2017-08-25] MEDS: PROTONIX FEEDTUBE SCH (09:36)
[2017-08-25] MEDS: HEPARIN SUB-Q SCH ×2 (09:36→22:25)
[2017-08-25] MEDS: BABY ASPIRIN PO SCH (09:36)
[2017-08-25] MEDS: NORMODYNE PO SCH ×2 (09:53→22:25)
--- NOTE | 2017-08-25 10:03 | Progress Note ---
Assessment and Plan Imp: 1. Probable acute diastolic CHF/pulm edema, less likely aspiration pneumonitis 2. Acute respiratory failure, hypoxia and hypercapnea 3. CHARLEY 4. Pulm HTN 5. 6. Alzheimer's dementia 7. Hyponatremia, better Rec: 1. Follow up renal recs. 2. Steroids stopped Thursday, not cause of continued increase in BUN 3. Would be ok with stopping IV abx therapy for now. 4. NPO, HOB elevated, TFs, etc. Subjective Date of service: 08/25/17 Principal diagnosis: Anasarca Interval history: No acute events. Wore bipap therapy last night. Back on cannula now and stable. Cards discontinued IV lasix on yesterday. Doppler studies were negative. Objective Vital Signs - 12hr 08/24/17 08/24/17 08/25/17 22:00 22:58 00:09 Temperature 98.3 F Pulse Rate 66 69 Pulse Rate [ Anterior Bilateral Throughout] Pulse Rate [ Anterior Left Throughout] Pulse Rate [ Anterior Right Throughout] Respiratory 18 19 18 Rate Respiratory Rate [Anterior Bilateral Throughout] Respiratory Rate [Anterior Left Throughout ] Respiratory Rate [Anterior Right Throughout] Blood Pressure 125/47 Blood Pressure [Left] O2 Sat by Pulse 100 Oximetry 08/25/17 08/25/17 08/25/17 01:49 02:10 04:49 Temperature 98.0 F Pulse Rate 65 Pulse Rate [ 65 67 Anterior Bilateral Throughout] Pulse Rate [ Anterior Left Throughout] Pulse Rate [ Anterior Right Throughout] Respiratory 18 Rate Respiratory 18 18 Rate [Anterior Bilateral Throughout] Respiratory Rate [Anterior Left Throughout ] Respiratory Rate [Anterior Right Throughout] Blood Pressure 146/51 Blood Pressure [Left] O2 Sat by Pulse 100 Oximetry 08/25/17 08/25/17 08/25/17 08:58 09:40 09:43 Temperature 97.5 F L Pulse Rate 64 Pulse Rate [ Anterior Bilateral Throughout] Pulse Rate [ 70 Anterior Left Throughout] Pulse Rate [ 66 Anterior Right Throughout] Respiratory 20 Rate Respiratory Rate [Anterior Bilateral Throughout] Respiratory 20 Rate [Anterior Left Throughout ] Respiratory 18 Rate [Anterior Right Throughout] Blood Pressure Blood Pressure 132/50 [Left] O2 Sat by Pulse 100 100 Oximetry 08/25/17 09:53 Temperature Pulse Rate 64 Pulse Rate [ Anterior Bilateral Throughout] Pulse Rate [ Anterior Left Throughout] Pulse Rate [ Anterior Right Throughout] Respiratory Rate Respiratory Rate [Anterior Bilateral Throughout] Respiratory Rate [Anterior Left Throughout ] Respiratory Rate [Anterior Right Throughout] Blood Pressure 132/50 Blood Pressure [Left] O2 Sat by Pulse Oximetry Constitutional: no acute distress, alert, other (being cleaned and changed right now) Eyes: non-icteric ENT: oropharynx moist Neck: supple Effort: normal Ascultation: Bilateral: rhonchi Cardiovascular: regular rate and rhythm (no mrg) Gastrointestinal: normoactive bowel sounds, soft, non-tender, non-distended Integumentary: normal Extremities: no cyanosis, pink and warm, edema (1+ RLE) Neurologic: other (contractures, awake, nonverbal, moans, does not follow commands) Psychiatric: other (unable to assess) CBC and BMP: 08/25/17 05:43 08/25/17 05:43 ABG, PT/INR, D-dimer: ABG POC ABG pH 7.430 (7.35-7.45) 08/24/17 10:41 POC ABG pCO2 37.1 (35-45) 08/24/17 10:41 POC ABG pO2 181 (80-105) H 08/24/17 10:41 POC ABG HCO3 24.6 08/24/17 10:41 POC ABG Total CO2 26 08/24/17 10:41 POC ABG O2 Sat 100 08/24/17 10:41 Abnormal lab findings: Abnormal Labs 08/21/17 08/21/17 08/21/17 16:12 16:21 16:21 RBC 2.79 L Hgb 8.3 L Hct 25.1 L RDW 22.3 H Lymph % (Auto) 5.9 L [place] % (Auto) Lymph # 0.5 L Seg Neutrophils % 88.1 H Lymphocytes % (Manual) Lymphocytes # (Manual) POC ABG pH 7.228 L POC ABG pCO2 57.7 H POC ABG pO2 192 H Sodium 123 L Potassium 5.1 H Chloride 89.7 L Carbon Dioxide BUN 44 H Creatinine 1.3 H Glucose 123 H POC Glucose Uric Acid Calcium 8.3 L Troponin T NT-Pro-B Natriuret Pep Albumin 3.3 L LDL Cholesterol Direct Urine WBC (Auto) Urine Creatinine Urine Total Protein 08/21/17 08/21/17 08/21/17 16:21 16:21 16:27 RBC Hgb Hct RDW Lymph % (Auto) [place] % (Auto) Lymph # Seg Neutrophils % Lymphocytes % (Manual) Lymphocytes # (Manual) POC ABG pH POC ABG pCO2 POC ABG pO2 Sodium Potassium Chloride Carbon Dioxide BUN Creatinine Glucose POC Glucose Uric Acid Calcium Troponin T 0.067 H NT-Pro-B Natriuret Pep 99380 H Albumin LDL Cholesterol Direct 42 L Urine WBC (Auto) 108.0 H Urine Creatinine Urine Total Protein 08/21/17 08/22/17 08/22/17 18:45 05:10 05:10 RBC 2.52 L Hgb 7.7 L Hct 22.6 L RDW 21.3 H Lymph % (Auto) [place] % (Auto) Lymph # Seg Neutrophils % Lymphocytes % (Manual) 6.0 L Lymphocytes # (Manual) 0.3 L POC ABG pH POC ABG pCO2 POC ABG pO2 65 L Sodium 124 L Potassium 5.4 H Chloride 89.3 L Carbon Dioxide 18 L BUN 46 H Creatinine 1.5 H Glucose POC Glucose Uric Acid Calcium Troponin T NT-Pro-B Natriuret Pep Albumin 3.1 L LDL Cholesterol Direct Urine WBC (Auto) Urine Creatinine Urine Total Protein 08/22/17 08/22/17 08/23/17 06:44 14:33 00:20 RBC Hgb Hct RDW Lymph % (Auto) [place] % (Auto) Lymph # Seg Neutrophils % Lymphocytes % (Manual) Lymphocytes # (Manual) POC ABG pH POC ABG pCO2 POC ABG pO2 Sodium 123 L 125 L Potassium 5.3 H Chloride 89.3 L Carbon Dioxide 18 L BUN Creatinine Glucose POC Glucose 108 H Uric Acid Calcium Troponin T NT-Pro-B Natriuret Pep Albumin LDL Cholesterol Direct Urine WBC (Auto) Urine Creatinine Urine Total Protein 08/23/17 08/23/17 08/23/17 05:38 05:38 12:11 RBC 2.50 L Hgb 7.5 L Hct 22.3 L RDW 21.8 H Lymph % (Auto) [place] % (Auto) Lymph # Seg Neutrophils % Lymphocytes % (Manual) Lymphocytes # (Manual) POC ABG pH POC ABG pCO2 POC ABG pO2 Sodium 130 L Potassium Chloride 91.7 L Carbon Dioxide 20 L BUN 58 H Creatinine 1.6 H Glucose 134 H POC Glucose Uric Acid 9.9 H Calcium 8.3 L Troponin T NT-Pro-B Natriuret Pep Albumin LDL Cholesterol Direct Urine WBC (Auto) Urine Creatinine Urine Total Protein 08/23/17 08/23/17 08/24/17 18:20 18:56 01:14 RBC Hgb Hct RDW Lymph % (Auto) [place] % (Auto) Lymph # Seg Neutrophils % Lymphocytes % (Manual) Lymphocytes # (Manual) POC ABG pH POC ABG pCO2 POC ABG pO2 Sodium Potassium Chloride Carbon Dioxide BUN Creatinine Glucose POC Glucose 155 H 157 H Uric Acid Calcium Troponin T NT-Pro-B Natriuret Pep Albumin LDL Cholesterol Direct Urine WBC (Auto) Urine Creatinine 53.7 H Urine Total Protein 26 H 08/24/17 08/24/17 08/24/17 05:30 05:30 06:09 RBC 2.45 L Hgb 7.4 L Hct 22.1 L RDW 22.2 H Lymph % (Auto) 7.3 L [place] % (Auto) 7.9 H Lymph # 0.4 L Seg Neutrophils % 84.7 H Lymphocytes % (Manual) Lymphocytes # (Manual) POC ABG pH POC ABG pCO2 POC ABG pO2 Sodium 130 L Potassium Chloride 93.1 L Carbon Dioxide BUN 73 H Creatinine 1.6 H Glucose 140 H POC Glucose 138 H Uric Acid Calcium 7.7 L Troponin T NT-Pro-B Natriuret Pep Albumin LDL Cholesterol Direct Urine WBC (Auto) Urine Creatinine Urine Total Protein 08/24/17 08/24/17 08/24/17 10:41 12:00 18:17 RBC Hgb Hct RDW Lymph % (Auto) [place] % (Auto) Lymph # Seg Neutrophils % Lymphocytes % (Manual) Lymphocytes # (Manual) POC ABG pH POC ABG pCO2 POC ABG pO2 181 H Sodium Potassium Chloride Carbon Dioxide BUN Creatinine Glucose POC Glucose 160 H 136 H Uric Acid Calcium Troponin T NT-Pro-B Natriuret Pep Albumin LDL Cholesterol Direct Urine WBC (Auto) Urine Creatinine Urine Total Protein 08/25/17 08/25/17 08/25/17 00:16 05:43 05:43 RBC Hgb 7.0 L Hct 21.5 L RDW Lymph % (Auto) [place] % (Auto) Lymph # Seg Neutrophils % Lymphocytes % (Manual) Lymphocytes # (Manual) POC ABG pH POC ABG pCO2 POC ABG pO2 Sodium 132 L Potassium 3.5 L Chloride 95.5 L Carbon Dioxide BUN 94 H Creatinine 1.4 H Glucose 124 H POC Glucose 110 H Uric Acid Calcium 7.6 L Troponin T NT-Pro-B Natriuret Pep Albumin LDL Cholesterol Direct Urine WBC (Auto) Urine Creatinine Urine Total Protein
[2017-08-25] MEDS ORDERED: NACL 0.9% 500 ML 500 ML IV ONE (10:18)
[2017-08-25] MEDS ORDERED: POTASSIUM CHLORIDE FEEDTUBE ONE ×2 (10:20→16:50)
[2017-08-25] MEDS: IMURAN PO SCH (12:23)
[2017-08-25] MEDS ORDERED: NACL 0.9% 500 ML 500 ML ONE (12:40)
--- NOTE | 2017-08-25 13:07 | Consultation ---
History of Present Illness - Reason for Consult Consult date: 08/25/17 ESBL E coli UTI Requesting physician: EDUARDO GUAJARDO - History of Present Illness 82 years old female with history of HTN, COPD, HLD, glaucoma, Alzheimer's disease, chronic anemia , chronic kidney disease, chronic sacral decubitus ulcer , CHF; resident of [place], admitted on 08/23/2017 due to 24 hours history of worsening shortness of breath, wheezing and altered mental status. Per [facility] staff, patient has been coughing with productive mucoid sputum. Patient is baseline nonverbal and unable to provide a history. She has a PEG. EMS arrival O2 sat was 80% placed on NRM. In the emergency room, initial temperature was 97.8, heart rate 63, respirations 36, O2 sat 100, blood pressure 133/61. Initial white count 7.6. Hemoglobin 8.3. Creatinine 1.3. Urinalysis showed large leukocyte esterase of 108 white blood cells. CXR no consolidation +congestive heart failure changes. Renal US showed bilateral medical renal disease. Microbiology: Blood cultures: Urine cultures: 08/23 ESBL E coli Respiratory cultures: Current Antimicrobials: levaquin Clindamycin Previous Antimicrobials: Past History Past Medical History: CAD, COPD, hypertension, hyperlipidemia, renal failure Past Surgical History: , hysterectomy, hernia repair, Other (PPM) Social history: smoking (remote past), full code Family history: hypertension Medications and Allergies Allergies Allergy/AdvReac Type Severity Reaction Status Date / Time warfarin sodium AdvReac Mild Bleeding Verified 11/29/14 15:19 [From Coumadin] aliskiren hemifumarate AdvReac Rash Verified 06/15/15 07:34 [From Tekturna] ramipril [From Altace] AdvReac Rash Verified 06/15/15 07:34 Home Medications Medication Instructions Recorded Confirmed Last Taken Type Acetaminophen [Tylenol] 650 mg PO Q6HR PRN 08/21/17 08/21/17 Unknown History Aspirin [Lo-Dose Aspirin EC] 81 mg PO DAILY 08/21/17 08/21/17 Unknown History Brimonidine Tartrate [Brimonidine 1 drop OU Q8HR 08/21/17 08/21/17 Unknown History Tartrate 0.2%] Cyanocobalamin [Vitamin B-12] 1,000 mcg PO DAILY 08/21/17 08/21/17 Unknown History Esomeprazole Magnesium [NexIUM] 20 mg PO QDAY 08/21/17 08/21/17 Unknown History Fenofibrate [Tricor] 145 mg PO HS 08/21/17 08/21/17 Unknown History Ferrous Sulfate [Ferrous Sulfate 300 mg PO Q8H 08/21/17 08/21/17 Unknown History Oral Liq 300 Mg/5 Ml] Hydralazine HCl 100 mg PO TID 08/21/17 08/21/17 Unknown History Labetalol HCl 300 mg PO Q12H 08/21/17 08/21/17 Unknown History Latanoprost 0.005% [Xalatan 0.005%] 1 drop OP QPM 08/21/17 08/21/17 Unknown History Levothyroxine [Synthroid] 25 mcg PO QAM 08/21/17 08/21/17 Unknown History Melatonin [Melatin] 3 mg PO QHS 08/21/17 08/21/17 Unknown History Multivit-Minerals/Ferrous Gluc 5 ml PO DAILY 08/21/17 08/21/17 Unknown History [Centrum Multivit-Mineral Liq] Oxycodone HCl/Acetaminophen 1 each PO Q6HR PRN 08/21/17 08/21/17 Unknown History [Percocet 7.5/325 mg] Sennosides [Senna] 8.6 mg PO DAILY 08/21/17 08/21/17 Unknown History azaTHIOprine [Imuran] 50 mg PO DAILY 08/21/17 08/21/17 Unknown History Active Meds: Active Medications Acetaminophen (Tylenol) 650 mg PO Q4H PRN PRN Reason: Pain MILD(1-3)/Fever >100.5/ROSE Last Admin: 08/24/17 22:20 Dose: 650 mg Albuterol (Proventil) 2.5 mg IH Q4HRT PRN PRN Reason: Shortness Of Breath Albuterol/Ipratropium (Duoneb *Not For Prn Use*) 1 ampul IH Q6HRT [facility] Last Admin: 08/25/17 09:39 Dose: 1 ampul Lipase/Protease/Amylase (Yonatan Dr 10,500 Unit) 1 each FEEDTUBE PRN PRN PRN Reason: For Clogged Feeding Tube Aspirin (Baby Aspirin) 81 mg PO QDAY [facility] Last Admin: 08/25/17 09:36 Dose: 81 mg Azathioprine (Imuran) 50 mg PO DAILY@1200 [facility] Last Admin: 08/25/17 12:23 Dose: 50 mg Bisacodyl (Dulcolax) [address] QDAY PRN PRN Reason: Constipation unrelieved by MOM Cyanocobalamin (Vitamin B-12) 1,000 mcg PO DAILY [facility] Last Admin: 08/25/17 09:35 Dose: 1,000 mcg Fenofibrate (Tricor) 145 mg PO HS [facility] Last Admin: 08/24/17 22:21 Dose: 145 mg Ferrous Sulfate (Feosol) 300 mg PO Q8H [facility] Last Admin: 08/25/17 08:07 Dose: 300 mg Heparin Sodium (Porcine) (Heparin) 5,000 unit SUB-Q Q12HR [facility] Last Admin: 08/25/17 09:36 Dose: 5,000 unit Hydralazine HCl (Apresoline) 100 mg PO TID [facility] Last Admin: 08/25/17 08:07 Dose: 100 mg Levofloxacin/Dextrose (Levaquin 750mg/150ml) 750 mg in 150 mls @ 100 mls/hr IV Q48H [facility] PRN Reason: Protocol Last Admin: 08/23/17 22:56 Dose: 100 mls/hr Clindamycin HCl (Cleocin 300 Mg/50 Ml) 300 mg in 50 mls @ 100 mls/hr IV Q8HR [facility] PRN Reason: Protocol Last Admin: 08/25/17 05:26 Dose: 100 mls/hr Labetalol HCl (Normodyne) 300 mg PO Q12H [facility] Last Admin: 08/25/17 09:53 Dose: 300 mg Latanoprost (Xalatan 0.005%) 1 drops OU QHS [facility] Last Admin: 08/24/17 22:22 Dose: 1 drops Levothyroxine Sodium (Synthroid) 25 mcg PO QAM@0600 [facility] Last Admin: 08/25/17 05:27 Dose: 25 mcg Magnesium Hydroxide (Milk Of Magnesia) 30 ml PO Q4H PRN PRN Reason: Constipation Miscellaneous Medication (Brimonidine Tartrate [Brimonidine Tartrate 0.2%]) 1 drop OU Q8HR [facility] Morphine Sulfate (Morphine) 2 mg IV Q4H PRN PRN Reason: Pain, Moderate (4-6) Ondansetron HCl (Zofran) 4 mg IV Q8H PRN PRN Reason: N/V unrelieved by Reglan Oxycodone/Acetaminophen (Percocet 5/325) 1 tab PO Q6H PRN PRN Reason: Pain, Moderate (4-6) Pantoprazole (Protonix) 40 mg FEEDTUBE DAILY [facility] Last Admin: 08/25/17 09:36 Dose: 40 mg Senna (Senokot) 8.6 mg PO DAILY [facility] Last Admin: 08/25/17 09:36 Dose: 8.6 mg Simple Syrup (Simple Syrup) 15 ml FEEDTUBE PRN PRN PRN Reason: Hypoglycemia Simple Syrup (Simple Syrup) 30 ml FEEDTUBE PRN PRN PRN Reason: Hypoglycemia Sodium Bicarbonate (Sodium Bicarbonate) 325 mg FEEDTUBE PRN PRN PRN Reason: For Clogged Feeding Tube Review of Systems All systems: negative (as per HPI pt is non verbal) Physical Examination - Physical Exam Narrative exam: General appearance: Alert in NAD, non conversant Eyes: anicteric sclerae, moist conjunctivae; no lid-lag; PERRLA HENT: Atraumatic; oropharynx limted, right nasal skin sloughing. Neck: Trachea midline; supple, no thyromegaly or lymphadenopathy Lungs: decreased BS tangela CV: RRR Abdomen: Soft, obese, PEG in place Extremities: Tangela peripheral edema Skin: +sacral dec no examined +left arm bruises Psych: alert non verbal. Neuro: alert non verbal Lines: No CVL / PICC - Constitutional Vitals: Vital Signs Temp Pulse Resp BP Pulse Ox 97.5 F L 77 20 132/50 100 08/25/17 08:58 08/25/17 10:00 08/25/17 10:00 08/25/17 09:53 08/25/17 09:43 Temperature -Last 24 Hours Temperature 97.5 F Temperature 98.0 F Temperature 98.3 F Temperature 97.9 F Results - Labs CBC & Chem 7: 08/25/17 05:43 08/25/17 05:43 Labs: Abnormal lab results 08/24/17 08/24/17 08/25/17 Range/Units 12:00 18: 00:16 Hgb (10.1-14.3) gm/dl Hct (30.3-42.9) % Sodium (137-145) mmol/L Potassium (3.6-5.0) mmol/L Chloride (98-107) mmol/L BUN (7-17) mg/dL Creatinine (0.7-1.2) mg/dL Glucose (65-100) mg/dL POC Glucose 160 H 136 H 110 H (70-105) Calcium (8.4-10.2) mg/dL Crossmatch 08/25/17 08/25/17 08/25/17 Range/Units 05:43 05:43 10:30 Hgb 7.0 L (10.1-14.3) gm/dl Hct 21.5 L (30.3-42.9) % Sodium 132 L (137-145) mmol/L Potassium 3.5 L (3.6-5.0) mmol/L Chloride 95.5 L (98-107) mmol/L BUN 94 H (7-17) mg/dL Creatinine 1.4 H (0.7-1.2) mg/dL Glucose 124 H (65-100) mg/dL POC Glucose (70-105) Calcium 7.6 L (8.4-10.2) mg/dL Crossmatch See Detail Assessment and Plan Assessment: 1) ESBL E coli UTI: renal US no stones or hydro. 2) Presumed CHF exacerbation 3) Acute respiratory failure 4) CHARLEY 5) Sacral decubitus non infected [id number] Plan: -stop clindamycin and levaquin -start zosyn to cover non complicated ESBL E coli -wound care -check CRP -contact isolation Thank you Dr Guajardo for your consultation, will follow up with you. Blanquita Boone MD Infectious Diseases Specialist [facility] ([facility] M [phone] O [phone]
[2017-08-25] MEDS ORDERED: SODIUM BICARBONATE FEEDTUBE PRN (13:48)
[2017-08-25] MEDS ORDERED: PANCREAZE DR 10,500 UNIT FEEDTUBE PRN (13:48)
[2017-08-25] MEDS ORDERED: SIMPLE SYRUP FEEDTUBE PRN ×2 (13:48)
--- NOTE | 2017-08-25 15:30 | Progress Note ---
Assessment and Plan impression * Acute on chronic renal failure * Anemia * Shortness of breath * Hypertension * Encephalopathy * UTI recommendations * Patient's renal function is slowly improving * Clinically still volume overloaded. add PRN diuretics * Avoid nephrotoxins * Monitor fluid status and electrolytes closely * shortness of breath most likely due to COPD and fluid overload * continue antibiotics as per ID recommendations Subjective Date of service: 08/25/17 Principal diagnosis: Anasarca Interval history: patient is arousable. However, she is non verbal. Currently receiving packed RBC transfusion. On oxygen supplementation at 3 L. Oxygen saturation 100% Objective - Vital Signs Vital signs: Vital Signs - 12hr 08/25/17 08/25/17 08/25/17 04:49 08:58 09:40 Temperature 98.0 F 97.5 F L Pulse Rate 65 64 Pulse Rate [ 70 Anterior Left Throughout] Pulse Rate [ 66 Anterior Right Throughout] Pulse Rate [ Apical] Respiratory 18 20 Rate Respiratory 20 Rate [Anterior Left Throughout ] Respiratory 18 Rate [Anterior Right Throughout] Blood Pressure 146/51 Blood Pressure 132/50 [Left] O2 Sat by Pulse 100 100 Oximetry 08/25/17 08/25/17 08/25/17 09:43 09:53 10:00 Temperature Pulse Rate 64 60 Pulse Rate [ Anterior Left Throughout] Pulse Rate [ Anterior Right Throughout] Pulse Rate [ 77 Apical] Respiratory 20 Rate Respiratory Rate [Anterior Left Throughout ] Respiratory Rate [Anterior Right Throughout] Blood Pressure 132/50 Blood Pressure [Left] O2 Sat by Pulse 100 Oximetry 08/25/17 08/25/17 08/25/17 13:05 13:18 14:06 Temperature 98.4 F 98.4 F Pulse Rate 63 92 H Pulse Rate [ 69 Anterior Left Throughout] Pulse Rate [ 71 Anterior Right Throughout] Pulse Rate [ Apical] Respiratory 20 20 Rate Respiratory 18 Rate [Anterior Left Throughout ] Respiratory 18 Rate [Anterior Right Throughout] Blood Pressure 119/49 Blood Pressure 122/43 [Left] O2 Sat by Pulse 100 100 Oximetry - General Appearance General appearance: well-developed, well-nourished, appears stated age EENT: PERRL, mucous membranes moist Neck: no JVD, no thyromegaly, no carotid bruit, supple Respiratory: Present: Decreased Breath Sounds (at the bases) Cardiology: regular, normal heart rate Gastrointestinal: normoactive bowel sounds, other (PEG tube in place) Integumentary: other (1+ edema) - Lab 08/25/17 05:43 08/25/17 05:43 Most recent lab results Calcium 7.6 mg/dL (8.4-10.2) L 08/25/17 05:43 Urine Creatinine 53.7 mg/dL (0.1-20.0) H 08/23/17 18:20 Urine Sodium 17 mmol/L 08/23/17 18:20 Urine Total Protein 26 mg/dL (5-11.8) H 08/23/17 18:20
--- NOTE | 2017-08-25 16:31 | Progress Note ---
Assessment and Plan Assessment and plan: 82 y/o Female with PMH of HTN, COPD, Diastolic CHF, HLD anemia and glaucoma - resident of [place] sent in for increasing SOB and wheezing for 1 day.Cough productive of mucoid sputum. No Fever or chills.Also altered sensorium. Daughter at bed side.Recent admission in January for PEG tube malfunction and Vomiting coffee ground material. Acute respiratory failure with hypoxia - Patient is currently off BiPAP and on intranasal oxygen - Patient is off steroids - Pulmonary consult appreciated - Patient was treated with IV Levaquin and clindamycin, and swithed today to Zosyn per ID recommendation Diastolic CHF, Moderate Aortic stenosis - Patient was on IV lasix melanie D/Cj because of the elevated BUN COPD exacerbation lIKELY SECONDARY TO ASPIRATION PNEUMONITIS - Continue Levaquin and clindamycin Acute encephalopathy - Due to hypoxia - Could be baseline UTI (urinary tract infection) - Urine culture grew ESBL and ID was consulted and recommended to discontinue Levaquin and clindamycin, switch to Zosyn Hyponatremia with possible hypovoulemia - Chronic consulted - CHARLEY (acute kidney injury) WITH 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 No family member was in the room. Hospitalist Physical - Physical exam Narrative exam: patient is on BIPAP. The patient appeared well nourished and normally developed. Vital signs as documented. Head exam is unremarkable. No scleral icterus . Neck is without jugular venous distension, thyromegaly, or carotid bruits. Lungs are clear to auscultation. Cardiac exam reveals regular rate and Rhythm. First and second heart sounds normal. No murmurs, rubs or gallops. Abdominal exam reveals normal bowel sounds, no masses, no organomegaly and no aortic enlargement. Extremities are nonedematous and both femoral and pedal pulses are normal. RN HOSPITAL:Non communicative. - Constitutional Vitals: Temp Pulse Resp BP Pulse Ox 97.4 F L 65 21 129/52 100 08/25/17 16:13 08/25/17 16:13 08/25/17 16:13 08/25/17 16:13 08/25/17 16:13 General appearance: Present: no acute distress Results - Labs CBC & Chem 7: 08/25/17 05:43 08/25/17 05:43 Labs: Laboratory Last Values WBC 5.4 K/mm3 (4.5-11.0) 08/24/17 05:30 RBC 2.45 M/mm3 (3.65-5.03) L 08/24/17 05:30 Hgb 7.0 gm/dl (10.1-14.3) L 08/25/17 05:43 Hct 21.5 % (30.3-42.9) L 08/25/17 05:43 MCV 90 fl (79-97) 08/24/17 05:30 MCH 30 pg (28-32) 08/24/17 05:30 MCHC 33 % (30-34) 08/24/17 05:30 RDW 22.2 % (13.2-15.2) H 08/24/17 05:30 Plt Count 198 K/mm3 (140-440) 08/24/17 05:30 Lymph % (Auto) 7.3 % (13.4-35.0) L 08/24/17 05:30 [place] % (Auto) 7.9 % (0.0-7.3) H 08/24/17 05:30 Eos % (Auto) 0.0 % (0.0-4.3) 08/24/17 05:30 Baso % (Auto) 0.1 % (0.0-1.8) 08/24/17 05:30 Lymph # 0.4 K/mm3 (1.2-5.4) L 08/24/17 05:30 [place] # 0.4 K/mm3 (0.0-0.8) 08/24/17 05:30 Eos # 0.0 K/mm3 (0.0-0.4) 08/24/17 05:30 Baso # 0.0 K/mm3 (0.0-0.1) 08/24/17 05:30 Add Manual Diff Complete 08/22/17 05:10 Total Counted 100 08/22/17 05:10 Seg Neutrophils % 84.7 % (40.0-70.0) H 08/24/17 05:30 Seg Neuts % (Manual) 64.0 % (40.0-70.0) 08/22/17 05:10 Band Neutrophils % 27.0 % 08/22/17 05:10 Lymphocytes % (Manual) 6.0 % (13.4-35.0) L 08/22/17 05:10 Reactive Lymphs % (Man) 0 % 08/22/17 05:10 Monocytes % (Manual) 3.0 % (0.0-7.3) 08/22/17 05:10 Eosinophils % (Manual) 0 % (0.0-4.3) 08/22/17 05:10 Basophils % (Manual) 0 % (0.0-1.8) 08/22/17 05:10 Metamyelocytes % 0 % 08/22/17 05:10 Myelocytes % 0 % 08/22/17 05:10 Promyelocytes % 0 % 08/22/17 05:10 Blast Cells % 0 % 08/22/17 05:10 Nucleated RBC % Not Reportable 08/22/17 05:10 Seg Neutrophils # 4.5 K/mm3 (1.8-7.7) 08/24/17 05:30 Seg Neutrophils # Man 3.1 K/mm3 (1.8-7.7) 08/22/17 05:10 Band Neutrophils # 1.3 K/mm3 08/22/17 05:10 Lymphocytes # (Manual) 0.3 K/mm3 (1.2-5.4) L 08/22/17 05:10 Abs React Lymphs (Man) 0.0 K/mm3 08/22/17 05:10 Monocytes # (Manual) 0.1 K/mm3 (0.0-0.8) 08/22/17 05:10 Eosinophils # (Manual) 0.0 K/mm3 (0.0-0.4) 08/22/17 05:10 Basophils # (Manual) 0.0 K/mm3 (0.0-0.1) 08/22/17 05:10 Metamyelocytes # 0.0 K/mm3 08/22/17 05:10 Myelocytes # 0.0 K/mm3 08/22/17 05:10 Promyelocytes # 0.0 K/mm3 08/22/17 05:10 Blast Cells # 0.0 K/mm3 08/22/17 05:10 WBC Morphology Not Reportable 08/22/17 05:10 Hypersegmented Neuts Not Reportable 08/22/17 05:10 Hyposegmented Neuts Not Reportable 08/22/17 05:10 Hypogranular Neuts Not Reportable 08/22/17 05:10 Smudge Cells Not Reportable 08/22/17 05:10 Toxic Granulation Not Reportable 08/22/17 05:10 Toxic Vacuolation Not Reportable 08/22/17 05:10 Dohle Bodies Not Reportable 08/22/17 05:10 Pelger-Huet Anomaly Not Reportable 08/22/17 05:10 Tera Rods Not Reportable 08/22/17 05:10 Platelet Estimate Consistent w auto 08/22/17 05:10 Clumped Platelets Not Reportable 08/22/17 05:10 Plt Clumps, EDTA Not Reportable 08/22/17 05:10 Large Platelets Not Reportable 08/22/17 05:10 Giant Platelets Not Reportable 08/22/17 05:10 Platelet Satelliting Not Reportable 08/22/17 05:10 Plt Morphology Comment Not Reportable 08/22/17 05:10 RBC Morphology Not Reportable 08/22/17 05:10 Dimorphic RBCs Not Reportable 08/22/17 05:10 Polychromasia Not Reportable 08/22/17 05:10 Hypochromasia 1+ 08/22/17 05:10 Poikilocytosis Not Reportable 08/22/17 05:10 Anisocytosis 1+ 08/22/17 05:10 Microcytosis Not Reportable 08/22/17 05:10 Macrocytosis Not Reportable 08/22/17 05:10 Spherocytes Not Reportable 08/22/17 05:10 Pappenheimer Bodies Not Reportable 08/22/17 05:10 Sickle Cells Not Reportable 08/22/17 05:10 Target Cells Not Reportable 08/22/17 05:10 Tear Drop Cells Not Reportable 08/22/17 05:10 Ovalocytes Not Reportable 08/22/17 05:10 Helmet Cells Not Reportable 08/22/17 05:10 [place] Bodies Not Reportable 08/22/17 05:10 Kelly Rings Not Reportable 08/22/17 05:10 [place] Cells Not Reportable 08/22/17 05:10 Bite Cells Not Reportable 08/22/17 05:10 Crenated Cell Not Reportable 08/22/17 05:10 Elliptocytes 1+ 08/22/17 05:10 Acanthocytes (Spur) Not Reportable 08/22/17 05:10 Rouleaux Not Reportable 08/22/17 05:10 Hemoglobin C Crystals Not Reportable 08/22/17 05:10 Schistocytes Not Reportable 08/22/17 05:10 Malaria parasites Not Reportable 08/22/17 05:10 [place] Bodies Not Reportable 08/22/17 05:10 Hem Pathologist Commnt No 08/22/17 05:10 POC ABG pH 7.430 (7.35-7.45) 08/24/17 10:41 POC ABG pCO2 37.1 (35-45) 08/24/17 10:41 POC ABG pO2 181 (80-105) H 08/24/17 10:41 POC ABG HCO3 24.6 08/24/17 10:41 POC ABG Total CO2 26 08/24/17 10:41 POC ABG O2 Sat 100 08/24/17 10:41 POC ABG Base Excess 0 08/24/17 10:41 FiO2 35 % 08/24/17 10:41 Sodium 132 mmol/L (137-145) L 08/25/17 05:43 Potassium 3.5 mmol/L (3.6-5.0) L 08/25/17 05:43 Chloride 95.5 mmol/L (98-107) L 08/25/17 05:43 Carbon Dioxide 25 mmol/L (22-30) 08/25/17 05:43 Anion Gap 15 mmol/L 08/25/17 05:43 BUN 94 mg/dL (7-17) H 08/25/17 05:43 Creatinine 1.4 mg/dL (0.7-1.2) H 08/25/17 05:43 Estimated GFR 44 ml/min 08/25/17 05:43 BUN/Creatinine Ratio 67 % 08/25/17 05:43 Glucose 124 mg/dL (65-100) H 08/25/17 05:43 POC Glucose 110 (70-105) H 08/25/17 00:16 Hemoglobin A1c 5.1 % (4-6) 08/21/17 16:21 Osmolality 296 Mosm/kg 08/23/17 12:11 Uric Acid 9.9 mg/dL (3.5-7.6) H 08/23/17 12:11 Calcium 7.6 mg/dL (8.4-10.2) L 08/25/17 05:43 Total Bilirubin 0.30 mg/dL (0.1-1.2) 08/22/17 05:10 AST 31 units/L (5-40) 08/22/17 05:10 ALT 13 units/L (7-56) 08/22/17 05:10 Alkaline Phosphatase 54 units/L (35-129) 08/22/17 05:10 Troponin T 0.067 ng/mL (0.00-0.029) H 08/21/17 16:21 C-Reactive Protein 0.60 mg/dL (0.00-1.30) 08/25/17 05:43 NT-Pro-B Natriuret Pep 64259 pg/mL (0-900) H 08/21/17 16:21 Total Protein 7.7 g/dL (6.3-8.2) 08/22/17 05:10 Albumin 3.1 g/dL (3.9-5) L 08/22/17 05:10 Albumin/Globulin Ratio 0.7 % 08/22/17 05:10 Triglycerides 60 mg/dL (2-149) 08/21/17 16:21 Cholesterol 109 mg/dL (50-199) 08/21/17 16:21 LDL Cholesterol Direct 42 mg/dL (50-130) L 08/21/17 16:21 HDL Cholesterol 55 mg/dL (40-59) 08/21/17 16:21 Cholesterol/HDL Ratio 1.98 % 08/21/17 16:21 Urine Color Dora (Yellow) 08/21/17 16:27 Urine Turbidity Clear (Clear) 08/21/17 16:27 Urine pH 7.0 (5.0-7.0) 08/21/17 16:27 Ur Specific [place] 1.019 (1.003-1.030) 08/21/17 16:27 Urine Protein >500 mg/dL (Negative) 08/21/17 16:27 Urine Glucose (UA) Neg mg/dL (Negative) 08/21/17 16:27 Urine Ketones Neg mg/dL (Negative) 08/21/17 16:27 Urine Blood Neg (Negative) 08/21/17 16:27 Urine Nitrite Neg (Negative) 08/21/17 16:27 Urine Bilirubin Neg (Negative) 08/21/17 16:27 Urine Urobilinogen < 2.0 mg/dL (<2.0) 08/21/17 16:27 Ur Leukocyte Esterase Lg (Negative) 08/21/17 16:27 Urine WBC (Auto) 108.0 /HPF (0.0-6.0) H 08/21/17 16:27 Urine RBC (Auto) 14.0 /HPF (0.0-6.0) 08/21/17 16:27 U Epithel Cells (Auto) 1.0 /HPF (0-13.0) 08/21/17 16:27 Urine Bacteria (Auto) 4+ /HPF (Negative) 08/21/17 16:27 Urine Mucus Few /HPF 08/21/17 16:27 Urine Osmolality 298 Mosm/kg 08/23/17 18:20 Urine Creatinine 53.7 mg/dL (0.1-20.0) H 08/23/17 18:20 Urine Sodium 17 mmol/L 08/23/17 18:20 Urine Total Protein 26 mg/dL (5-11.8) H 08/23/17 18:20 Blood Type O POSITIVE 08/25/17 10:30 Antibody Screen Negative 08/25/17 10:30 Crossmatch See Detail 08/25/17 10:30 Hemoglobin dropped from 7.4 to 7
[2017-08-25] MEDS ORDERED: LASIX IV ONE (17:00)
[2017-08-25] MEDS: ZOSYN/NS 3.375GM/50ML 3.375 GM/50 ML BAG IV SCH ×2 (17:00→22:35)
[2017-08-25 21:01] LABS: Hematocrit 27.4 % (30.3-42.9); Hemoglobin 9.2 gm/dl (10.1-14.3)
[2017-08-25] MEDS: TRICOR PO SCH (22:25)
[2017-08-25] MEDS: XALATAN 0.005% OU SCH (22:26)
[2017-08-26] MEDS: DUONEB *Not for PRN Use IH SCH ×5 (01:48→19:47)
[2017-08-26] MEDS: SYNTHROID PO SCH (05:55)
[2017-08-26] MEDS: ZOSYN/NS 3.375GM/50ML 3.375 GM/50 ML BAG IV SCH ×3 (06:04→23:21)
[2017-08-26 08:44] LABS: Hematocrit 23.5 % (30.3-42.9); Hemoglobin 7.8 gm/dl (10.1-14.3)
[2017-08-26 08:59] LABS: Calcium 7.6 mg/dL (8.4-10.2); Chloride 97.1 mmol/L (98-107)
[2017-08-26] MEDS: NORMODYNE PO SCH ×2 (09:00→21:17)
[2017-08-26] MEDS: APRESOLINE PO SCH ×3 (09:00→21:17)
[2017-08-26] MEDS: FEOSOL PO SCH ×3 (10:38→23:25)
[2017-08-26] MEDS: VITAMIN B-12 PO SCH (10:41)
[2017-08-26] MEDS: BABY ASPIRIN PO SCH (10:41)
[2017-08-26] MEDS: PROTONIX FEEDTUBE SCH (10:41)
[2017-08-26] MEDS: SENOKOT PO SCH (10:41)
[2017-08-26] MEDS: HEPARIN SUB-Q SCH ×2 (10:42→21:16)
--- NOTE | 2017-08-26 11:17 | Progress Note ---
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 Subjective Date of service: 08/26/17 Principal diagnosis: Anasarca Interval history: No cardiac events. Objective Vital Signs Temp Pulse Pulse Pulse Pulse Resp Resp 08/26/17 09:00 69 08/26/17 08:36 08/26/17 08:33 70 08/26/17 05:43 98.4 F 67 20 08/26/17 01:43 97.8 F 70 20 08/25/17 23:54 63 19 08/25/17 22:00 62 08/25/17 20:48 97.9 F 63 20 08/25/17 20:36 73 18 08/25/17 20:22 08/25/17 20:21 67 18 08/25/17 20:16 20 08/25/17 16:56 98.4 F 63 19 08/25/17 16:46 98.4 F 67 20 08/25/17 16:30 98.2 F 64 19 08/25/17 16:13 97.4 F L 65 21 08/25/17 16:00 97.4 F L 65 21 08/25/17 15:30 98.2 F 64 21 08/25/17 15:00 98.4 F 65 19 08/25/17 14:30 97.6 F 65 20 08/25/17 14:06 69 71 08/25/17 14:00 98.1 F 63 19 08/25/17 13:30 98.6 F 63 21 08/25/17 13:18 98.4 F 92 H 20 08/25/17 13:05 98.4 F 63 20 08/25/17 11:48 98.4 F 62 20 Resp Resp BP BP Pulse Ox 08/26/17 09:00 148/55 08/26/17 08:36 100 08/26/17 08:33 23 08/26/17 05:43 137/43 100 08/26/17 01:43 130/47 100 08/25/17 23:54 100 08/25/17 22:00 08/25/17 20:48 142/49 100 08/25/17 20:36 08/25/17 20:22 97 08/25/17 20:21 08/25/17 20:16 08/25/17 16:56 126/50 100 08/25/17 16:46 126/53 100 08/25/17 16:30 126/54 100 08/25/17 16:13 129/52 100 08/25/17 16:00 129/52 100 08/25/17 15:30 121/55 100 08/25/17 15:00 120/52 100 08/25/17 14:30 125/50 100 08/25/17 14:06 18 18 08/25/17 14:00 124/51 100 08/25/17 13:30 113/51 100 08/25/17 13:18 122/43 100 08/25/17 13:05 119/49 100 08/25/17 11:48 122/43 100 - Physical Examination General: No Apparent Distress Cardiac: Positive: Other (paced) Abdomen: Positive: Soft Extremities: Present: +2 Edema - Labs and Meds CBC 08/25/17 08/26/17 Range/Units 20:31 08:14 Hgb 9.2 L 7.8 L (10.1-14.3) gm/dl Hct 27.4 L 23.5 L (30.3-42.9) % Comprehensive Metabolic Panel 08/26/17 Range/Units 08:14 Sodium 135 L (137-145) mmol/L Potassium 4.0 (3.6-5.0) mmol/L Chloride 97.1 L (98-107) mmol/L Carbon Dioxide 26 (22-30) mmol/L BUN 92 H (7-17) mg/dL Creatinine 1.2 (0.7-1.2) mg/dL Glucose 125 H (65-100) mg/dL Calcium 7.6 L (8.4-10.2) mg/dL - Imaging and Cardiology EKG: report reviewed (Sinus tach)
[2017-08-26] MEDS: IMURAN PO SCH (11:38)
--- NOTE | 2017-08-26 12:11 | Progress Note ---
Assessment and Plan Assessment: 1) ESBL E coli UTI: renal US no stones or hydro. CRP=0.6 2) Presumed CHF exacerbation 3) Acute respiratory failure 4) CHARLEY 5) Sacral decubitus non infected [id number] Plan: -continue zosyn to cover non complicated ESBL E coli -upon discharge will do fosfomycin 3 g PO q 3 days total 3 doses -wound care -contact isolation Thank you Dr Gamble for your consultation, will follow up with you. Blanquita Boone MD Infectious Diseases Specialist [facility] ([facility]) M [phone] O [phone] Subjective Date of service: 08/26/17 Principal diagnosis: Anasarca Interval history: More alert, tracking, no fever. Microbiology: Blood cultures: Urine cultures: 08/23 ESBL E coli Respiratory cultures: Current Antimicrobials: levaquin Clindamycin Objective - Exam Narrative Exam: General appearance: Alert in NAD, non conversant Eyes: anicteric sclerae, moist conjunctivae; no lid-lag; PERRLA HENT: Atraumatic; oropharynx limted, right nasal skin sloughing. Neck: Trachea midline; supple, no thyromegaly or lymphadenopathy Lungs: decreased BS daniel CV: RRR Abdomen: Soft, obese, PEG in place Extremities: Daniel peripheral edema Skin: +sacral dec no examined +left arm bruises Psych: alert non verbal. Neuro: alert non verbal Lines: No CVL / PICC - Constitutional Vitals: Vital Signs Temp Pulse Resp BP Pulse Ox 98.4 F 69 22 148/55 100 08/26/17 05:43 08/26/17 09:00 08/26/17 08:40 08/26/17 09:00 08/26/17 08:36 Temperature -Last 24 Hours Temperature 98.4 F Temperature 97.8 F Temperature 97.9 F Temperature 98.4 F Temperature 98.4 F Temperature 98.2 F Temperature 97.4 F Temperature 97.4 F Temperature 98.2 F Temperature 98.4 F Temperature 97.6 F Temperature 98.1 F Temperature 98.6 F Temperature 98.4 F Temperature 98.4 F - Labs CBC & Chem 7: 08/26/17 08:14 08/26/17 08:14 Labs: Abnormal lab results 08/25/17 08/25/17 08/25/17 Range/Units 10:30 11:53 18:19 Hgb (10.1-14.3) gm/dl Hct (30.3-42.9) % Sodium (137-145) mmol/L Chloride (98-107) mmol/L BUN (7-17) mg/dL Glucose (65-100) mg/dL POC Glucose 129 H 117 H (70-105) Calcium (8.4-10.2) mg/dL Crossmatch See Detail 08/25/17 08/26/17 08/26/17 Range/Units 20:31 00:14 08:14 Hgb 9.2 L (10.1-14.3) gm/dl Hct 27.4 L (30.3-42.9) % Sodium 135 L (137-145) mmol/L Chloride 97.1 L (98-107) mmol/L BUN 92 H (7-17) mg/dL Glucose 125 H (65-100) mg/dL POC Glucose 124 H (70-105) Calcium 7.6 L (8.4-10.2) mg/dL Crossmatch 08/26/17 Range/Units 08:14 Hgb 7.8 L (10.1-14.3) gm/dl Hct 23.5 L (30.3-42.9) % Sodium (137-145) mmol/L Chloride (98-107) mmol/L BUN (7-17) mg/dL Glucose (65-100) mg/dL POC Glucose (70-105) Calcium (8.4-10.2) mg/dL Crossmatch
--- NOTE | 2017-08-26 13:56 | Progress Note ---
Assessment and Plan impression * Acute on chronic renal failure * Anemia * Shortness of breath * Hypertension * Encephalopathy * UTI recommendations * Patient's renal function is improving * Clinically still volume overloaded. Continue diuretics * Avoid nephrotoxins * Monitor fluid status and electrolytes closely * shortness of breath most likely due to COPD and fluid overload * continue antibiotics as per ID recommendations Subjective Date of service: 08/26/17 Principal diagnosis: Anasarca Interval history: patient is arousable. However, she is non verbal. On oxygen supplementation at 3 L. lying comfortably in bed Objective - Vital Signs Vital signs: Vital Signs - 12hr 08/26/17 08/26/17 08/26/17 05:43 08:33 08:36 Temperature 98.4 F Pulse Rate 67 Pulse Rate [ 70 Anterior Right Throughout] Respiratory 20 Rate Respiratory 23 Rate [Anterior Right Throughout] Blood Pressure 137/43 O2 Sat by Pulse 100 100 Oximetry 08/26/17 08/26/17 08:40 09:00 Temperature Pulse Rate 69 Pulse Rate [ 72 Anterior Right Throughout] Respiratory Rate Respiratory 22 Rate [Anterior Right Throughout] Blood Pressure 148/55 O2 Sat by Pulse Oximetry - General Appearance General appearance: well-developed, well-nourished, appears stated age EENT: PERRL, mucous membranes moist Neck: no JVD, no thyromegaly, no carotid bruit, supple Respiratory: Present: Clear to Ascultation, Decreased Breath Sounds (at the bases) Cardiology: regular, normal heart rate, S1S2, no murmurs Gastrointestinal: normal, normoactive bowel sounds, other (PEG tube in place) Integumentary: other (1+ edema) - Lab 08/26/17 08:14 08/26/17 08:14 Most recent lab results Calcium 7.6 mg/dL (8.4-10.2) L 08/26/17 08:14 Urine Creatinine 53.7 mg/dL (0.1-20.0) H 08/23/17 18:20 Urine Sodium 17 mmol/L 08/23/17 18:20 Urine Total Protein 26 mg/dL (5-11.8) H 08/23/17 18:20
[2017-08-26] MEDS: TYLENOL PO PRN (14:30)
--- NOTE | 2017-08-26 15:44 | Progress Note ---
Assessment and Plan Imp: 1. Probable acute diastolic CHF/pulm edema, less likely aspiration pneumonitis 2. Acute respiratory failure, hypoxia and hypercapnea 3. CHARLEY 4. Pulm HTN 5. 6. Alzheimer's dementia 7. Hyponatremia, better Rec: 1. Follow up renal recs. 2. Steroids stopped Thursday, not cause of continued increase in BUN. Cr improved but BUN is still elevated 3. Would be ok with stopping IV abx therapy for now. ID following so will defer to them. 4. NPO, HOB elevated, TFs, etc. Subjective Date of service: 08/26/17 Principal diagnosis: Anasarca Interval history: No acute events. Breathing appears to be stable. CPAP at night and nasal cannula during the day. Objective Vital Signs - 12hr 08/26/17 08/26/17 08/26/17 05:43 08:33 08:36 Temperature 98.4 F Pulse Rate 67 Pulse Rate [ 70 Anterior Right Throughout] Respiratory 20 Rate Respiratory 23 Rate [Anterior Right Throughout] Blood Pressure 137/43 O2 Sat by Pulse 100 100 Oximetry 08/26/17 08/26/17 08/26/17 08:40 09:00 09:42 Temperature 98.5 F Pulse Rate 69 72 Pulse Rate [ 72 Anterior Right Throughout] Respiratory 20 Rate Respiratory 22 Rate [Anterior Right Throughout] Blood Pressure 148/55 135/58 O2 Sat by Pulse 100 Oximetry Constitutional: no acute distress, alert, other (being cleaned and changed right now) Eyes: non-icteric ENT: oropharynx moist Neck: supple Effort: normal Ascultation: Bilateral: rhonchi Cardiovascular: regular rate and rhythm (no mrg) Gastrointestinal: normoactive bowel sounds, soft, non-tender, non-distended Integumentary: normal Extremities: no cyanosis, pink and warm, edema (1+ RLE) Neurologic: other (contractures, awake, nonverbal, moans, does not follow commands) Psychiatric: other (unable to assess) CBC and BMP: 08/26/17 08:14 08/26/17 08:14 ABG, PT/INR, D-dimer: ABG POC ABG pH 7.430 (7.35-7.45) 08/24/17 10:41 POC ABG pCO2 37.1 (35-45) 08/24/17 10:41 POC ABG pO2 181 (80-105) H 08/24/17 10:41 POC ABG HCO3 24.6 08/24/17 10:41 POC ABG Total CO2 26 08/24/17 10:41 POC ABG O2 Sat 100 08/24/17 10:41 Abnormal lab findings: Abnormal Labs 08/21/17 08/21/17 08/21/17 16:12 16:21 16:21 RBC 2.79 L Hgb 8.3 L Hct 25.1 L RDW 22.3 H Lymph % (Auto) 5.9 L [place] % (Auto) Lymph # 0.5 L Seg Neutrophils % 88.1 H Lymphocytes % (Manual) Lymphocytes # (Manual) POC ABG pH 7.228 L POC ABG pCO2 57.7 H POC ABG pO2 192 H Sodium 123 L Potassium 5.1 H Chloride 89.7 L Carbon Dioxide BUN 44 H Creatinine 1.3 H Glucose 123 H POC Glucose Uric Acid Calcium 8.3 L Troponin T NT-Pro-B Natriuret Pep Albumin 3.3 L LDL Cholesterol Direct Urine WBC (Auto) Urine Creatinine Urine Total Protein Crossmatch 08/21/17 08/21/17 08/21/17 16:21 16:21 16:27 RBC Hgb Hct RDW Lymph % (Auto) [place] % (Auto) Lymph # Seg Neutrophils % Lymphocytes % (Manual) Lymphocytes # (Manual) POC ABG pH POC ABG pCO2 POC ABG pO2 Sodium Potassium Chloride Carbon Dioxide BUN Creatinine Glucose POC Glucose Uric Acid Calcium Troponin T 0.067 H NT-Pro-B Natriuret Pep 14778 H Albumin LDL Cholesterol Direct 42 L Urine WBC (Auto) 108.0 H Urine Creatinine Urine Total Protein Crossmatch 08/21/17 08/22/17 08/22/17 18:45 05:10 05:10 RBC 2.52 L Hgb 7.7 L Hct 22.6 L RDW 21.3 H Lymph % (Auto) [place] % (Auto) Lymph # Seg Neutrophils % Lymphocytes % (Manual) 6.0 L Lymphocytes # (Manual) 0.3 L POC ABG pH POC ABG pCO2 POC ABG pO2 65 L Sodium 124 L Potassium 5.4 H Chloride 89.3 L Carbon Dioxide 18 L BUN 46 H Creatinine 1.5 H Glucose POC Glucose Uric Acid Calcium Troponin T NT-Pro-B Natriuret Pep Albumin 3.1 L LDL Cholesterol Direct Urine WBC (Auto) Urine Creatinine Urine Total Protein Crossmatch 08/22/17 08/22/17 08/23/17 06:44 14:33 00:20 RBC Hgb Hct RDW Lymph % (Auto) [place] % (Auto) Lymph # Seg Neutrophils % Lymphocytes % (Manual) Lymphocytes # (Manual) POC ABG pH POC ABG pCO2 POC ABG pO2 Sodium 123 L 125 L Potassium 5.3 H Chloride 89.3 L Carbon Dioxide 18 L BUN Creatinine Glucose POC Glucose 108 H Uric Acid Calcium Troponin T NT-Pro-B Natriuret Pep Albumin LDL Cholesterol Direct Urine WBC (Auto) Urine Creatinine Urine Total Protein Crossmatch 08/23/17 08/23/17 08/23/17 05:38 05:38 12:11 RBC 2.50 L Hgb 7.5 L Hct 22.3 L RDW 21.8 H Lymph % (Auto) [place] % (Auto) Lymph # Seg Neutrophils % Lymphocytes % (Manual) Lymphocytes # (Manual) POC ABG pH POC ABG pCO2 POC ABG pO2 Sodium 130 L Potassium Chloride 91.7 L Carbon Dioxide 20 L BUN 58 H Creatinine 1.6 H Glucose 134 H POC Glucose Uric Acid 9.9 H Calcium 8.3 L Troponin T NT-Pro-B Natriuret Pep Albumin LDL Cholesterol Direct Urine WBC (Auto) Urine Creatinine Urine Total Protein Crossmatch 08/23/17 08/23/17 08/24/17 18:20 18:56 01:14 RBC Hgb Hct RDW Lymph % (Auto) [place] % (Auto) Lymph # Seg Neutrophils % Lymphocytes % (Manual) Lymphocytes # (Manual) POC ABG pH POC ABG pCO2 POC ABG pO2 Sodium Potassium Chloride Carbon Dioxide BUN Creatinine Glucose POC Glucose 155 H 157 H Uric Acid Calcium Troponin T NT-Pro-B Natriuret Pep Albumin LDL Cholesterol Direct Urine WBC (Auto) Urine Creatinine 53.7 H Urine Total Protein 26 H Crossmatch 08/24/17 08/24/17 08/24/17 05:30 05:30 06:09 RBC 2.45 L Hgb 7.4 L Hct 22.1 L RDW 22.2 H Lymph % (Auto) 7.3 L [place] % (Auto) 7.9 H Lymph # 0.4 L Seg Neutrophils % 84.7 H Lymphocytes % (Manual) Lymphocytes # (Manual) POC ABG pH POC ABG pCO2 POC ABG pO2 Sodium 130 L Potassium Chloride 93.1 L Carbon Dioxide BUN 73 H Creatinine 1.6 H Glucose 140 H POC Glucose 138 H Uric Acid Calcium 7.7 L Troponin T NT-Pro-B Natriuret Pep Albumin LDL Cholesterol Direct Urine WBC (Auto) Urine Creatinine Urine Total Protein Crossmatch 08/24/17 08/24/17 08/24/17 10:41 12:00 18:17 RBC Hgb Hct RDW Lymph % (Auto) [place] % (Auto) Lymph # Seg Neutrophils % Lymphocytes % (Manual) Lymphocytes # (Manual) POC ABG pH POC ABG pCO2 POC ABG pO2 181 H Sodium Potassium Chloride Carbon Dioxide BUN Creatinine Glucose POC Glucose 160 H 136 H Uric Acid Calcium Troponin T NT-Pro-B Natriuret Pep Albumin LDL Cholesterol Direct Urine WBC (Auto) Urine Creatinine Urine Total Protein Crossmatch 08/25/17 08/25/17 08/25/17 00:16 05:43 05:43 RBC Hgb 7.0 L Hct 21.5 L RDW Lymph % (Auto) [place] % (Auto) Lymph # Seg Neutrophils % Lymphocytes % (Manual) Lymphocytes # (Manual) POC ABG pH POC ABG pCO2 POC ABG pO2 Sodium 132 L Potassium 3.5 L Chloride 95.5 L Carbon Dioxide BUN 94 H Creatinine 1.4 H Glucose 124 H POC Glucose 110 H Uric Acid Calcium 7.6 L Troponin T NT-Pro-B Natriuret Pep Albumin LDL Cholesterol Direct Urine WBC (Auto) Urine Creatinine Urine Total Protein Crossmatch 08/25/17 08/25/17 08/25/17 10:30 11:53 18:19 RBC Hgb Hct RDW Lymph % (Auto) [place] % (Auto) Lymph # Seg Neutrophils % Lymphocytes % (Manual) Lymphocytes # (Manual) POC ABG pH POC ABG pCO2 POC ABG pO2 Sodium Potassium Chloride Carbon Dioxide BUN Creatinine Glucose POC Glucose 129 H 117 H Uric Acid Calcium Troponin T NT-Pro-B Natriuret Pep Albumin LDL Cholesterol Direct Urine WBC (Auto) Urine Creatinine Urine Total Protein Crossmatch See Detail 08/25/17 08/26/17 08/26/17 20:31 00:14 08:14 RBC Hgb 9.2 L Hct 27.4 L RDW Lymph % (Auto) [place] % (Auto) Lymph # Seg Neutrophils % Lymphocytes % (Manual) Lymphocytes # (Manual) POC ABG pH POC ABG pCO2 POC ABG pO2 Sodium 135 L Potassium Chloride 97.1 L Carbon Dioxide BUN 92 H Creatinine Glucose 125 H POC Glucose 124 H Uric Acid Calcium 7.6 L Troponin T NT-Pro-B Natriuret Pep Albumin LDL Cholesterol Direct Urine WBC (Auto) Urine Creatinine Urine Total Protein Crossmatch 08/26/17 08:14 RBC Hgb 7.8 L Hct 23.5 L RDW Lymph % (Auto) [place] % (Auto) Lymph # Seg Neutrophils % Lymphocytes % (Manual) Lymphocytes # (Manual) POC ABG pH POC ABG pCO2 POC ABG pO2 Sodium Potassium Chloride Carbon Dioxide BUN Creatinine Glucose POC Glucose Uric Acid Calcium Troponin T NT-Pro-B Natriuret Pep Albumin LDL Cholesterol Direct Urine WBC (Auto) Urine Creatinine Urine Total Protein Crossmatch
--- NOTE | 2017-08-26 16:26 | Progress Note ---
Assessment and Plan Assessment and plan: 82 y/o Female with PMH of HTN, COPD, Diastolic CHF, HLD anemia and glaucoma - resident of [place] sent in for increasing SOB and wheezing for 1 day.Cough productive of mucoid sputum. No Fever or chills.Also altered sensorium. Daughter at bed side.Recent admission in January for PEG tube malfunction and Vomiting coffee ground material. Acute respiratory failure with hypoxia - Patient is currently off BiPAP and on intranasal oxygen - Patient is off steroids - Pulmonary consult appreciated - Patient was treated with IV Levaquin and clindamycin, and swithed today to Zosyn per ID recommendation Diastolic CHF, Moderate Aortic stenosis - Patient was on IV lasix melanie D/Cj because of the elevated BUN COPD exacerbation lIKELY SECONDARY TO ASPIRATION PNEUMONITIS - Continue Levaquin and clindamycin Acute encephalopathy - Due to hypoxia - Could be baseline UTI (urinary tract infection) - Urine culture grew ESBL and ID was consulted and recommended to discontinue Levaquin and clindamycin, switch to Zosyn Hyponatremia with possible hypovoulemia - Chronic consulted - CHARLEY (acute kidney injury) WITH 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 No family member was in the room. Left arm swelling noted. Hospitalist Physical - Physical exam Narrative exam: patient is on BIPAP. The patient appeared well nourished and normally developed. Vital signs as documented. Head exam is unremarkable. No scleral icterus . Neck is without jugular venous distension, thyromegaly, or carotid bruits. Lungs are clear to auscultation. Cardiac exam reveals regular rate and Rhythm. First and second heart sounds normal. No murmurs, rubs or gallops. Abdominal exam reveals normal bowel sounds, no masses, no organomegaly and no aortic enlargement. Extremities edematous LUE. 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 - Constitutional Vitals: Temp Pulse Resp BP Pulse Ox 98.5 F 72 20 135/58 100 12/20/17 09:42 08/26/17 09:42 08/26/17 09:42 08/26/17 09:42 08/26/17 09:42 General appearance: Present: no acute distress Results - Labs CBC & Chem 7: 08/26/17 08:14 08/26/17 08:14 Labs: Laboratory Last Values WBC 5.4 K/mm3 (4.5-11.0) 08/24/17 05:30 RBC 2.45 M/mm3 (3.65-5.03) L 08/24/17 05:30 Hgb 7.8 gm/dl (10.1-14.3) L 08/26/17 08:14 Hct 23.5 % (30.3-42.9) L 08/26/17 08:14 MCV 90 fl (79-97) 08/24/17 05:30 MCH 30 pg (28-32) 08/24/17 05:30 MCHC 33 % (30-34) 08/24/17 05:30 RDW 22.2 % (13.2-15.2) H 08/24/17 05:30 Plt Count 198 K/mm3 (140-440) 08/24/17 05:30 Lymph % (Auto) 7.3 % (13.4-35.0) L 08/24/17 05:30 [place] % (Auto) 7.9 % (0.0-7.3) H 08/24/17 05:30 Eos % (Auto) 0.0 % (0.0-4.3) 08/24/17 05:30 Baso % (Auto) 0.1 % (0.0-1.8) 08/24/17 05:30 Lymph # 0.4 K/mm3 (1.2-5.4) L 08/24/17 05:30 [place] # 0.4 K/mm3 (0.0-0.8) 08/24/17 05:30 Eos # 0.0 K/mm3 (0.0-0.4) 08/24/17 05:30 Baso # 0.0 K/mm3 (0.0-0.1) 08/24/17 05:30 Add Manual Diff Complete 08/22/17 05:10 Total Counted 100 08/22/17 05:10 Seg Neutrophils % 84.7 % (40.0-70.0) H 08/24/17 05:30 Seg Neuts % (Manual) 64.0 % (40.0-70.0) 08/22/17 05:10 Band Neutrophils % 27.0 % 08/22/17 05:10 Lymphocytes % (Manual) 6.0 % (13.4-35.0) L 08/22/17 05:10 Reactive Lymphs % (Man) 0 % 08/22/17 05:10 Monocytes % (Manual) 3.0 % (0.0-7.3) 08/22/17 05:10 Eosinophils % (Manual) 0 % (0.0-4.3) 08/22/17 05:10 Basophils % (Manual) 0 % (0.0-1.8) 08/22/17 05:10 Metamyelocytes % 0 % 08/22/17 05:10 Myelocytes % 0 % 08/22/17 05:10 Promyelocytes % 0 % 08/22/17 05:10 Blast Cells % 0 % 08/22/17 05:10 Nucleated RBC % Not Reportable 08/22/17 05:10 Seg Neutrophils # 4.5 K/mm3 (1.8-7.7) 08/24/17 05:30 Seg Neutrophils # Man 3.1 K/mm3 (1.8-7.7) 08/22/17 05:10 Band Neutrophils # 1.3 K/mm3 08/22/17 05:10 Lymphocytes # (Manual) 0.3 K/mm3 (1.2-5.4) L 08/22/17 05:10 Abs React Lymphs (Man) 0.0 K/mm3 08/22/17 05:10 Monocytes # (Manual) 0.1 K/mm3 (0.0-0.8) 08/22/17 05:10 Eosinophils # (Manual) 0.0 K/mm3 (0.0-0.4) 08/22/17 05:10 Basophils # (Manual) 0.0 K/mm3 (0.0-0.1) 08/22/17 05:10 Metamyelocytes # 0.0 K/mm3 08/22/17 05:10 Myelocytes # 0.0 K/mm3 08/22/17 05:10 Promyelocytes # 0.0 K/mm3 08/22/17 05:10 Blast Cells # 0.0 K/mm3 08/22/17 05:10 WBC Morphology Not Reportable 08/22/17 05:10 Hypersegmented Neuts Not Reportable 08/22/17 05:10 Hyposegmented Neuts Not Reportable 08/22/17 05:10 Hypogranular Neuts Not Reportable 08/22/17 05:10 Smudge Cells Not Reportable 08/22/17 05:10 Toxic Granulation Not Reportable 08/22/17 05:10 Toxic Vacuolation Not Reportable 08/22/17 05:10 Dohle Bodies Not Reportable 08/22/17 05:10 Pelger-Huet Anomaly Not Reportable 08/22/17 05:10 Tera Rods Not Reportable 08/22/17 05:10 Platelet Estimate Consistent w auto 08/22/17 05:10 Clumped Platelets Not Reportable 08/22/17 05:10 Plt Clumps, EDTA Not Reportable 08/22/17 05:10 Large Platelets Not Reportable 08/22/17 05:10 Giant Platelets Not Reportable 08/22/17 05:10 Platelet Satelliting Not Reportable 08/22/17 05:10 Plt Morphology Comment Not Reportable 08/22/17 05:10 RBC Morphology Not Reportable 08/22/17 05:10 Dimorphic RBCs Not Reportable 08/22/17 05:10 Polychromasia Not Reportable 08/22/17 05:10 Hypochromasia 1+ 08/22/17 05:10 Poikilocytosis Not Reportable 08/22/17 05:10 Anisocytosis 1+ 08/22/17 05:10 Microcytosis Not Reportable 08/22/17 05:10 Macrocytosis Not Reportable 08/22/17 05:10 Spherocytes Not Reportable 08/22/17 05:10 Pappenheimer Bodies Not Reportable 08/22/17 05:10 Sickle Cells Not Reportable 08/22/17 05:10 Target Cells Not Reportable 08/22/17 05:10 Tear Drop Cells Not Reportable 08/22/17 05:10 Ovalocytes Not Reportable 08/22/17 05:10 Helmet Cells Not Reportable 08/22/17 05:10 Connor-Indios Bodies Not Reportable 08/22/17 05:10 [place] Rings Not Reportable 08/22/17 05:10 [place] Cells Not Reportable 08/22/17 05:10 Bite Cells Not Reportable 08/22/17 05:10 Crenated Cell Not Reportable 08/22/17 05:10 Elliptocytes 1+ 08/22/17 05:10 Acanthocytes (Spur) Not Reportable 08/22/17 05:10 Rouleaux Not Reportable 08/22/17 05:10 Hemoglobin C Crystals Not Reportable 08/22/17 05:10 Schistocytes Not Reportable 08/22/17 05:10 Malaria parasites Not Reportable 08/22/17 05:10 [place] Bodies Not Reportable 08/22/17 05:10 Hem Pathologist Commnt No 08/22/17 05:10 POC ABG pH 7.430 (7.35-7.45) 08/24/17 10:41 POC ABG pCO2 37.1 (35-45) 08/24/17 10:41 POC ABG pO2 181 (80-105) H 08/24/17 10:41 POC ABG HCO3 24.6 08/24/17 10:41 POC ABG Total CO2 26 08/24/17 10:41 POC ABG O2 Sat 100 08/24/17 10:41 POC ABG Base Excess 0 08/24/17 10:41 FiO2 35 % 08/24/17 10:41 Sodium 135 mmol/L (137-145) L 08/26/17 08:14 Potassium 4.0 mmol/L (3.6-5.0) 08/26/17 08:14 Chloride 97.1 mmol/L (98-107) L 08/26/17 08:14 Carbon Dioxide 26 mmol/L (22-30) 08/26/17 08:14 Anion Gap 16 mmol/L 08/26/17 08:14 BUN 92 mg/dL (7-17) H 08/26/17 08:14 Creatinine 1.2 mg/dL (0.7-1.2) 08/26/17 08:14 Estimated GFR 52 ml/min 08/26/17 08:14 BUN/Creatinine Ratio 77 % 08/26/17 08:14 Glucose 125 mg/dL (65-100) H 08/26/17 08:14 POC Glucose 124 (70-105) H 08/26/17 00:14 Hemoglobin A1c 5.1 % (4-6) 08/21/17 16:21 Osmolality 296 Mosm/kg 08/23/17 12:11 Uric Acid 9.9 mg/dL (3.5-7.6) H 08/23/17 12:11 Calcium 7.6 mg/dL (8.4-10.2) L 08/26/17 08:14 Total Bilirubin 0.30 mg/dL (0.1-1.2) 08/22/17 05:10 AST 31 units/L (5-40) 08/22/17 05:10 ALT 13 units/L (7-56) 08/22/17 05:10 Alkaline Phosphatase 54 units/L (35-129) 08/22/17 05:10 Troponin T 0.067 ng/mL (0.00-0.029) H 08/21/17 16:21 C-Reactive Protein 0.60 mg/dL (0.00-1.30) 08/25/17 05:43 NT-Pro-B Natriuret Pep 01709 pg/mL (0-900) H 08/21/17 16:21 Total Protein 7.7 g/dL (6.3-8.2) 08/22/17 05:10 Albumin 3.1 g/dL (3.9-5) L 08/22/17 05:10 Albumin/Globulin Ratio 0.7 % 08/22/17 05:10 Triglycerides 60 mg/dL (2-149) 08/21/17 16:21 Cholesterol 109 mg/dL (50-199) 08/21/17 16:21 LDL Cholesterol Direct 42 mg/dL (50-130) L 08/21/17 16:21 HDL Cholesterol 55 mg/dL (40-59) 08/21/17 16:21 Cholesterol/HDL Ratio 1.98 % 08/21/17 16:21 Urine Color [place] (Yellow) 08/21/17 16:27 Urine Turbidity Clear (Clear) 08/21/17 16:27 Urine pH 7.0 (5.0-7.0) 08/21/17 16:27 Ur Specific [place] 1.019 (1.003-1.030) 08/21/17 16:27 Urine Protein >500 mg/dL (Negative) 08/21/17 16:27 Urine Glucose (UA) Neg mg/dL (Negative) 08/21/17 16:27 Urine Ketones Neg mg/dL (Negative) 08/21/17 16:27 Urine Blood Neg (Negative) 08/21/17 16:27 Urine Nitrite Neg (Negative) 08/21/17 16:27 Urine Bilirubin Neg (Negative) 08/21/17 16:27 Urine Urobilinogen < 2.0 mg/dL (<2.0) 08/21/17 16:27 Ur Leukocyte Esterase Lg (Negative) 08/21/17 16:27 Urine WBC (Auto) 108.0 /HPF (0.0-6.0) H 08/21/17 16:27 Urine RBC (Auto) 14.0 /HPF (0.0-6.0) 08/21/17 16:27 U Epithel Cells (Auto) 1.0 /HPF (0-13.0) 08/21/17 16:27 Urine Bacteria (Auto) 4+ /HPF (Negative) 08/21/17 16:27 Urine Mucus Few /HPF 08/21/17 16:27 Urine Osmolality 298 Mosm/kg 08/23/17 18:20 Urine Creatinine 53.7 mg/dL (0.1-20.0) H 08/23/17 18:20 Urine Sodium 17 mmol/L 08/23/17 18:20 Urine Total Protein 26 mg/dL (5-11.8) H 08/23/17 18:20 Blood Type O POSITIVE 08/25/17 10:30 Antibody Screen Negative 08/25/17 10:30 Crossmatch See Detail 08/25/17 10:30
[2017-08-26] MEDS: LASIX IV SCH (18:56)
[2017-08-26] MEDS: XALATAN 0.005% OU SCH (21:16)
[2017-08-26] MEDS: TRICOR PO SCH (21:16)
[2017-08-27] MEDS: DUONEB *Not for PRN Use IH SCH ×4 (02:24→21:53)
[2017-08-27] MEDS: ZOSYN/NS 3.375GM/50ML 3.375 GM/50 ML BAG IV SCH ×3 (06:04→22:44)
[2017-08-27] MEDS: SYNTHROID PO SCH (06:04)
[2017-08-27 06:16] LABS: Calcium 7.8 mg/dL (8.4-10.2); Chloride 98.9 mmol/L (98-107); Potassium 3.9 mmol/L (3.6-5.0)
[2017-08-27] MEDS: APRESOLINE PO SCH ×3 (09:00→22:45)
[2017-08-27] MEDS: NORMODYNE PO SCH ×2 (09:00→22:45)
[2017-08-27] MEDS: FEOSOL PO SCH ×3 (09:00→23:47)
[2017-08-27] MEDS: HEPARIN SUB-Q SCH ×2 (09:19→22:45)
[2017-08-27] MEDS: PROTONIX FEEDTUBE SCH (09:19)
[2017-08-27] MEDS: BABY ASPIRIN PO SCH (09:19)
[2017-08-27] MEDS: LASIX IV SCH (09:19)
[2017-08-27] MEDS: VITAMIN B-12 PO SCH (09:19)
[2017-08-27] MEDS: SENOKOT PO SCH (10:00)
--- NOTE | 2017-08-27 10:34 | Progress Note ---
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 Subjective Date of service: 08/27/17 Principal diagnosis: Anasarca Interval history: No cardiac events. Objective Vital Signs Temp Pulse Pulse Pulse Resp Resp Resp 08/27/17 09:00 64 08/27/17 08:57 98.9 F 67 16 08/27/17 05:33 98.4 F 61 20 08/27/17 02:38 64 68 16 22 08/27/17 02:28 64 64 16 16 08/26/17 23:46 98.7 F 68 24 08/26/17 23:00 67 08/26/17 22:11 08/26/17 21:17 67 08/26/17 21:10 98.5 F 67 20 08/26/17 20:40 22 08/26/17 20:07 72 08/26/17 19:42 75 18 08/26/17 19:32 70 20 08/26/17 18:51 98.6 F 20 BP BP Pulse Ox 08/27/17 09:00 131/48 08/27/17 08:57 147/50 100 08/27/17 05:33 131/47 100 08/27/17 02:38 08/27/17 02:28 08/26/17 23:46 131/56 98 08/26/17 23:00 100 08/26/17 22:11 100 08/26/17 21:17 136/50 08/26/17 21:10 136/50 100 08/26/17 20:40 97 08/26/17 20:07 08/26/17 19:42 08/26/17 19:32 08/26/17 18:51 127/54 - Physical Examination General: No Apparent Distress Cardiac: Positive: Other (paced) - Labs and Meds Comprehensive Metabolic Panel 08/27/17 Range/Units 05:31 Sodium 135 L (137-145) mmol/L Potassium 3.9 (3.6-5.0) mmol/L Chloride 98.9 (98-107) mmol/L Carbon Dioxide 27 (22-30) mmol/L BUN 95 H (7-17) mg/dL Creatinine 1.2 (0.7-1.2) mg/dL Glucose 130 H (65-100) mg/dL Calcium 7.8 L (8.4-10.2) mg/dL - Imaging and Cardiology EKG: report reviewed (Sinus tach)
--- NOTE | 2017-08-27 11:11 | Progress Note ---
Assessment and Plan Assessment: 1) ESBL E coli UTI: renal US no stones or hydro. CRP=0.6 2) Presumed CHF exacerbation 3) Acute respiratory failure 4) CHARLEY 5) Sacral decubitus non infected [id number] Plan: -continue zosyn to cover non complicated ESBL E coli -day 3 -upon discharge will do fosfomycin 3 g PO EVERY 3 days total 3 doses -wound care -contact isolation I am signing off Thank you Dr Gamble for your consultation, will follow up with you. Blanquita Boone MD Infectious Diseases Specialist [facility] ([facility]) M [phone] O [phone] Subjective Date of service: 08/27/17 Principal diagnosis: Anasarca Interval history: More alert, tracking, no fever. Microbiology: Blood cultures: Urine cultures: 08/23 ESBL E coli Respiratory cultures: Current Antimicrobials: zosyn 09/04 Previous Antimicrobials: levaquin Clindamycin Objective - Exam Narrative Exam: General appearance: Alert in NAD, non conversant Eyes: anicteric sclerae, moist conjunctivae; no lid-lag; PERRLA HENT: Atraumatic; oropharynx limted, right nasal skin sloughing. Neck: Trachea midline; supple, no thyromegaly or lymphadenopathy Lungs: decreased BS daniel CV: RRR Abdomen: Soft, obese, PEG in place Extremities: Daniel peripheral edema Skin: +sacral dec no examined +left arm bruises Psych: alert non verbal. Neuro: alert non verbal Lines: No CVL / PICC - Constitutional Vitals: Vital Signs Temp Pulse Resp BP Pulse Ox 98.9 F 64 16 131/48 100 08/27/17 08:57 08/27/17 09:00 08/27/17 08:57 08/27/17 09:00 08/27/17 08:57 Temperature -Last 24 Hours Temperature 98.9 F Temperature 98.4 F Temperature 98.7 F Temperature 98.5 F Temperature 98.6 F - Labs CBC & Chem 7: 08/26/17 08:14 08/27/17 05:31 Labs: Abnormal lab results 08/26/17 08/26/17 08/27/17 Range/Units 19:00 23:34 05:31 Sodium 135 L (137-145) mmol/L BUN 95 H (7-17) mg/dL Glucose 130 H (65-100) mg/dL POC Glucose 137 H 133 H (70-105) Calcium 7.8 L (8.4-10.2) mg/dL 08/27/17 08/27/17 Range/Units 06:13 07:42 Sodium (137-145) mmol/L BUN (7-17) mg/dL Glucose (65-100) mg/dL POC Glucose 158 H 149 H (70-105) Calcium (8.4-10.2) mg/dL
[2017-08-27] MEDS: IMURAN PO SCH (11:58)
[2017-08-27 12:23] LABS: Hematocrit 22.9 % (30.3-42.9); Hemoglobin 7.6 gm/dl (10.1-14.3); Mean Corpuscular HGB Conc 33 % (30-34); Mean Corpuscular Hemoglobin 30 pg (28-32); Mean Corpuscular Volume 91 fl (79-97); Platelet Count 151 K/mm3 (140-440); Red Blood Count 2.53 M/mm3 (3.65-5.03); White Blood Count 6.4 K/mm3 (4.5-11.0)
[2017-08-27 12:26] LABS: Red Cell Distribution Width 21.1 % (13.2-15.2)
[2017-08-27 12:33] LABS: INR 1.05 (0.87-1.13)
[2017-08-27 12:35] LABS: Partial Thromboplastin Time 48.6 Sec. (24.2-36.6)
--- NOTE | 2017-08-27 13:40 | Progress Note ---
Assessment and Plan impression * Acute on chronic renal failure * Anemia * Shortness of breath * Hypertension * Encephalopathy * UTI recommendations * Patient's renal function is improving * Clinically still volume overloaded. Continue diuretics * Avoid nephrotoxins * Monitor fluid status and electrolytes closely * shortness of breath most likely due to COPD and fluid overload * continue antibiotics as per ID recommendations Subjective Date of service: 08/27/17 Principal diagnosis: Anasarca Interval history: Patient remains comfortable. Denies shortness of breath Objective - Vital Signs Vital signs: Vital Signs - 12hr 08/27/17 08/27/17 08/27/17 02:28 02:38 05:33 Temperature 98.4 F Pulse Rate 61 Pulse Rate [ 64 64 Anterior Bilateral Throughout] Pulse Rate [ 64 68 Anterior Right Throughout] Respiratory 20 Rate Respiratory 16 16 Rate [Anterior Bilateral Throughout] Respiratory 16 22 Rate [Anterior Right Throughout] Blood Pressure 131/47 Blood Pressure [Right] O2 Sat by Pulse 100 Oximetry 08/27/17 08/27/17 08/27/17 08:57 09:00 12:24 Temperature 98.9 F 98.9 F Pulse Rate 67 64 66 Pulse Rate [ Anterior Bilateral Throughout] Pulse Rate [ Anterior Right Throughout] Respiratory 16 18 Rate Respiratory Rate [Anterior Bilateral Throughout] Respiratory Rate [Anterior Right Throughout] Blood Pressure 131/48 136/48 Blood Pressure 147/50 [Right] O2 Sat by Pulse 100 100 Oximetry - General Appearance General appearance: well-developed, well-nourished, appears stated age EENT: PERRL, mucous membranes moist Neck: no JVD, no thyromegaly, no carotid bruit, supple Respiratory: Present: Clear to Ascultation Cardiology: regular, normal heart rate, S1S2, no murmurs Gastrointestinal: normal, normoactive bowel sounds Integumentary: other (1+ edema) - Lab 08/27/17 11:35 08/27/17 05:31 Most recent lab results Calcium 7.8 mg/dL (8.4-10.2) L 08/27/17 05:31 Urine Creatinine 53.7 mg/dL (0.1-20.0) H 08/23/17 18:20 Urine Sodium 17 mmol/L 08/23/17 18:20 Urine Total Protein 26 mg/dL (5-11.8) H 08/23/17 18:20
--- NOTE | 2017-08-27 13:56 | Consultation ---
<DELMY ROBISON - Last Filed: 08/27/17 14:17> History of Present Illness - Reason for Consult Consult date: 08/27/17 Requesting physician: EDUARDO GUAJARDO - History of Present Illness This patient is an 82-year-old -French female long term patient that was admitted on 08/21/2017 due to progressive shortness of breath. She has an underlying dementia, and unable to provide any history. Therefore, the history is taken from the medical record. She is currently being treated for a CHF exacerbation, an Escherichia coli urinary tract infection, acute kidney injury, and a sacral decubitus wound (not infected). During the course of this hospitalization, she was noted to have left upper extremity swelling. A venous duplex was ordered, but found to have no evidence of DVT/SVT. A vascular surgery consult has been requested to further evaluate. Patient does have a left-sided pacemaker. Past History Past Medical History: CAD, COPD, hypertension, hyperlipidemia, renal failure, other (Alzheimer's dementia) Past Surgical History: , hysterectomy, hernia repair, Other ([facility]) Social history: smoking (remote past), full code, other ([facility] resident) Family history: hypertension Medications and Allergies Allergies Allergy/AdvReac Type Severity Reaction Status Date / Time warfarin sodium AdvReac Mild Bleeding Verified 11/29/14 15:19 [From Coumadin] aliskiren hemifumarate AdvReac Rash Verified 06/15/15 07:34 [From Tekturna] ramipril [From Altace] AdvReac Rash Verified 06/15/15 07:34 Home Medications Medication Instructions Recorded Confirmed Last Taken Type Acetaminophen [Tylenol] 650 mg PO Q6HR PRN 08/21/17 08/21/17 Unknown History Aspirin [Lo-Dose Aspirin EC] 81 mg PO DAILY 08/21/17 08/21/17 Unknown History Brimonidine Tartrate [Brimonidine 1 drop OU Q8HR 08/21/17 08/21/17 Unknown History Tartrate 0.2%] Cyanocobalamin [Vitamin B-12] 1,000 mcg PO DAILY 08/21/17 08/21/17 Unknown History Esomeprazole Magnesium [NexIUM] 20 mg PO QDAY 08/21/17 08/21/17 Unknown History Fenofibrate [Tricor] 145 mg PO HS 08/21/17 08/21/17 Unknown History Ferrous Sulfate [Ferrous Sulfate 300 mg PO Q8H 08/21/17 08/21/17 Unknown History Oral Liq 300 Mg/5 Ml] Hydralazine HCl 100 mg PO TID 08/21/17 08/21/17 Unknown History Labetalol HCl 300 mg PO Q12H 08/21/17 08/21/17 Unknown History Latanoprost 0.005% [Xalatan 0.005%] 1 drop OP QPM 08/21/17 08/21/17 Unknown History Levothyroxine [Synthroid] 25 mcg PO QAM 08/21/17 08/21/17 Unknown History Melatonin [Melatin] 3 mg PO QHS 08/21/17 08/21/17 Unknown History Multivit-Minerals/Ferrous Gluc 5 ml PO DAILY 08/21/17 08/21/17 Unknown History [Centrum Multivit-Mineral Liq] Oxycodone HCl/Acetaminophen 1 each PO Q6HR PRN 08/21/17 08/21/17 Unknown History [Percocet 7.5/325 mg] Sennosides [Senna] 8.6 mg PO DAILY 08/21/17 08/21/17 Unknown History azaTHIOprine [Imuran] 50 mg PO DAILY 08/21/17 08/21/17 Unknown History Active Meds: Active Medications Acetaminophen (Tylenol) 650 mg PO Q4H PRN PRN Reason: Pain MILD(1-3)/Fever >100.5/ROSE Last Admin: 08/26/17 14:30 Dose: 650 mg Albuterol (Proventil) 2.5 mg IH Q4HRT PRN PRN Reason: Shortness Of Breath Albuterol/Ipratropium (Duoneb *Not For Prn Use*) 1 ampul IH Q6HRT [facility] Last Admin: 08/27/17 13:08 Dose: 1 ampul Lipase/Protease/Amylase (Yonatan Smith 10,500 Unit) 1 each FEEDTUBE PRN PRN PRN Reason: For Clogged Feeding Tube Aspirin (Baby Aspirin) 81 mg PO QDAY [facility] Last Admin: 08/27/17 09:19 Dose: 81 mg Azathioprine (Imuran) 50 mg PO DAILY@1200 [facility] Last Admin: 12/21/17 11:58 Dose: 50 mg Bisacodyl (Dulcolax) 10 mg MS QDAY PRN PRN Reason: Constipation unrelieved by MOM Cyanocobalamin (Vitamin B-12) 1,000 mcg PO DAILY [facility] Last Admin: 08/27/17 09:19 Dose: 1,000 mcg Fenofibrate (Tricor) 145 mg PO HS [facility] Last Admin: 08/26/17 21:16 Dose: 145 mg Ferrous Sulfate (Feosol) 300 mg PO Q8H [facility] Last Admin: 08/27/17 09:00 Dose: 300 mg Furosemide (Lasix) 40 mg IV QDAY [facility] Last Admin: 08/27/17 09:19 Dose: 40 mg Heparin Sodium (Porcine) (Heparin) 5,000 unit SUB-Q Q12HR [facility] Last Admin: 08/27/17 09:19 Dose: 5,000 unit Hydralazine HCl (Apresoline) 100 mg PO TID [facility] Last Admin: 08/27/17 09:00 Dose: 100 mg Piperacillin Sod/Tazobactam Sod (Zosyn/Ns 3.375gm/50ml) 3.375 gm in 50 mls @ 100 mls/hr IV Q8H [facility] PRN Reason: Protocol Last Admin: 08/27/17 06:04 Dose: 100 mls/hr Labetalol HCl (Normodyne) 300 mg PO Q12H [facility] Last Admin: 08/27/17 09:00 Dose: 300 mg Latanoprost (Xalatan 0.005%) 1 drops OU QHS [facility] Last Admin: 08/26/17 21:16 Dose: 1 drops Levothyroxine Sodium (Synthroid) 25 mcg PO QAM@0600 [facility] Last Admin: 08/27/17 06:04 Dose: 25 mcg Magnesium Hydroxide (Milk Of Magnesia) 30 ml PO Q4H PRN PRN Reason: Constipation Miscellaneous Medication (Brimonidine Tartrate [Brimonidine Tartrate 0.2%]) 1 drop OU Q8HR [facility] Morphine Sulfate (Morphine) 2 mg IV Q4H PRN PRN Reason: Pain, Moderate (4-6) Ondansetron HCl (Zofran) 4 mg IV Q8H PRN PRN Reason: N/V unrelieved by Reglan Oxycodone/Acetaminophen (Percocet 5/325) 1 tab PO Q6H PRN PRN Reason: Pain, Moderate (4-6) Pantoprazole (Protonix) 40 mg FEEDTUBE DAILY [facility] Last Admin: 08/27/17 09:19 Dose: 40 mg Senna (Senokot) 8.6 mg PO DAILY [facility] Last Admin: 08/27/17 10:00 Dose: Not Given Simple Syrup (Simple Syrup) 15 ml FEEDTUBE PRN PRN PRN Reason: Hypoglycemia Simple Syrup (Simple Syrup) 30 ml FEEDTUBE PRN PRN PRN Reason: Hypoglycemia Sodium Bicarbonate (Sodium Bicarbonate) 325 mg FEEDTUBE PRN PRN PRN Reason: For Clogged Feeding Tube Review of Systems ROS unobtainable: due to mental status Exam - Constitutional Vitals: Temp Pulse Resp BP Pulse Ox 98.9 F 66 18 136/48 100 08/27/17 12:24 08/27/17 12:24 08/27/17 12:24 08/27/17 12:24 08/27/17 12:24 General appearance: Present: obese (diffuse swelling) - EENT Eyes: Present: EOM intact ENT: hearing intact - Respiratory Respiratory effort: normal (unlabored at rest but on oxygen supplementation via nasal cannula) - Extremities Extremities: no ischemia, pulses intact (palpable radial pulses bilaterally, palpable dorsalis pedis pulse bilaterally), normal temperature, abnormal (there is significant bruising of the left antecubital fossa, the area is soft there is no area of fluctuance or induration appreciated, no erythema or drainage noted (see attached photos). The is a peripheral IV in the left shoulder.) Extremity abnormal: edema (diffuse swelling of the body and upper extremity, there is more swelling on the left hand when compared to the right) - Psychiatric Psychiatric: no appropriate mood/affect (flat affect), no intact judgment & insight, no cooperative - Additional findings Additional findings: Results - Labs CBC & Chem 7: 08/27/17 11:35 08/27/17 05:31 Labs: Abnormal lab results 08/26/17 08/26/17 08/27/17 Range/Units 19:00 23:34 05:31 RBC (3.65-5.03) M/mm3 Hgb (10.1-14.3) gm/dl Hct (30.3-42.9) % RDW (13.2-15.2) % APTT (24.2-36.6) Sec. Sodium 135 L (137-145) mmol/L BUN 95 H (7-17) mg/dL Glucose 130 H (65-100) mg/dL POC Glucose 137 H 133 H (70-105) Calcium 7.8 L (8.4-10.2) mg/dL 08/27/17 08/27/17 08/27/17 Range/Units 06:13 07:42 11:35 RBC 2.53 L (3.65-5.03) M/mm3 Hgb 7.6 L (10.1-14.3) gm/dl Hct 22.9 L (30.3-42.9) % RDW 21.1 H (13.2-15.2) % APTT (24.2-36.6) Sec. Sodium (137-145) mmol/L BUN (7-17) mg/dL Glucose (65-100) mg/dL POC Glucose 158 H 149 H (70-105) Calcium (8.4-10.2) mg/dL 08/27/17 Range/Units 11:35 RBC (3.65-5.03) M/mm3 Hgb (10.1-14.3) gm/dl Hct (30.3-42.9) % RDW (13.2-15.2) % APTT 48.6 H (24.2-36.6) Sec. Sodium (137-145) mmol/L BUN (7-17) mg/dL Glucose (65-100) mg/dL POC Glucose (70-105) Calcium (8.4-10.2) mg/dL Assessment and Plan This patient was admitted with progressive shortness of breath. She is currently being treated for CHF exacerbation, Escherichia coli UTI, and acute kidney injury. A vascular surgery consult has been requested to evaluate left upper extremity swelling. Upon my initial evaluation, she appears to have diffuse swelling ( anasarca). Her left upper extremity is slightly worse than the right mostly in her hand, though she has moderate ecchymosis of the left antecubital fossa ( likely from a recent venipuncture). This will likely be self-limited. Could consider warm compresses and upper extremity elevation. Does not appear to require urgent surgical intervention at this point. Her hemoglobin has dropped despite recent transfusion, although this does not appear to be a significant source of bleeding. Anemia workup per internal medicine. We'll see again as needed. - Patient Problems (1) Left upper extremity swelling Current Visit: Yes Status: Acute (2) CHARLEY (acute kidney injury) Current Visit: Yes Status: Acute (3) Anemia Current Visit: Yes Status: Chronic QualifierTitle: Anemia type: iron deficiency (4) CHF (congestive heart failure) Current Visit: Yes Status: Acute QualifierTitle: Congestive heart failure type: combined Congestive heart failure chronicity: acute on chronic Qualified Code(s): I50.43 - Acute on chronic combined systolic (congestive) and diastolic (congestive) heart failure (5) Dementia Current Visit: No Status: Acute QualifierTitle: Dementia type: Alzheimer's disease Alzheimer's disease onset: unspecified onset Dementia behavioral disturbance: with behavioral disturbance Qualified Code(s): G30.9 - Alzheimer's disease, unspecified; F02.81 - Dementia in other diseases classified elsewhere with behavioral disturbance; F02.81 - Dementia in other diseases classified elsewhere with behavioral disturbance; F02.81 - Dementia in other diseases classified elsewhere with behavioral disturbance <VU MOFFETT - Last Filed: 08/28/17 11:59> Medications and Allergies Active Meds: Active Medications Acetaminophen (Tylenol) 650 mg PO Q4H PRN PRN Reason: Pain MILD(1-3)/Fever >100.5/ROSE Last Admin: 08/26/17 14:30 Dose: 650 mg Albuterol (Proventil) 2.5 mg IH Q4HRT PRN PRN Reason: Shortness Of Breath Albuterol/Ipratropium (Duoneb *Not For Prn Use*) 1 ampul IH Q6HRT [facility] Lipase/Protease/Amylase (Pancreaze Dr 10,500 Unit) 1 each FEEDTUBE PRN PRN PRN Reason: For Clogged Feeding Tube Aspirin (Baby Aspirin) 81 mg PO QDAY [facility] Last Admin: 08/28/17 09:46 Dose: 81 mg Azathioprine (Imuran) 50 mg PO DAILY@1200 [facility] Last Admin: 08/27/17 11:58 Dose: 50 mg Bisacodyl (Dulcolax) 10 mg MS QDAY PRN PRN Reason: Constipation unrelieved by MOM Cyanocobalamin (Vitamin B-12) 1,000 mcg PO DAILY [facility] Last Admin: 08/28/17 09:46 Dose: 1,000 mcg Fenofibrate (Tricor) 145 mg PO HS [facility] Last Admin: 08/27/17 22:45 Dose: 145 mg Ferrous Sulfate (Feosol) 300 mg PO Q8H [facility] Last Admin: 08/28/17 09:46 Dose: 300 mg Furosemide (Lasix) 40 mg IV QDAY [facility] Last Admin: 08/28/17 09:46 Dose: 40 mg Heparin Sodium (Porcine) (Heparin) 5,000 unit SUB-Q Q12HR [facility] Last Admin: 08/28/17 09:46 Dose: 5,000 unit Hydralazine HCl (Apresoline) 100 mg PO TID [facility] Last Admin: 08/28/17 09:47 Dose: Not Given Piperacillin Sod/Tazobactam Sod (Zosyn/Ns 3.375gm/50ml) 3.375 gm in 50 mls @ 100 mls/hr IV Q8H [facility] PRN Reason: Protocol Last Admin: 08/28/17 06:12 Dose: 100 mls/hr Sodium Chloride (Nacl 0.9% 500 Ml) 500 mls @ 0 mls/hr IV ONCE NR PRN Reason: As Directed Stop: 08/28/17 12:00 Sodium Chloride (Nacl 0.9% 500 Ml) 500 mls @ 0 mls/hr IV ONCE NR PRN Reason: As Directed Stop: 08/28/17 23:59 Labetalol HCl (Normodyne) 300 mg PO Q12H [facility] Last Admin: 08/28/17 09:47 Dose: Not Given Latanoprost (Xalatan 0.005%) 1 drops OU QHS [facility] Last Admin: 08/27/17 22:46 Dose: 1 drops Levothyroxine Sodium (Synthroid) 25 mcg PO QAM@0600 [facility] Last Admin: 08/28/17 05:19 Dose: 25 mcg Magnesium Hydroxide (Milk Of Magnesia) 30 ml PO Q4H PRN PRN Reason: Constipation Miscellaneous Medication (Brimonidine Tartrate [Brimonidine Tartrate 0.2%]) 1 drop OU Q8HR [facility] Morphine Sulfate (Morphine) 2 mg IV Q4H PRN PRN Reason: Pain, Moderate (4-6) Ondansetron HCl (Zofran) 4 mg IV Q8H PRN PRN Reason: N/V unrelieved by Reglan Oxycodone/Acetaminophen (Percocet 5/325) 1 tab PO Q6H PRN PRN Reason: Pain, Moderate (4-6) Last Admin: 08/27/17 22:44 Dose: 1 tab Pantoprazole (Protonix) 40 mg FEEDTUBE DAILY [facility] Last Admin: 08/28/17 09:46 Dose: 40 mg Senna (Senokot) 8.6 mg PO DAILY [facility] Last Admin: 08/28/17 09:46 Dose: 8.6 mg Simple Syrup (Simple Syrup) 15 ml FEEDTUBE PRN PRN PRN Reason: Hypoglycemia Simple Syrup (Simple Syrup) 30 ml FEEDTUBE PRN PRN PRN Reason: Hypoglycemia Sodium Bicarbonate (Sodium Bicarbonate) 325 mg FEEDTUBE PRN PRN PRN Reason: For Clogged Feeding Tube Exam - Constitutional Vitals: Temp Pulse Resp BP Pulse Ox 99.4 F 70 20 138/53 100 08/28/17 11:07 08/28/17 11:07 08/28/17 11:07 08/28/17 11:07 08/28/17 11:07 Results - Labs CBC & Chem 7: 08/28/17 04:57 08/28/17 04:57 Labs: Abnormal lab results 08/25/17 08/27/17 08/27/17 Range/Units 10:30 11:35 11:35 RBC 2.53 L (3.65-5.03) M/mm3 Hgb 7.6 L (10.1-14.3) gm/dl Hct 22.9 L (30.3-42.9) % RDW 21.1 H (13.2-15.2) % Plt Count (140-440) K/mm3 Seg Neuts % (Manual) (40.0-70.0) % Lymphocytes % (Manual) (13.4-35.0) % Lymphocytes # (Manual) (1.2-5.4) K/mm3 APTT 48.6 H (24.2-36.6) Sec. Sodium (137-145) mmol/L Chloride (98-107) mmol/L BUN (7-17) mg/dL Glucose (65-100) mg/dL POC Glucose (70-105) Calcium (8.4-10.2) mg/dL Crossmatch See Detail 08/27/17 08/28/17 08/28/17 Range/Units 16:34 00:14 04:57 RBC (3.65-5.03) M/mm3 Hgb (10.1-14.3) gm/dl Hct (30.3-42.9) % RDW (13.2-15.2) % Plt Count (140-440) K/mm3 Seg Neuts % (Manual) (40.0-70.0) % Lymphocytes % (Manual) (13.4-35.0) % Lymphocytes # (Manual) (1.2-5.4) K/mm3 APTT (24.2-36.6) Sec. Sodium 133 L (137-145) mmol/L Chloride 97.5 L (98-107) mmol/L BUN 98 H (7-17) mg/dL Glucose 139 H (65-100) mg/dL POC Glucose 124 H 148 H (70-105) Calcium 7.8 L (8.4-10.2) mg/dL Crossmatch 08/28/17 08/28/17 Range/Units 04:57 06:18 RBC 1.90 L (3.65-5.03) M/mm3 Hgb 5.9 L* (10.1-14.3) gm/dl Hct 18.2 L* (30.3-42.9) % RDW 21.6 H (13.2-15.2) % Plt Count 77 L (140-440) K/mm3 Seg Neuts % (Manual) 80.0 H (40.0-70.0) % Lymphocytes % (Manual) 3.0 L (13.4-35.0) % Lymphocytes # (Manual) 0.2 L (1.2-5.4) K/mm3 APTT (24.2-36.6) Sec. Sodium (137-145) mmol/L Chloride (98-107) mmol/L BUN (7-17) mg/dL Glucose (65-100) mg/dL POC Glucose 176 H (70-105) Calcium (8.4-10.2) mg/dL Crossmatch
--- NOTE | 2017-08-27 14:56 | Progress Note ---
Assessment and Plan Imp: 1. Probable acute diastolic CHF/pulm edema, less likely aspiration pneumonitis 2. Acute respiratory failure, hypoxia and hypercapnea 3. CHARLEY 4. Pulm HTN 5. 6. Alzheimer's dementia 7. Hyponatremia, better Rec: 1. Bipap QHS, nasal cannula during the day. 2. Steroids stopped Thursday, not cause of continued increase in BUN. Cr improved but BUN is still elevated 3. ID has signed off but left recs for abx therapy. 4. NPO, HOB elevated, TFs, etc. Subjective Date of service: 08/27/17 Principal diagnosis: Anasarca Interval history: No acute events. Pulm status is unchanged. Objective Vital Signs - 12hr 08/27/17 08/27/17 08/27/17 05:33 08:57 09:00 Temperature 98.4 F 98.9 F Pulse Rate 61 67 64 Respiratory 20 16 Rate Blood Pressure 131/47 131/48 Blood Pressure 147/50 [Right] O2 Sat by Pulse 100 100 Oximetry 08/27/17 12:24 Temperature 98.9 F Pulse Rate 66 Respiratory 18 Rate Blood Pressure 136/48 Blood Pressure [Right] O2 Sat by Pulse 100 Oximetry Constitutional: no acute distress, alert, other (being cleaned and changed right now) Eyes: non-icteric ENT: oropharynx moist Neck: supple Effort: normal Ascultation: Bilateral: rhonchi Cardiovascular: regular rate and rhythm (no mrg) Gastrointestinal: normoactive bowel sounds, soft, non-tender, non-distended Integumentary: normal Extremities: no cyanosis, pink and warm, edema (1+ RLE) Neurologic: other (contractures, awake, nonverbal, moans, does not follow commands) Psychiatric: other (unable to assess) CBC and BMP: 08/27/17 11:35 08/27/17 05:31 ABG, PT/INR, D-dimer: ABG POC ABG pH 7.430 (7.35-7.45) 08/24/17 10:41 POC ABG pCO2 37.1 (35-45) 08/24/17 10:41 POC ABG pO2 181 (80-105) H 08/24/17 10:41 POC ABG HCO3 24.6 08/24/17 10:41 POC ABG Total CO2 26 08/24/17 10:41 POC ABG O2 Sat 100 08/24/17 10:41 PT/INR, D-dimer PT 14.2 Sec. (12.2-14.9) 08/27/17 11:35 INR 1.05 (0.87-1.13) 08/27/17 11:35 Abnormal lab findings: Abnormal Labs 08/21/17 08/21/17 08/21/17 16:12 16:21 16:21 RBC 2.79 L Hgb 8.3 L Hct 25.1 L RDW 22.3 H Lymph % (Auto) 5.9 L [place] % (Auto) Lymph # 0.5 L Seg Neutrophils % 88.1 H Lymphocytes % (Manual) Lymphocytes # (Manual) APTT POC ABG pH 7.228 L POC ABG pCO2 57.7 H POC ABG pO2 192 H Sodium 123 L Potassium 5.1 H Chloride 89.7 L Carbon Dioxide BUN 44 H Creatinine 1.3 H Glucose 123 H POC Glucose Uric Acid Calcium 8.3 L Troponin T NT-Pro-B Natriuret Pep Albumin 3.3 L LDL Cholesterol Direct Urine WBC (Auto) Urine Creatinine Urine Total Protein Crossmatch 08/21/17 08/21/17 08/21/17 16:21 16:21 16:27 RBC Hgb Hct RDW Lymph % (Auto) [place] % (Auto) Lymph # Seg Neutrophils % Lymphocytes % (Manual) Lymphocytes # (Manual) APTT POC ABG pH POC ABG pCO2 POC ABG pO2 Sodium Potassium Chloride Carbon Dioxide BUN Creatinine Glucose POC Glucose Uric Acid Calcium Troponin T 0.067 H NT-Pro-B Natriuret Pep 54093 H Albumin LDL Cholesterol Direct 42 L Urine WBC (Auto) 108.0 H Urine Creatinine Urine Total Protein Crossmatch 08/21/17 08/22/17 08/22/17 18:45 05:10 05:10 RBC 2.52 L Hgb 7.7 L Hct 22.6 L RDW 21.3 H Lymph % (Auto) [place] % (Auto) Lymph # Seg Neutrophils % Lymphocytes % (Manual) 6.0 L Lymphocytes # (Manual) 0.3 L APTT POC ABG pH POC ABG pCO2 POC ABG pO2 65 L Sodium 124 L Potassium 5.4 H Chloride 89.3 L Carbon Dioxide 18 L BUN 46 H Creatinine 1.5 H Glucose POC Glucose Uric Acid Calcium Troponin T NT-Pro-B Natriuret Pep Albumin 3.1 L LDL Cholesterol Direct Urine WBC (Auto) Urine Creatinine Urine Total Protein Crossmatch 08/22/17 08/22/17 08/23/17 06:44 14:33 00:20 RBC Hgb Hct RDW Lymph % (Auto) [place] % (Auto) Lymph # Seg Neutrophils % Lymphocytes % (Manual) Lymphocytes # (Manual) APTT POC ABG pH POC ABG pCO2 POC ABG pO2 Sodium 123 L 125 L Potassium 5.3 H Chloride 89.3 L Carbon Dioxide 18 L BUN Creatinine Glucose POC Glucose 108 H Uric Acid Calcium Troponin T NT-Pro-B Natriuret Pep Albumin LDL Cholesterol Direct Urine WBC (Auto) Urine Creatinine Urine Total Protein Crossmatch 08/23/17 08/23/17 08/23/17 05:38 05:38 12:11 RBC 2.50 L Hgb 7.5 L Hct 22.3 L RDW 21.8 H Lymph % (Auto) [place] % (Auto) Lymph # Seg Neutrophils % Lymphocytes % (Manual) Lymphocytes # (Manual) APTT POC ABG pH POC ABG pCO2 POC ABG pO2 Sodium 130 L Potassium Chloride 91.7 L Carbon Dioxide 20 L BUN 58 H Creatinine 1.6 H Glucose 134 H POC Glucose Uric Acid 9.9 H Calcium 8.3 L Troponin T NT-Pro-B Natriuret Pep Albumin LDL Cholesterol Direct Urine WBC (Auto) Urine Creatinine Urine Total Protein Crossmatch 08/23/17 08/23/17 08/24/17 18:20 18:56 01:14 RBC Hgb Hct RDW Lymph % (Auto) [place] % (Auto) Lymph # Seg Neutrophils % Lymphocytes % (Manual) Lymphocytes # (Manual) APTT POC ABG pH POC ABG pCO2 POC ABG pO2 Sodium Potassium Chloride Carbon Dioxide BUN Creatinine Glucose POC Glucose 155 H 157 H Uric Acid Calcium Troponin T NT-Pro-B Natriuret Pep Albumin LDL Cholesterol Direct Urine WBC (Auto) Urine Creatinine 53.7 H Urine Total Protein 26 H Crossmatch 08/24/17 08/24/17 08/24/17 05:30 05:30 06:09 RBC 2.45 L Hgb 7.4 L Hct 22.1 L RDW 22.2 H Lymph % (Auto) 7.3 L [place] % (Auto) 7.9 H Lymph # 0.4 L Seg Neutrophils % 84.7 H Lymphocytes % (Manual) Lymphocytes # (Manual) APTT POC ABG pH POC ABG pCO2 POC ABG pO2 Sodium 130 L Potassium Chloride 93.1 L Carbon Dioxide BUN 73 H Creatinine 1.6 H Glucose 140 H POC Glucose 138 H Uric Acid Calcium 7.7 L Troponin T NT-Pro-B Natriuret Pep Albumin LDL Cholesterol Direct Urine WBC (Auto) Urine Creatinine Urine Total Protein Crossmatch 08/24/17 08/24/17 08/24/17 10:41 12:00 18:17 RBC Hgb Hct RDW Lymph % (Auto) [place] % (Auto) Lymph # Seg Neutrophils % Lymphocytes % (Manual) Lymphocytes # (Manual) APTT POC ABG pH POC ABG pCO2 POC ABG pO2 181 H Sodium Potassium Chloride Carbon Dioxide BUN Creatinine Glucose POC Glucose 160 H 136 H Uric Acid Calcium Troponin T NT-Pro-B Natriuret Pep Albumin LDL Cholesterol Direct Urine WBC (Auto) Urine Creatinine Urine Total Protein Crossmatch 08/25/17 08/25/17 08/25/17 00:16 05:43 05:43 RBC Hgb 7.0 L Hct 21.5 L RDW Lymph % (Auto) [place] % (Auto) Lymph # Seg Neutrophils % Lymphocytes % (Manual) Lymphocytes # (Manual) APTT POC ABG pH POC ABG pCO2 POC ABG pO2 Sodium 132 L Potassium 3.5 L Chloride 95.5 L Carbon Dioxide BUN 94 H Creatinine 1.4 H Glucose 124 H POC Glucose 110 H Uric Acid Calcium 7.6 L Troponin T NT-Pro-B Natriuret Pep Albumin LDL Cholesterol Direct Urine WBC (Auto) Urine Creatinine Urine Total Protein Crossmatch 08/25/17 08/25/17 08/25/17 10:30 11:53 18:19 RBC Hgb Hct RDW Lymph % (Auto) [place] % (Auto) Lymph # Seg Neutrophils % Lymphocytes % (Manual) Lymphocytes # (Manual) APTT POC ABG pH POC ABG pCO2 POC ABG pO2 Sodium Potassium Chloride Carbon Dioxide BUN Creatinine Glucose POC Glucose 129 H 117 H Uric Acid Calcium Troponin T NT-Pro-B Natriuret Pep Albumin LDL Cholesterol Direct Urine WBC (Auto) Urine Creatinine Urine Total Protein Crossmatch See Detail 08/25/17 08/26/17 08/26/17 20:31 00:14 08:14 RBC Hgb 9.2 L Hct 27.4 L RDW Lymph % (Auto) [place] % (Auto) Lymph # Seg Neutrophils % Lymphocytes % (Manual) Lymphocytes # (Manual) APTT POC ABG pH POC ABG pCO2 POC ABG pO2 Sodium 135 L Potassium Chloride 97.1 L Carbon Dioxide BUN 92 H Creatinine Glucose 125 H POC Glucose 124 H Uric Acid Calcium 7.6 L Troponin T NT-Pro-B Natriuret Pep Albumin LDL Cholesterol Direct Urine WBC (Auto) Urine Creatinine Urine Total Protein Crossmatch 08/26/17 08/26/17 08/26/17 08:14 19:00 23:34 RBC Hgb 7.8 L Hct 23.5 L RDW Lymph % (Auto) [place] % (Auto) Lymph # Seg Neutrophils % Lymphocytes % (Manual) Lymphocytes # (Manual) APTT POC ABG pH POC ABG pCO2 POC ABG pO2 Sodium Potassium Chloride Carbon Dioxide BUN Creatinine Glucose POC Glucose 137 H 133 H Uric Acid Calcium Troponin T NT-Pro-B Natriuret Pep Albumin LDL Cholesterol Direct Urine WBC (Auto) Urine Creatinine Urine Total Protein Crossmatch 08/27/17 08/27/17 08/27/17 05:31 06:13 07:42 RBC Hgb Hct RDW Lymph % (Auto) [place] % (Auto) Lymph # Seg Neutrophils % Lymphocytes % (Manual) Lymphocytes # (Manual) APTT POC ABG pH POC ABG pCO2 POC ABG pO2 Sodium 135 L Potassium Chloride Carbon Dioxide BUN 95 H Creatinine Glucose 130 H POC Glucose 158 H 149 H Uric Acid Calcium 7.8 L Troponin T NT-Pro-B Natriuret Pep Albumin LDL Cholesterol Direct Urine WBC (Auto) Urine Creatinine Urine Total Protein Crossmatch 08/27/17 08/27/17 11:35 11:35 RBC 2.53 L Hgb 7.6 L Hct 22.9 L RDW 21.1 H Lymph % (Auto) [place] % (Auto) Lymph # Seg Neutrophils % Lymphocytes % (Manual) Lymphocytes # (Manual) APTT 48.6 H POC ABG pH POC ABG pCO2 POC ABG pO2 Sodium Potassium Chloride Carbon Dioxide BUN Creatinine Glucose POC Glucose Uric Acid Calcium Troponin T NT-Pro-B Natriuret Pep Albumin LDL Cholesterol Direct Urine WBC (Auto) Urine Creatinine Urine Total Protein Crossmatch
--- NOTE | 2017-08-27 17:36 | Progress Note ---
Assessment and Plan Assessment and plan: 82 y/o Female with PMH of HTN, COPD, Diastolic CHF, HLD anemia and glaucoma - resident of ID sent in for increasing SOB and wheezing for 1 day.Cough productive of mucoid sputum. No Fever or chills.Also altered sensorium. Daughter at bed side.Recent admission in January for PEG tube malfunction and Vomiting coffee ground material. Acute respiratory failure with hypoxia - Patient is currently off BiPAP and on intranasal oxygen - Patient is off steroids - Pulmonary consult appreciated - Patient was treated with IV Levaquin and clindamycin, and swithed today to Zosyn per ID recommendation Diastolic CHF, Moderate Aortic stenosis - Patient was on IV lasix melanie D/Cj because of the elevated BUN COPD exacerbation lIKELY SECONDARY TO ASPIRATION PNEUMONITIS - Continue Levaquin and clindamycin Acute encephalopathy - Due to hypoxia - Could be baseline UTI (urinary tract infection) - Urine culture grew ESBL and ID was consulted and recommended Levaquin, today is day 3 Hyponatremia with possible hypovoulemia - Chronic consulted - CHARLYE (acute kidney injury) WITH VASOMOTOR NEPHROPATHY ON CKD - ATN/volume depletion - Nephrology consulted Hypeokalemia - follow BMP - nephrology consulted HTN (hypertension) - Cont Antihypertensives Glaucoma - COnt Latanoprost Anemia - Patient hemoglobin continuously dropping and patient's going to be transfused with 1 unit of packed RBC GERD (gastroesophageal reflux disease) HLD (hyperlipidemia) - on fenofibrates DVT prophylaxis - on heparin and Pantoprazole for GI prophylaxis Left upper extremity swelling; Doppler ultrasound was negative for DVT, vascular surgery consulted. History Interval history: Patient was seen and evaluated this morning, she is nonverbal, noncommunicative. No family member was in the room. Left arm swelling noted. Hospitalist Physical - Physical exam Narrative exam: patient is on BIPAP. The patient appeared well nourished and normally developed. Vital signs as documented. Head exam is unremarkable. No scleral icterus . Neck is without jugular venous distension, thyromegaly, or carotid bruits. Lungs are clear to auscultation. Cardiac exam reveals regular rate and Rhythm. First and second heart sounds normal. No murmurs, rubs or gallops. Abdominal exam reveals normal bowel sounds, no masses, no organomegaly and no aortic enlargement. Extremities edematous LUE. 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 - Constitutional Vitals: Temp Pulse Resp BP Pulse Ox 98.9 F 66 18 136/48 100 08/27/17 12:24 08/27/17 12:24 08/27/17 12:24 08/27/17 12:24 08/27/17 12:24 General appearance: Present: obese (diffuse swelling) Results - Labs CBC & Chem 7: 08/27/17 11:35 08/27/17 05:31 Labs: Laboratory Last Values WBC 6.4 K/mm3 (4.5-11.0) 08/27/17 11:35 RBC 2.53 M/mm3 (3.65-5.03) L 08/27/17 11:35 Hgb 7.6 gm/dl (10.1-14.3) L 08/27/17 11:35 Hct 22.9 % (30.3-42.9) L 08/27/17 11:35 MCV 91 fl (79-97) 08/27/17 11:35 MCH 30 pg (28-32) 08/27/17 11:35 MCHC 33 % (30-34) 08/27/17 11:35 RDW 21.1 % (13.2-15.2) H 08/27/17 11:35 Plt Count 151 K/mm3 (140-440) 08/27/17 11:35 Lymph % (Auto) 7.3 % (13.4-35.0) L 08/24/17 05:30 [place] % (Auto) 7.9 % (0.0-7.3) H 08/24/17 05:30 Eos % (Auto) 0.0 % (0.0-4.3) 08/24/17 05:30 Baso % (Auto) 0.1 % (0.0-1.8) 08/24/17 05:30 Lymph # 0.4 K/mm3 (1.2-5.4) L 08/24/17 05:30 [place] # 0.4 K/mm3 (0.0-0.8) 08/24/17 05:30 Eos # 0.0 K/mm3 (0.0-0.4) 08/24/17 05:30 Baso # 0.0 K/mm3 (0.0-0.1) 08/24/17 05:30 Add Manual Diff Complete 08/22/17 05:10 Total Counted 100 12/16/17 05:10 Seg Neutrophils % 84.7 % (40.0-70.0) H 08/24/17 05:30 Seg Neuts % (Manual) 64.0 % (40.0-70.0) 08/22/17 05:10 Band Neutrophils % 27.0 % 08/22/17 05:10 Lymphocytes % (Manual) 6.0 % (13.4-35.0) L 08/22/17 05:10 Reactive Lymphs % (Man) 0 % 08/22/17 05:10 Monocytes % (Manual) 3.0 % (0.0-7.3) 08/22/17 05:10 Eosinophils % (Manual) 0 % (0.0-4.3) 08/22/17 05:10 Basophils % (Manual) 0 % (0.0-1.8) 08/22/17 05:10 Metamyelocytes % 0 % 08/22/17 05:10 Myelocytes % 0 % 08/22/17 05:10 Promyelocytes % 0 % 08/22/17 05:10 Blast Cells % 0 % 08/22/17 05:10 Nucleated RBC % Not Reportable 08/22/17 05:10 Seg Neutrophils # 4.5 K/mm3 (1.8-7.7) 08/24/17 05:30 Seg Neutrophils # Man 3.1 K/mm3 (1.8-7.7) 08/22/17 05:10 Band Neutrophils # 1.3 K/mm3 08/22/17 05:10 Lymphocytes # (Manual) 0.3 K/mm3 (1.2-5.4) L 08/22/17 05:10 Abs React Lymphs (Man) 0.0 K/mm3 08/22/17 05:10 Monocytes # (Manual) 0.1 K/mm3 (0.0-0.8) 08/22/17 05:10 Eosinophils # (Manual) 0.0 K/mm3 (0.0-0.4) 08/22/17 05:10 Basophils # (Manual) 0.0 K/mm3 (0.0-0.1) 08/22/17 05:10 Metamyelocytes # 0.0 K/mm3 08/22/17 05:10 Myelocytes # 0.0 K/mm3 08/22/17 05:10 Promyelocytes # 0.0 K/mm3 08/22/17 05:10 Blast Cells # 0.0 K/mm3 08/22/17 05:10 WBC Morphology Not Reportable 08/22/17 05:10 Hypersegmented Neuts Not Reportable 08/22/17 05:10 Hyposegmented Neuts Not Reportable 08/22/17 05:10 Hypogranular Neuts Not Reportable 08/22/17 05:10 Smudge Cells Not Reportable 08/22/17 05:10 Toxic Granulation Not Reportable 08/22/17 05:10 Toxic Vacuolation Not Reportable 08/22/17 05:10 Dohle Bodies Not Reportable 08/22/17 05:10 Pelger-Huet Anomaly Not Reportable 08/22/17 05:10 Tera Rods Not Reportable 08/22/17 05:10 Platelet Estimate Consistent w auto 08/22/17 05:10 Clumped Platelets Not Reportable 08/22/17 05:10 Plt Clumps, EDTA Not Reportable 08/22/17 05:10 Large Platelets Not Reportable 08/22/17 05:10 Giant Platelets Not Reportable 08/22/17 05:10 Platelet Satelliting Not Reportable 08/22/17 05:10 Plt Morphology Comment Not Reportable 08/22/17 05:10 RBC Morphology Not Reportable 08/22/17 05:10 Dimorphic RBCs Not Reportable 08/22/17 05:10 Polychromasia Not Reportable 08/22/17 05:10 Hypochromasia 1+ 08/22/17 05:10 Poikilocytosis Not Reportable 08/22/17 05:10 Anisocytosis 1+ 08/22/17 05:10 Microcytosis Not Reportable 08/22/17 05:10 Macrocytosis Not Reportable 08/22/17 05:10 Spherocytes Not Reportable 08/22/17 05:10 Pappenheimer Bodies Not Reportable 08/22/17 05:10 Sickle Cells Not Reportable 08/22/17 05:10 Target Cells Not Reportable 08/22/17 05:10 Tear Drop Cells Not Reportable 08/22/17 05:10 Ovalocytes Not Reportable 08/22/17 05:10 Helmet Cells Not Reportable 08/22/17 05:10 [place] Bodies Not Reportable 08/22/17 05:10 [place] Rings Not Reportable 08/22/17 05:10 [place] Cells Not Reportable 08/22/17 05:10 Bite Cells Not Reportable 08/22/17 05:10 Crenated Cell Not Reportable 08/22/17 05:10 Elliptocytes 1+ 08/22/17 05:10 Acanthocytes (Spur) Not Reportable 08/22/17 05:10 Rouleaux Not Reportable 08/22/17 05:10 Hemoglobin C Crystals Not Reportable 08/22/17 05:10 Schistocytes Not Reportable 08/22/17 05:10 Malaria parasites Not Reportable 08/22/17 05:10 [place] Bodies Not Reportable 08/22/17 05:10 Hem Pathologist Commnt No 08/22/17 05:10 PT 14.2 Sec. (12.2-14.9) 08/27/17 11:35 INR 1.05 (0.87-1.13) 08/27/17 11:35 APTT 48.6 Sec. (24.2-36.6) H 08/27/17 11:35 POC ABG pH 7.430 (7.35-7.45) 08/24/17 10:41 POC ABG pCO2 37.1 (35-45) 08/24/17 10:41 POC ABG pO2 181 (80-105) H 08/24/17 10:41 POC ABG HCO3 24.6 08/24/17 10:41 POC ABG Total CO2 26 08/24/17 10:41 POC ABG O2 Sat 100 08/24/17 10:41 POC ABG Base Excess 0 08/24/17 10:41 FiO2 35 % 08/24/17 10:41 Sodium 135 mmol/L (137-145) L 08/27/17 05:31 Potassium 3.9 mmol/L (3.6-5.0) 08/27/17 05:31 Chloride 98.9 mmol/L (98-107) 08/27/17 05:31 Carbon Dioxide 27 mmol/L (22-30) 08/27/17 05:31 Anion Gap 13 mmol/L 08/27/17 05:31 BUN 95 mg/dL (7-17) H 08/27/17 05:31 Creatinine 1.2 mg/dL (0.7-1.2) 08/27/17 05:31 Estimated GFR 52 ml/min 08/27/17 05:31 BUN/Creatinine Ratio 79 % 08/27/17 05:31 Glucose 130 mg/dL (65-100) H 08/27/17 05:31 POC Glucose 124 (70-105) H 08/27/17 16:34 Hemoglobin A1c 5.1 % (4-6) 08/21/17 16:21 Osmolality 296 Mosm/kg 08/23/17 12:11 Uric Acid 9.9 mg/dL (3.5-7.6) H 08/23/17 12:11 Calcium 7.8 mg/dL (8.4-10.2) L 08/27/17 05:31 Total Bilirubin 0.30 mg/dL (0.1-1.2) 08/22/17 05:10 AST 31 units/L (5-40) 08/22/17 05:10 ALT 13 units/L (7-56) 08/22/17 05:10 Alkaline Phosphatase 54 units/L (35-129) 08/22/17 05:10 Troponin T 0.067 ng/mL (0.00-0.029) H 08/21/17 16:21 C-Reactive Protein 0.60 mg/dL (0.00-1.30) 08/25/17 05:43 NT-Pro-B Natriuret Pep 39442 pg/mL (0-900) H 08/21/17 16:21 Total Protein 7.7 g/dL (6.3-8.2) 08/22/17 05:10 Albumin 3.1 g/dL (3.9-5) L 08/22/17 05:10 Albumin/Globulin Ratio 0.7 % 08/22/17 05:10 Triglycerides 60 mg/dL (2-149) 08/21/17 16:21 Cholesterol 109 mg/dL (50-199) 08/21/17 16:21 LDL Cholesterol Direct 42 mg/dL (50-130) L 08/21/17 16:21 HDL Cholesterol 55 mg/dL (40-59) 08/21/17 16:21 Cholesterol/HDL Ratio 1.98 % 08/21/17 16:21 Urine Color [place] (Yellow) 08/21/17 16:27 Urine Turbidity Clear (Clear) 08/21/17 16:27 Urine pH 7.0 (5.0-7.0) 08/21/17 16:27 Ur Specific [place] 1.019 (1.003-1.030) 08/21/17 16:27 Urine Protein >500 mg/dL (Negative) 08/21/17 16:27 Urine Glucose (UA) Neg mg/dL (Negative) 08/21/17 16:27 Urine Ketones Neg mg/dL (Negative) 08/21/17 16:27 Urine Blood Neg (Negative) 08/21/17 16:27 Urine Nitrite Neg (Negative) 08/21/17 16:27 Urine Bilirubin Neg (Negative) 08/21/17 16:27 Urine Urobilinogen < 2.0 mg/dL (<2.0) 08/21/17 16:27 Ur Leukocyte Esterase Lg (Negative) 08/21/17 16:27 Urine WBC (Auto) 108.0 /HPF (0.0-6.0) H 08/21/17 16:27 Urine RBC (Auto) 14.0 /HPF (0.0-6.0) 08/21/17 16:27 U Epithel Cells (Auto) 1.0 /HPF (0-13.0) 08/21/17 16:27 Urine Bacteria (Auto) 4+ /HPF (Negative) 08/21/17 16:27 Urine Mucus Few /HPF 08/21/17 16:27 Urine Osmolality 298 Mosm/kg 08/23/17 18:20 Urine Creatinine 53.7 mg/dL (0.1-20.0) H 08/23/17 18:20 Urine Sodium 17 mmol/L 08/23/17 18:20 Urine Total Protein 26 mg/dL (5-11.8) H 08/23/17 18:20 Blood Type O POSITIVE 08/25/17 10:30 Antibody Screen Negative 08/25/17 10:30 Crossmatch See Detail 08/25/17 10:30
--- NOTE | 2017-08-27 21:06 | XRay Report ---
FINAL REPORT PROCEDURE: XR CHEST 1V AP TECHNIQUE: Chest radiograph anteroposterior view. CPT 26940 HISTORY: volume overload COMPARISON: 08/21/2017 FINDINGS: Heart: Mild to moderately enlarged. Mediastinum/Vessels: Normal. Lungs/Pleural space: COPD. Bony thorax: No acute osseous abnormality. Life support devices: Cardiac pacer device leads right atrium right ventricle. IMPRESSION: No acute cardiopulmonary abnormality. Improved aeration since prior study
[2017-08-27] MEDS: PERCOCET 5/325 PO PRN (22:44)
[2017-08-27] MEDS: TRICOR PO SCH (22:45)
[2017-08-27] MEDS: XALATAN 0.005% OU SCH (22:46)
[2017-08-28] MEDS: DUONEB *Not for PRN Use IH SCH ×4 (02:11→20:30)
[2017-08-28] MEDS: SYNTHROID PO SCH (05:19)
[2017-08-28 05:42] LABS: Calcium 7.8 mg/dL (8.4-10.2); Chloride 97.5 mmol/L (98-107)
[2017-08-28] MEDS: ZOSYN/NS 3.375GM/50ML 3.375 GM/50 ML BAG IV SCH ×2 (06:12→14:33)
[2017-08-28 06:40] LABS: Mean Corpuscular HGB Conc 33 % (30-34); Mean Corpuscular Hemoglobin 31 pg (28-32); Mean Corpuscular Volume 96 fl (79-97); White Blood Count 5.7 K/mm3 (4.5-11.0)
[2017-08-28 06:57] LABS: Red Cell Distribution Width 21.6 % (13.2-15.2)
[2017-08-28 06:58] LABS: Hematocrit 18.2 % (30.3-42.9); Hemoglobin 5.9 gm/dl (10.1-14.3)
[2017-08-28] MEDS ORDERED: NACL 0.9% 500 ML 500 ML IV NR ×2 (08:00→11:19)
[2017-08-28 08:01] LABS: Potassium 4.1 mmol/L (3.6-5.0)
[2017-08-28] MEDS ORDERED: PROVENTIL IH PRN (08:43)
--- NOTE | 2017-08-28 09:10 | Progress Note ---
Assessment and Plan Imp: 1. Probable acute diastolic CHF/pulm edema, less likely aspiration pneumonitis 2. Acute respiratory failure, hypoxia and hypercapnea 3. CHARLEY 4. Pulm HTN 5. 6. Alzheimer's dementia 7. Hyponatremia, better No new recs for today. Will PRN Rec: 1. Bipap QHS, nasal cannula during the day. 2. Steroids stopped Thursday, not cause of continued increase in BUN. Cr improved but BUN is still elevated 3. ID has signed off but left recs for abx therapy. 4. NPO, HOB elevated, TFs, etc. Subjective Date of service: 08/28/17 Principal diagnosis: Anasarca Interval history: no acute events. pulm status is unchanged Objective Vital Signs - 12hr 08/27/17 08/27/17 08/27/17 22:44 22:45 22:50 Temperature Pulse Rate 70 Pulse Rate [ Anterior Bilateral Throughout] Respiratory 22 Rate Respiratory Rate [Anterior Bilateral Throughout] Respiratory 22 Rate [ Generalized] Blood Pressure 128/52 O2 Sat by Pulse Oximetry 08/27/17 08/28/17 08/28/17 23:44 05:11 07:39 Temperature 98.5 F 98.5 F Pulse Rate 68 68 Pulse Rate [ Anterior Bilateral Throughout] Respiratory 22 20 20 Rate Respiratory Rate [Anterior Bilateral Throughout] Respiratory Rate [ Generalized] Blood Pressure 128/45 145/47 O2 Sat by Pulse 100 99 Oximetry 08/28/17 08/28/17 08/28/17 08:35 08:37 08:40 Temperature Pulse Rate Pulse Rate [ 67 Anterior Bilateral Throughout] Respiratory Rate Respiratory 20 Rate [Anterior Bilateral Throughout] Respiratory Rate [ Generalized] Blood Pressure O2 Sat by Pulse 100 100 Oximetry 08/28/17 08:46 Temperature Pulse Rate Pulse Rate [ 68 Anterior Bilateral Throughout] Respiratory Rate Respiratory 20 Rate [Anterior Bilateral Throughout] Respiratory Rate [ Generalized] Blood Pressure O2 Sat by Pulse Oximetry Constitutional: no acute distress, alert, other (being cleaned and changed right now) Eyes: non-icteric ENT: oropharynx moist Neck: supple Effort: normal Ascultation: Bilateral: rhonchi Cardiovascular: regular rate and rhythm (no mrg) Gastrointestinal: normoactive bowel sounds, soft, non-tender, non-distended Integumentary: normal Extremities: no cyanosis, pink and warm, edema (1+ RLE) Neurologic: other (contractures, awake, nonverbal, moans, does not follow commands) Psychiatric: other (unable to assess) CBC and BMP: 08/28/17 04:57 08/28/17 04:57 ABG, PT/INR, D-dimer: ABG POC ABG pH 7.430 (7.35-7.45) 08/24/17 10:41 POC ABG pCO2 37.1 (35-45) 08/24/17 10:41 POC ABG pO2 181 (80-105) H 08/24/17 10:41 POC ABG HCO3 24.6 08/24/17 10:41 POC ABG Total CO2 26 08/24/17 10:41 POC ABG O2 Sat 100 08/24/17 10:41 PT/INR, D-dimer PT 14.2 Sec. (12.2-14.9) 08/27/17 11:35 INR 1.05 (0.87-1.13) 08/27/17 11:35 Abnormal lab findings: Abnormal Labs 08/21/17 08/21/17 08/21/17 16:12 16:21 16:21 RBC 2.79 L Hgb 8.3 L Hct 25.1 L RDW 22.3 H Lymph % (Auto) 5.9 L [place] % (Auto) Lymph # 0.5 L Seg Neutrophils % 88.1 H Lymphocytes % (Manual) Lymphocytes # (Manual) APTT POC ABG pH 7.228 L POC ABG pCO2 57.7 H POC ABG pO2 192 H Sodium 123 L Potassium 5.1 H Chloride 89.7 L Carbon Dioxide BUN 44 H Creatinine 1.3 H Glucose 123 H POC Glucose Uric Acid Calcium 8.3 L Troponin T NT-Pro-B Natriuret Pep Albumin 3.3 L LDL Cholesterol Direct Urine WBC (Auto) Urine Creatinine Urine Total Protein Crossmatch 08/21/17 08/21/17 08/21/17 16:21 16:21 16:27 RBC Hgb Hct RDW Lymph % (Auto) [place] % (Auto) Lymph # Seg Neutrophils % Lymphocytes % (Manual) Lymphocytes # (Manual) APTT POC ABG pH POC ABG pCO2 POC ABG pO2 Sodium Potassium Chloride Carbon Dioxide BUN Creatinine Glucose POC Glucose Uric Acid Calcium Troponin T 0.067 H NT-Pro-B Natriuret Pep 38096 H Albumin LDL Cholesterol Direct 42 L Urine WBC (Auto) 108.0 H Urine Creatinine Urine Total Protein Crossmatch 08/21/17 08/22/17 08/22/17 18:45 05:10 05:10 RBC 2.52 L Hgb 7.7 L Hct 22.6 L RDW 21.3 H Lymph % (Auto) [place] % (Auto) Lymph # Seg Neutrophils % Lymphocytes % (Manual) 6.0 L Lymphocytes # (Manual) 0.3 L APTT POC ABG pH POC ABG pCO2 POC ABG pO2 65 L Sodium 124 L Potassium 5.4 H Chloride 89.3 L Carbon Dioxide 18 L BUN 46 H Creatinine 1.5 H Glucose POC Glucose Uric Acid Calcium Troponin T NT-Pro-B Natriuret Pep Albumin 3.1 L LDL Cholesterol Direct Urine WBC (Auto) Urine Creatinine Urine Total Protein Crossmatch 08/22/17 08/22/17 08/23/17 06:44 14:33 00:20 RBC Hgb Hct RDW Lymph % (Auto) [place] % (Auto) Lymph # Seg Neutrophils % Lymphocytes % (Manual) Lymphocytes # (Manual) APTT POC ABG pH POC ABG pCO2 POC ABG pO2 Sodium 123 L 125 L Potassium 5.3 H Chloride 89.3 L Carbon Dioxide 18 L BUN Creatinine Glucose POC Glucose 108 H Uric Acid Calcium Troponin T NT-Pro-B Natriuret Pep Albumin LDL Cholesterol Direct Urine WBC (Auto) Urine Creatinine Urine Total Protein Crossmatch 08/23/17 08/23/17 08/23/17 05:38 05:38 12:11 RBC 2.50 L Hgb 7.5 L Hct 22.3 L RDW 21.8 H Lymph % (Auto) [place] % (Auto) Lymph # Seg Neutrophils % Lymphocytes % (Manual) Lymphocytes # (Manual) APTT POC ABG pH POC ABG pCO2 POC ABG pO2 Sodium 130 L Potassium Chloride 91.7 L Carbon Dioxide 20 L BUN 58 H Creatinine 1.6 H Glucose 134 H POC Glucose Uric Acid 9.9 H Calcium 8.3 L Troponin T NT-Pro-B Natriuret Pep Albumin LDL Cholesterol Direct Urine WBC (Auto) Urine Creatinine Urine Total Protein Crossmatch 08/23/17 08/23/17 08/24/17 18:20 18:56 01:14 RBC Hgb Hct RDW Lymph % (Auto) [place] % (Auto) Lymph # Seg Neutrophils % Lymphocytes % (Manual) Lymphocytes # (Manual) APTT POC ABG pH POC ABG pCO2 POC ABG pO2 Sodium Potassium Chloride Carbon Dioxide BUN Creatinine Glucose POC Glucose 155 H 157 H Uric Acid Calcium Troponin T NT-Pro-B Natriuret Pep Albumin LDL Cholesterol Direct Urine WBC (Auto) Urine Creatinine 53.7 H Urine Total Protein 26 H Crossmatch 08/24/17 08/24/17 08/24/17 05:30 05:30 06:09 RBC 2.45 L Hgb 7.4 L Hct 22.1 L RDW 22.2 H Lymph % (Auto) 7.3 L [place] % (Auto) 7.9 H Lymph # 0.4 L Seg Neutrophils % 84.7 H Lymphocytes % (Manual) Lymphocytes # (Manual) APTT POC ABG pH POC ABG pCO2 POC ABG pO2 Sodium 130 L Potassium Chloride 93.1 L Carbon Dioxide BUN 73 H Creatinine 1.6 H Glucose 140 H POC Glucose 138 H Uric Acid Calcium 7.7 L Troponin T NT-Pro-B Natriuret Pep Albumin LDL Cholesterol Direct Urine WBC (Auto) Urine Creatinine Urine Total Protein Crossmatch 08/24/17 08/24/17 08/24/17 10:41 12:00 18:17 RBC Hgb Hct RDW Lymph % (Auto) [place] % (Auto) Lymph # Seg Neutrophils % Lymphocytes % (Manual) Lymphocytes # (Manual) APTT POC ABG pH POC ABG pCO2 POC ABG pO2 181 H Sodium Potassium Chloride Carbon Dioxide BUN Creatinine Glucose POC Glucose 160 H 136 H Uric Acid Calcium Troponin T NT-Pro-B Natriuret Pep Albumin LDL Cholesterol Direct Urine WBC (Auto) Urine Creatinine Urine Total Protein Crossmatch 08/25/17 08/25/17 08/25/17 00:16 05:43 05:43 RBC Hgb 7.0 L Hct 21.5 L RDW Lymph % (Auto) [place] % (Auto) Lymph # Seg Neutrophils % Lymphocytes % (Manual) Lymphocytes # (Manual) APTT POC ABG pH POC ABG pCO2 POC ABG pO2 Sodium 132 L Potassium 3.5 L Chloride 95.5 L Carbon Dioxide BUN 94 H Creatinine 1.4 H Glucose 124 H POC Glucose 110 H Uric Acid Calcium 7.6 L Troponin T NT-Pro-B Natriuret Pep Albumin LDL Cholesterol Direct Urine WBC (Auto) Urine Creatinine Urine Total Protein Crossmatch 08/25/17 08/25/1717 10:30 11:53 18:19 RBC Hgb Hct RDW Lymph % (Auto) [place] % (Auto) Lymph # Seg Neutrophils % Lymphocytes % (Manual) Lymphocytes # (Manual) APTT POC ABG pH POC ABG pCO2 POC ABG pO2 Sodium Potassium Chloride Carbon Dioxide BUN Creatinine Glucose POC Glucose 129 H 117 H Uric Acid Calcium Troponin T NT-Pro-B Natriuret Pep Albumin LDL Cholesterol Direct Urine WBC (Auto) Urine Creatinine Urine Total Protein Crossmatch See Detail 08/25/17 08/26/17 08/26/17 20:31 00:14 08:14 RBC Hgb 9.2 L Hct 27.4 L RDW Lymph % (Auto) [place] % (Auto) Lymph # Seg Neutrophils % Lymphocytes % (Manual) Lymphocytes # (Manual) APTT POC ABG pH POC ABG pCO2 POC ABG pO2 Sodium 135 L Potassium Chloride 97.1 L Carbon Dioxide BUN 92 H Creatinine Glucose 125 H POC Glucose 124 H Uric Acid Calcium 7.6 L Troponin T NT-Pro-B Natriuret Pep Albumin LDL Cholesterol Direct Urine WBC (Auto) Urine Creatinine Urine Total Protein Crossmatch 08/26/17 08/26/17 08/26/17 08:14 19:00 23:34 RBC Hgb 7.8 L Hct 23.5 L RDW Lymph % (Auto) [place] % (Auto) Lymph # Seg Neutrophils % Lymphocytes % (Manual) Lymphocytes # (Manual) APTT POC ABG pH POC ABG pCO2 POC ABG pO2 Sodium Potassium Chloride Carbon Dioxide BUN Creatinine Glucose POC Glucose 137 H 133 H Uric Acid Calcium Troponin T NT-Pro-B Natriuret Pep Albumin LDL Cholesterol Direct Urine WBC (Auto) Urine Creatinine Urine Total Protein Crossmatch 08/27/17 08/27/17 08/27/17 05:31 06:13 07:42 RBC Hgb Hct RDW Lymph % (Auto) [place] % (Auto) Lymph # Seg Neutrophils % Lymphocytes % (Manual) Lymphocytes # (Manual) APTT POC ABG pH POC ABG pCO2 POC ABG pO2 Sodium 135 L Potassium Chloride Carbon Dioxide BUN 95 H Creatinine Glucose 130 H POC Glucose 158 H 149 H Uric Acid Calcium 7.8 L Troponin T NT-Pro-B Natriuret Pep Albumin LDL Cholesterol Direct Urine WBC (Auto) Urine Creatinine Urine Total Protein Crossmatch 08/27/17 08/27/17 08/27/17 11:35 11:35 16:34 RBC 2.53 L Hgb 7.6 L Hct 22.9 L RDW 21.1 H Lymph % (Auto) [place] % (Auto) Lymph # Seg Neutrophils % Lymphocytes % (Manual) Lymphocytes # (Manual) APTT 48.6 H POC ABG pH POC ABG pCO2 POC ABG pO2 Sodium Potassium Chloride Carbon Dioxide BUN Creatinine Glucose POC Glucose 124 H Uric Acid Calcium Troponin T NT-Pro-B Natriuret Pep Albumin LDL Cholesterol Direct Urine WBC (Auto) Urine Creatinine Urine Total Protein Crossmatch 08/28/17 08/28/17 08/28/17 00:14 04:57 04:57 RBC 1.90 L Hgb 5.9 L* Hct 18.2 L* RDW 21.6 H Lymph % (Auto) [place] % (Auto) Lymph # Seg Neutrophils % Lymphocytes % (Manual) Lymphocytes # (Manual) APTT POC ABG pH POC ABG pCO2 POC ABG pO2 Sodium 133 L Potassium Chloride 97.5 L Carbon Dioxide BUN 98 H Creatinine Glucose 139 H POC Glucose 148 H Uric Acid Calcium 7.8 L Troponin T NT-Pro-B Natriuret Pep Albumin LDL Cholesterol Direct Urine WBC (Auto) Urine Creatinine Urine Total Protein Crossmatch 08/28/17 06:18 RBC Hgb Hct RDW Lymph % (Auto) [place] % (Auto) Lymph # Seg Neutrophils % Lymphocytes % (Manual) Lymphocytes # (Manual) APTT POC ABG pH POC ABG pCO2 POC ABG pO2 Sodium Potassium Chloride Carbon Dioxide BUN Creatinine Glucose POC Glucose 176 H Uric Acid Calcium Troponin T NT-Pro-B Natriuret Pep Albumin LDL Cholesterol Direct Urine WBC (Auto) Urine Creatinine Urine Total Protein Crossmatch
[2017-08-28 09:45] LABS: Blastocytes % (Manual) 0 %
[2017-08-28 09:46] LABS: Basophils % (Manual) 0 % (0.0-1.8)
[2017-08-28] MEDS: VITAMIN B-12 PO SCH (09:46)
[2017-08-28] MEDS: HEPARIN SUB-Q SCH ×2 (09:46→21:37)
[2017-08-28] MEDS: BABY ASPIRIN PO SCH (09:46)
[2017-08-28] MEDS: LASIX IV SCH (09:46)
[2017-08-28] MEDS: FEOSOL PO SCH ×2 (09:46→17:19)
[2017-08-28] MEDS: PROTONIX FEEDTUBE SCH (09:46)
[2017-08-28] MEDS: SENOKOT PO SCH (09:46)
[2017-08-28 09:47] LABS: Anisocytosis 1+; Diff Status Complete; Poikilocytosis Few
[2017-08-28] MEDS: APRESOLINE PO SCH ×3 (09:47→20:57)
[2017-08-28] MEDS: NORMODYNE PO SCH ×2 (09:47→20:57)
[2017-08-28 10:13] LABS: Platelet Count 77 K/mm3 (140-440)
--- NOTE | 2017-08-28 10:41 | Progress Note ---
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 Subjective Date of service: 08/28/17 Principal diagnosis: Anasarca Interval history: Labs most notable for severe anemia, H&H of 5.9/18.2 today. Objective Vital Signs Temp Pulse Pulse Resp Resp Resp BP 08/28/17 09:10 98.5 F 70 20 08/28/17 08:46 68 20 08/28/17 08:40 08/28/17 08:37 67 20 08/28/17 08:35 08/28/17 07:39 98.5 F 68 20 145/47 08/28/17 05:11 98.5 F 68 20 128/45 08/27/17 23:44 22 08/27/17 22:50 22 08/27/17 22:45 70 128/52 08/27/17 22:44 22 08/27/17 20:59 70 20 08/27/17 20:50 22 08/27/17 20:49 69 20 08/27/17 20:21 67 08/27/17 20:08 98.1 F 68 18 130/38 08/27/17 16:29 98.2 F 70 16 152/69 08/27/17 13:18 72 20 08/27/17 13:08 68 20 08/27/17 12:24 98.9 F 66 18 136/48 BP Pulse Ox 08/28/17 09:10 145/77 100 08/28/17 08:46 08/28/17 08:40 100 08/28/17 08:37 08/28/17 08:35 100 08/28/17 07:39 99 08/28/17 05:11 100 08/27/17 23:44 08/27/17 22:50 08/27/17 22:45 08/27/17 22:44 08/27/17 20:59 08/27/17 20:50 100 08/27/17 20:49 08/27/17 20:21 08/27/17 20:08 100 08/27/17 16:29 100 08/27/17 13:18 08/27/17 13:08 08/27/17 12:24 100 - Physical Examination General: No Apparent Distress Cardiac: Positive: Other (paced) Abdomen: Positive: Soft Extremities: Present: +2 Edema - Labs and Meds Coagulation 08/27/17 Range/Units 11:35 PT 14.2 (12.2-14.9) Sec. INR 1.05 (0.87-1.13) APTT 48.6 H (24.2-36.6) Sec. CBC 08/27/17 08/28/17 Range/Units 11:35 04:57 WBC 6.4 5.7 (4.5-11.0) K/mm3 RBC 2.53 L 1.90 L (3.65-5.03) M/mm3 Hgb 7.6 L 5.9 L* (10.1-14.3) gm/dl Hct 22.9 L 18.2 L* (30.3-42.9) % Plt Count 151 77 L (140-440) K/mm3 Lymph # Retail Assistant Store Manager [place] # Retail Assistant Store Manager [place] # Retail Assistant Store Manager Baso # Retail Assistant Store Manager Comprehensive Metabolic Panel 08/28/17 Range/Units 04:57 Sodium 133 L (137-145) mmol/L Potassium 4.1 (3.6-5.0) mmol/L Chloride 97.5 L (98-107) mmol/L Carbon Dioxide 24 (22-30) mmol/L BUN 98 H (7-17) mg/dL Creatinine 1.2 (0.7-1.2) mg/dL Glucose 139 H (65-100) mg/dL Calcium 7.8 L (8.4-10.2) mg/dL - Imaging and Cardiology EKG: report reviewed (Sinus tach)
[2017-08-28] MEDS: IMURAN PO SCH (12:00)
--- NOTE | 2017-08-28 12:45 | Progress Note ---
Assessment and Plan impression * Acute on chronic renal failure * Anemia * Shortness of breath * Hypertension * Encephalopathy * UTI recommendations * Her serum creatinine seems to have stabilized. * Her BUN however noted to be rising. Drop in hemoglobin noted. Suspect blood in the GI tract. * Consider packed RBC transfusion and GI evaluation. Shall check a stool for occult blood for now. Shall hold off on her diuretics for now * Avoid nephrotoxins * Monitor fluid status and electrolytes closely * shortness of breath most likely due to COPD and fluid overload * continue antibiotics as per ID recommendations Subjective Date of service: 08/28/17 Principal diagnosis: Anasarca Interval history: Patient remains comfortable. Denies shortness of breath Objective - Vital Signs Vital signs: Vital Signs - 12hr 08/28/17 08/28/17 08/28/17 05:11 07:39 08:35 Temperature 98.5 F 98.5 F Pulse Rate 68 68 Pulse Rate [ Anterior Bilateral Throughout] Pulse Rate [ From Monitor] Respiratory 20 20 Rate Respiratory Rate [Anterior Bilateral Throughout] Blood Pressure 128/45 145/47 Blood Pressure [Right] O2 Sat by Pulse 100 99 100 Oximetry 08/28/17 08/28/17 08/28/17 08:37 08:40 08:46 Temperature Pulse Rate Pulse Rate [ 67 68 Anterior Bilateral Throughout] Pulse Rate [ From Monitor] Respiratory Rate Respiratory 20 20 Rate [Anterior Bilateral Throughout] Blood Pressure Blood Pressure [Right] O2 Sat by Pulse 100 Oximetry 08/28/17 08/28/17 08/28/17 09:10 10:00 11:07 Temperature 98.5 F 99.4 F Pulse Rate 70 70 Pulse Rate [ Anterior Bilateral Throughout] Pulse Rate [ 68 From Monitor] Respiratory 20 20 20 Rate Respiratory Rate [Anterior Bilateral Throughout] Blood Pressure 138/53 Blood Pressure 145/77 [Right] O2 Sat by Pulse 100 99 100 Oximetry - General Appearance General appearance: well-developed, well-nourished, appears stated age EENT: PERRL, mucous membranes moist Neck: no JVD, no thyromegaly, no carotid bruit, supple Respiratory: Present: Clear to Ascultation Cardiology: regular, normal heart rate Gastrointestinal: normal, normoactive bowel sounds Integumentary: other (1+ edema) - Lab 08/28/17 04:57 08/28/17 04:57 Most recent lab results Calcium 7.8 mg/dL (8.4-10.2) L 08/28/17 04:57 Urine Creatinine 53.7 mg/dL (0.1-20.0) H 08/23/17 18:20 Urine Sodium 17 mmol/L 08/23/17 18:20 Urine Total Protein 26 mg/dL (5-11.8) H 08/23/17 18:20
[2017-08-28] MEDS ORDERED: NACL 0.9% 1000 ML 1,000 ML IV SCH (13:00)
--- NOTE | 2017-08-28 14:29 | Vascular Lab Report ---
LEFT UPPER EXTREMITY VENOUS DUPLEX: REASON FOR EXAM: Redness and swelling of the left upper extremity COMMENTS ON THE LEFT: All arm veins visualized are freely compressible without evidence of internal echogenicity. The subclavian and internal jugular veins are free of thrombus. Flow is spontaneous and phasic throughout. Nonspecific soft tissue changes in the left antecubital fossa. COMMENTS ON THE RIGHT: The subclavian and internal jugular veins are free of thrombus. IMPRESSION: No evidence of acute or chronic deep venous thrombosis in the left upper extremity.
--- NOTE | 2017-08-28 14:53 | Progress Note ---
Assessment and Plan Assessment and plan: 82 y/o Female with PMH of HTN, COPD, Diastolic CHF, HLD anemia and glaucoma - resident of [place] sent in for increasing SOB and wheezing for 1 day.Cough productive of mucoid sputum. No Fever or chills.Also altered sensorium. Daughter at bed side.Recent admission in January for PEG tube malfunction and Vomiting coffee ground material. Acute respiratory failure with hypoxia - Patient is currently off BiPAP and on intranasal oxygen - Patient is off steroids - Pulmonary consult appreciated - Patient was treated with IV Levaquin and clindamycin, and swithed today to Zosyn per ID recommendation Diastolic CHF, Moderate Aortic stenosis - Patient was on IV lasix melanie D/Cj because of the elevated BUN COPD exacerbation lIKELY SECONDARY TO ASPIRATION PNEUMONITIS - Continue Levaquin and clindamycin Acute encephalopathy - Due to hypoxia - Could be baseline UTI (urinary tract infection) - Urine culture grew ESBL and ID was consulted and recommended Levaquin, today is day 3 Hyponatremia with possible hypovoulemia - Chronic consulted - CHARLEY (acute kidney injury) WITH VASOMOTOR NEPHROPATHY ON CKD - ATN/volume depletion - Nephrology consulted Hypeokalemia - follow BMP - nephrology consulted HTN (hypertension) - Cont Antihypertensives Glaucoma - COnt Latanoprost Anemia - Hemoglobin dropped from 7.6-5.9 - Transfuse 2 units of blood, check posttransfusion in nature GERD (gastroesophageal reflux disease) HLD (hyperlipidemia) - on fenofibrates DVT prophylaxis - on heparin and Pantoprazole for GI prophylaxis Left upper extremity swelling; Doppler ultrasound was negative for DVT, vascular surgery consulted and recommended no intervention at this time. History Interval history: Patient was seen and evaluated this morning, she is nonverbal, noncommunicative. No family member was in the room. Left arm swelling noted. Patient hemoglobin dropped this morning. Hospitalist Physical - Physical exam Narrative exam: patient is on BIPAP. The patient appeared well nourished and normally developed. Vital signs as documented. Head exam is unremarkable. No scleral icterus . Neck is without jugular venous distension, thyromegaly, or carotid bruits. Lungs are clear to auscultation. Cardiac exam reveals regular rate and Rhythm. First and second heart sounds normal. No murmurs, rubs or gallops. Abdominal exam reveals normal bowel sounds, no masses, no organomegaly and no aortic enlargement. Extremities edematous LUE. 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 - Constitutional Vitals: Temp Pulse Resp BP Pulse Ox 99.4 F 73 20 138/53 100 08/28/17 12:50 08/28/17 12:50 08/28/17 12:50 08/28/17 12:50 08/28/17 12:50 General appearance: Present: obese (diffuse swelling) Results - Labs CBC & Chem 7: 08/28/17 04:57 08/28/17 04:57 Labs: Laboratory Last Values WBC 5.7 K/mm3 (4.5-11.0) 08/28/17 04:57 RBC 1.90 M/mm3 (3.65-5.03) L 08/28/17 04:57 Hgb 5.9 gm/dl (10.1-14.3) L* 08/28/17 04:57 Hct 18.2 % (30.3-42.9) L* 08/28/17 04:57 MCV 96 fl (79-97) 08/28/17 04:57 MCH 31 pg (28-32) 08/28/17 04:57 MCHC 33 % (30-34) 08/28/17 04:57 RDW 21.6 % (13.2-15.2) H 08/28/17 04:57 Plt Count 77 K/mm3 (140-440) L 08/28/17 04:57 Lymph % (Auto) Yarn Wrapper 08/28/17 04:57 Wilson % (Auto) Yarn Wrapper 08/28/17 04:57 Eos % (Auto) Yarn Wrapper 08/28/17 04:57 Baso % (Auto) Yarn Wrapper 08/28/17 04:57 Lymph # Yarn Wrapper 08/28/17 04:57 Wilson # Yarn Wrapper 08/28/17 04:57 Eos # Yarn Wrapper 08/28/17 04:57 Baso # Yarn Wrapper 08/28/17 04:57 Add Manual Diff Complete 08/28/17 04:57 Total Counted 100 08/28/17 04:57 Seg Neutrophils % Yarn Wrapper 08/28/17 04:57 Seg Neuts % (Manual) 80.0 % (40.0-70.0) H 08/28/17 04:57 Band Neutrophils % 9.0 % 08/28/17 04:57 Lymphocytes % (Manual) 3.0 % (13.4-35.0) L 08/28/17 04:57 Reactive Lymphs % (Man) 0 % 08/28/17 04:57 Monocytes % (Manual) 4.0 % (0.0-7.3) 08/28/17 04:57 Eosinophils % (Manual) 4.0 % (0.0-4.3) 08/28/17 04:57 Basophils % (Manual) 0 % (0.0-1.8) 08/28/17 04:57 Metamyelocytes % 0 % 08/28/17 04:57 Myelocytes % 0 % 08/28/17 04:57 Promyelocytes % 0 % 08/28/17 04:57 Blast Cells % 0 % 08/28/17 04:57 Nucleated RBC % Not Reportable 08/28/17 04:57 Seg Neutrophils # Yarn Wrapper 08/28/17 04:57 Seg Neutrophils # Man 4.6 K/mm3 (1.8-7.7) 08/28/17 04:57 Band Neutrophils # 0.5 K/mm3 08/28/17 04:57 Lymphocytes # (Manual) 0.2 K/mm3 (1.2-5.4) L 08/28/17 04:57 Abs React Lymphs (Man) 0.0 K/mm3 08/28/17 04:57 Monocytes # (Manual) 0.2 K/mm3 (0.0-0.8) 08/28/17 04:57 Eosinophils # (Manual) 0.2 K/mm3 (0.0-0.4) 08/28/17 04:57 Basophils # (Manual) 0.0 K/mm3 (0.0-0.1) 08/28/17 04:57 Metamyelocytes # 0.0 K/mm3 08/28/17 04:57 Myelocytes # 0.0 K/mm3 08/28/17 04:57 Promyelocytes # 0.0 K/mm3 08/28/17 04:57 Blast Cells # 0.0 K/mm3 08/28/17 04:57 WBC Morphology Not Reportable 08/28/17 04:57 Hypersegmented Neuts Not Reportable 08/28/17 04:57 Hyposegmented Neuts Not Reportable 08/28/17 04:57 Hypogranular Neuts Not Reportable 08/28/17 04:57 Smudge Cells Not Reportable 08/28/17 04:57 Toxic Granulation Not Reportable 08/28/17 04:57 Toxic Vacuolation Not Reportable 08/28/17 04:57 Dohle Bodies Not Reportable 08/28/17 04:57 Pelger-Huet Anomaly Not Reportable 08/28/17 04:57 Tera Rods Not Reportable 08/28/17 04:57 Platelet Estimate Not Reportable 08/28/17 04:57 Clumped Platelets Not Reportable 08/28/17 04:57 Plt Clumps, EDTA Not Reportable 08/28/17 04:57 Large Platelets Not Reportable 08/28/17 04:57 Giant Platelets Not Reportable 08/28/17 04:57 Platelet Satelliting Not Reportable 08/28/17 04:57 Plt Morphology Comment Not Reportable 08/28/17 04:57 RBC Morphology Not Reportable 08/28/17 04:57 Dimorphic RBCs Not Reportable 08/28/17 04:57 Polychromasia Not Reportable 08/28/17 04:57 Hypochromasia Not Reportable 08/28/17 04:57 Poikilocytosis Few 08/28/17 04:57 Anisocytosis 1+ 08/28/17 04:57 Microcytosis Not Reportable 08/28/17 04:57 Macrocytosis Not Reportable 08/28/17 04:57 Spherocytes Not Reportable 08/28/17 04:57 Pappenheimer Bodies Not Reportable 08/28/17 04:57 Sickle Cells Not Reportable 08/28/17 04:57 Target Cells Not Reportable 08/28/17 04:57 Tear Drop Cells Not Reportable 08/28/17 04:57 Ovalocytes Not Reportable 08/28/17 04:57 Helmet Cells Not Reportable 08/28/17 04:57 [place] Bodies Not Reportable 08/28/17 04:57 [place] Rings Not Reportable 08/28/17 04:57 Gamal Cells Not Reportable 08/28/17 04:57 Bite Cells Not Reportable 08/28/17 04:57 Crenated Cell Not Reportable 08/28/17 04:57 Elliptocytes Not Reportable 08/28/17 04:57 Acanthocytes (Spur) Not Reportable 08/28/17 04:57 Rouleaux Not Reportable 08/28/17 04:57 Hemoglobin C Crystals Not Reportable 08/28/17 04:57 Schistocytes Not Reportable 08/28/17 04:57 Malaria parasites Not Reportable 08/28/17 04:57 [place] Bodies Not Reportable 08/28/17 04:57 Hem Pathologist Commnt No 08/28/17 04:57 PT 14.2 Sec. (12.2-14.9) 08/27/17 11:35 INR 1.05 (0.87-1.13) 08/27/17 11:35 APTT 48.6 Sec. (24.2-36.6) H 08/27/17 11:35 POC ABG pH 7.430 (7.35-7.45) 08/24/17 10:41 POC ABG pCO2 37.1 (35-45) 08/24/17 10:41 POC ABG pO2 181 (80-105) H 08/24/17 10:41 POC ABG HCO3 24.6 08/24/17 10:41 POC ABG Total CO2 26 08/24/17 10:41 POC ABG O2 Sat 100 08/24/17 10:41 POC ABG Base Excess 0 08/24/17 10:41 FiO2 35 % 08/24/17 10:41 Sodium 133 mmol/L (137-145) L 08/28/17 04:57 Potassium 4.1 mmol/L (3.6-5.0) 08/28/17 04:57 Chloride 97.5 mmol/L (98-107) L 08/28/17 04:57 Carbon Dioxide 24 mmol/L (22-30) 08/28/17 04:57 Anion Gap 16 mmol/L 08/28/17 04:57 BUN 98 mg/dL (7-17) H 08/28/17 04:57 Creatinine 1.2 mg/dL (0.7-1.2) 08/28/17 04:57 Estimated GFR 52 ml/min 08/28/17 04:57 BUN/Creatinine Ratio 82 % 08/28/17 04:57 Glucose 139 mg/dL (65-100) H 08/28/17 04:57 POC Glucose 176 (70-105) H 08/28/17 06:18 Hemoglobin A1c 5.1 % (4-6) 08/21/17 16:21 Osmolality 296 Mosm/kg 08/23/17 12:11 Uric Acid 9.9 mg/dL (3.5-7.6) H 08/23/17 12:11 Calcium 7.8 mg/dL (8.4-10.2) L 08/28/17 04:57 Total Bilirubin 0.30 mg/dL (0.1-1.2) 08/22/17 05:10 AST 31 units/L (5-40) 08/22/17 05:10 ALT 13 units/L (7-56) 08/22/17 05:10 Alkaline Phosphatase 54 units/L (35-129) 08/22/17 05:10 Troponin T 0.067 ng/mL (0.00-0.029) H 08/21/17 16:21 C-Reactive Protein 0.60 mg/dL (0.00-1.30) 08/25/17 05:43 NT-Pro-B Natriuret Pep 49039 pg/mL (0-900) H 08/21/17 16:21 Total Protein 7.7 g/dL (6.3-8.2) 08/22/17 05:10 Albumin 3.1 g/dL (3.9-5) L 08/22/17 05:10 Albumin/Globulin Ratio 0.7 % 08/22/17 05:10 Triglycerides 60 mg/dL (2-149) 08/21/17 16:21 Cholesterol 109 mg/dL (50-199) 08/21/17 16:21 LDL Cholesterol Direct 42 mg/dL (50-130) L 08/21/17 16:21 HDL Cholesterol 55 mg/dL (40-59) 08/21/17 16:21 Cholesterol/HDL Ratio 1.98 % 08/21/17 16:21 Urine Color Dora (Yellow) 08/21/17 16:27 Urine Turbidity Clear (Clear) 08/21/17 16:27 Urine pH 7.0 (5.0-7.0) 08/21/17 16:27 Ur Specific Dequincy 1.019 (1.003-1.030) 08/21/17 16:27 Urine Protein >500 mg/dL (Negative) 08/21/17 16:27 Urine Glucose (UA) Neg mg/dL (Negative) 08/21/17 16:27 Urine Ketones Neg mg/dL (Negative) 08/21/17 16:27 Urine Blood Neg (Negative) 08/21/17 16:27 Urine Nitrite Neg (Negative) 08/21/17 16:27 Urine Bilirubin Neg (Negative) 08/21/17 16:27 Urine Urobilinogen < 2.0 mg/dL (<2.0) 08/21/17 16:27 Ur Leukocyte Esterase Lg (Negative) 08/21/17 16:27 Urine WBC (Auto) 108.0 /HPF (0.0-6.0) H 08/21/17 16:27 Urine RBC (Auto) 14.0 /HPF (0.0-6.0) 08/21/17 16:27 U Epithel Cells (Auto) 1.0 /HPF (0-13.0) 08/21/17 16:27 Urine Bacteria (Auto) 4+ /HPF (Negative) 08/21/17 16:27 Urine Mucus Few /HPF 08/21/17 16:27 Urine Osmolality 298 Mosm/kg 08/23/17 18:20 Urine Creatinine 53.7 mg/dL (0.1-20.0) H 08/23/17 18:20 Urine Sodium 17 mmol/L 08/23/17 18:20 Urine Total Protein 26 mg/dL (5-11.8) H 08/23/17 18:20 Blood Type O POSITIVE 08/28/17 14:11 Antibody Screen Negative 08/25/17 10:30 Crossmatch See Detail 08/28/17 14:11 Hemoglobin dropped from 7.6-5.9
--- NOTE | 2017-08-28 15:12 | Gastroenterology Consultation ---
History of Present Illness - Reason for Consult Consult date: 08/28/17 anemia Requesting physician: EDUARDO GUAJARDO - History of Present Illness Ms Conklin is a 82 yo aaf with h/o dementia, chf, ckd, and chronic peg tube who presents from alf with worsening sob. pt being treated for chf exacerbation, and UTI. She has a h/o chronic anemia, and was noted to have worsening labs today. There have been no signs of overt gi bleeding. She has been tolerating tube feeds. HD stable. She had an EGD earlier this year for g tube migration. Past History Past Medical History: CAD, COPD, hypertension, hyperlipidemia, renal failure, other (Alzheimer's dementia) Past Surgical History: , hysterectomy, hernia repair, Other (PPM) Social history: smoking (remote past), full code, other ([facility] resident) Family history: hypertension Medications and Allergies Allergies Allergy/AdvReac Type Severity Reaction Status Date / Time warfarin sodium AdvReac Mild Bleeding Verified 11/29/14 15:19 [From Coumadin] aliskiren hemifumarate AdvReac Rash Verified 06/15/15 07:34 [From Tekturna] ramipril [From Altace] AdvReac Rash Verified 06/15/15 07:34 Home Medications Medication Instructions Recorded Confirmed Last Taken Type Acetaminophen [Tylenol] 650 mg PO Q6HR PRN 08/21/17 08/21/17 Unknown History Aspirin [Lo-Dose Aspirin EC] 81 mg PO DAILY 08/21/17 08/21/17 Unknown History Brimonidine Tartrate [Brimonidine 1 drop OU Q8HR 08/21/17 08/21/17 Unknown History Tartrate 0.2%] Cyanocobalamin [Vitamin B-12] 1,000 mcg PO DAILY 08/21/17 08/21/17 Unknown History Esomeprazole Magnesium [NexIUM] 20 mg PO QDAY 08/21/17 08/21/17 Unknown History Fenofibrate [Tricor] 145 mg PO HS 08/21/17 08/21/17 Unknown History Ferrous Sulfate [Ferrous Sulfate 300 mg PO Q8H 08/21/17 08/21/17 Unknown History Oral Liq 300 Mg/5 Ml] Hydralazine HCl 100 mg PO TID 08/21/17 08/21/17 Unknown History Labetalol HCl 300 mg PO Q12H 08/21/17 08/21/17 Unknown History Latanoprost 0.005% [Xalatan 0.005%] 1 drop OP QPM 08/21/17 08/21/17 Unknown History Levothyroxine [Synthroid] 25 mcg PO QAM 08/21/17 08/21/17 Unknown History Melatonin [Melatin] 3 mg PO QHS 08/21/17 08/21/17 Unknown History Multivit-Minerals/Ferrous Gluc 5 ml PO DAILY 08/21/17 08/21/17 Unknown History [Centrum Multivit-Mineral Liq] Oxycodone HCl/Acetaminophen 1 each PO Q6HR PRN 08/21/17 08/21/17 Unknown History [Percocet 7.5/325 mg] Sennosides [Senna] 8.6 mg PO DAILY 08/21/17 08/21/17 Unknown History azaTHIOprine [Imuran] 50 mg PO DAILY 08/21/17 08/21/17 Unknown History Active Meds: Active Medications Acetaminophen (Tylenol) 650 mg PO Q4H PRN PRN Reason: Pain MILD(1-3)/Fever >100.5/ROSE Last Admin: 08/26/17 14:30 Dose: 650 mg Albuterol (Proventil) 2.5 mg IH Q4HRT PRN PRN Reason: Shortness Of Breath Albuterol/Ipratropium (Duoneb *Not For Prn Use*) 1 ampul IH Q6HRT [facility] Lipase/Protease/Amylase ([address] 10,500 Unit) 1 each FEEDTUBE PRN PRN PRN Reason: For Clogged Feeding Tube Aspirin (Baby Aspirin) 81 mg PO QDAY [facility] Last Admin: 08/28/17 09:46 Dose: 81 mg Azathioprine (Imuran) 50 mg PO DAILY@1200 [facility] Last Admin: 08/28/17 12:00 Dose: 50 mg Bisacodyl (Dulcolax) 10 mg WI QDAY PRN PRN Reason: Constipation unrelieved by MOM Cyanocobalamin (Vitamin B-12) 1,000 mcg PO DAILY [facility] Last Admin: 08/28/17 09:46 Dose: 1,000 mcg Fenofibrate (Tricor) 145 mg PO HS [facility] Last Admin: 08/27/17 22:45 Dose: 145 mg Ferrous Sulfate (Feosol) 300 mg PO Q8H [facility] Last Admin: 08/28/17 09:46 Dose: 300 mg Heparin Sodium (Porcine) (Heparin) 5,000 unit SUB-Q Q12HR [facility] Last Admin: 08/28/17 09:46 Dose: 5,000 unit Hydralazine HCl (Apresoline) 100 mg PO TID [facility] Last Admin: 08/28/17 14:33 Dose: 100 mg Piperacillin Sod/Tazobactam Sod (Zosyn/Ns 3.375gm/50ml) 3.375 gm in 50 mls @ 100 mls/hr IV Q8H [facility] PRN Reason: Protocol Last Admin: 08/28/17 14:33 Dose: 100 mls/hr Sodium Chloride (Nacl 0.9% 500 Ml) 500 mls @ 0 mls/hr IV ONCE NR PRN Reason: As Directed Stop: 08/28/17 23:59 Sodium Chloride (Nacl 0.9% 1000 Ml) 1,000 mls @ 75 mls/hr IV DIRECT DAVIDE Labetalol HCl (Normodyne) 300 mg PO Q12H [facility] Last Admin: 08/28/17 09:47 Dose: Not Given Latanoprost (Xalatan 0.005%) 1 drops OU QHS [facility] Last Admin: 08/27/17 22:46 Dose: 1 drops Levothyroxine Sodium (Synthroid) 25 mcg PO QAM@0600 [facility] Last Admin: 08/28/17 05:19 Dose: 25 mcg Magnesium Hydroxide (Milk Of Magnesia) 30 ml PO Q4H PRN PRN Reason: Constipation Miscellaneous Medication (Brimonidine Tartrate [Brimonidine Tartrate 0.2%]) 1 drop OU Q8HR [facility] Morphine Sulfate (Morphine) 2 mg IV Q4H PRN PRN Reason: Pain, Moderate (4-6) Ondansetron HCl (Zofran) 4 mg IV Q8H PRN PRN Reason: N/V unrelieved by Reglan Oxycodone/Acetaminophen (Percocet 5/325) 1 tab PO Q6H PRN PRN Reason: Pain, Moderate (4-6) Last Admin: 08/27/17 22:44 Dose: 1 tab Pantoprazole (Protonix) 40 mg FEEDTUBE DAILY [facility] Last Admin: 08/28/17 09:46 Dose: 40 mg Senna (Senokot) 8.6 mg PO DAILY [facility] Last Admin: 08/28/17 09:46 Dose: 8.6 mg Simple Syrup (Simple Syrup) 15 ml FEEDTUBE PRN PRN PRN Reason: Hypoglycemia Simple Syrup (Simple Syrup) 30 ml FEEDTUBE PRN PRN PRN Reason: Hypoglycemia Sodium Bicarbonate (Sodium Bicarbonate) 325 mg FEEDTUBE PRN PRN PRN Reason: For Clogged Feeding Tube Review of Systems - Review of Systems ROS unobtainable: due to mental status Exam - Constitutional Vital Signs: Temp Pulse Resp BP Pulse Ox 99.4 F 73 20 138/53 100 08/28/17 12:50 08/28/17 12:50 08/28/17 12:50 08/28/17 12:50 08/28/17 12:50 General appearance: other (non-verbal, obese, nad) - Neck Neck: supple - Respiratory Respiratory effort: normal Respiratory: bilateral: CTA - Cardiovascular Rhythm: regular Heart Sounds: Present: S1 & S2 Extremity abnormal: edema, erythema - Gastrointestinal General gastrointestinal: Present: soft, non-distended, normal bowel sounds, other (+ g tube c/d/i) - Neurologic Neurological: other (oriented x 0) - Labs CBC & Chem 7: 08/28/17 04:57 08/28/17 04:57 Lab Results: Laboratory Results - last 24 hr 08/25/17 08/27/17 08/28/17 10:30 16:34 00:14 WBC RBC Hgb Hct MCV MCH MCHC RDW Plt Count Lymph % (Auto) [place] % (Auto) Eos % (Auto) Baso % (Auto) Lymph # [place] # Eos # Baso # Add Manual Diff Total Counted Seg Neutrophils % Seg Neuts % (Manual) Band Neutrophils % Lymphocytes % (Manual) Reactive Lymphs % (Man) Monocytes % (Manual) Eosinophils % (Manual) Basophils % (Manual) Metamyelocytes % Myelocytes % Promyelocytes % Blast Cells % Nucleated RBC % Seg Neutrophils # Seg Neutrophils # Man Band Neutrophils # Lymphocytes # (Manual) Abs React Lymphs (Man) Monocytes # (Manual) Eosinophils # (Manual) Basophils # (Manual) Metamyelocytes # Myelocytes # Promyelocytes # Blast Cells # WBC Morphology Hypersegmented Neuts Hyposegmented Neuts Hypogranular Neuts Smudge Cells Toxic Granulation Toxic Vacuolation Dohle Bodies Pelger-Huet Anomaly Tera Rods Platelet Estimate Clumped Platelets Plt Clumps, EDTA Large Platelets Giant Platelets Platelet Satelliting Plt Morphology Comment RBC Morphology Dimorphic RBCs Polychromasia Hypochromasia Poikilocytosis Anisocytosis Microcytosis Macrocytosis Spherocytes Pappenheimer Bodies Sickle Cells Target Cells Tear Drop Cells Ovalocytes Helmet Cells Connor-Stewardson Bodies [place] Rings [place] Cells Bite Cells Crenated Cell Elliptocytes Acanthocytes (Spur) Rouleaux Hemoglobin C Crystals Schistocytes Malaria parasites [place] Bodies Hem Pathologist Commnt Sodium Potassium Chloride Carbon Dioxide Anion Gap BUN Creatinine Estimated GFR BUN/Creatinine Ratio Glucose POC Glucose 124 H 148 H Calcium Blood Type O POSITIVE Antibody Screen Negative Crossmatch See Detail 08/28/17 08/28/17 08/28/17 04:57 04:57 06:18 WBC 5.7 RBC 1.90 L Hgb 5.9 L* Hct 18.2 L* MCV 96 MCH 31 MCHC 33 RDW 21.6 H Plt Count 77 L Lymph % (Auto) Injection Mold Technician [place] % (Auto) Injection Mold Technician Eos % (Auto) Injection Mold Technician Baso % (Auto) Injection Mold Technician Lymph # Injection Mold Technician [place] # Injection Mold Technician Eos # Injection Mold Technician Baso # Injection Mold Technician Add Manual Diff Complete Total Counted 100 Seg Neutrophils % Injection Mold Technician Seg Neuts % (Manual) 80.0 H Band Neutrophils % 9.0 Lymphocytes % (Manual) 3.0 L Reactive Lymphs % (Man) 0 Monocytes % (Manual) 4.0 Eosinophils % (Manual) 4.0 Basophils % (Manual) 0 Metamyelocytes % 0 Myelocytes % 0 Promyelocytes % 0 Blast Cells % 0 Nucleated RBC % Not Reportable Seg Neutrophils # Injection Mold Technician Seg Neutrophils # Man 4.6 Band Neutrophils # 0.5 Lymphocytes # (Manual) 0.2 L Abs React Lymphs (Man) 0.0 Monocytes # (Manual) 0.2 Eosinophils # (Manual) 0.2 Basophils # (Manual) 0.0 Metamyelocytes # 0.0 Myelocytes # 0.0 Promyelocytes # 0.0 Blast Cells # 0.0 WBC Morphology Not Reportable Hypersegmented Neuts Not Reportable Hyposegmented Neuts Not Reportable Hypogranular Neuts Not Reportable Smudge Cells Not Reportable Toxic Granulation Not Reportable Toxic Vacuolation Not Reportable Dohle Bodies Not Reportable Pelger-Huet Anomaly Not Reportable Tera Rods Not Reportable Platelet Estimate Not Reportable Clumped Platelets Not Reportable Plt Clumps, EDTA Not Reportable Large Platelets Not Reportable Giant Platelets Not Reportable Platelet Satelliting Not Reportable Plt Morphology Comment Not Reportable RBC Morphology Not Reportable Dimorphic RBCs Not Reportable Polychromasia Not Reportable Hypochromasia Not Reportable Poikilocytosis Few Anisocytosis 1+ Microcytosis Not Reportable Macrocytosis Not Reportable Spherocytes Not Reportable Pappenheimer Bodies Not Reportable Sickle Cells Not Reportable Target Cells Not Reportable Tear Drop Cells Not Reportable Ovalocytes Not Reportable Helmet Cells Not Reportable Connor-Stewardson Bodies Not Reportable [place] Rings Not Reportable [place] Cells Not Reportable Bite Cells Not Reportable Crenated Cell Not Reportable Elliptocytes Not Reportable Acanthocytes (Spur) Not Reportable Rouleaux Not Reportable Hemoglobin C Crystals Not Reportable Schistocytes Not Reportable Malaria parasites Not Reportable [place] Bodies Not Reportable Hem Pathologist Commnt No Sodium 133 L Potassium 4.1 Chloride 97.5 L Carbon Dioxide 24 Anion Gap 16 BUN 98 H Creatinine 1.2 Estimated GFR 52 BUN/Creatinine Ratio 82 Glucose 139 H POC Glucose 176 H Calcium 7.8 L Blood Type Antibody Screen Crossmatch 08/28/17 14:11 WBC RBC Hgb Hct MCV MCH MCHC RDW Plt Count Lymph % (Auto) [place] % (Auto) Eos % (Auto) Baso % (Auto) Lymph # [place] # Eos # Baso # Add Manual Diff Total Counted Seg Neutrophils % Seg Neuts % (Manual) Band Neutrophils % Lymphocytes % (Manual) Reactive Lymphs % (Man) Monocytes % (Manual) Eosinophils % (Manual) Basophils % (Manual) Metamyelocytes % Myelocytes % Promyelocytes % Blast Cells % Nucleated RBC % Seg Neutrophils # Seg Neutrophils # Man Band Neutrophils # Lymphocytes # (Manual) Abs React Lymphs (Man) Monocytes # (Manual) Eosinophils # (Manual) Basophils # (Manual) Metamyelocytes # Myelocytes # Promyelocytes # Blast Cells # WBC Morphology Hypersegmented Neuts Hyposegmented Neuts Hypogranular Neuts Smudge Cells Toxic Granulation Toxic Vacuolation Dohle Bodies Pelger-Huet Anomaly Tera Rods Platelet Estimate Clumped Platelets Plt Clumps, EDTA Large Platelets Giant Platelets Platelet Satelliting Plt Morphology Comment RBC Morphology Dimorphic RBCs Polychromasia Hypochromasia Poikilocytosis Anisocytosis Microcytosis Macrocytosis Spherocytes Pappenheimer Bodies Sickle Cells Target Cells Tear Drop Cells Ovalocytes Helmet Cells Connor-Stewardson Bodies [place] Rings [place] Cells Bite Cells Crenated Cell Elliptocytes Acanthocytes (Spur) Rouleaux Hemoglobin C Crystals Schistocytes Malaria parasites [place] Bodies Hem Pathologist Commnt Sodium Potassium Chloride Carbon Dioxide Anion Gap BUN Creatinine Estimated GFR BUN/Creatinine Ratio Glucose POC Glucose Calcium Blood Type O POSITIVE Antibody Screen Crossmatch See Detail Assessment and Plan 1, acute on chronic anemia - no overt gi bleeding signs. cont PPI ppx daily. will monitor for time being. hold off on endoscopy/colonoscopy unless signs of bleeding or worsening anemia.
[2017-08-28] MEDS: PERCOCET 5/325 PO PRN (21:37)
[2017-08-28] MEDS: TRICOR PO SCH (21:37)
[2017-08-28] MEDS: XALATAN 0.005% OU SCH (21:38)
[2017-08-29] MEDS: DUONEB *Not for PRN Use IH SCH ×4 (01:08→19:56)
[2017-08-29] MEDS: ZOSYN/NS 3.375GM/50ML 3.375 GM/50 ML BAG IV SCH ×4 (01:31→22:40)
[2017-08-29] MEDS: FERROUS SULFATE PO SCH ×2 (01:32→11:01)
[2017-08-29] MEDS: SYNTHROID PO SCH (05:15)
[2017-08-29] MEDS: FEOSOL PO SCH (05:45)
[2017-08-29 06:39] LABS: Basophils % (Auto) 0.1 % (0.0-1.8); Eosinophils % (Auto) 3.6 % (0.0-4.3); Hemoglobin 8.7 gm/dl (10.1-14.3); Mean Corpuscular HGB Conc 34 % (30-34); Mean Corpuscular Hemoglobin 30 pg (28-32); Mean Corpuscular Volume 88 fl (79-97); Platelet Count 120 K/mm3 (140-440); Red Blood Count 2.87 M/mm3 (3.65-5.03); Red Cell Distribution Width 17.9 % (13.2-15.2); White Blood Count 5.8 K/mm3 (4.5-11.0)
[2017-08-29 06:42] LABS: Hematocrit 25.3 % (30.3-42.9)
[2017-08-29 07:15] LABS: Calcium 7.5 mg/dL (8.4-10.2); Chloride 91.6 mmol/L (98-107)
[2017-08-29 08:31] LABS: Potassium 3.6 mmol/L (3.6-5.0)
--- NOTE | 2017-08-29 09:36 | Progress Note ---
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 Subjective Date of service: 08/29/17 Principal diagnosis: Anasarca Interval history: No events overnight Objective Vital Signs Temp Pulse Pulse Pulse Pulse Resp Resp 08/29/17 08:42 98.3 F 65 20 08/29/17 08:29 63 63 20 08/29/17 04:27 98.4 F 69 22 08/29/17 01:26 67 08/29/17 01:09 64 08/29/17 00:10 98.2 F 67 20 08/28/17 23:40 98.8 F 69 20 08/28/17 23:10 98.7 F 67 20 08/28/17 22:53 08/28/17 22:40 98.7 F 73 20 08/28/17 22:10 99.6 F 67 20 08/28/17 22:00 69 20 08/28/17 21:40 98.4 F 72 20 08/28/17 21:37 20 08/28/17 21:25 99.4 F 72 20 08/28/17 20:57 75 08/28/17 20:43 71 08/28/17 20:37 08/28/17 20:31 75 08/28/17 20:29 99.5 F 76 20 08/28/17 19:59 99.2 F 77 20 08/28/17 19:29 99.2 F 77 20 08/28/17 19:27 74 08/28/17 19:19 99.4 F 75 20 08/28/17 18:59 99.4 F 75 20 08/28/17 18:29 99.4 F 75 20 08/28/17 17:29 78 08/28/17 16:59 76 08/28/17 16:29 98.2 F 76 08/28/17 16:14 98.4 F 76 08/28/17 15:24 74 20 08/28/17 15:12 73 20 08/28/17 12:50 99.4 F 73 20 08/28/17 11:07 99.4 F 70 20 08/28/17 10:00 68 20 Resp BP BP Pulse Ox 08/29/17 08:42 141/55 95 08/29/17 08:29 96 08/29/17 04:27 136/44 100 08/29/17 01:26 23 08/29/17 01:09 21 08/29/17 00:10 117/44 100 08/28/17 23:40 125/46 100 08/28/17 23:10 114/42 100 08/28/17 22:53 100 08/28/17 22:40 110/85 100 08/28/17 22:10 109/41 100 08/28/17 22:00 08/28/17 21:40 120/48 100 08/28/17 21:37 08/28/17 21:25 126/46 100 08/28/17 20:57 143/52 08/28/17 20:43 19 08/28/17 20:37 100 08/28/17 20:31 20 08/28/17 20:29 143/52 100 08/28/17 19:59 143/52 100 08/28/17 19:29 143/52 100 08/28/17 19:27 08/28/17 19:19 145/52 100 08/28/17 18:59 145/52 100 08/28/17 18:29 145/52 100 08/28/17 17:29 138/48 08/28/17 16:59 132/57 08/28/17 16:29 141/53 08/28/17 16:14 122/47 08/28/17 15:24 08/28/17 15:12 08/28/17 12:50 138/53 100 08/28/17 11:07 138/53 100 08/28/17 10:00 99 - Physical Examination Narrative exam: Vitals reviewed GEN: No acute distress noted moderately overweight HEENT: Carotids 2+ NECK: Supple CVS: S1 and S2 heard , 3/6 systolic murmur LUNGS/CHEST: Normal auscultation ABD: Soft nontender Extremities: 2+ 2+edema noted normal color NEURO: Alert moves all all 4 extremities General: No Apparent Distress HEENT: Positive: Pallor Abdomen: Positive: Soft Extremities: Present: +2 Edema - Labs and Meds CBC 08/28/17 08/29/17 Range/Units 04:57 05:44 WBC 5.8 (4.5-11.0) K/mm3 RBC 2.87 L (3.65-5.03) M/mm3 Hgb 8.7 L (10.1-14.3) gm/dl Hct 25.3 L D (30.3-42.9) % Plt Count 77 L 120 L (140-440) K/mm3 Lymph # 0.6 L (1.2-5.4) K/mm3 [place] # 0.7 (0.0-0.8) K/mm3 Eos # 0.2 (0.0-0.4) K/mm3 Baso # 0.0 (0.0-0.1) K/mm3 Comprehensive Metabolic Panel 08/29/17 Range/Units 05:44 Sodium 128 L (137-145) mmol/L Potassium 3.6 (3.6-5.0) mmol/L Chloride 91.6 L (98-107) mmol/L Carbon Dioxide 22 (22-30) mmol/L BUN 98 H (7-17) mg/dL Creatinine 1.1 (0.7-1.2) mg/dL Glucose 109 H (65-100) mg/dL Calcium 7.5 L (8.4-10.2) mg/dL - Imaging and Cardiology EKG: report reviewed (Sinus tach)
[2017-08-29] MEDS: APRESOLINE PO SCH ×3 (11:01→20:50)
[2017-08-29] MEDS: NORMODYNE PO SCH ×2 (11:01→20:50)
[2017-08-29] MEDS: SENOKOT PO SCH (11:02)
[2017-08-29] MEDS: PROTONIX FEEDTUBE SCH (11:02)
[2017-08-29] MEDS: HEPARIN SUB-Q SCH ×2 (11:02→22:38)
[2017-08-29] MEDS: VITAMIN B-12 PO SCH (11:03)
[2017-08-29] MEDS: BABY ASPIRIN PO SCH (11:04)
--- NOTE | 2017-08-29 11:27 | Progress Note ---
Assessment and Plan impression * Acute on chronic renal failure * Anemia * Shortness of breath * Hypertension * Encephalopathy * UTI recommendations * Her serum creatinine seems to have stabilized. * Her BUN however noted to be rising. Drop in hemoglobin noted. Suspect blood in the GI tract. * Her blood pressure is also low today and she is also getting hyponatremic. I have stopped her diuretic yesterday. Given her low blood pressure, drop in hemoglobin, I will initiate gentle hydration with isotonic fluids at this time. Shall continue to hold her diuretics for now * Avoid nephrotoxins * Monitor fluid status and electrolytes closely * shortness of breath most likely due to COPD and fluid overload * continue antibiotics as per ID recommendations * GI evaluation appreciated Subjective Date of service: 08/29/17 Principal diagnosis: Anasarca Interval history: Patient is awake and alert. Appears comfortable. No nausea or vomiting Objective - Vital Signs Vital signs: Vital Signs - 12hr 08/28/17 08/29/17 08/29/17 23:40 00:10 01:09 Temperature 98.8 F 98.2 F Pulse Rate 69 67 Pulse Rate [ 64 Anterior Right Throughout] Pulse Rate [ From Monitor] Respiratory 20 20 Rate Respiratory 21 Rate [Anterior Right Throughout] Blood Pressure 125/46 117/44 Blood Pressure [Right] O2 Sat by Pulse 100 100 Oximetry 08/29/17 08/29/17 08/29/17 01:26 04:27 08:29 Temperature 98.4 F Pulse Rate 69 63 Pulse Rate [ 67 Anterior Right Throughout] Pulse Rate [ 63 From Monitor] Respiratory 22 20 Rate Respiratory 23 Rate [Anterior Right Throughout] Blood Pressure 136/44 Blood Pressure [Right] O2 Sat by Pulse 100 96 Oximetry 08/29/17 08/29/17 08/29/17 08:42 10:00 10:09 Temperature 98.3 F Pulse Rate 65 Pulse Rate [ 65 Anterior Right Throughout] Pulse Rate [ From Monitor] Respiratory 20 Rate Respiratory 18 Rate [Anterior Right Throughout] Blood Pressure Blood Pressure 141/55 [Right] O2 Sat by Pulse 95 100 Oximetry 08/29/17 08/29/17 10:15 10:28 Temperature Pulse Rate Pulse Rate [ 63 66 Anterior Right Throughout] Pulse Rate [ From Monitor] Respiratory Rate Respiratory 18 20 Rate [Anterior Right Throughout] Blood Pressure Blood Pressure [Right] O2 Sat by Pulse Oximetry - General Appearance General appearance: well-developed, well-nourished, appears stated age EENT: PERRL, mucous membranes moist Neck: no JVD, no thyromegaly, no carotid bruit, supple Respiratory: Present: Clear to Ascultation Cardiology: regular, normal heart rate Gastrointestinal: normal, normoactive bowel sounds, other (PEG tube in place) Integumentary: other (1+ edema) - Lab 08/29/17 05:44 08/29/17 05:44 Most recent lab results Calcium 7.5 mg/dL (8.4-10.2) L 08/29/17 05:44 Urine Creatinine 53.7 mg/dL (0.1-20.0) H 08/23/17 18:20 Urine Sodium 17 mmol/L 08/23/17 18:20 Urine Total Protein 26 mg/dL (5-11.8) H 08/23/17 18:20
[2017-08-29] MEDS ORDERED: PERCOCET 5/325 PO PRN (11:56)
--- NOTE | 2017-08-29 12:00 | Gastroenterology Progress Note ---
Assessment and Plan - Patient Problems (1) Anemia Current Visit: Yes Status: Chronic Qualifiers: Anemia type: iron deficiency Plan to address problem: - The patient has had a negative EGD/Colon in 2017 (approx January) and no significant lesions were seen other than PEG tube, and rectal irritation (?from chronic constipation). - No gross bleeding at present. - I will hold the ASA for 24 hours, and continue current MVI therapy. - Consider D/c azathioprine as I question the utility of it at this point (?for RA or other indication). - Continue protonix and current tube feeds. - Heparin DVT prophylaxis is OK at present since no gross bleeding. - Monitor closely for any signs of significant bleeding. Subjective Date of service: 08/29/17 Principal diagnosis: Anemia Interval history: The patient is nonverbal but does open eyes to stimulation. Tolerating tube feeds without residual, and no emesis/blood in tube/blood with BM in diapers. Objective - Constitutional Vitals: Temp Pulse Resp BP Pulse Ox 98.3 F 66 20 141/55 100 08/29/17 08:42 08/29/17 10:28 08/29/17 10:28 08/29/17 08:42 08/29/17 10:00 General appearance: no acute distress - Respiratory Respiratory effort: normal Respiratory: bilateral: CTA - Cardiovascular Rhythm: regular Heart Sounds: Present: S1 & S2 - Gastrointestinal General gastrointestinal: Present: soft, non-tender, non-distended, other (PEG in LUQ with bumper at 5.5; no blood in tube or around the base) Rectal Exam: other (Smear brown stool in diaper without blood) - Labs CBC & Chem 7: 08/29/17 05:44 08/29/17 05:44 Labs: Laboratory Results - last 24 hr 08/25/17 08/28/17 08/28/17 10:30 11:09 14:11 WBC RBC Hgb Hct MCV MCH MCHC RDW Plt Count Lymph % (Auto) George % (Auto) Eos % (Auto) Baso % (Auto) Lymph # George # Eos # Baso # Seg Neutrophils % Seg Neutrophils # Sodium Potassium Chloride Carbon Dioxide Anion Gap BUN Creatinine Estimated GFR BUN/Creatinine Ratio Glucose POC Glucose 180 H Calcium Blood Type O POSITIVE Antibody Screen Negative Crossmatch See Detail See Detail 08/28/17 08/29/17 08/29/17 15:40 00:40 05:21 WBC RBC Hgb Hct MCV MCH MCHC RDW Plt Count Lymph % (Auto) George % (Auto) Eos % (Auto) Baso % (Auto) Lymph # George # Eos # Baso # Seg Neutrophils % Seg Neutrophils # Sodium Potassium Chloride Carbon Dioxide Anion Gap BUN Creatinine Estimated GFR BUN/Creatinine Ratio Glucose POC Glucose 144 H 121 H 133 H Calcium Blood Type Antibody Screen Crossmatch 08/29/17 08/29/17 05:44 05:44 WBC 5.8 RBC 2.87 L Hgb 8.7 L Hct 25.3 L D MCV 88 MCH 30 MCHC 34 RDW 17.9 H Plt Count 120 L Lymph % (Auto) 10.9 L George % (Auto) 12.2 H Eos % (Auto) 3.6 Baso % (Auto) 0.1 Lymph # 0.6 L George # 0.7 Eos # 0.2 Baso # 0.0 Seg Neutrophils % 73.2 H Seg Neutrophils # 4.2 Sodium 128 L Potassium 3.6 Chloride 91.6 L Carbon Dioxide 22 Anion Gap 18 BUN 98 H Creatinine 1.1 Estimated GFR 58 BUN/Creatinine Ratio 89 Glucose 109 H POC Glucose Calcium 7.5 L Blood Type Antibody Screen Crossmatch
[2017-08-29] MEDS: Centrum Liq FEEDTUBE SCH (12:30)
[2017-08-29] MEDS: IMURAN PO SCH (12:31)
--- NOTE | 2017-08-29 13:25 | Progress Note ---
Assessment and Plan Assessment and plan: 82 y/o Female with PMH of HTN, COPD, Diastolic CHF, HLD anemia and glaucoma - resident of [place] sent in for increasing SOB and wheezing for 1 day.Cough productive of mucoid sputum. No Fever or chills.Also altered sensorium. Daughter at bed side.Recent admission in January for PEG tube malfunction and Vomiting coffee ground material. Acute respiratory failure with hypoxia - Patient is currently off BiPAP and on intranasal oxygen - Patient is off steroids - Pulmonary consult appreciated - Patient was treated with IV Levaquin and clindamycin, and swithed today to Zosyn per ID recommendation Diastolic CHF, Moderate Aortic stenosis - Patient was on IV lasix melanie D/Cj because of the elevated BUN COPD exacerbation lIKELY SECONDARY TO ASPIRATION PNEUMONITIS - Continue Levaquin and clindamycin Acute encephalopathy - Due to hypoxia - Could be baseline UTI (urinary tract infection) - Urine culture grew ESBL and ID was consulted and recommended Levaquin, today is day 3 Hyponatremia with possible hypovoulemia - Chronic consulted - CHARLEY (acute kidney injury) WITH VASOMOTOR NEPHROPATHY ON CKD - ATN/volume depletion - Nephrology consulted Hypeokalemia - follow BMP - nephrology consulted HTN (hypertension) - Cont Antihypertensives Glaucoma - COnt Latanoprost Anemia - Hemoglobin dropped from - Post transfusion hemoglobin this morning is 8.7 GERD (gastroesophageal reflux disease) HLD (hyperlipidemia) - on fenofibrates DVT prophylaxis - on heparin and Pantoprazole for GI prophylaxis Left upper extremity swelling; Doppler ultrasound was negative for DVT, vascular surgery consulted and recommended no intervention at this time. History Interval history: Patient was seen and evaluated this morning, she is nonverbal, noncommunicative. No family member was in the room. Left arm swelling getting better. Hospitalist Physical - Constitutional Vitals: Temp Pulse Resp BP Pulse Ox 98.4 F 66 20 151/50 100 08/29/17 12:26 08/29/17 12:26 08/29/17 12:26 08/29/17 12:26 08/29/17 12:26 General appearance: Present: obese (diffuse swelling) Results - Labs CBC & Chem 7: 08/29/17 05:44 08/29/17 05:44 Labs: Laboratory Last Values WBC 5.8 K/mm3 (4.5-11.0) 08/29/17 05:44 RBC 2.87 M/mm3 (3.65-5.03) L 08/29/17 05:44 Hgb 8.7 gm/dl (10.1-14.3) L 08/29/17 05:44 Hct 25.3 % (30.3-42.9) L D 08/29/17 05:44 MCV 88 fl (79-97) 08/29/17 05:44 MCH 30 pg (28-32) 08/29/17 05:44 MCHC 34 % (30-34) 08/29/17 05:44 RDW 17.9 % (13.2-15.2) H 08/29/17 05:44 Plt Count 120 K/mm3 (140-440) L 08/29/17 05:44 Lymph % (Auto) 10.9 % (13.4-35.0) L 08/29/17 05:44 [place] % (Auto) 12.2 % (0.0-7.3) H 08/29/17 05:44 Eos % (Auto) 3.6 % (0.0-4.3) 08/29/17 05:44 Baso % (Auto) 0.1 % (0.0-1.8) 08/29/17 05:44 Lymph # 0.6 K/mm3 (1.2-5.4) L 08/29/17 05:44 [place] # 0.7 K/mm3 (0.0-0.8) 08/29/17 05:44 Eos # 0.2 K/mm3 (0.0-0.4) 08/29/17 05:44 Baso # 0.0 K/mm3 (0.0-0.1) 08/29/17 05:44 Add Manual Diff Complete 08/28/17 04:57 Total Counted 100 08/28/17 04:57 Seg Neutrophils % 73.2 % (40.0-70.0) H 08/29/17 05:44 Seg Neuts % (Manual) 80.0 % (40.0-70.0) H 08/28/17 04:57 Band Neutrophils % 9.0 % 08/28/17 04:57 Lymphocytes % (Manual) 3.0 % (13.4-35.0) L 08/28/17 04:57 Reactive Lymphs % (Man) 0 % 08/28/17 04:57 Monocytes % (Manual) 4.0 % (0.0-7.3) 08/28/17 04:57 Eosinophils % (Manual) 4.0 % (0.0-4.3) 08/28/17 04:57 Basophils % (Manual) 0 % (0.0-1.8) 08/28/17 04:57 Metamyelocytes % 0 % 08/28/17 04:57 Myelocytes % 0 % 08/28/17 04:57 Promyelocytes % 0 % 08/28/17 04:57 Blast Cells % 0 % 08/28/17 04:57 Nucleated RBC % Not Reportable 08/28/17 04:57 Seg Neutrophils # 4.2 K/mm3 (1.8-7.7) 08/29/17 05:44 Seg Neutrophils # Man 4.6 K/mm3 (1.8-7.7) 08/28/17 04:57 Band Neutrophils # 0.5 K/mm3 08/28/17 04:57 Lymphocytes # (Manual) 0.2 K/mm3 (1.2-5.4) L 08/28/17 04:57 Abs React Lymphs (Man) 0.0 K/mm3 08/28/17 04:57 Monocytes # (Manual) 0.2 K/mm3 (0.0-0.8) 08/28/17 04:57 Eosinophils # (Manual) 0.2 K/mm3 (0.0-0.4) 08/28/17 04:57 Basophils # (Manual) 0.0 K/mm3 (0.0-0.1) 08/28/17 04:57 Metamyelocytes # 0.0 K/mm3 08/28/17 04:57 Myelocytes # 0.0 K/mm3 08/28/17 04:57 Promyelocytes # 0.0 K/mm3 08/28/17 04:57 Blast Cells # 0.0 K/mm3 08/28/17 04:57 WBC Morphology Not Reportable 08/28/17 04:57 Hypersegmented Neuts Not Reportable 08/28/17 04:57 Hyposegmented Neuts Not Reportable 08/28/17 04:57 Hypogranular Neuts Not Reportable 08/28/17 04:57 Smudge Cells Not Reportable 08/28/17 04:57 Toxic Granulation Not Reportable 08/28/17 04:57 Toxic Vacuolation Not Reportable 08/28/17 04:57 Dohle Bodies Not Reportable 08/28/17 04:57 Pelger-Huet Anomaly Not Reportable 08/28/17 04:57 Tera Rods Not Reportable 08/28/17 04:57 Platelet Estimate Not Reportable 08/28/17 04:57 Clumped Platelets Not Reportable 08/28/17 04:57 Plt Clumps, EDTA Not Reportable 08/28/17 04:57 Large Platelets Not Reportable 08/28/17 04:57 Giant Platelets Not Reportable 08/28/17 04:57 Platelet Satelliting Not Reportable 08/28/17 04:57 Plt Morphology Comment Not Reportable 08/28/17 04:57 RBC Morphology Not Reportable 08/28/17 04:57 Dimorphic RBCs Not Reportable 08/28/17 04:57 Polychromasia Not Reportable 08/28/17 04:57 Hypochromasia Not Reportable 08/28/17 04:57 Poikilocytosis Few 08/28/17 04:57 Anisocytosis 1+ 08/28/17 04:57 Microcytosis Not Reportable 08/28/17 04:57 Macrocytosis Not Reportable 08/28/17 04:57 Spherocytes Not Reportable 08/28/17 04:57 Pappenheimer Bodies Not Reportable 08/28/17 04:57 Sickle Cells Not Reportable 08/28/17 04:57 Target Cells Not Reportable 08/28/17 04:57 Tear Drop Cells Not Reportable 08/28/17 04:57 Ovalocytes Not Reportable 08/28/17 04:57 Helmet Cells Not Reportable 08/28/17 04:57 Connor-Alzada Bodies Not Reportable 08/28/17 04:57 [place] Rings Not Reportable 08/28/17 04:57 Gamal Cells Not Reportable 08/28/17 04:57 Bite Cells Not Reportable 08/28/17 04:57 Crenated Cell Not Reportable 08/28/17 04:57 Elliptocytes Not Reportable 08/28/17 04:57 Acanthocytes (Spur) Not Reportable 08/28/17 04:57 Rouleaux Not Reportable 08/28/17 04:57 Hemoglobin C Crystals Not Reportable 08/28/17 04:57 Schistocytes Not Reportable 08/28/17 04:57 Malaria parasites Not Reportable 08/28/17 04:57 [place] Bodies Not Reportable 08/28/17 04:57 Hem Pathologist Commnt No 08/28/17 04:57 PT 14.2 Sec. (12.2-14.9) 08/27/17 11:35 INR 1.05 (0.87-1.13) 08/27/17 11:35 APTT 48.6 Sec. (24.2-36.6) H 08/27/17 11:35 POC ABG pH 7.430 (7.35-7.45) 08/24/17 10:41 POC ABG pCO2 37.1 (35-45) 08/24/17 10:41 POC ABG pO2 181 (80-105) H 08/24/17 10:41 POC ABG HCO3 24.6 08/24/17 10:41 POC ABG Total CO2 26 08/24/17 10:41 POC ABG O2 Sat 100 08/24/17 10:41 POC ABG Base Excess 0 08/24/17 10:41 FiO2 35 % 08/24/17 10:41 Sodium 128 mmol/L (137-145) L 08/29/17 05:44 Potassium 3.6 mmol/L (3.6-5.0) 08/29/17 05:44 Chloride 91.6 mmol/L (98-107) L 08/29/17 05:44 Carbon Dioxide 22 mmol/L (22-30) 08/29/17 05:44 Anion Gap 18 mmol/L 08/29/17 05:44 BUN 98 mg/dL (7-17) H 08/29/17 05:44 Creatinine 1.1 mg/dL (0.7-1.2) 08/29/17 05:44 Estimated GFR 58 ml/min 08/29/17 05:44 BUN/Creatinine Ratio 89 % 08/29/17 05:44 Glucose 109 mg/dL (65-100) H 08/29/17 05:44 POC Glucose 133 (70-105) H 08/29/17 05:21 Hemoglobin A1c 5.1 % (4-6) 08/21/17 16:21 Osmolality 296 Mosm/kg 08/23/17 12:11 Uric Acid 9.9 mg/dL (3.5-7.6) H 08/23/17 12:11 Calcium 7.5 mg/dL (8.4-10.2) L 08/29/17 05:44 Total Bilirubin 0.30 mg/dL (0.1-1.2) 08/22/17 05:10 AST 31 units/L (5-40) 08/22/17 05:10 ALT 13 units/L (7-56) 08/22/17 05:10 Alkaline Phosphatase 54 units/L (35-129) 08/22/17 05:10 Troponin T 0.067 ng/mL (0.00-0.029) H 08/21/17 16:21 C-Reactive Protein 0.60 mg/dL (0.00-1.30) 08/25/17 05:43 NT-Pro-B Natriuret Pep 80160 pg/mL (0-900) H 08/21/17 16:21 Total Protein 7.7 g/dL (6.3-8.2) 08/22/17 05:10 Albumin 3.1 g/dL (3.9-5) L 08/22/17 05:10 Albumin/Globulin Ratio 0.7 % 08/22/17 05:10 Triglycerides 60 mg/dL (2-149) 08/21/17 16:21 Cholesterol 109 mg/dL (50-199) 08/21/17 16:21 LDL Cholesterol Direct 42 mg/dL (50-130) L 08/21/17 16:21 HDL Cholesterol 55 mg/dL (40-59) 08/21/17 16:21 Cholesterol/HDL Ratio 1.98 % 08/21/17 16:21 Urine Color Dora (Yellow) 08/21/17 16:27 Urine Turbidity Clear (Clear) 08/21/17 16:27 Urine pH 7.0 (5.0-7.0) 08/21/17 16:27 Ur Specific [place] 1.019 (1.003-1.030) 08/21/17 16:27 Urine Protein >500 mg/dL (Negative) 08/21/17 16:27 Urine Glucose (UA) Neg mg/dL (Negative) 08/21/17 16:27 Urine Ketones Neg mg/dL (Negative) 08/21/17 16:27 Urine Blood Neg (Negative) 08/21/17 16:27 Urine Nitrite Neg (Negative) 08/21/17 16:27 Urine Bilirubin Neg (Negative) 08/21/17 16:27 Urine Urobilinogen < 2.0 mg/dL (<2.0) 08/21/17 16:27 Ur Leukocyte Esterase Lg (Negative) 08/21/17 16:27 Urine WBC (Auto) 108.0 /HPF (0.0-6.0) H 08/21/17 16:27 Urine RBC (Auto) 14.0 /HPF (0.0-6.0) 08/21/17 16:27 U Epithel Cells (Auto) 1.0 /HPF (0-13.0) 08/21/17 16:27 Urine Bacteria (Auto) 4+ /HPF (Negative) 08/21/17 16:27 Urine Mucus Few /HPF 08/21/17 16:27 Urine Osmolality 298 Mosm/kg 08/23/17 18:20 Urine Creatinine 53.7 mg/dL (0.1-20.0) H 08/23/17 18:20 Urine Sodium 17 mmol/L 08/23/17 18:20 Urine Total Protein 26 mg/dL (5-11.8) H 08/23/17 18:20 Blood Type O POSITIVE 08/28/17 14:11 Antibody Screen Negative 08/28/17 14:11 Crossmatch See Detail 08/28/17 14:11 Hemoglobin is 8.7 this morning
--- NOTE | 2017-08-29 17:47 | Progress Note ---
Assessment and Plan p: 1. Probable acute diastolic CHF/pulm edema, less likely aspiration pneumonitis 2. Acute respiratory failure, hypoxia and hypercapnea 3. CHARLEY 4. Pulm HTN 5. 6. Alzheimer's dementia 7. Hyponatremia, better Recommendation. Continue with the BiPAP therapy. Subjective Date of service: 08/29/17 Principal diagnosis: Anemia Interval history: No new complaints Objective Vital Signs - 12hr 08/29/17 08/29/17 08/29/17 08:29 08:42 10:00 Temperature 98.3 F Pulse Rate 63 65 Pulse Rate [ Anterior Right Throughout] Pulse Rate [ 63 From Monitor] Respiratory 20 20 Rate Respiratory Rate [Anterior Right Throughout] Blood Pressure 141/55 [Right] O2 Sat by Pulse 96 95 100 Oximetry 08/29/17 08/29/17 08/29/17 10:09 10:15 10:28 Temperature Pulse Rate Pulse Rate [ 65 63 66 Anterior Right Throughout] Pulse Rate [ From Monitor] Respiratory Rate Respiratory 18 18 20 Rate [Anterior Right Throughout] Blood Pressure [Right] O2 Sat by Pulse Oximetry 08/29/17 08/29/17 08/29/17 12:26 16:00 16:11 Temperature 98.4 F Pulse Rate 66 Pulse Rate [ 63 64 Anterior Right Throughout] Pulse Rate [ From Monitor] Respiratory 20 Rate Respiratory 20 20 Rate [Anterior Right Throughout] Blood Pressure 151/50 [Right] O2 Sat by Pulse 100 Oximetry 08/29/17 17:14 Temperature 99.5 F Pulse Rate 68 Pulse Rate [ Anterior Right Throughout] Pulse Rate [ From Monitor] Respiratory 20 Rate Respiratory Rate [Anterior Right Throughout] Blood Pressure 150/47 [Right] O2 Sat by Pulse 100 Oximetry Constitutional: no acute distress, alert, other (being cleaned and changed right now) Eyes: non-icteric ENT: oropharynx moist Neck: supple Effort: normal Ascultation: Bilateral: rhonchi Cardiovascular: regular rate and rhythm (no mrg) Gastrointestinal: normoactive bowel sounds, soft, non-tender, non-distended Integumentary: normal Extremities: no cyanosis, pink and warm, edema (1+ RLE) Neurologic: other (contractures, awake, nonverbal, moans, does not follow commands) Psychiatric: other (unable to assess) CBC and BMP: 08/29/17 05:44 08/29/17 05:44 ABG, PT/INR, D-dimer: ABG POC ABG pH 7.430 (7.35-7.45) 08/24/17 10:41 POC ABG pCO2 37.1 (35-45) 08/24/17 10:41 POC ABG pO2 181 (80-105) H 08/24/17 10:41 POC ABG HCO3 24.6 08/24/17 10:41 POC ABG Total CO2 26 08/24/17 10:41 POC ABG O2 Sat 100 08/24/17 10:41 PT/INR, D-dimer PT 14.2 Sec. (12.2-14.9) 08/27/17 11:35 INR 1.05 (0.87-1.13) 08/27/17 11:35 Abnormal lab findings: Abnormal Labs 08/21/17 08/21/17 08/21/17 16:12 16:21 16:21 RBC 2.79 L Hgb 8.3 L Hct 25.1 L RDW 22.3 H Plt Count Lymph % (Auto) 5.9 L [place] % (Auto) Lymph # 0.5 L Seg Neutrophils % 88.1 H Seg Neuts % (Manual) Lymphocytes % (Manual) Lymphocytes # (Manual) APTT POC ABG pH 7.228 L POC ABG pCO2 57.7 H POC ABG pO2 192 H Sodium 123 L Potassium 5.1 H Chloride 89.7 L Carbon Dioxide BUN 44 H Creatinine 1.3 H Glucose 123 H POC Glucose Uric Acid Calcium 8.3 L Troponin T NT-Pro-B Natriuret Pep Albumin 3.3 L LDL Cholesterol Direct Urine WBC (Auto) Urine Creatinine Urine Total Protein Crossmatch 08/21/17 08/21/17 08/21/17 16:21 16:21 16:27 RBC Hgb Hct RDW Plt Count Lymph % (Auto) [place] % (Auto) Lymph # Seg Neutrophils % Seg Neuts % (Manual) Lymphocytes % (Manual) Lymphocytes # (Manual) APTT POC ABG pH POC ABG pCO2 POC ABG pO2 Sodium Potassium Chloride Carbon Dioxide BUN Creatinine Glucose POC Glucose Uric Acid Calcium Troponin T 0.067 H NT-Pro-B Natriuret Pep 84474 H Albumin LDL Cholesterol Direct 42 L Urine WBC (Auto) 108.0 H Urine Creatinine Urine Total Protein Crossmatch 08/21/17 08/22/17 08/22/17 18:45 05:10 05:10 RBC 2.52 L Hgb 7.7 L Hct 22.6 L RDW 21.3 H Plt Count Lymph % (Auto) [place] % (Auto) Lymph # Seg Neutrophils % Seg Neuts % (Manual) Lymphocytes % (Manual) 6.0 L Lymphocytes # (Manual) 0.3 L APTT POC ABG pH POC ABG pCO2 POC ABG pO2 65 L Sodium 124 L Potassium 5.4 H Chloride 89.3 L Carbon Dioxide 18 L BUN 46 H Creatinine 1.5 H Glucose POC Glucose Uric Acid Calcium Troponin T NT-Pro-B Natriuret Pep Albumin 3.1 L LDL Cholesterol Direct Urine WBC (Auto) Urine Creatinine Urine Total Protein Crossmatch 08/22/17 08/22/17 08/23/17 06:44 14:33 00:20 RBC Hgb Hct RDW Plt Count Lymph % (Auto) [place] % (Auto) Lymph # Seg Neutrophils % Seg Neuts % (Manual) Lymphocytes % (Manual) Lymphocytes # (Manual) APTT POC ABG pH POC ABG pCO2 POC ABG pO2 Sodium 123 L 125 L Potassium 5.3 H Chloride 89.3 L Carbon Dioxide 18 L BUN Creatinine Glucose POC Glucose 108 H Uric Acid Calcium Troponin T NT-Pro-B Natriuret Pep Albumin LDL Cholesterol Direct Urine WBC (Auto) Urine Creatinine Urine Total Protein Crossmatch 08/23/17 08/23/17 08/23/17 05:38 05:38 12:11 RBC 2.50 L Hgb 7.5 L Hct 22.3 L RDW 21.8 H Plt Count Lymph % (Auto) [place] % (Auto) Lymph # Seg Neutrophils % Seg Neuts % (Manual) Lymphocytes % (Manual) Lymphocytes # (Manual) APTT POC ABG pH POC ABG pCO2 POC ABG pO2 Sodium 130 L Potassium Chloride 91.7 L Carbon Dioxide 20 L BUN 58 H Creatinine 1.6 H Glucose 134 H POC Glucose Uric Acid 9.9 H Calcium 8.3 L Troponin T NT-Pro-B Natriuret Pep Albumin LDL Cholesterol Direct Urine WBC (Auto) Urine Creatinine Urine Total Protein Crossmatch 08/23/17 08/23/17 08/24/17 18:20 18:56 01:14 RBC Hgb Hct RDW Plt Count Lymph % (Auto) [place] % (Auto) Lymph # Seg Neutrophils % Seg Neuts % (Manual) Lymphocytes % (Manual) Lymphocytes # (Manual) APTT POC ABG pH POC ABG pCO2 POC ABG pO2 Sodium Potassium Chloride Carbon Dioxide BUN Creatinine Glucose POC Glucose 155 H 157 H Uric Acid Calcium Troponin T NT-Pro-B Natriuret Pep Albumin LDL Cholesterol Direct Urine WBC (Auto) Urine Creatinine 53.7 H Urine Total Protein 26 H Crossmatch 08/24/17 08/24/17 08/24/17 05:30 05:30 06:09 RBC 2.45 L Hgb 7.4 L Hct 22.1 L RDW 22.2 H Plt Count Lymph % (Auto) 7.3 L [place] % (Auto) 7.9 H Lymph # 0.4 L Seg Neutrophils % 84.7 H Seg Neuts % (Manual) Lymphocytes % (Manual) Lymphocytes # (Manual) APTT POC ABG pH POC ABG pCO2 POC ABG pO2 Sodium 130 L Potassium Chloride 93.1 L Carbon Dioxide BUN 73 H Creatinine 1.6 H Glucose 140 H POC Glucose 138 H Uric Acid Calcium 7.7 L Troponin T NT-Pro-B Natriuret Pep Albumin LDL Cholesterol Direct Urine WBC (Auto) Urine Creatinine Urine Total Protein Crossmatch 08/24/17 08/24/17 08/24/17 10:41 12:00 18:17 RBC Hgb Hct RDW Plt Count Lymph % (Auto) [place] % (Auto) Lymph # Seg Neutrophils % Seg Neuts % (Manual) Lymphocytes % (Manual) Lymphocytes # (Manual) APTT POC ABG pH POC ABG pCO2 POC ABG pO2 181 H Sodium Potassium Chloride Carbon Dioxide BUN Creatinine Glucose POC Glucose 160 H 136 H Uric Acid Calcium Troponin T NT-Pro-B Natriuret Pep Albumin LDL Cholesterol Direct Urine WBC (Auto) Urine Creatinine Urine Total Protein Crossmatch 08/25/17 08/25/17 08/25/17 00:16 05:43 05:43 RBC Hgb 7.0 L Hct 21.5 L RDW Plt Count Lymph % (Auto) [place] % (Auto) Lymph # Seg Neutrophils % Seg Neuts % (Manual) Lymphocytes % (Manual) Lymphocytes # (Manual) APTT POC ABG pH POC ABG pCO2 POC ABG pO2 Sodium 132 L Potassium 3.5 L Chloride 95.5 L Carbon Dioxide BUN 94 H Creatinine 1.4 H Glucose 124 H POC Glucose 110 H Uric Acid Calcium 7.6 L Troponin T NT-Pro-B Natriuret Pep Albumin LDL Cholesterol Direct Urine WBC (Auto) Urine Creatinine Urine Total Protein Crossmatch 08/25/17 08/25/17 08/25/17 10:30 11:53 18:19 RBC Hgb Hct RDW Plt Count Lymph % (Auto) [place] % (Auto) Lymph # Seg Neutrophils % Seg Neuts % (Manual) Lymphocytes % (Manual) Lymphocytes # (Manual) APTT POC ABG pH POC ABG pCO2 POC ABG pO2 Sodium Potassium Chloride Carbon Dioxide BUN Creatinine Glucose POC Glucose 129 H 117 H Uric Acid Calcium Troponin T NT-Pro-B Natriuret Pep Albumin LDL Cholesterol Direct Urine WBC (Auto) Urine Creatinine Urine Total Protein Crossmatch See Detail 08/25/17 08/26/17 08/26/17 20:31 00:14 08:14 RBC Hgb 9.2 L Hct 27.4 L RDW Plt Count Lymph % (Auto) [place] % (Auto) Lymph # Seg Neutrophils % Seg Neuts % (Manual) Lymphocytes % (Manual) Lymphocytes # (Manual) APTT POC ABG pH POC ABG pCO2 POC ABG pO2 Sodium 135 L Potassium Chloride 97.1 L Carbon Dioxide BUN 92 H Creatinine Glucose 125 H POC Glucose 124 H Uric Acid Calcium 7.6 L Troponin T NT-Pro-B Natriuret Pep Albumin LDL Cholesterol Direct Urine WBC (Auto) Urine Creatinine Urine Total Protein Crossmatch 08/26/17 08/26/17 08/26/17 08:14 19:00 23:34 RBC Hgb 7.8 L Hct 23.5 L RDW Plt Count Lymph % (Auto) [place] % (Auto) Lymph # Seg Neutrophils % Seg Neuts % (Manual) Lymphocytes % (Manual) Lymphocytes # (Manual) APTT POC ABG pH POC ABG pCO2 POC ABG pO2 Sodium Potassium Chloride Carbon Dioxide BUN Creatinine Glucose POC Glucose 137 H 133 H Uric Acid Calcium Troponin T NT-Pro-B Natriuret Pep Albumin LDL Cholesterol Direct Urine WBC (Auto) Urine Creatinine Urine Total Protein Crossmatch 08/27/17 08/27/17 08/27/17 05:31 06:13 07:42 RBC Hgb Hct RDW Plt Count Lymph % (Auto) [place] % (Auto) Lymph # Seg Neutrophils % Seg Neuts % (Manual) Lymphocytes % (Manual) Lymphocytes # (Manual) APTT POC ABG pH POC ABG pCO2 POC ABG pO2 Sodium 135 L Potassium Chloride Carbon Dioxide BUN 95 H Creatinine Glucose 130 H POC Glucose 158 H 149 H Uric Acid Calcium 7.8 L Troponin T NT-Pro-B Natriuret Pep Albumin LDL Cholesterol Direct Urine WBC (Auto) Urine Creatinine Urine Total Protein Crossmatch 08/27/17 08/27/17 08/27/17 11:35 11:35 16:34 RBC 2.53 L Hgb 7.6 L Hct 22.9 L RDW 21.1 H Plt Count Lymph % (Auto) [place] % (Auto) Lymph # Seg Neutrophils % Seg Neuts % (Manual) Lymphocytes % (Manual) Lymphocytes # (Manual) APTT 48.6 H POC ABG pH POC ABG pCO2 POC ABG pO2 Sodium Potassium Chloride Carbon Dioxide BUN Creatinine Glucose POC Glucose 124 H Uric Acid Calcium Troponin T NT-Pro-B Natriuret Pep Albumin LDL Cholesterol Direct Urine WBC (Auto) Urine Creatinine Urine Total Protein Crossmatch 08/28/17 08/28/17 08/28/17 00:14 04:57 04:57 RBC 1.90 L Hgb 5.9 L* Hct 18.2 L* RDW 21.6 H Plt Count 77 L Lymph % (Auto) [place] % (Auto) Lymph # Seg Neutrophils % Seg Neuts % (Manual) 80.0 H Lymphocytes % (Manual) 3.0 L Lymphocytes # (Manual) 0.2 L APTT POC ABG pH POC ABG pCO2 POC ABG pO2 Sodium 133 L Potassium Chloride 97.5 L Carbon Dioxide BUN 98 H Creatinine Glucose 139 H POC Glucose 148 H Uric Acid Calcium 7.8 L Troponin T NT-Pro-B Natriuret Pep Albumin LDL Cholesterol Direct Urine WBC (Auto) Urine Creatinine Urine Total Protein Crossmatch 08/28/17 08/28/17 08/28/17 06:18 11:09 14:11 RBC Hgb Hct RDW Plt Count Lymph % (Auto) [place] % (Auto) Lymph # Seg Neutrophils % Seg Neuts % (Manual) Lymphocytes % (Manual) Lymphocytes # (Manual) APTT POC ABG pH POC ABG pCO2 POC ABG pO2 Sodium Potassium Chloride Carbon Dioxide BUN Creatinine Glucose POC Glucose 176 H 180 H Uric Acid Calcium Troponin T NT-Pro-B Natriuret Pep Albumin LDL Cholesterol Direct Urine WBC (Auto) Urine Creatinine Urine Total Protein Crossmatch See Detail 08/28/17 08/29/1717 15:40 00:40 05:21 RBC Hgb Hct RDW Plt Count Lymph % (Auto) [place] % (Auto) Lymph # Seg Neutrophils % Seg Neuts % (Manual) Lymphocytes % (Manual) Lymphocytes # (Manual) APTT POC ABG pH POC ABG pCO2 POC ABG pO2 Sodium Potassium Chloride Carbon Dioxide BUN Creatinine Glucose POC Glucose 144 H 121 H 133 H Uric Acid Calcium Troponin T NT-Pro-B Natriuret Pep Albumin LDL Cholesterol Direct Urine WBC (Auto) Urine Creatinine Urine Total Protein Crossmatch 08/29/17 08/29/17 05:44 05:44 RBC 2.87 L Hgb 8.7 L Hct 25.3 L D RDW 17.9 H Plt Count 120 L Lymph % (Auto) 10.9 L [place] % (Auto) 12.2 H Lymph # 0.6 L Seg Neutrophils % 73.2 H Seg Neuts % (Manual) Lymphocytes % (Manual) Lymphocytes # (Manual) APTT POC ABG pH POC ABG pCO2 POC ABG pO2 Sodium 128 L Potassium Chloride 91.6 L Carbon Dioxide BUN 98 H Creatinine Glucose 109 H POC Glucose Uric Acid Calcium 7.5 L Troponin T NT-Pro-B Natriuret Pep Albumin LDL Cholesterol Direct Urine WBC (Auto) Urine Creatinine Urine Total Protein Crossmatch
[2017-08-29] MEDS: TRICOR PO SCH (22:38)
[2017-08-29] MEDS: XALATAN 0.005% OU SCH (22:39)
[2017-08-30] MEDS: DUONEB *Not for PRN Use IH SCH ×3 (02:23→13:51)
[2017-08-30] MEDS: SYNTHROID PO SCH (06:01)
[2017-08-30] MEDS: ZOSYN/NS 3.375GM/50ML 3.375 GM/50 ML BAG IV SCH (06:02)
[2017-08-30 08:20] LABS: Basophils % (Auto) 0.3 % (0.0-1.8); Eosinophils % (Auto) 2.9 % (0.0-4.3); Hematocrit 23.7 % (30.3-42.9); Hemoglobin 8.1 gm/dl (10.1-14.3); Mean Corpuscular HGB Conc 34 % (30-34); Mean Corpuscular Hemoglobin 31 pg (28-32); Mean Corpuscular Volume 91 fl (79-97); Platelet Count 122 K/mm3 (140-440); Red Blood Count 2.61 M/mm3 (3.65-5.03); White Blood Count 4.3 K/mm3 (4.5-11.0)
[2017-08-30 08:24] LABS: Anion Gap 17 mmol/L; BUN/Creatinine Ratio 100; Blood Urea Nitrogen 90 mg/dL (7-17); Carbon Dioxide 26 mmol/L (22-30); Chloride 92.8 mmol/L (98-107); Glucose 113 mg/dL (65-100); Potassium 3.6 mmol/L (3.6-5.0); Sodium 132 mmol/L (137-145)
--- NOTE | 2017-08-30 09:38 | Progress Note ---
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 Subjective Date of service: 08/30/17 Principal diagnosis: Anemia Interval history: No events overnight Objective Vital Signs Temp Pulse Pulse Pulse Resp Resp Resp 08/30/17 04:28 98.0 F 63 22 08/30/17 02:46 85 22 08/30/17 02:24 73 18 08/29/17 23:34 99.4 F 67 24 08/29/17 23:16 20 08/29/17 23:00 20 08/29/17 22:00 68 20 08/29/17 20:50 68 08/29/17 20:25 63 08/29/17 20:17 71 15 08/29/17 20:08 99.0 F 67 22 08/29/17 19:57 67 13 08/29/17 19:56 08/29/17 17:14 99.5 F 68 20 08/29/17 16:11 64 20 08/29/17 16:00 63 20 08/29/17 12:26 98.4 F 66 20 08/29/17 12:08 98.4 F 67 20 08/29/17 10:28 66 20 08/29/17 10:15 63 18 08/29/17 10:09 65 18 08/29/17 10:00 BP BP BP Pulse Ox 08/30/17 04:28 159/50 100 08/30/17 02:46 08/30/17 02:24 08/29/17 23:34 147/53 2 L 08/29/17 23:16 08/29/17 23:00 08/29/17 22:00 100 08/29/17 20:50 176/50 08/29/17 20:25 08/29/17 20:17 08/29/17 20:08 176/50 100 08/29/17 19:57 08/29/17 19:56 99 08/29/17 17:14 150/47 100 08/29/17 16:11 08/29/17 16:00 08/29/17 12:26 151/50 100 08/29/17 12:08 151/50 100 08/29/17 10:28 08/29/17 10:15 08/29/17 10:09 08/29/17 10:00 100 - Physical Examination Narrative exam: Vitals reviewed GEN: No acute distress noted moderately overweight HEENT: Carotids 2+ NECK: Supple CVS: S1 and S2 heard , 3/6 systolic murmur LUNGS/CHEST: Normal auscultation ABD: Soft nontender Extremities: 2+ 2+edema noted normal color NEURO: Alert moves all all 4 extremities General: No Apparent Distress HEENT: Positive: Pallor Abdomen: Positive: Soft Extremities: Present: +2 Edema - Labs and Meds CBC 08/30/17 Range/Units 07:02 WBC 4.3 L (4.5-11.0) K/mm3 RBC 2.61 L (3.65-5.03) M/mm3 Hgb 8.1 L (10.1-14.3) gm/dl Hct 23.7 L (30.3-42.9) % Plt Count 122 L (140-440) K/mm3 Lymph # 0.5 L (1.2-5.4) K/mm3 [place] # 0.6 (0.0-0.8) K/mm3 Eos # 0.1 (0.0-0.4) K/mm3 Baso # 0.0 (0.0-0.1) K/mm3 Comprehensive Metabolic Panel 08/30/17 Range/Units 07:02 Sodium 132 L (137-145) mmol/L Potassium 3.6 (3.6-5.0) mmol/L Chloride 92.8 L (98-107) mmol/L Carbon Dioxide 26 (22-30) mmol/L BUN 90 H (7-17) mg/dL Creatinine 0.9 (0.7-1.2) mg/dL Glucose 113 H (65-100) mg/dL Calcium 8.0 L (8.4-10.2) mg/dL - Imaging and Cardiology EKG: report reviewed (Sinus tach)
[2017-08-30] MEDS ORDERED: FERROUS SULFATE PO SCH (10:00)
[2017-08-30] MEDS: Centrum Liq FEEDTUBE SCH (10:51)
[2017-08-30] MEDS: APRESOLINE PO SCH (10:51)
[2017-08-30] MEDS: NORMODYNE PO SCH (10:51)
[2017-08-30] MEDS: VITAMIN B-12 PO SCH (10:52)
[2017-08-30] MEDS: PROTONIX FEEDTUBE SCH (10:52)
[2017-08-30] MEDS: HEPARIN SUB-Q SCH (10:52)
[2017-08-30] MEDS: SENOKOT PO SCH (10:52)
[2017-08-30] MEDS: IMURAN PO SCH (11:20)
--- NOTE | 2017-08-30 11:28 | Progress Note ---
Assessment and Plan impression * Acute on chronic renal failure * Anemia * Shortness of breath * Hypertension * Encephalopathy * UTI recommendations * Her serum creatinine has improved further . * Her BUN however is still noted to be elevated . Suspect blood in the GI tract. * She is however third spacing at this time. She'll discontinue her IV fluid. Keep her off Lasix for now due to hypotension and high BUN * Avoid nephrotoxins * Monitor fluid status and electrolytes closely * shortness of breath most likely due to COPD and fluid overload * continue antibiotics as per ID recommendations * GI evaluation appreciated Subjective Date of service: 08/30/17 Principal diagnosis: Anemia Interval history: Patient is awake and alert. Appears comfortable. No nausea or vomiting Objective - Vital Signs Vital signs: Vital Signs - 12hr 08/29/17 08/30/17 08/30/17 23:34 02:24 02:46 Temperature 99.4 F Pulse Rate 67 Pulse Rate [ Anterior Bilateral Throughout] Pulse Rate [ 73 85 Anterior Right Throughout] Pulse Rate [ From Monitor] Respiratory 24 Rate Respiratory Rate [Anterior Bilateral Throughout] Respiratory 18 22 Rate [Anterior Right Throughout] Blood Pressure Blood Pressure 147/53 [Left] O2 Sat by Pulse 2 L Oximetry 08/30/17 08/30/17 08/30/17 04:28 07:24 07:35 Temperature 98.0 F Pulse Rate 63 Pulse Rate [ 63 65 Anterior Bilateral Throughout] Pulse Rate [ Anterior Right Throughout] Pulse Rate [ From Monitor] Respiratory 22 Rate Respiratory 18 20 Rate [Anterior Bilateral Throughout] Respiratory Rate [Anterior Right Throughout] Blood Pressure 159/50 Blood Pressure [Left] O2 Sat by Pulse 100 100 Oximetry 08/30/17 09:58 Temperature Pulse Rate 64 Pulse Rate [ Anterior Bilateral Throughout] Pulse Rate [ Anterior Right Throughout] Pulse Rate [ 64 From Monitor] Respiratory 20 Rate Respiratory Rate [Anterior Bilateral Throughout] Respiratory Rate [Anterior Right Throughout] Blood Pressure Blood Pressure [Left] O2 Sat by Pulse 95 Oximetry - General Appearance General appearance: well-developed, well-nourished, appears stated age EENT: PERRL, mucous membranes moist Neck: no JVD, no thyromegaly, no carotid bruit, supple Respiratory: Present: Decreased Breath Sounds (at the bases) Cardiology: regular, normal heart rate Gastrointestinal: normal, normoactive bowel sounds, other (PEG tube in place) Integumentary: other (1+ edema) - Lab 08/30/17 07:02 08/30/17 07:02 Most recent lab results Calcium 8.0 mg/dL (8.4-10.2) L 08/30/17 07:02 Urine Creatinine 53.7 mg/dL (0.1-20.0) H 08/23/17 18:20 Urine Sodium 17 mmol/L 08/23/17 18:20 Urine Total Protein 26 mg/dL (5-11.8) H 08/23/17 18:20
--- NOTE | 2017-08-30 11:49 | Discharge Summary ---
Providers - Providers Date of Admission: 08/21/17 20:50 Attending physician: ODILIA FERNANDES MD 08/22/17 05:33 Consult to Wound/ET Nurse [CONS] Routine Reason For Exam: wound eval. SACRAL WOUND 08/22/17 05:36 Consult to Dietitian/Nutrition [CONS] Routine Physician Instructions: ON TUBE FEEDING AT NURSING Reason For Exam: HAS PEG TUBE Reason for Consult: Write/Manage Tube Feeding 08/22/17 05:54 Consult to Physician [CONS] Routine Consulting Provider: LINWOOD MARTINEZ Reason For Exam: Resp failure Place consult to:: Dr. Martinez Notified:: Vika RN Phone number called:: Was contact made?: Yes If yes, spoke with:: Cesilia-answering service Time called:: 09:47 08/22/17 10:11 Consult to Physician [CONS] Routine Consulting Provider: GRIFFIN FONTANEZ Reason For Exam: CHF Place consult to:: Dr. Fontanez Notified:: Vika RN Phone number called:: Was contact made?: Yes If yes, spoke with:: Ivett-answering service Time called:: 08:40 08/22/17 10:29 Consult to Physician [CONS] Routine Consulting Provider: TIM ALVARADO Reason For Exam: CHARLEY ON CKD Place consult to:: Dr. Alvarado Notified:: Vika RN Phone number called:: Was contact made?: Yes If yes, spoke with:: Erin-answering service Time called:: 09:11 08/25/17 00:20 Consult to Wound/ET Nurse [CONS] Urgent Reason For Exam: wound eval 08/25/17 12:07 Consult to Physician [CONS] Routine Consulting Provider: LESLIE FLOREZ Reason For Exam: ESBL Place consult to:: ID Notified:: yes Was contact made?: Yes If yes, spoke with:: Dr Whittington Time called:: 12:36 08/27/17 12:35 Consult to Wound/ET Nurse [CONS] Urgent Reason For Exam: wound eval right and left cheek. 08/28/17 09:12 Consult to Physician [CONS] Routine Consulting Provider: DWAYNE VELASQUEZ Reason For Exam: anemia Place consult to:: Deana gastro Notified:: office Phone number called:: [phone] Was contact made?: Yes If yes, spoke with:: olga Time called:: 10:07 Primary care physician: FANNY JAMES Hospitalization Reason for admission: AMS/RESPIRATORY FAILURE Condition: Stable Hospital course: Patient is an 82 y/o Female with PMH of HTN, COPD, Diastolic CHF, HLD anemia and glaucoma -resident of [place] sent in for increasing SOB and wheezing for 1 day. Cough productive of mucoid sputum. No Fever or chills. Also altered sensorium. Daughter at bed side. Recent admission in January for PEG tube malfunction and Vomiting coffee ground material. On admission patient was noted to have Acute cystitis with cultures growing ESBL and was treated with IV abx based on ID recommendation. Acute respiratory failure with hypoxia -Patient was treated with IV Levaquin and clindamycin, and switched Zosyn per ID recommendation -Pulmonary status did improve to baseline. Diastolic CHF, Moderate Aortic stenosis -Patient was on IV lasix now D/Cj because of the elevated BUN -Cardiology recommend conservative management COPD exacerbation likely SECONDARY TO ASPIRATION PNEUMONITIS -Patient was treated with nebs, pulmonary and discharged on Levaquin and clindamycin Acute Encephalopathy -Due to hypoxia -There was improvement to baseline. Acute cystitis secondary to ESBL -Urine culture grew ESBL and ID was consulted and recommended Levaquin, and patient was treated on Levaquin to complete at the skilled facility Hyponatremia with possible hypovolemia -[employer] Employee was consulted and assisted, Resolution was achieved prior to discharge CHARLEY (acute kidney injury) WITH VASOMOTOR NEPHROPATHY ON CKD - ATN/volume depletion -Resolved prior to discharge Hypokalemia -Resplved HTN (hypertension) - Cont Antihypertensives Glaucoma - COnt Latanoprost Anemia - Hemoglobin dropped from -Patient was transfused. GI did not recommend any endoscopy at this time due to multiple co-morbidites and also as no overt evidence of bleed was noted GERD (gastroesophageal reflux disease) HLD (hyperlipidemia) - on fenofibrates Anasarca Likely due to CHF. 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 Disposition: DC/TX-03 [facility] Time spent for discharge: 35 MINS Core Measure Documentation - Palliative Care Palliative Care/ Comfort Measures: Not Applicable - Core Measures Any of the following diagnoses?: none - VTE Discharge Requirements Deep Vein Thrombosis/Pulmonary Embolism Present on Admission: No Exam - Physical Exam Narrative exam: General appearance: Present: severe distress, well-nourished, - EENT Eyes: Present: PERRL ENT: hearing intact, clear oral mucosa - Neck Neck: Present: supple, normal ROM - Respiratory Respiratory effort: normal Respiratory: bilateral: diminished, rhonchi - Cardiovascular Heart rate: 80 Rhythm: regular Heart Sounds: Present: S1 & S2. Absent: rub, click - Extremities Extremities: no ischemia, pulses intact, pulses symmetrical, +1 pitting edema Peripheral Pulses: within normal limits - Abdominal General gastrointestinal: Present: soft, non-tender, non-distended, normal bowel sounds Female genitourinary: Present: normal - Rectal Rectal Exam: deferred - Integumentary Integumentary: Present: clear, warm, dry - Musculoskeletal Musculoskeletal: gait normal, strength equal bilaterally - Psychiatric Psychiatric: unable to assess - Neurologic Neurologic: CNII-XII intact, moves all extremities - Allied Health Allied health notes reviewed: nursing, case management - Constitutional Vitals: Temp Pulse Resp BP Pulse Ox 98.0 F 64 20 159/50 95 08/30/17 04:28 08/30/17 09:58 08/30/17 09:58 08/30/17 04:28 08/30/17 09:58 Plan Activity: advance as tolerated, fall precautions Diet: low fat Special Instructions: record daily weights, record daily BP diary Durable Medical Equipment Needed Upon Discharge: Oxygen (2 LPM), Nebulizer, other (CPAP QHS) Follow up with: PRIMARY CARE, [Referring] - 3-5 Days VITOR STRINGER MD [Staff Physician] - 7 Days ANDREA HOLLIDAY MD [Staff Physician] - 7 Days ESSIE BANEGAS MD [Staff Physician] - 7 Days Prescriptions: ALBUTEROL NEB's [Proventil 0.083% NEBS] 2.5 mg IH Q4HRT PRN #30 nebu PRN Reason: Shortness Of Breath Esomeprazole Magnesium [NexIUM] 40 mg PO QDAY #60 capsule. Ipratropium/Albuterol Sulfate [DUONEB *Not for PRN Use*] 1 ampul IH Q6HRT #30 ampul.neb Multivitamins Liq [Multiple Vitamin Liq (Theragran)] 5 ml FEEDTUBE QDAY #30 oral.liqd oxyCODONE /ACETAMINOPHEN [Percocet 5/325] 1 tab PO Q6HR PRN #14 tablet PRN Reason: Pain
[2017-08-30 13:11] VITALS: BP 179/67
== END 2017-08-30 14:12 | DRG 177 ==
LOC: ED 15:57 → 4A 20:50
PROVIDERS: ADMIT Internal Medicine; ATTEND Internal Medicine
PROC: 4A033R1 Measurement of Arterial Saturation, Peripheral, Percutaneous Approach (ICD-10-PCS; principal; 2017-08-21)
PROC: 5A09357 Assistance with Respiratory Ventilation, Less than 24 Consecutive Hours, Continuous Positive Airway Pressure (ICD-10-PCS; 2017-08-23)
PROC: 5A09357 Assistance with Respiratory Ventilation, Less than 24 Consecutive Hours, Continuous Positive Airway Pressure (ICD-10-PCS; 2017-08-24)
PROC: 5A09357 Assistance with Respiratory Ventilation, Less than 24 Consecutive Hours, Continuous Positive Airway Pressure (ICD-10-PCS; 2017-08-25)
PROC: 30233N1 Transfusion of Nonautologous Red Blood Cells into Peripheral Vein, Percutaneous Approach (ICD-10-PCS; 2017-08-25)
PROC: 5A09357 Assistance with Respiratory Ventilation, Less than 24 Consecutive Hours, Continuous Positive Airway Pressure (ICD-10-PCS; 2017-08-26)
PROC: 5A09357 Assistance with Respiratory Ventilation, Less than 24 Consecutive Hours, Continuous Positive Airway Pressure (ICD-10-PCS; 2017-08-27)
PROC: 5A09357 Assistance with Respiratory Ventilation, Less than 24 Consecutive Hours, Continuous Positive Airway Pressure (ICD-10-PCS; 2017-08-28)
DX: J69.0 Pneumonitis due to inhalation of food and vomit (principal); I50.31 Acute diastolic (congestive) heart failure; J96.01 Acute respiratory failure with hypoxia; N17.0 Acute kidney failure with tubular necrosis; G93.40 Encephalopathy, unspecified; N39.0 Urinary tract infection, site not specified; J44.1 Chronic obstructive pulmonary disease with (acute) exacerbation; E87.1 Hypo-osmolality and hyponatremia; I13.0 Hypertensive heart and chronic kidney disease with heart failure and stage 1 through stage 4 chronic kidney disease, or unspecified chronic kidney disease; Z88.8 Allergy status to other drugs, medicaments and biological substances; G30.9 Alzheimer's disease, unspecified; F02.80 Dementia in other diseases classified elsewhere, unspecified severity, without behavioral disturbance, psychotic disturbance, mood disturbance, and anxiety; N18.9 Chronic kidney disease, unspecified; K21.9 Gastro-esophageal reflux disease without esophagitis; E78.00 Pure hypercholesterolemia, unspecified; Z90.710 Acquired absence of both cervix and uterus; Z79.82 Long term (current) use of aspirin; Z82.49 Family history of ischemic heart disease and other diseases of the circulatory system; H40.9 Unspecified glaucoma; D64.9 Anemia, unspecified; E87.5 Hyperkalemia; I35.0 Nonrheumatic aortic (valve) stenosis; Z95.0 Presence of cardiac pacemaker; I25.10 Atherosclerotic heart disease of native coronary artery without angina pectoris; I27.20 Pulmonary hypertension, unspecified; E03.9 Hypothyroidism, unspecified; B96.20 Unspecified Escherichia coli [E. coli] as the cause of diseases classified elsewhere; L89.159 Pressure ulcer of sacral region, unspecified stage
CPT/HCPCS: 36415; 36600; 70450; 71010; 76770; 80048; 80051; 80053; 80061; 81001; 82270; 82570; 82607; 82803; 82962; 83036; 83880; 83930; 83935; 84156; 84295; 84300; 84484; 84550; 85007; 85014; 85018; 85025; 85027; 85610; 85730; 86140; 86850; 86900; 86901; 86920; 87076; 87086; 87186; 93005; 93010; 93306; 93970; 94640; 94660; 94760; 96365; 96374; J1644; J1940; J1956; J2543; J2930; J7040; J7500; P9016